=== PATIENT | male | born 1965 | race Caucasian/White ===

== ENCOUNTER 2020-03-09 09:46 | Outpatient (CLI) | payer BC, SELFPAY ==
--- NOTE | ~2020-03-09 | XR_ITS ---
EXAMINATION: SACRUM/COCCYX DATE: 03/09/2020 10:16 INDICATION: Tail bone pain TECHNIQUE: Three views sacrum/coccyx FINDINGS: 02/08/2004 There is no displaced fracture of the sacrum. The coccyx demonstrates overall normal morphology with out acute angulation. IMPRESSION: 1. No acute displaced osseous abnormality of the sacrum. Suspicion for occult or nondisplaced sacral fracture can either be evaluated with CT or MRI. 2. Grossly normal morphology to the coccyx without acute angulation. However, due to the wide range of normal variation of the coccyx, acute injury would be best evaluated by clinical examination and patient's symptoms. Reviewed, dictated and finalized at location A.
== END 2020-03-09 09:47 | disposition home or self-care (01) ==
PROVIDERS: PCP Emergency Medicine; Visit Provider Emergency Medicine
DX: M53.3 Sacrococcygeal disorders, not elsewhere classified (principal)
CPT/HCPCS: 72220

== ENCOUNTER 2020-03-17 16:12 | Outpatient (CLI) | payer BC, SELFPAY ==
--- NOTE | ~2020-03-17 | MR_ITS ---
EXAMINATION: MR sacrum wo con DATE: 03/17/2020 17:18 INDICATION: Sacrococcygeal disorders, not elsewhere classified. TECHNIQUE: Magnetic resonance imaging (MRI) of the sacrum was performed without intravenous contrast. Sequences included coronal oblique T1-weighted FSE, T2-weighted FS FSE, and T2-weighted FSE, axial o blique T2-weighted FS FSE and T1-weighted FSE, and sagittal PD-weighted FS FSE. COMPARISON: Radiographs of the sacrum and coccyx 03/09/2020 FINDINGS: Bone alignment is normal. No fracture. There is mild lumbar spondylosis. There is mild osteoarthritis of the sacroiliac joints characterized by tiny marginal osteophytes. No evidence of inflammatory art hropathy. There is diverticulosis of the colon without evidence of diverticulitis. IMPRESSION: 1. Mild osteoarthritis of the sacroiliac joints. Reviewed, dictated and finalized at location A.
== END 2020-03-17 16:13 | disposition home or self-care (01) ==
PROVIDERS: PCP Emergency Medicine; Visit Provider Emergency Medicine
DX: M53.3 Sacrococcygeal disorders, not elsewhere classified (principal)
CPT/HCPCS: 72195

== ENCOUNTER 2020-09-15 09:51 | Outpatient (CLI) | payer BC, SELFPAY ==
--- NOTE | ~2020-09-15 | XR_ITS ---
EXAMINATION: XR shoulder RT min 2V DATE: 09/15/2020 10:23 INDICATION: Right shoulder pain. Unspecified disorder of synovium and tendon, right shoulder. TECHNIQUE: were obtained. COMPARISON: None. FINDINGS: Bone alignment is normal. No fracture. Glenohumeral joint is normal. There is mild acromioc lavicular joint osteoarthritis. IMPRESSION: 1. Mild right acromioclavicular joint osteoarthritis. Reviewed, dictated and finalized at location B. 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
== END 2020-09-15 09:52 | disposition home or self-care (01) ==
LOC: ANHIMG 10:00
PROVIDERS: PCP Emergency Medicine; Visit Provider Emergency Medicine
DX: M67.911 Unspecified disorder of synovium and tendon, right shoulder (principal); M19.011 Primary osteoarthritis, right shoulder
CPT/HCPCS: 73030

== ENCOUNTER 2024-08-04 08:13 | Outpatient (CLI) | payer BC, SELFPAY ==
--- NOTE | ~2024-08-04 | CT_ITS ---
CT of the Abdomen and Pelvis: Indication: Abdominal pain Technique: 2.5 mm axial scans were obtained through the abdomen and pelvis following intravenous adm inistration of 100 cc of Omnipaque 350. Dose reduction technique was used on this scan by utilizing a utomated exposure control and iterative reconstruction technique. The dose-length product (DLP) was 7 59.40 mGy-cm. Findings: Scans through the lung bases are unremarkable. The liver, spleen, pancreas, gallbladder, adrenals and kidneys are within normal limits. No evidence of aortic aneurysm. No lymphadenopathy. Questionable bowel wall thickening distal rectum versus underdistention. No abscess, free air, or obs truction. Images through the pelvis were performed. Urinary bladder unremarkable. No pelvic mass evident. No as cites. Large probable complex right hydrocele with septations noted. Impression: Questionable mild wall thickening distal rectum/sigmoid colon versus underdistention. Correlate for m ild colitis/diverticulitis. Large probable complex right hydrocele with septations. Testicular ultrasound could be considered for further evaluation as indicated. Reviewed, dictated and finalized at location M. Impression: Questionable mild wall thickening distal rectum/sigmoid colon versus underdiste ntion. Correlate for mild colitis/diverticulitis. Large probable complex right hydrocele with septations. Testicular ultrasound c ould be considered for further evaluation as indicated.
[2024-08-04 08:33] LABS: Estimated Glomerular Filt Rate > 60
== END 2024-08-04 08:14 | disposition home or self-care (01) ==
PROVIDERS: PCP Physician Assistant; Visit Provider Physician Assistant
DX: R10.32 Left lower quadrant pain (principal); Z87.19 Personal history of other diseases of the digestive system
CPT/HCPCS: 74177; Q9967

== ENCOUNTER 2024-10-27 00:17 | Day surgery (SDC) | payer BC, SELFPAY ==
[2024-10-15 13:15] VITALS: BMI 23.0
--- NOTE | 2024-10-26 13:56 | P.PNAN_ITS ---
Anes - Initial Pre Proc Eval Procedure: Operation Date: 10/27/24 08:00 Proposed Procedures p Colonoscopy - Lars Gates MD Date/Time: 10/26/24 13:56 Surgeon: Lars Gates MD Pre Op Diagnosis: Diverticulosis of intestine Patient Data Age: 59 Gender: M Height: 1.8 m Weight: 74.9 kg Allergies Allergy/AdvReac Type Severity Reaction Status Date / Time No Known Allergies Allergy Mild Verified 10/27/24 06:48 Home Medications ?Medication ?Instructions ?Recorded ?Confirmed ?Type No Home Medications 10/15/24 10/15/24 History Patient hx anesthesia problems: none Family hx anesthesia problems: none Results Review: All pre-operative results and documents have been reviewed as part of the pre- operative evaluation. [facility] Past Medical History Medical History (Updated 10/26/24 @ 13:57 by Vick Albarran DO) HLD (hyperlipidemia) Diverticulosis Retina disorder Tear of meniscus of right knee (~2014) Surgical History Surgical History History of repair of ACL (~2015) H/O transurethral resection of prostate (~2019) Family History Family History Father , 89 Family history of malignant neoplasm of urinary bladder Alzheimer disease Sibling Family history of malignant neoplasm of urinary bladder Mother Cerebrovascular accident Glaucoma Macular degeneration Dementia Social History Social History Smoking status: Never smoker Second hand tobacco smoke exposure: No Alcohol intake: former 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) Substance use: never Substance use type: does not use Living arrangements: with family Occupation/Education: occupation 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 Informed Consent: The patient's anesthetic plan and its attendant risks and benefits were discussed with the patient/family/POA. Questions were solicited and answers provided to the satisfaction of the patient/family/POA.
[2024-10-27 06:49] VITALS: BP 114/73; PULSE 88; RESP 18; TEMP 36.1; O2SAT 100
[2024-10-27] MEDS: LACTATED RINGERS 1,000 ML 150 ML IV CONT (06:58)
--- NOTE | 2024-10-27 07:47 | P.HP_ITS ---
History of Present Illness History of Present Illness Consent: Risks, benefits, and alternatives have been discussed and questions answered. Patient agrees to proceed with procedure. Chief complaint: Diverticulosis of intestine Narrative: Vernon Vidales is a 59 year old male with diverticulitis earlier this year, last colonoscopy 2017 Review of Systems Review of Systems: All systems reviewed & are unremarkable except as noted in HPI and below PMFSH Past Medical History Medical History (Updated 10/27/24 @ 07:47 by Lars Gates MD) History of diverticulitis HLD (hyperlipidemia) Diverticulosis Retina disorder Tear of meniscus of right knee (~2014) Surgical History Surgical History History of repair of ACL (~2015) H/O transurethral resection of prostate (~2018) Family History Family History Father , 89 Family history of malignant neoplasm of urinary bladder Alzheimer disease Sibling Family history of malignant neoplasm of urinary bladder Mother Cerebrovascular accident Glaucoma Macular degeneration Dementia Social History Social History Smoking status: Never smoker Second hand tobacco smoke exposure: No Alcohol intake: former 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) Substance use: never Substance use type: does not use Living arrangements: with family Occupation/Education: occupation 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 Gender identity (if verbalized by the patient): Male Spiritual care concerns: No Meds Home Medications and Allergies Home Medications ?Medication ?Instructions ?Recorded ?Confirmed ?Type No Home Medications 10/15/24 10/15/24 History Allergies Allergy/AdvReac Type Severity Reaction Status Date / Time No Known Allergies Allergy Mild Verified 10/27/24 06:48 Vital Signs Vital Signs - 24 hr 10/27/24 06:49 Temperature 97 F L Pulse Rate 88 Respiratory Rate 18 Blood Pressure 114/73 Pulse Oximetry 100 Oxygen Delivery Room Air Exam Const: General: comfortable and no acute distress HENMT: Face/Nose/Sinus: Normal nares present Eyes: General: appearance normal, both eyes and all related structures Neck: Neck: no JVD Resp: Auscultation: clear to auscultation bilaterally Cardio: Rate: regular rate Rhythm: regular rhythm GI: Inspection: non-distended GI Palp: Yes Soft to palpation Skin: General skin exam: normal color Neuro: General: gait normal Speech: normal speech Extrem: General: normal to inspection Psych: Mental Status: mental status grossly normal Assessment and Plan Assessment and plan (1) History of diverticulitis: Code(s): Z87.19 - Personal history of other diseases of the digestive system Status: Acute Assessment and Plan: colonoscopy
[2024-10-27 08:00] VITALS: BP 99/62; PULSE 77; RESP 18; O2SAT 99
[2024-10-27 08:10] VITALS: BP 98/66; PULSE 80; RESP 23; O2SAT 100
[2024-10-27 08:20] VITALS: BP 110/76; PULSE 67; RESP 17; O2SAT 100
--- OUTSIDE RECORDS SUMMARY | 2024-11-03 01:59 | XMS_ITS | Encounter Summary ---
Author Organization [facility] Address [address] [place] [address] Care Team Providers Care Mechanotherapist Name Role Phone Karen Tejeda Primary Care Pr ovider Reason for Visit * Auth/Cert (Routine) Specialty Diagnoses / Procedures Referred By Contac t Referred To Contact Diagnoses Right hydrocele Epididymal cyst Right hydrocele - Primary; Epididymal cyst Procedures KS EXPLORE SCROTUM KS REMOVAL OF HYDROCELE,TUNICA,UNILAT EXPLORATION SCROTAL/TESTIS HYDROCELECTOMY Referral ID Status Reason Start Date Expiration Date Visits Re quested Visits Authorized [id number] 1 1 Encounter Details Date Type Department Care Team (Late st Contact Info) Description 09/16/2024 4:43 PM RN TELEPHONE TRIAGE Anesthesia Event [facility] [address] [place] [address] Raffi Salas DO [address] [place] [address] Lauren Gomez, SEWING MACHINE OPERATOR FLOORPERSON-[facility] [id number] [facility] [place] [address] Anesthesia Record Procedure Summary Procedure Name Responsible Anesthesiologist Anesthesia Start Time Anesthesia Stop Time right scrotal exploration (Right) Raffi Salas DO 09/16/24 1643 09/16/24 1802 Events Date Time Event Comment 09/16/2024 1621 1643 An Start 1645 Pt In Room 1646 An Start Data 1648 PT Reassessment 1653 Induction 1656 An Intubation 1700 Anes Ready 1707 Time Out Anesthesia part icipated in timeout at the time documented in the record by nursing 1708 Proc Start 1752 Proc Stop 1753 An Emergence 1757 Extubation 1800 ANPTO2 1800 an stop data 1800 Pt out of Room 1802 An Stop Meds Name Total ceFAZolin 2,000 mg IVPB 2 g midazolam 2 mg/2mL injection 2 mg fentaNYL 100 mcg/2ml injection 100 mcg lidocaine PF 2% 100 mg propofol 200mg/20mL injection 200 mg rocuronium 50 mg/5 mL injection 50 mg dexamethasone 10 mg/ml PF injection 4 mg ondansetron 4mg/2mL injection 4 mg ketorolac 30 mg/mL injection 30 mg sugammadex 200 mg/2mL injection 200 mg phenylephrine 100 mcg/mL syringe 200 mcg glycopyrrolate 0.4 mg/2mL injection 0.4 mg LR (Lactated ringers) 0 mL * Agents Name Insp. N2O Exp. Sevoflurane Exp. N2O O2 Insp. Sevoflurane N2O * Blood No blood administrations on file. Lines, Drains, and Airways Type Details Placement Removal Peripheral IV Date: 09/16/24; Time : 134; Orientation: Right; Location: Wrist; Gauge: 18 G 09/16/24 1349 by More Roman RN 09/16/24 193 by Samir Herzog, MAGDA ETT Date: 09/16/24; Time : 1655; Placed By: Shen Melgar DO; Vent: easy mask; Induction: Standard IV; Blade Type: Roney; Blade Size: 4; Laryngoscopy View: Grade 1 (full cords); Intubation Adjuncts: Stylet, Cricoid Pressure; Tube: Endotracheal Tube; Placement: Oral; Tube Type: Cuffed-inflated; Tube Size(mm): 8 MM; Measured From: lips; Attempts: 1; Cuff Infated: Air; Verified By: Direct visualization, Bilateral breath sounds, Chest Auscultation, CO2 Monitor 09/16/24 165 by Shen Melgar DO 09/16/24 175 by Shen Melgar DO Procedural Site (Incision) 09/16/24; 1708; Right; Scrotum; 09/17/24; 0137 09/16/24 170 by Kelly Jama, MAGDA 09/17/24 0137 by Generic, Auto Release documented in this encounter Social History Tobacco Use Types Packs/Day Years Used Date Smoking Tobacco: Never Smokeless Tobacco: Never Alcohol Use Standard Drinks/Week Comments Not Currently 0 (1 standard drink = 0.6 oz pur e alcohol) 15 years sober AUDIT-C Answer Date Recorded Q1: How often do you have a drink containing alcohol? Never 09/16/2024 Q2: How many drinks containi ng alcohol do you have on a typical day when you are drinking? Patient does not drink Q3: How often do you have si x or more drinks on one occasion? Never 09/16/2024 Sex and Gender Information Value Date Recorded Sex Assigned at Male 10/18/2021 10:49 PM RN TELEPHONE TRIAGE Gender Identity Male 10/18/2021 10:49 PM RN TELEPHONE TRIAGE Sexual Orientation Straight 10/18/2021 10 :49 PM RN TELEPHONE TRIAGE documented as of this encounter Progress Notes * Raffi Salas, - 09/16/2024 7:38 PM CST ANESTHESIA POSTOP EVALUATION NOTE Procedure: right scrotal exploration (Right) hydrocelectomy with epidydimal cyst excision (Right) Vernon Vidales is a 59 year old male Patient Vitals for the past 6 hrs: BP Temp Pulse Resp SpO2 Pain Rating Score #1 Pain Scale/Observation Pulse - (SPO2/Cuff) 09/16/24 1348 127/77 98.5 ??F (36.9 ??C) 63 12 99 % 0 N 63 bpm 09/16/24 1600 143/84 -- 68 16 99 % -- -- 69 bpm 09/16/24 1613 -- -- -- -- -- 0 N -- 09/16/24 1615 136/90 -- 77 18 98 % -- -- 77 bpm 09/16/24 1803 125/66 97.4 ??F (36.3 ??C) 86 12 99 % 4 N -- 09/16/24 1805 124/86 -- 84 10 100 % -- -- -- 09/16/24 1808 134/85 -- 81 12 100 % -- -- -- 09/16/24 1810 134/85 -- 81 11 100 % -- -- -- 09/16/24 1815 141/91 -- 77 12 100 % 6 N -- 09/16/24 1818 -- -- -- -- -- 6 -- -- 09/16/24 1820 130/82 -- 78 14 99 % -- -- -- 09/16/24 1825 133/72 -- 79 12 97 % -- -- -- 09/16/24 1830 147/94 -- 80 14 99 % -- -- -- 09/16/24 1835 149/93 97.3 ??F (36.3 ??C) 76 12 98 % 2 N -- 09/16/24 1839 140/86 -- 83 13 -- -- -- -- 09/16/24 1845 132/88 97.6 ??F (36.4 ??C) 79 18 -- -- -- -- 09/16/24 1900 143/89 -- 78 10 -- -- -- -- 09/16/24 1906 -- -- -- -- -- 3 N -- 09/16/24 1915 144/93 -- 80 17 -- -- -- -- 09/16/24 1930 -- -- -- -- -- 2 N -- Anesthesia Type: general ETT Pre-op Diagnosis Codes: * Right hydrocele [N43.3] * Epididymal cyst [N50.3] Mental Status: awake, alert and oriented Neuro Status: No numbness, tingling or visual disturbances Respiratory Function: natural Cardiac Function: stable Postop Pain: acceptable to the patient Postop Hydration: adequate Postop Nausea: none Assessment: no apparent anesthetic complications, patient tolerated procedure well and no evidence of recall Patient Disposition: Release from Anesthesia Care NOTABLE EVENTS: No notable events documented. TELEPHONE TRIAGE * Raffi Salas DO - 06/23/2024 12:39 PM CDT ANESTHESIA PREOPERATIVE EVALUATION NOTE Procedure: right scrotal exploration (Right) possible hydrocelectomy with epidydimal cyst excision (Right) Vitals: Patient Vitals for the past 6 hrs: BP Temp Pulse Resp SpO2 06/23/24 1229 119/59 97.4 ??F (36.3 ??C) 61 18 99 % ANESTHESIA PRE-EVALUATION NOTE History of Present Illness: Vernon Vidales is a 59 year old with a PMHx of Seasonal allergic rhinitis, Alcoholism (not currently), IBS, Diverticulitis, LUTS, Right hydrocele and Epididymal cyst.The hydrocele has been present since ~6mo post-vasectomy in 1997. He is scheduled for a right scrotal exploration (Right) possible hydrocelectomy with epidydimal cyst excision (Right) with Dr. Aguilera. BPH s/p TURP in 2019 Patient seen / chart reviewed / no ETOH for 15 years The patient is a current non-smoker. Physical Exam: Orientation X3 Airway/Mallampati Score: I Mouth Opening Distance: 3.5 fingerwidths Neck ROM: full TM Distance: > 3 FB Teeth: normal Heart: regular rate rhythm Lungs: normal Abdomen Exam: normal Physical Exam Additional Comments: He can walk 3-4 block without cp or sob Right scotal mass Review of Systems: History of anesthetic complications: No Sleep Apnea Risk: No Malignant Hyperthermia: No GERD: No Poor Exercise Tolerance: No Recent Chest Pain: No Shortness of Breath: No AICD/Pacemaker: No Renal Disease: No Diagnostic Tests: Lab(s) reviewed: Yes (06/23/2024). Other Findings: 06/22/2024 US Scrotum IMPRESSION: 1.No focal testicular lesions seen. Testicular arterial flow visualized bilaterally. 2.Large right-sided complex cystic structures with multiple thick septations and floating debris appears similar overall when compared to prior study from 2011. 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 3.Small left hydrocele. 4.Epididymal enlargement, right greater than left, appears similar overall in size compared to 2012 study and also likely sequela of vasectomy. Start of PAT Evaluation: - if BP is poorly controlled (eg SBP >180 or DBP >110) then contact Dr. Cast or AIC - if patient taking JACOB-I or ARB or Entresto then hold ONLY AM dose on DOS unless severe CHF or poorly controlled HTN This evaluation was based on PAT clinic visit I. Perioperative Cardiac Risk Index Stratification based on 2014 ACC/AHA Guidelines for patients undergoing noncardiac surgery Perioperative risk of a Major Adverse Cardiac Event (MACE) during hospitalization. Add one point (0-6) for each positive RCRI (Revised Cardiac Risk Indicator) 1. Is the Surgical Procedure High-Risk? NO 2. History of Ischemic Heart Disease? NO If yes then paste summary of most recent cath / stress tests under Other Additional Findings/Comments section above: 3. History of CHF? no If yes then paste summary of most recent TTE / MALIA under Other Additional Findings/Comments sectionabove: Murmur? no if yes and without recent echocardiogram then may need TTE contact Dr. Cast or PATEL 4. History of Cerebrovascular Disease? Prior TIA or stroke no If yes then paste summary of most any relevant neurovascular imaging or carotid duplex results under Other Additional Findings/Comments section above: Carotid bruit? no if yes AND h/o CVA/ TIA then may need carotid duplex - contact Dr. Cast or PATEL 5. Insulin-Dependent Diabetes? no No results for input(s): HGBA1C , A1C , [id number] , EAG inthe last 71828 hours. Insulin pump? no if yes then patient was instructed to continue at 75% basal rate on DOS, AND 1164 placed? no If insulin pump then need to document insulin type unknown If insulin type is not known then pump MUST be turned off for DOS Long acting insulin: glargine (Lantus,Toujeo, Basaglar), detemir (Lemenir), degludec (Tresiba) NO 6. Preoperative Creatinine > 2 mg/dl? no Recent Labs Component Name 06/23/24 1313 01/16/21 1227 08/27/19 0644 SODIUM - 139 143 POTASSIUM 4.7* 4.2 4.0 CHLORIDE - 101 106 CO2 28 30 30 BUN 8 13 18 CREATININE 0.78 0.80 0.79 EGFR >90 99 100 GLUCOSE 93 104* 100* CALCIUM 9.4 9.4 9.1 Recent Labs Component Name 06/23/24 1313 01/16/21 1227 08/27/19 0644 WBC 5.0 4.4 5.1 HGB 14.1 15.3 14.7 HCT 41.1 43.6 44.4 PLTCOUNT 231 215 233 Total RCRI / MACE score 0 Points >= 0.4% Functional capacity > 4 METS? yes If MACE < 1%, no further testing required. Proceed to surgery. Patient is at low risk of MACE. If MACE > 1% Elevated risk. Need to assess the patient's functional capacity. 4 METs = Can walk up a flight of steps or a hill or walk on level ground at 3 mph If > 4 METs. Proceed to surgery unless further workup needed If < 4 METs or unknown functional capacity then discuss with attending, as further workup may beindicated. II. Consults: NO Copy and paste relevant results and follow ups III. CIEDs: Does patient have a CIED (cardiovascular implantable electronic device eg: PM, AICD)? no If yes then copy and paste interrogation report here. Timing of interrogation should be within 1 year for PM and Within 6 months for AICD [place] Information needed (fibre optic cable splicer, mode, indication for CIED, battery life, magnet function): Call [phone] with all patients with CIEDs: IV. Anticoagulants: Are they receiving antiplatelet/anticoagulant medications (besides ASA)? What is the periop plan? NO No results for input(s): APT , INR , PTT in the last 10131 hours.6 V. Previous blood transfusion? no If potential for large EBL: then obtain 1st T&S in PAT clinic (unless previously done and no transfusions since). Order repeat T&S (aka re-type) for DOS :If chart review only and h/o previous transfusions without recent T&S, then need to come in for T&S as above and order retype for DOS Patients with previous transfusions may have developed alloantibodies to donor RBC surface antigens, which may cause hemolytic or delayed hemolytic transfusion reactions upon subsequent exposure to donor PRBCs. Patients with chemotherapy agents: Daratumunab, Isatuximab, or Magrolimab may develop pseudoantibodies that may mask underlying HLA antibodies and will need a send out T&S if positive . Known GOLDIE or STOP-BANG> 5: no Snoring, Tired, Observed apnea, high blood Pressure, BMI>35, Age>50, Neck circumference>18 If yes then: update Epic problem list to include: GOLDIE If patient has already diagnosed GOLDIE and is being admitted then initiate order set: GOLDIE --> Pul Inpatient Sleep Apnea Standing orders (order set 4525) 1. Also click Home CPAP for hospital use if applicable. 2. Select Phase of Care under options tab in upper right corner. 3. Choose post-op and sign (not sign and hold) phase of care and select the scheduled procedure. Remind patient to bring home unit if staying overnight. If pt has STOP-BANG >=5 with undiagnosed GOLDIE and is being admitted then order: IP Consult to [employer] (comment regarding consult for undiagnosed GOLDIE) - Follow steps 2 and 3 above If pt has STOP-BANG >=5 with undiagnosed GOLDIE and is outpatient and interested in setting up a sleep study then: - send [employer] message to [facility] and cc Dr. Cast Patient was educated about the potential implications of GOLDIE on their perioperative course and recommendations for follow-up care were addressed - including inpatient consult(s) as above? no VII. Known or suspected difficult airway no and complete previous airway management section above If yes then: update [employer] problem list to include: difficult airway and call Dr. Cast or AIC VIII. Frailty screen: No data recorded IX. Suboxone (Buprenorphine / Naloxone) therapy? N/A X. GLP-1 Agonists No XI. Most recent EKG: EKG needed within 3-6 months if: (ASA >= 3 OR any RCRI) AND non-low risk procedure No results found for this or any previous visit. XII. Additional testing needed within 3 months prior to DOS (if possible, else on DOS): - CBC w/o Diff if ASA >= 3 OR expected blood loss >250 OR previously abnormal - BMP is ASA >= 3 OR taking diuretics, K+ supplements, JACOB-I, ARBs OR any RCRI - CMP (instead of BMP) for patient with chronic liver disease or previously abnormal - PT/ PTT/ INR if recent use of anticoagulants OR scheduled for major vascular procedures includingaortic and carotid stents / aneurysm coiling / TIPS Additional testing needed on DOS : - EPOC blood glucose for patients w/ DM - EPOC whole blood K+ for patient with ESRD or poorly controlled K+ Labs ordered today none Labs/tests ordered for or in need of review on DOS: none Summary: Vernon Vidales is a 59 year old male presenting for right scrotal exploration (Right) possible hydrocelectomy with epidydimal cyst excision (Right). They have an ASA score of 2 and a RCRI / MACE score of 0 Points >= 0.4% Follow up results - have ALL the above ordered labs and vital signs been reviewed? YES - results are grossly WNL for this patient They ARE OPTIMIZED - PAT EVALUATION COMPLETE Maxine Ferro APRN-YESENIA 06/23/2024 4:39 PM for this procedure. ' 09/14/24 ADDENDUM Pt seen in PAT clinic 06/23/24. Surgery date changed. No changes in patient's medical history per RNtelephone assessment. Lauren Gomez APRN-YESENIA Vital signs updated in chart AND right click to make editable? yes Preoperative plan was not discussed w/ PAT attending. To be discussed DOS in ACU. XIII. Home meds No current outpatient medications on file prior to encounter. No current facility-administered medications on file prior to encounter. XIV. Allergies Allergies Allergen Reactions Seasonal Other rhinitis End of PAT Evaluation: ANESTHESIA PLAN ASA Score: 2 NPO Status: No liquids within 2 hours Anesthesia Plan: general ETT Planned Induction: intravenous Planned Postop Destination: PACU Anesthetic plan was discussed with: patient Anesthetic Plan discussion was: Consented Use of blood products were discussed with: patient Use of blood product discussion was: Consented The patient's procedural Anesthetic Plan was discussed with the resident, ACUTE CARE PHYSICAL THERAPIST and anesthesiologistassistant. BMI, Height, Weight Tobacco History Estimated body mass index is 22.94 kg/m?? as calculated from the following: Height as of this encounter: 1.803 m (5' 11 ). Weight as of this encounter: 74.6 kg (164 lb 8 oz). Social History Tobacco Use Smoking Status Never Smokeless Tobacco Never Alcohol History Drug History Social History Substance and Sexual Activity Alcohol Use No Social History Substance and Sexual Activity Drug Use No Outpatient Medications: Inpatient Medications: No outpatient medications have been marked as taking for the 06/23/24 encounter (Hospital Encounter)with [facility] PAT ROOM 1. No current facility-administered medications for this encounter. Allergies: Allergies Allergen Reactions Seasonal Other rhinitis Relevant Problems Problem List: Patient Active Problem List Diagnosis Date Noted Overactive bladder 12/10/2017 Enlarged prostate with lower urinary tract symptoms (LUTS) 05/29/2017 ICD-10 update Poor urinary stream 05/29/2017 ICD-10 update Medical History: Past Medical History: Diagnosis Date Alcoholism (HCC) Diverticulitis Irritable bowel syndrome (IBS) Other seasonal allergic rhinitis Surgical History: Past Surgical History: Procedure Laterality Date CYSTOSCOPY 09/10/2019 CYSTOSCOPY OTHER SURGERY ACL right knee Transurethral Resection Prostate (TURP) 09/10/2019 MINI TRANSURETHRAL RESECTION PROSTATE Vasectomy 2000 Lab Results: Recent Labs Component Name 06/23/24 1313 WBC 5.0 HGB 14.1 HCT 41.1 PLTCOUNT 231 Recent Labs Component Name 06/23/24 1313 NA 141 POTASSIUM 4.7* CO2 28 BUN 8 CREATININE 0.78 Recent Labs Component Name 06/23/24 1313 GLUCOSE 93 CALCIUM 9.4 ALT 12 AST 13 Invalid input(s): PREGTESTUR TELEPHONE TRIAGE documented in this encounter Procedure Notes * Shen Melgar DO - 09/16/2024 5:08 PM CSTAssociated Order(s): ETT Placement Endotracheal Tube Placement: Patient Location: OR. Intubation Event Date/Time: 09/16/2024 4:56 PM Procedure: intubation (53178) Procedure Section: Sedation: under general anesthesia. Indications for Airway Management: anesthesia Induction: standard IV Patient Position: sniffing Mask Ventilation: easy. Blade Type: Roney Blade Size: 4 Laryngoscopy View: grade 1 (full cords) Intubation Adjuncts: cricoid pressure and stylet Tube: endotracheal tube Placement: oral Tube type: cuff - inflated Tube Size (MM): 8 Measured From: lips Cuff Inflated With: air Number of Attempts: 1. Placement Verified By: direct visualization, bilateral breath sounds, chest auscultation and CO2 monitor Tube secured with: adhesive tape. Dentition unchanged? Yes Difficult Airway? No. Procedure Start Time: 09/16/2024 4:56 PM. Staff Section Anesthesia Provider: Shen Melgar DO, Performed the procedure Provider #1: Raffi Salas DO. TELEPHONE TRIAGE documented in this encounter Miscellaneous Notes * Anesthesia Transfer of Care - Shen Melgar DO - 09/16/2024 6:06 PM RN TELEPHONE TRIAGE ANESTHESIA TRANSFER OF CARE NOTE Today's Date: 09/16/2024 Date of : 1965 Patient: Vernon Vidales Procedure(s): right scrotal exploration hydrocelectomy with epidydimal cyst excision Surgeon(s): Primary: Soraya Aguilera DO Preop Diagnosis: Pre-op Diagnois: * Right hydrocele [N43.3] * Epididymal cyst [N50.3] Pre-op Meds (From admission, onward) Start Stop Status Route Frequency Ordered 09/16/24 1315 acetaminophen (Tylenol) tablet 1,000 mg 09/16/24 1352 Completed PO PRE-OP ONCE 09/16/24 1312 09/16/24 1800 albuterol-ipratropium (Duo-Neb) nebulizer solution 3 mL 09/16/25 1759 Sent IN POST-OP MULTIPLE 09/16/24 1800 09/16/24 1315 ceFAZolin (Ancef) 2 g in sterile water (PF) 20 mL syringe 09/17/24 0114 Verified IV INTRA-OP ONCE 09/16/24 1312 09/16/24 1800 diphenhydrAMINE (Benadryl) injection 25 mg -- Sent IV ONCE PRN 09/16/24 1800 09/16/24 1800 diphenhydrAMINE (Benadryl) injection 25 mg -- Sent IV POST-OP MULTIPLE 09/16/24 1800 09/16/24 1800 fentaNYL (PF) (Sublimaze) injection 25 mcg -- Sent IV EVERY 5 MIN PRN 09/16/24 1800 09/16/24 1800 fentaNYL (PF) (Sublimaze) injection 50 mcg -- Sent IV EVERY 5 MIN PRN 09/16/24 1800 09/16/24 1800 hydrALAZINE (Apresoline) injection 5 mg -- Sent IV POST-OP MULTIPLE 09/16/24 1800 09/16/24 1800 HYDROmorphone (Dilaudid) injection 0.5 mg -- Sent IV EVERY 10 MIN PRN 09/16/24 1800 09/16/24 1800 labetalol (Normodyne; Trandate) injection 5 mg -- Sent IV POST-OP MULTIPLE 09/16/24 1800 09/16/24 1315 lactated ringers infusion -- Dispensed IV PRE-OP CONTINUOUS 09/16/24 1312 09/16/24 1815 lactated ringers infusion 09/16/25 1814 Sent IV CONTINUOUS 09/16/24 1800 09/16/24 1800 naloxone (Narcan) injection 0.04 mg -- Sent IV POST-OP MULTIPLE 09/16/24 1800 09/16/24 1800 ondansetron (Zofran) injection 4 mg -- Sent IV ONCE PRN 09/16/24 1800 09/16/24 1800 prochlorperazine (Compazine) injection 10 mg -- Sent IV ONCE PRN 09/16/24 1800 Post-op Diagnosis: * Right hydrocele [N43.3] * Epididymal cyst [N50.3] . Allergies Allergen Reactions Seasonal Other rhinitis Vitals: Patient Vitals for the past 3 hrs: BP Pulse Resp SpO2 Pain Rating Score #1 09/16/24 161 136/90 77 18 98 % -- 09/16/24 161 -- -- -- -- 0 09/16/24 1600 143/84 68 16 99 % -- Lines, Drains, and Airways Type Details Placement Removal Peripheral IV Date: 09/16/24; Time: 134; Orientation: Right; Location: Wrist; Gauge: 18 G 349 by More Roman RN ETT Date: 09/16/24; Time: 1655; Placed By: Shen Melgar DO; Vent: easy mask; Induction: Standard IV; Blade Type: Roney; Blade Size: 4; Laryngoscopy View: Grade 1 (full cords); Intubation Adjuncts: Stylet, Cricoid Pressure; Tube: Endotracheal Tube; Placement: Oral; Tube Type: Cuffed-inflated; Tube Size(mm): 8 MM; Measured From: lips; Attempts: 1; Cuff Infated: Air; Verified By: Direct visualization, Bilateral breath sounds, Chest Auscultation, CO2 Monitor 09/16/241655 by Shen Melgar DO 09/16/241756 by Shen Melgar DO Intraprocedure I/O Totals None Patient Transfer Location: PACU Transport Airway: spontaneous respirations and supplemental O2 Transport Monitoring: heart rate and continuous pulse oximetry Notable Events: None Handoff Given? Yes Checklist or Protocol - The dimas handoff elements that must be included in the transfer of care checklist include: 1. Identification of patient. 2. Identification of responsible practitioner (PACU nurse or advanced practitioner). 3. Discussion of pertinent medical history. 4. Discussion of the surgical/procedure course (procedure, reason for surgery, procedure performed). 5. Intraoperative anesthetic management and issue/concerns. 6. Expectations/Plans for the early post-procedure period. 7. Opportunity for questions and acknowledgement of understanding of report from the receiving PACUteam. NOTABLE EVENTS: No notable events documented. Shen Melgar DO TELEPHONE TRIAGE documented in this encounter Plan of Treatment Upcoming Encounters Date Type Department Care Team (Late st Contact Info) Description 11/17/2024 4:00 PM RN TELEPHONE TRIAGE Appointment [facility] Imaging Services - Ultrasound [address] [place] [address] Soraya Aguilera DO [address] [facility] [address] [place] [id number] 11/19/2024 1:45 PM RN TELEPHONE TRIAGE Office Visit [facility] - Urology [address] [place] [phone] Soraya Aguilera DO [address] [facility] [address] [place] [phone] 04/14/2025 10:00 AM CDT Office Visit [facility] - Urology [address] [facility] [place] [id number] Soraya Aguilera DO [address] [facility] [address] [place] [phone] documented as of this encounter Procedures Procedure Name Priority Date/Time Associated Diagnosis Comments ENDOTRACHEAL TUBE NOTE Routine 09/16/2024 5:08 PM RN TELEPHONE TRIAGE documented in this encounter Results * ETT LINE PERFORMABLE (09/16/2024 5:08 PM RN TELEPHONE TRIAGE) Narrative Shen Melgar DO - 09/16/2024 5:08 PM RN TELEPHONE TRIAGE Shen Melgar DO ? 09/16/2024 ??5:08 PM Endotracheal Tube Placement: ? Patient Location: OR. Intubation Event Date/Time: ??09/16/2024 4:56 PM Procedure: intubation ([id number]) Procedure Section: ?? Sedation: under general anesthesia. Indications for Airway Management: ??anesthesia Induction: standard IV Patient Position: ??sniffing Mask Ventilation: easy. Blade Type: Roney Blade Size: 4 Laryngoscopy View: grade 1 (full cords) Intubation Adjuncts: cricoid pressure and stylet Tube: endotracheal tube Placement: oral Tube type: cuff - inflated Tube Size (MM): 8 Measured From: lips Cuff Inflated With: air Number of Attempts: 1. Placement Verified By: direct visualization, bilateral breath sounds, chest auscultation and CO2 monitor Tube secured with: ??adhesive tape. Dentition unchanged? ??Yes Difficult Airway? ??No. Procedure Start Time: 09/16/2024 4:56 PM. Staff Section ? Anesthesia Provider: Shen Melgar DO, Performed the procedure ? Provider #1: Raffi Salas DO. Raffi Dowling DO GENERAL ANESTHESI A ORDERABLES documented in this encounter Visit Diagnoses Not on filedocumented in this encounter Administered Medications Inactive Administered Medications - up to 3 most recent administrations Medication Order MAR Action Action Date Dose Rate Site ceFAZolin (Ancef) 2,000 mg in 50 mL IVPB Intravenous, PRN, Starting on Sat09/16/24 at 1704, Until Sat09/16/24 at 1806, Anesthesia Intra-op $ Given 09/16/2024 5:04 PM RN TELEPHONE TRIAGE 2 g dexAMETHasone Sod Phosphate PF injection Intravenous, PRN, Starting on Sat09/16/24 at 1706, Until Sat09/16/24 at 1806, Anesthesia Intra-op $ Given 09/16/2024 5:06 PM RN TELEPHONE TRIAGE 4 mg fentaNYL (PF) (Sublimaze) injection Intravenous, PRN, Starting on Sat09/16/24 at 1655, Until Sat09/16/24 at 1806, Anesthesia Intra-op $ Given 09/16/2024 5:12 PM RN TELEPHONE TRIAGE 50 mcg $ Given 09/16/2024 4:55 PM RN TELEPHONE TRIAGE 50 mcg glycopyrrolate (Robinul) injection Intravenous, PRN, Starting on Sat09/16/24 at 1729, Until Sat09/16/24 at 1806, Anesthesia Intra-op $ Given 09/16/2024 5:29 PM RN TELEPHONE TRIAGE 0.4 mg ketorolac (Toradol) injection Intravenous, PRN, Starting on Sat09/16/24 at 1735, Until Sat09/16/24 at 1806, Anesthesia Intra-op $ Given 09/16/2024 5:35 PM RN TELEPHONE TRIAGE 30 mg lactated ringers infusion Intravenous, CONTINUOUS PRN, Starting on Sat09/16/24 at 1643, Until Sat09/16/24 at 1806, Anesthesia Intra-op $ New Bag/Syringe 09/16/2024 4:43 PM RN TELEPHONE TRIAGE lidocaine HCl (PF) (Xylocaine MPF) 2 % injection Intravenous, PRN, Starting on Sat09/16/24 at 1653, Until Sat09/16/24 at 1806, Anesthesia Intra-op $ Given 09/16/2024 4:53 PM RN TELEPHONE TRIAGE 100 mg midazolam (Versed) injection Intravenous, PRN, Starting on Sat09/16/24 at 1645, Until Sat09/16/24 at 1806, Anesthesia Intra-op $ Given 09/16/2024 4:45 PM RN TELEPHONE TRIAGE 2 mg ondansetron (Zofran) injection Intravenous, PRN, Starting on Sat09/16/24 at 1734, Until Sat09/16/24 at 1806, Anesthesia Intra-op $ Given 09/16/2024 5:34 PM RN TELEPHONE TRIAGE 4 mg phenylephrine 100 mcg/mL injection Intravenous, PRN, Starting on Sat09/16/24 at 1716, Until Sat09/16/24 at 1806, Anesthesia Intra-op $ Given 09/16/2024 5:26 PM RN TELEPHONE TRIAGE 100 mcg $ Given 09/16/2024 5:16 PM RN TELEPHONE TRIAGE 100 mcg propofol (Diprivan) injection Intravenous, PRN, Starting on Sat09/16/24 at 1653, Until Sat09/16/24 at 1806, Anesthesia Intra-op $ Given 09/16/2024 4:55 PM RN TELEPHONE TRIAGE 50 mg $ Given 09/16/2024 4:53 PM RN TELEPHONE TRIAGE 150 mg rocuronium (Zemuron) injection Intravenous, PRN, Starting on Sat09/16/24 at 1654, Until Sat09/16/24 at 1806, Anesthesia Intra-op $ Given 09/16/2024 4:54 PM RN TELEPHONE TRIAGE 50 mg sugammadex (Bridion) injection Intravenous, PRN, Starting on Sat09/16/24 at 1738, Until Sat09/16/24 at 1806, Anesthesia Intra-op $ Given 09/16/2024 5:38 PM RN TELEPHONE TRIAGE 200 mg documented in this encounter Care Teams Mechanotherapist Relationship Specialty Start Date End Date Karen Tejeda PA [address] [place] [address] PCP - General Physician Pinion And Wheel Truer 06/23/24 documented as of this encounter
--- OUTSIDE RECORDS SUMMARY | 2024-11-03 01:59 | XMS_ITS | Encounter Summary ---
Author Organization [facility] Address [address] 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 Name Role Phone Jas Zheng MD Primary Care Provider [phone] Encounter Details Date Type Department Care Team (Latest Contact Info) Description 01/24/2024 Travel Social History Tobacco Use Types Packs/Day Years Used Date Smoking Tobacco: Never Smokeless Tobacco: Never Alcohol Use Standard Drinks/Week Comments No 0 (1 standard drink = 0.6 oz pur e alcohol) Sex and Gender Information Value Date Recorded Sex Assigned at Male 10/18/2021 10:49 PM RELOCATION COORDINATOR Gender Identity Male 10/18/2021 10:49 PM RELOCATION COORDINATOR Sexual Orientation Straight 10/18/2021 10 :49 PM RELOCATION COORDINATOR documented as of this encounter Plan of Treatment Upcoming Encounters Date Type Department Care Team (Late st Contact Info) Description 11/17/2024 4:00 PM RELOCATION COORDINATOR Appointment [facility] Imaging Services - Ultrasound [address] [place] [address] Soraya Aguilera DO [address] [place] [id number] 11/19/2024 1:45 PM RELOCATION COORDINATOR Office Visit [facility] - Urology [address] [place] [phone] Soraya Aguilera DO [address] [place] [phone] 04/14/2025 10:00 AM CDT Office Visit [facility] - Urology [address] [place] [phone] Soraya Aguilera M, DO [address] [place] [address] documented as of this encounter Visit Diagnoses Not on filedocumented in this encounter Care Teams Turning And Beading Machine Operator Relationship Specialty Start Date End Date Jas Zheng MD [address] [place] [address] [address] [place] [address] PCP - General 04/12/20 06/22/24 documented as of this encounter
--- OUTSIDE RECORDS SUMMARY | 2024-11-03 01:59 | XMS_ITS | Encounter Summary ---
Author Organization [facility] [employer] Address [address] [facility] [place] [address] Care Team Providers Care Food Services Director Name Role Phone Karen Tejeda Primary Care Pr ovider Reason for Visit * Auth/Cert (Routine) Specialty Diagnoses / Procedures Referred By Contac t Referred To Contact Diagnoses Right hydrocele Epididymal cyst Right hydrocele - Primary; Epididymal cyst Procedures NM EXPLORE SCROTUM NM REMOVAL OF HYDROCELE,TUNICA,UNILAT EXPLORATION SCROTAL/TESTIS HYDROCELECTOMY Referral ID Status Reason Start Date Expiration Date Visits Re quested Visits Authorized [id number] 1 1 Encounter Details Date Type Department Care Team (Late st Contact Info) Description 09/16/2024 4:35 PM CHEMISTRY PROFESSOR - 09/16/2024 6:35 PM CHEMISTRY PROFESSOR Surgery [facility] [address] [place] [address] Soraya Stockton DO [address] [facility] 2L [place] [id number] right scrotal exploration Surgery Details Date/Time Status Location OR Service Patient Class Case Class Case Type Trauma Case? 09/16/2024 4:35 PM Posted [facility] OR OR Urology Surgery Day Care Elective > 5 days Panel 1 Procedure LRB Anes Op Region Wound Class Comments right scrotal exploration Right General Geeta n Contaminated hydrocelectomy with epidydim al cyst excision Right General Clean Contaminated Surgeon Surgeon Role Service Panel Soraya Stockton DO Primary Urology 1 Case Notes Scrotal Ultrasound: 06/23/2024 @1430@[facility] ? Therese Welch [phone] Opt. 3 ext [phone] Special Needs Reviewed 09/16 documented in this encounter Social History Tobacco [...] Sex Assigned at Male 10/18/2021 10:49 PM CHEMISTRY PROFESSOR Gender Identity Male 10/18/2021 10:49 PM CHEMISTRY PROFESSOR Sexual Orientation Straight 10/18/2021 10 :49 PM CHEMISTRY PROFESSOR documented as of this encounter Last Filed Vital Signs Vital Sign Reading Time Taken Comments Blood Pressure 149/93 09/16/2024 6:35 PM CHEMISTRY PROFESSOR Simultaneous filing. User may not have seen previous data. Pulse 76 09/16/2024 6:35 PM CHEMISTRY PROFESSOR Simultaneous filing. User may not have seen previous data. Temperature 36.3 ??C (97.3 ??F) 09/16/2024 6 :35 PM CHEMISTRY PROFESSOR Simultaneous filing. User may not have seen previous data. Respiratory Rate 12 09/16/2024 6:35 PM CHEMISTRY PROFESSOR Simultaneous filing. User may not have seen previous data. Oxygen Saturation 98% 09/16/2024 6:3 5 PM CHEMISTRY PROFESSOR Simultaneous filing. User may not have seen previous data. Inhaled Oxygen Concentration - - Weight 78 kg (172 lb) 09/16/2024 1:26 PM CHEMISTRY PROFESSOR Height 180.3 cm (5' 11 ) 09/16/2024 1:2 6 PM CHEMISTRY PROFESSOR Body Mass Index 23.99 09/16/2024 1:26 PM CHEMISTRY PROFESSOR documented in this encounter Functional Status Functional Status Response Date of Assess ment Is person deaf or have serious hearing difficult y? No 09/16/2024 Is person blind or have serious difficulty seein g? No 09/16/2024 Does person have serious dif ficulty walking/climbing stairs? No 09/16/2024 Does person have difficulty dressing/bathing? No 09/16/2024 Does person have difficulty doing errands alone? No 09/16/2024 Cognitive Status Response Date of Assessm ent Does person have difficulty concentrating/remembering/making decisions? No 09/16/2024 documented as of this encounter Discharge Instructions * Discharge Instructions* Leonard Alicia MD - 09/16/2024 6:09 PM CHEMISTRY PROFESSOR Images from the original note were not included. [facility] Urology Today, you underwent a hydrocelectomy. A hydrocelectomy is surgery to remove a hydrocele. A hydrocele is a fluid-filled sac inside the scrotum. A hydrocele can happen on one or both sides of the scrotum. A hydrocele usually isn't painful or harmful however surgical intervention may be warranted if swelling or pain impaires daily life activities. This surgery was done to remove the fluid and to stop the buildup of fluid in the scrotum. Follow Up: You need to call to follow up with Dr. Stockton in 2-4 weeks. If you need to cancel or reschedule the appointment please call [phone] or [phone]. [facility] is located at [address] [place] [address], [address], [place] [address]. The phone number to clinic is [phone] if you need to cancel or re-schedule. Please arrive 15 minutes early. [facility] is located at the [place] [facility] level 2. The phone number is [phone]. The address is [address] [place] [address]. Please arrive 15 minutes early to your appointment. Post Operative Pain Control: - You can take Tylenol (acetaminophen) and Motrin (Ibuprofen) in alternating fashion every 4-6 hours, especially in the first 24-48 hours after surgery, then as needed thereafter. - You may also be prescribed narcotic pain medication such as Oxycodone, Sheffield, or Tramadol. This should be taken as needed for severe pain only. Do not drink alcohol, drive, or operate heavy machinery while taking this type of medication. If the narcotic is Sheffield, please understand that Sheffield has Tyelonol in it. If you are also taking Tylenol or other Tylenol containing products make sure you donot exceed 4g (4000mg) of Tylenol within a 24 hour time period. Bowel Regimen/Constipation in the Post-Op Period: - You are encouraged to take over the counter prescriptions to prevent constipation, which can worsen while taking narcotics (pain medications). - It is highly encouraged to take Colace/Docusate, a stool softener, twice daily during your healing period. This prevents constipation or straining while having a bowel movement. - You can also take a laxative such as Miralax daily to help with post op constipation. - If you are still experiencing constipation after 2-3 days of taking Miralax, you're encouraged totry Senna (a stimulant) daily. - Ideally, your bowel movements should be soft and not require any straining. However if diarrhea starts to occur it's recommended to stop Senna first, then stop Miralax and finally Colace/Docusate, if necessary. - The above medications, along with adequate fluid intake, decreased use of narcotics and activity (as allowed per post-op instructions), should help prevent constipation. Self-Care: - Please keep your incision clean and dry. - Apply bacitracin ointment (antibiotic ointment) to your wound 2-3 times a day for 1 week. - Wear scrotal support (tight fitted briefs/boxer briefs, athletic supporter or jock strap) for 1 week at least and then as needed for comfort. - Apply ice packs to scrotum as needed to help alleviate swelling/pain. Please be sure to wrap the ice pack in a towel or other protective covering before placing it over the surgical site. Do not apply the ice pack for longer than 15 minutes at a time. - Do not get your incision wet for 2 days. You may resume regular showers starting 48 hours after surgery. Please avoid submerging the surgical incision underwater for any prolonged amount of time (ie no baths, hot tubs, swimming pools, water gutierrez, etc) for 4 weeks. - When showering, allow clean soapy water to wash over the surgical site. Do not scrub the area. When you are done with the shower, be sure to pat the surgical area clean and dry with a towel. Be gentle with the wound and do not aggressively rub or dry the area. - Do not masturbate or have sexual intercourse for 2 weeks. - For the next 4 weeks, you should avoid lifting anything heavier than a gallon of milk. - It is important that you resume light daily activity as soon as you are able to after surgery. This includes activities such as walking and going up/down stairs. However, you should avoid any straddle activities (for example, bike riding) or strenuous exercise (for example, running, weight lifting, or aerobic exercise) for at least 4 weeks after surgery. In Case of an Emergency: Return to the Emergency Department for any intractable nausea, vomiting, pain, shortness of breath,chest pain, fever greater than 100.4. Also you should return to the emergency room if you are unable to void or have heavy bleeding/clots from your urethra. If you have any questions about your surgery or the recovery process, please contact [facility] Urology [phone] (Option #1: scheduling, Option #2 Nurse line, Option #3 surgery scheudler, Option#4 administration) on weekdays during regular business hours. If you have an urgent or emergent question on a weekend or after regular business hours, please contact [facility] at [phone] and ask for the provider office nurse practitioner for Urology. In addition, please contact us using the numbers provided above if you experience any of the following issues: -- temperature higher than 100.4F -- if you cannot urinate for 6-8 hours after your surgery or if you become uncomfortable -- pain that gets worse or does not get better after taking your pain medication(s) as directed -- nausea or vomiting or cannot eat or drink -- bleeding from your incision or IV site -- if your incision or IV site looks infected (red, swollen, warm to the touch, or non-clear, foul-smelling drainage) Example of Hydrocele: ISTRY PROFESSOR documented in this encounter Medications at Time of Discharge Medication Sig Dispensed Refills Start Date End Date acetaminophen (Tylenol) 325 MG tablet Take 2 (two) tablets by mouth every 6 hours as needed for Fever or Pain Maximum allowable Acetaminophen amount = 4 Grams (4000 mg) / 24 hours. 09/16/2024 10/14/2024 ibuprofen (Motrin) 400 MG tablet Take 1 (one) tablet by mouth every 6 hours as needed for Pain 09/16/2024 10/14/2024 oxyCODONE, immediate release, (Roxicodone) 5 MG tabletIndications:Rig ht hydrocele,Epididymal cyst Take 1 (one) tablet by mouth every 6 hours as needed for Pain 6 tablet 09/16/2024 10/14/2024 documented as of this encounter H&P Notes * Soraya Stockton, DO - 09/16/2024 1:23 PM CST [facility] Division of Urologic Surgery Pre-Operative H&P Today's Date: 09/08/2024 Patient Name: Vernon Vidales : 1965 HISTORY OF PRESENT ILLNESS (HPI): Vernon Vidales is a 59yM w/hx of BPH s/p TURP in 2019, epididymal cyst and Right hydrocele who presents today for a scheduled Right scrotal exploration, possible hydrocelectomy with epididymal cyst excision with Dr Stockton. PAT: Anesthesia assessed patient on 06/23/2024 who noted no further work-up needed for this procedure. Final clearance pending evaluation by the attending Anesthesiologist on the day of surgery. Medical/Cardiac clearance: not indicated in the surgical order or by PAT NPO>8 hours? : Yes Anticoagulants in past 7 days? No Pre-admission antibiotics? No, not indicated Social History: Denies smoking Denies daily drinking Denies recreational drug use ALLERGIES: Allergies Allergen Reactions Seasonal Other rhinitis PAST MEDICAL HISTORY: Past Medical History: Diagnosis Date Alcoholism (HCC) Diverticulitis Irritable bowel syndrome (IBS) Other seasonal allergic rhinitis PAST SURGICAL HISTORY: Past Surgical History: Procedure Laterality Date CYSTOSCOPY 09/10/2019 CYSTOSCOPY OTHER SURGERY ACL right knee Transurethral Resection Prostate (TURP) 09/10/2019 MINI TRANSURETHRAL RESECTION PROSTATE Vasectomy 1999 FAMILY HISTORY: Family History Problem Relation Name Age of Onset Cancer - Prostate Paternal Uncle SOCIAL HISTORY: Social History Socioeconomic History Marital status: Spouse name: Not on file Number of children: Not on file Years of education: Not on file Highest education level: Not on file Occupational History Not on file Tobacco Use Smoking status: Never Smokeless tobacco: Never Vaping Use Vaping status: Never Used Substance and Sexual Activity Alcohol use: No Drug use: No Sexual activity: Yes Other Topics Concern Not on file Social History Narrative Not on file Social Determinants of Health Financial Resource Strain: Not on file Food Insecurity: Not on file Transportation Needs: Not on file Stress: Not on file Housing Stability: Not on file MEDICATIONS: No current facility-administered medications for this encounter. No current outpatient medications on file. REVIEW OF SYSTEMS: General: Negative Skin: Negative Eyes: Negative Ears/nose/mouth: Negative Lungs:Negative Heart:Negative Gastrointestinal: Negative Genitourinary: Discomfort in groin due to enlarging scrotum Musculoskeletal: Negative Nervous system: Negative Reproductive system: Negative Hematologic: Negative Lymphatic: Negative Endocrine: Negative PHYSICAL EXAM: There were no vitals taken for this visit. Constitutional: Appears well, no distress Respiratory: Normal respiratory rate and effort Cardiovascular: RRR Ext: No edema,cyanosis, OSORIO GI: Soft, non-tender, non-distended, : Deferred Laboratory Review: Pertinent labs: No results for input(s): HGBA1C in the last 57809 hours. PSA Total Date Value Ref Range Status 01/14/2018 0.9 0.0 - 4.0 ng/mL Final 07/05/2016 0.8 0.0 - 4.0 ng/mL Final 04/13/2015 0.8 0.0 - 4.0 ng/mL Final 08/19/2012 0.7 0.0 - 4.0 ng/mL Final Recent Labs Component Name 06/23/24 1313 01/16/21 1227 08/27/19 0644 01/14/18 1359 NA 141 - - 140 POTASSIUM 4.7* 4.2 4.0 4.3 BUN 8 13 18 12 CREATININE 0.78 0.80 0.79 0.9 GLUCOSE 93 104* 100* 80 Recent Labs Component Name 06/23/24 1313 01/16/21 1227 08/27/19 0644 WBC 5.0 4.4 5.1 HGB 14.1 15.3 14.7 HCT 41.1 43.6 44.4 No results for input(s): PROTIME , INR , PTT in the last 36166 hours. Bilirubin UA POCT Date Value Ref Range Status 01/24/2024 - Final Ketones UA POCT Date Value Ref Range Status 01/24/2024 - Final Specific [place]land UA Date Value Ref Range Status 01/24/2024 1.010 Final Nitrite UA Date Value Ref Range Status 01/24/2024 - Final Mirco: No results for input(s): URINECULT in the last 20743 hours. Pathology: N/A Review of Imaging Reports: [facility] 06/23/2024: Narrative & Impression PROCEDURE: US SCROTUM AND CONTENTS, DATE/TIME OF EXAM: 06/23/2024 1:53 PM, LOCATION [facility] INDICATION: N43.3: Right hydrocele N50.3: Epididymal cyst COMPARISON: Scrotal ultrasound from 01/28/2012. FINDINGS: Right testicle: 4.58 x 2.5 x 3.3 cm Right epididymis: 1.5 x 0.9 x 1.5 cm Left testicle: 4.6 x 2.2 x 2.9 cm Left epididymis: 1.1 x 1 x 1.4 cm The testicles are normal in size and echotexture. No focal testicular parenchymal lesion is seen. Large right-sided complex cystic structures with multiple thick septations and some floating debris. This is consistent with a large spermatocele given the patient's history of vasectomy . Small hydrocele on the left. The epididymides are slightly enlarged bilaterally but similar in size overall to prior study. No varicocele is identified. Color Doppler examination: There is testicular arterial flow bilaterally. DIAGNOSIS: epididymal cyst and Right hydrocele PLAN OF CARE: To OR this day for Right scrotal exploration, possible hydrocelectomy with epididymal cyst excision NPO for surgery today Surgical abx prophylaxis ordered Patient understands risks and benefits of surgery. Surgical and blood consent obtained and placed in chart. Mayuri Gonzáles APRN-[employer] 09/16/2024 1:25 PM Patient seen and examined with SIMULATION SPECIALIST. Please see note for further details. I confirm history, exam, assessment and plan. No changes. Soraya Stockton DO 09/16/2024 2:14 PM ISTRY PROFESSOR documented in this encounter Nursing Notes * Jessica Romero, RN - 09/10/2024 3:50 PM CST *Not following the instructions below may result in your surgery being cancelled or delayed.* DO NOT eat any SOLID food after midnight the night before surgery including gum, cough drops, candy. Unless you have been diagnosed with gastroparesis or delayed stomach emptying, you may have CLEAR LIQUIDS until your arrival at the hospital/at least 2 hours before surgery (examples include any non-dairy and non-pulp containing fruit juices, Gatorade, clear soda such as Sprite or 7-Up (No josias orroot beer), fruit flavored carbonated beverages, coffee or tea (no cream, milk or sugar), fat-free broth). This does NOT include alcoholic beverages. The physician's office will contact you with the arrival time for your surgery. Same Day Surgery isnot open until 5:30 am, please do not arrive before this time. Bring a list of your medications with the name, dosage and last time taken, If you use an inhaler, CPAP or home oxygen, please bring it with you day of surgery Do not shower the morning or surgery nor apply any lotion, cream, deodorant or makeup the morning of surgery. Do not wear nail mohawk, body piercings or contact lenses. Do not use any recreational drugs 72 hours prior to surgery Leave all valuables at home such as jewelry and large amounts of money as we have no way to secure them. You cannot drive yourself home after surgery, take any form of public transportation or use Uber, Lyft or a Taxi. Children Under 14 are not allowed in the ACU and cannot be left unattended. DO NOT TAKE the following medications the day of surgery: DIRECTIONS: Address: [address] [place] [address] Parking Garage: Please park on the ORANGE side of the garage, take the ORANGE elevators to the 1st floor. [facility] [employer] [facility] is located at the end of the hallway. [employer]ing Equipment Operator: Enter through the main entrance and take a right. You will walk down a hallway ending in a ???T?? junction with a large TV on the wall. Make a left at the ???T?? junction. [facility] at the end of the [facility]. Please call with any questions relating to anesthesia for surgery. Pre-Admissions Testing [phone] ISTRY PROFESSOR documented in this encounter OR Notes * Brief Op Note - Soraya Stockton DO - 09/16/2024 5:08 PM CST Brief Op Note Procedure: right scrotal exploration, hydrocelectomy with epidydimal cyst excision Patient Name: Vernon Vidales Date of Service: 09/16/2024 Pre-Op Diagnosis: Right hydrocele - Primary; Epididymal cyst Post-Op Diagnosis: Right hydrocele - Primary; Epididymal cyst Surgeons and Role: * Soraya Stockton DO - Primary Dope Edger(s): Leonard Alicia MD - resident Anesthesia Type: general ETT Complications: none Findings: Large right hydrocele sac excised and multiple epididymal cysts removed on the right EBL: blood loss of 5 ml Urine Output : unmeasured IV Fluid Intake: per anesthesia Drains: None Specimen(s): ID Type Source Tests Collected by Time Destination A : RIGHT EPIDYDIMAL CYST Biopsy, Excision Soft Tissue, Other PATHOLOGY TISSUE Soraya Stockton DO 09/16/2024 1740 Implant(s): * No implants in log * MD Soraya Polo DO 09/19/2024 3:55 PM ISTRY PROFESSOR * Operative - Soraya Stockton DO - 09/16/2024 5:08 PM CST Operative Report Patient Name: Vernon Vidales Date of procedure: 09/16/24 Surgeons and Role: Attending: SORAYA STOCKTON Resident: Leonard Alicia MD Anesthesia: General ETT Preoperative Diagnosis: Right hydrocele - Primary; Epididymal cyst Postoperative Diagnosis: Right hydrocele - Primary; Epididymal cyst Procedure: right scrotal exploration, hydrocelectomy with epidydimal cyst excision Brief findings: Large right hydrocele sac excised and multiple epididymal cysts removed on the right Disposition: Home EBL: 5 cc Drains: none Complications: None apparent Specimen(s): none Indications for procedure: Vernon Vidales is a 59 year old male who presents with w/hx of BPH s/p TURP in 2019, and complex epididymal cyst and right hydrocele. Here for hydrocelectomy and excision of cysts. Due to the nature of the diagnosis a discussion of operative and non-operative treatment options, as well as the risks and benefits, was held with the patient. After discussing the options, risks, and benefits, the patient elected to undergo operative intervention. Informed consent was obtained andwe proceeded to the operating room for treatment. Detailed surgical procedure: The patient brought to the operating room. His identity was confirmed by the operating room staff. After the patient's identity was confirmed the patient was anesthetized. The patient was then positioned on the surgical table in the supine position. The patient was then prepped with iodine in standard sterile fashion. Following completion of surgical site preparation, the patient was draped in standard sterile fashion. A time out was then called to again confirm and identify the patient, position, surgical site and side, procedure, pre-op antibiotic, allergies, and that all necessary equipment was in the room. A 15 blade scalpel was used to make a 4 cm incision along the midline raphe. Electrocautery was used throughout the case to dissect and obtain hemostasis. The dartos and surrounding layers around thehydrocele sac were dissected and hydrocele expressed from scrotum. The hydrocele was drained of about 100 cc of fluid and the sac was incised. Attention was then turned to the multiple complex epididymal cysts that were dissected from the epididymis and removed with blunt and sharp dissection. The excess hydrocele sac was excised and the cut edge was burned with electrocautery to obtain hemostasis. The testicle was then positioned in normal anatomical position in the scrotum. The dartos was closed with running 4-0 vicryl suture and skin closed with running 3-0 Monocryl suture. The incision was covered with bacitracin, gauze, and mesh underwear for support. The case concluded. Sponge and instrument counts were correct at the end of the case. The patient was extubated and taken to PACU in stable condition. Dr. Stockton was present for the entirety of the case. Plan: - F/u in 2-4 weeks Leonard Alicia MD 09/16/2024 6:08 PM I was present for the entire procedure and performed and assisted dimas portions of the procedure. Soraya Stockton DO ISTRY PROFESSOR documented in this encounter Plan of Treatment Upcoming Encounters Date Type Department Care Team (Late st Contact Info) Description 11/17/2024 4:00 PM CHEMISTRY PROFESSOR Appointment [facility] Health Imaging Services - Ultrasound [address] [place] [address] Soraya Stockton DO [address] [facility] 2L [place] [phone] 11/19/2024 1:45 PM CHEMISTRY PROFESSOR Office Visit [facility] - Urology [address] [facility] [address] [place] [id number] Soraya Stockton DO [address] [facility] 2L [place] [phone] 04/14/2025 10:00 AM CDT Office Visit [facility] - Urology [address] [facility] [place] [phone] Soraya Stockton DO [address] [facility] 2L [place] [phone] documented as of this encounter Procedures Procedure Name Priority Date/Time Associated Diagnosis Comments PATHOLOGY TISSUE Routine 09/16/2024 5:40 PM CHEMISTRY PROFESSOR Right hydrocele Epididymal cyst NM REMOVAL OF HYDROCELE,TUNICA, UNILAT 09/16/2024 4:15 PM CHEMISTRY PROFESSOR Right hydrocele Epididymal cyst Case Notes Scrotal Ultrasound: 06/23/2024 @1430@[facility] ? DraganMaranda Welch [phone] Opt. 3 ext [phone] Special Needs Reviewed SM 09/16 NM EXPLORE SCROTUM 09/16/2024 4:15 PM CHEMISTRY PROFESSOR Right hydrocele Epididymal cyst Case Notes Scrotal Ultrasound: 06/23/2024 @1430@[facility] ? Therese Welch [phone] Opt. 3 ext [phone] Special Needs Reviewed SM 09/16 documented in this encounter Results * PATHOLOGY TISSUE (09/16/2024 5:40 PM CHEMISTRY PROFESSOR) Case Report Surgical Pathology Report ? Case: [id number] ? Authorizing Provider: ??Soraya Stockton, DO ?Collected: ? 09/16/2024 05:40 PM ? Ordering Location: ? [facility] ?Received: ?09/17/2024 04:30 AM ? Pathologist: ? Magalie Segura MD ? Specimen: ?Cyst, RIGHT EPIDYDIMAL CYST ? 09/21/2024 9:52 AM [facility] Final Diagnosis Right epididymal cyst, excision: - Benign mesothelial cyst consistent with hydrocele 09/21/2024 9:52 AM [facility] Microscopic Description and Comment Microscopic examination substantiates the above captioned diagnosis. 09/21/2024 9:52 AM [facility] Clinical History Epididymal cyst, right hydrocele 09/21/2024 9:52 AM [facility] Gross Description The requisition and specimen(s) are identified with the patient's name, Vernon Vidales. Received in formalin, specimen A , are 2 disrupted cystic structures, measuring 3.5 and 4.5 cm in greatest dimension. Both structures consist of duarte-white to red-purple, dusky membranous soft tissue that measure 0.1 cm in average thickness. The inside lining of the cyst wall is smooth. No masses or lesions are grossly identified. Wellness Manager sections are submitted as cassette A1. AL 09/21/2024 9:52 AM [facility] Pathologist Location at [facility] 09/21/2024 9:52 AM [facility] Disclaimer The performance characteristics of all immunohistochemical and indirect immunofluorescence stains (if any) cited in this report were determined by the [facility]opathology [facility] of [facility]. Some of these tests were developed by our own laboratory and have not been cleared or approved by the US Food and Drug Administration. The FDA does not require this test to go through premarket FDA review. These tests are used for clinical purposes. They should not be regarded as investigational or for research. This laboratory is certified under the Clinical Laboratory Improvement Amendments (CLIA) as qualified to perform high complexity clinical laboratory testing. This case has been personally reviewed and interpreted by the attending (teaching) pathologist. 09/21/2024 9:52 AM [facility] Embedded Images 09/21/2024 9:52 AM [facility] Biopsy, Excision CYST TISSUE / Unknown 09/16/2024 5:40 PM CHEMISTRY PROFESSOR 09/17/2024 4:30 AM CHEMISTRY PROFESSOR Comment:Pre-op diagnosis: Right hydrocele - Primary; Epididymal cyst Soraya Stockton DO LAB - PATHOLOGY/CY TOLOGY ORDERABLES [facility] [address] [place] [address], [facility] [phone] documented in this encounter Visit Diagnoses Diagnosis Right hydrocele Hydrocele, unspecified Epididymal cyst Other specified disorder of male genital organs Right hydrocele Hydrocele, unspecified Epididymal cyst Other specified disorder of male genital organs documented in this encounter Administered Medications Inactive Administered Medications - up to 3 most recent administrations Medication Order MAR Action Action Date Dose Rate Site acetaminophen (Tylenol) tablet 1,000 mg 1,000 mg, Oral, PRE-OP ONCE, 1 dose, On Sat09/16/24 at 1315, Patient preference for lesser PRN pain meds may be honored when the patient requests a less strong medication, a lower dose, or a less intrusive route of administration when the lesser drug, dose and route have been ordered for the patient. This patient request must be documented in the MAR. If both oral and IV options are ordered for the same pain severity, give oral first unless patient cannot tolerate oral intake, Pre-op $ Given 09/16/2024 1:52 PM CHEMISTRY PROFESSOR 1,000 mg albuterol-ipratropium (Duo-Neb) nebulizer solution 3 mL 3 mL, Inhalation, POST-OP MULTIPLE, Starting on Sat09/16/24 at 1800, Until Sat09/16/24 at 2036, For wheezing. Notify anesthesia immediately., PACU bacitracin topical ointment PRN, Starting on Sat09/16/24 at 1716, Until Sat09/16/24 at 1802, Intra-op $ Given 09/16/2024 5:16 PM CHEMISTRY PROFESSOR 1 g Operative Site diphenhydrAMINE (Benadryl) injection 25 mg 25 mg, Intravenous, ONCE PRN, Nausea/Vomiting, 1 dose, Starting on Sat09/16/24 at 1800, Until Sat09/16/24 at 2036, Second choice, use if first choice was ineffective., PACU diphenhydrAMINE (Benadryl) injection 25 mg 25 mg, Intravenous, POST-OP MULTIPLE, Starting on Sat09/16/24 at 1800, Until Sat09/16/24 at 2036, IV for itching - may repeat x1 dose in 15 minutes., PACU fentaNYL (PF) (Sublimaze) injection 25 mcg 25 mcg, Intravenous, EVERY 5 MIN PRN, Mild Pain, 4 doses, Starting on Sat09/16/24 at 1800, Until Sat09/16/24 at 2036, Maximum total of 4 doses. If patient reaches max total dose, please consult anesthesiologist prior to further administration of pain meds. Hold pain meds if there are signs of hypoventilation. Patient preference for lesser PRN pain meds may be honored when the patient requests a less strong medication, a lower dose, or a less intrusive route of administration when the lesser drug, dose and route have been ordered for the patient. This patient request must be documented in the MAR. If both oral and IV options are ordered for the same pain severity, give oral first unless patient cannot tolerate oral intake, PACU $ Given 09/16/2024 6:10 PM CHEMISTRY PROFESSOR 25 mcg fentaNYL (PF) (Sublimaze) injection 50 mcg 50 mcg, Intravenous, EVERY 5 MIN PRN, Moderate Pain, 4 doses, Starting on Sat09/16/24 at 1800, Until Sat09/16/24 at 2036, Maximum total of 4 doses. If patient reaches max total dose, please consult anesthesiologist prior to further administration of pain meds. Hold pain meds if there are signs of hypoventilation. Patient preference for lesser PRN pain meds may be honored when the patient requests a less strong medication, a lower dose, or a less intrusive route of administration when the lesser drug, dose and route have been ordered for the patient. This patient request must be documented in the MAR. If both oral and IV options are ordered for the same pain severity, give oral first unless patient cannot tolerate oral intake, PACU $ Given 09/16/2024 6:18 PM CHEMISTRY PROFESSOR 50 mcg hydrALAZINE (Apresoline) injection 5 mg 5 mg, Intravenous, POST-OP MULTIPLE, Starting on Sat09/16/24 at 1800, Until Sat09/16/24 at 2036, IV given slowly over 1 minute, up to 20 mg. Repeat 5 mg IV dose every 10-15 minutes for sustained hypertension SBP greater than 180, DBP greater than 100., PACU HYDROmorphone (Dilaudid) injection 0.5 mg 0.5 mg, Intravenous, EVERY 10 MIN PRN, Severe Pain, 4 doses, Starting on Sat09/16/24 at 1800, Until Sat09/16/24 at 2036, Maximum total of 4 doses If patient reaches max total dose, please consult anesthesiologist prior to further administration of pain meds. Hold pain meds if there are signs of hypoventilation. Patient preference for lesser PRN pain meds may be honored when the patient requests a less strong medication, a lower dose, or a less intrusive route of administration when the lesser drug, dose and route have been ordered for the patient. This patient request must be documented in the MAR. If both oral and IV options are ordered for the same pain severity, give oral first unless patient cannot tolerate oral intake, PACU labetalol (Normodyne; Trandate) injection 5 mg 5 mg, Intravenous, POST-OP MULTIPLE, Starting on Sat09/16/24 at 1800, Until Sat09/16/24 at 2036, IV given slowly over 1 minute up to 20 mg. Repeat every 10-15 minutes in 5 mg doses. Hold if heart rate is less than 60. Give for hypertension SBP greater than 180, DBP greater than 100., PACU lactated ringers infusion at 20 mL/hr, Intravenous, PRE-OP CONTINUOUS, Starting on Sat09/16/24 at 1315, Until Sat09/16/24 at 2036, Pre-op $ New Bag/Syringe 09/16/2024 1:50 PM CHEMISTRY PROFESSOR 20 mL/hr lactated ringers infusion at 125 mL/hr, Intravenous, CONTINUOUS, Starting on Sat09/16/24 at 1815, Until Sat09/16/24 at 2036, PACU naloxone (Narcan) injection 0.04 mg 0.04 mg, Intravenous, POST-OP MULTIPLE, Starting on Sat09/16/24 at 1800, Until Sat09/16/24 at 2036, If respiration rate is less than 7 per minute administer IV every 1 minute until respirations are greater than 12 per minute. Notify anesthesia immediately., PACU ondansetron (Zofran) injection 4 mg 4 mg, Intravenous, ONCE PRN, Nausea/Vomiting, 1 dose, Starting on Sat09/16/24 at 1800, Until Sat09/16/24 at 2036, Third choice, use if first and second choice was ineffective., PACU oxyCODONE (immediate release) (Roxicodone) tablet 5 mg 5 mg, Oral, Once, 1 dose, On Sat09/16/24 at 1900, Patient preference for lesser PRN pain meds may be honored when the patient requests a less strong medication, a lower dose, or a less intrusive route of administration when the lesser drug, dose and route have been ordered for the patient. This patient request must be documented in the MAR. If both oral and IV options are ordered for the same pain severity, give oral first unless patient cannot tolerate oral intake $ Given 09/16/2024 7:06 PM CHEMISTRY PROFESSOR 5 mg prochlorperazine (Compazine) injection 10 mg 10 mg, Intravenous, ONCE PRN, Nausea/Vomiting, 1 dose, Starting on Sat09/16/24 at 1800, Until Sat09/16/24 at 203, First choice, PACU documented in this encounter Active and Recently Administered Medications Times are shown in CHEMISTRY PROFESSOR. Scheduled Medication Order 09/14/2024 09/15/2024 09/16/2024 acetaminophen (Tylenol) tablet 1,000 mg (COMPLETED) 1,000 mg, Oral, PRE-OP ONCE, 1 dose, On Sat09/16/24 at 1315, Patient preference for lesser PRN pain meds may be honored when the patient requests a less strong medication, a lower dose, or a less intrusive route of administration when the lesser drug, dose and route have been ordered for the patient. This patient request must be documented in the MAR. If both oral and IV options are ordered for the same pain severity, give oral first unless patient cannot tolerate oral intake, Pre-op 1352 ($ Given - Prov ider: More Roman RN) albuterol-ipratropium (Duo-Neb) nebulizer solution 3 mL 3 mL, Inhalation, POST-OP MULTIPLE, Starting on Sat09/16/24 at 1800, Until Sat09/16/24 at 2036, For wheezing. Notify anesthesia immediately., PACU ceFAZolin (Ancef) 2 g in sterile water (PF) 20 mL syringe 2 g, Intravenous, INTRA-OP ONCE, 1 dose, On Sat09/16/24 at 1315, Administer 30 minutes prior to surgical incision. Infuse over 3-5 minutes. Dilute vial with 20 ml solution for a final concentration of 100 mg/ml., Indication for anti-infective therapy: Surgical prophylaxis, Pre-op 1315 (Due) diphenhydrAMINE (Benadryl) injection 25 mg 25 mg, Intravenous, POST-OP MULTIPLE, Starting on Sat09/16/24 at 1800, Until Sat09/16/24 at 2036, IV for itching - may repeat x1 dose in 15 minutes., PACU hydrALAZINE (Apresoline) injection 5 mg 5 mg, Intravenous, POST-OP MULTIPLE, Starting on Sat09/16/24 at 1800, Until Sat09/16/24 at 2036, IV given slowly over 1 minute, up to 20 mg. Repeat 5 mg IV dose every 10-15 minutes for sustained hypertension SBP greater than 180, DBP greater than 100., PACU labetalol (Normodyne; Trandate) injection 5 mg 5 mg, Intravenous, POST-OP MULTIPLE, Starting on Sat09/16/24 at 1800, Until Sat09/16/24 at 2036, IV given slowly over 1 minute up to 20 mg. Repeat every 10-15 minutes in 5 mg doses. Hold if heart rate is less than 60. Give for hypertension SBP greater than 180, DBP greater than 100., PACU naloxone (Narcan) injection 0.04 mg 0.04 mg, Intravenous, POST-OP MULTIPLE, Starting on Sat09/16/24 at 1800, Until Sat09/16/24 at 2036, If respiration rate is less than 7 per minute administer IV every 1 minute until respirations are greater than 12 per minute. Notify anesthesia immediately., PACU oxyCODONE (immediate release) (Roxicodone) tablet 5 mg (COMPLETED) 5 mg, Oral, Once, 1 dose, On Sat09/16/24 at 1900, Patient preference for lesser PRN pain meds may be honored when the patient requests a less strong medication, a lower dose, or a less intrusive route of administration when the lesser drug, dose and route have been ordered for the patient. This patient request must be documented in the MAR. If both oral and IV options are ordered for the same pain severity, give oral first unless patient cannot tolerate oral intake 1906 ($ Given - Prov ider: Samir Herzog RN) Continuous Medication Order 09/14/2024 09/15/2024 09/16/2024 lactated ringers infusion at 20 mL/hr, Intravenous, PRE-OP CONTINUOUS, Starting on Sat09/16/24 at 1315, Until Sat09/16/24 at 2036, Pre-op 1350 ($ New Bag/Syri nge - Provider: More Roman RN) lactated ringers infusion at 125 mL/hr, Intravenous, CONTINUOUS, Starting on Sat09/16/24 at 1815, Until Sat09/16/24 at 2036, PACU 1815 (Due) PRN Medication Order 09/14/2024 09/15/2024 09/16/2024 bacitracin topical ointment (CANCELED) PRN, Starting on Sat09/16/24 at 1716, Until Sat09/16/24 at 1802, Intra-op 1716 ($ Given - Prov ider: Soraya Stockton DO) diphenhydrAMINE (Benadryl) injection 25 mg 25 mg, Intravenous, ONCE PRN, Nausea/Vomiting, 1 dose, Starting on Sat09/16/24 at 1800, Until Sat09/16/24 at 2036, Second choice, use if first choice was ineffective., PACU fentaNYL (PF) (Sublimaze) injection 25 mcg 25 mcg, Intravenous, EVERY 5 MIN PRN, Mild Pain, 4 doses, Starting on Sat09/16/24 at 1800, Until Sat09/16/24 at 2036, Maximum total of 4 doses. If patient reaches max total dose, please consult anesthesiologist prior to further administration of pain meds. Hold pain meds if there are signs of hypoventilation. Patient preference for lesser PRN pain meds may be honored when the patient requests a less strong medication, a lower dose, or a less intrusive route of administration when the lesser drug, dose and route have been ordered for the patient. This patient request must be documented in the MAR. If both oral and IV options are ordered for the same pain severity, give oral first unless patient cannot tolerate oral intake, PACU 1809 ($ Given - Prov ider: Clair Bauman RN) fentaNYL (PF) (Sublimaze) injection 50 mcg 50 mcg, Intravenous, EVERY 5 MIN PRN, Moderate Pain, 4 doses, Starting on Sat09/16/24 at 1800, Until Sat09/16/24 at 2036, Maximum total of 4 doses. If patient reaches max total dose, please consult anesthesiologist prior to further administration of pain meds. Hold pain meds if there are signs of hypoventilation. Patient preference for lesser PRN pain meds may be honored when the patient requests a less strong medication, a lower dose, or a less intrusive route of administration when the lesser drug, dose and route have been ordered for the patient. This patient request must be documented in the MAR. If both oral and IV options are ordered for the same pain severity, give oral first unless patient cannot tolerate oral intake, PACU 1818 ($ Given - Prov ider: Clair Bauman RN) HYDROmorphone (Dilaudid) injection 0.5 mg 0.5 mg, Intravenous, EVERY 10 MIN PRN, Severe Pain, 4 doses, Starting on Sat09/16/24 at 1800, Until Sat09/16/24 at 2036, Maximum total of 4 doses If patient reaches max total dose, please consult anesthesiologist prior to further administration of pain meds. Hold pain meds if there are signs of hypoventilation. Patient preference for lesser PRN pain meds may be honored when the patient requests a less strong medication, a lower dose, or a less intrusive route of administration when the lesser drug, dose and route have been ordered for the patient. This patient request must be documented in the MAR. If both oral and IV options are ordered for the same pain severity, give oral first unless patient cannot tolerate oral intake, PACU ondansetron (Zofran) injection 4 mg 4 mg, Intravenous, ONCE PRN, Nausea/Vomiting, 1 dose, Starting on Sat09/16/24 at 1800, Until Sat09/16/24 at 2036, Third choice, use if first and second choice was ineffective., PACU prochlorperazine (Compazine) injection 10 mg 10 mg, Intravenous, ONCE PRN, Nausea/Vomiting, 1 dose, Starting on Sat09/16/24 at 1800, Until Sat09/16/24 at 2036, First choice, PACU documented in this encounter Care Teams Food Services Director Relationship Specialty Start Date End Date Karen Tejeda PA [address] [place] [address] PCP - General Physician Dope Edger 06/23/24 documented as of this encounter
--- OUTSIDE RECORDS SUMMARY | 2024-11-03 01:59 | XMS_ITS | Encounter Summary ---
Author Organization [facility] Address [address] [place] [address] Care Team Providers Care Disability Attorney Name Role Phone Jas Zheng MD Primary Care Provider [phone] Reason for Visit * Reason Onset Date Comments Surgery Cancellation 02/19/2024 Gas bubble formed after eye surgery. Stated he cannot go under anesthesia until it has went away. Will call me back to reschedule. Patient stated he will call me back to reschedule once he knows he Is okay to move forward Shannen Abbott 02/19/2024 11:31 AM Encounter Details Date Type Department Care Team (Late st Contact Info) Description 02/19/2024 Telephone [facility] - Urology [address] [place] [address], [place] [address] Soraya Aguilera M, DO [address] [place] [address] [place] [address] Surgery Cancellation (Gas bubble formed after eye surgery. Stated he cannot go under anesthesia until it has went away. Will call me back to reschedule. Patient stated he will call me back to reschedule once he knows he Is okay to move forward Shannen Abbott 02/19/2024 11:31 AM /) Social History Tobacco Use Types Packs/Day Years Used Date Smoking Tobacco: Never Smokeless Tobacco: Never Alcohol Use Standard Drinks/Week Comments No 0 (1 standard drink = 0.6 oz pur e alcohol) Sex and Gender Information Value Date Recorded Sex Assigned at Male 10/18/2021 10:49 PM SHIPPING AND RECEIVING OPERATOR Gender Identity Male 10/18/2021 10:49 PM SHIPPING AND RECEIVING OPERATOR Sexual Orientation Straight 10/18/2021 10 :49 PM SHIPPING AND RECEIVING OPERATOR documented as of this encounter Plan of Treatment Upcoming Encounters Date Type Department Care Team (Late st Contact Info) Description 11/17/2024 4:00 PM SHIPPING AND RECEIVING OPERATOR Appointment [facility] - Ultrasound [address] [place] [address] Soraya Aguilera, DO [address] [place] [address] 11/19/2024 1:45 PM SHIPPING AND RECEIVING OPERATOR Office Visit [facility] - Urology [address] [facility] [facility] [address] [place] [id number] Soraya Aguilera, DO [address] [place] [id number] 04/14/2025 10:00 AM CDT Office Visit [facility] - Urology [address] [place] [id number] Soraya Aguilera, DO [address] [place] [id number] documented as of this encounter Visit Diagnoses Not on filedocumented in this encounter Care Teams Disability Attorney Relationship Specialty Start Date End Date Jas Zheng MD [address] [facility] [facility] [address] [place] [address] PCP - General 04/12/20 06/22/24 documented as of this encounter
--- OUTSIDE RECORDS SUMMARY | 2024-11-03 01:59 | XMS_ITS | Encounter Summary ---
Author Organization [facility] Address [address] [place] [address] Care Team Providers Care Is Support Analyst Name Role Phone Karen Tejeda Primary Care Pr ovider Encounter Details Date Type Department Care Team (Latest Contact Info) Description 06/23/2024 12:00 PM CDT - 06/23/2024 1:00 PM CDT Hospital Encounter [facility] [address] [place] [address] Soraya Aguilera M, DO [address] [facility] 2[address] [place] [phone] Urology Discharge Disposition: Home or Self Care Anesthesia Record Procedure Summary Procedure Name Responsible [...] out of Room 1802 An Stop Meds * Agents No agents on file. * Blood No blood administrations on file. Lines, Drains, and Airways Type Details Placement Removal Peripheral IV Date: 09/16/24; Time : 1349; Orientation: Right; Location: Wrist; Gauge: 18 G 09/16/24 1349 by More Roman RN 09/16/24 1931 by Samir Herzog RN ETT Date: 09/16/24; Time : 165; Placed By: Shen Melgar DO; Vent: easy mask; Induction: Standard IV; Blade Type: Roney; Blade Size: 4; Laryngoscopy View: Grade 1 (full cords); Intubation Adjuncts: Stylet, Cricoid Pressure; Tube: Endotracheal Tube; Placement: Oral; Tube Type: Cuffed-inflated; Tube Size(mm): 8 MM; Measured From: lips; Attempts: 1; Cuff Infated: Air; Verified By: Direct visualization, Bilateral breath sounds, Chest Auscultation, CO2 Monitor 09/16/24 1656 by Shen Melgar DO 09/16/24 1757 by Shen Melgar DO Procedural Site (Incision) 09/16/24; 1708; Right; Scrotum; 09/17/24; 0137 09/16/24 1708 by Kelly Jama RN 09/17/24 0137 by New, Auto Release documented in this encounter Social History Tobacco Use Types Packs/Day Years Used Date Smoking Tobacco: Never Smokeless Tobacco: Never Tobacco Cessation:Counseling Given: Not Answered Alcohol Use Standard Drinks/Week Comments No 0 (1 standard drink = 0.6 oz pur e alcohol) Sex and Gender Information Value Date Recorded Sex Assigned at Male 10/18/2021 10:49 PM RETAIL COVERAGE MERCHANDISER Gender Identity Male 10/18/2021 10:49 PM RETAIL COVERAGE MERCHANDISER Sexual Orientation Straight 10/18/2021 10 :49 PM RETAIL COVERAGE MERCHANDISER documented as of this encounter Last Filed Vital Signs Vital Sign Reading Time Taken Comments Blood Pressure 119/59 06/23/2024 12:29 PM CDT Pulse 61 06/23/2024 12:29 PM CDT Temperature 36.3 ??C (97.4 ??F) 06/23/2024 12:29 PM C DT Respiratory Rate 18 06/23/2024 12:29 PM CDT Oxygen Saturation 99% 06/23/2024 12:29 PM CDT Inhaled Oxygen Concentration - - Weight 74.6 kg (164 lb 8 oz) 06/23/2024 12:29 PM CDT Height 180.3 cm (5' 11 ) 06/23/2024 12:29 PM CDT Body Mass Index 22.94 06/23/2024 12:29 PM CDT documented in this encounter Discharge Instructions * Patient Instructions* Bindu Meza RN - 06/23/2024 12:50 PM CDT Avoid NSAID and aspirin products for 1 week prior to surgery * Discharge Instr - Supplementary Instructions* Bindu Meza RN - 06/23/2024 12:50 PM CDT *Not following the instructions below may result [...] morning of surgery. Do not wear nail yi, body piercings or contact lenses. Do not [...] the ACU and cannot be left unattended. DIRECTIONS: Address: [address] [place] [address] Parking Garage: Please park on the ORANGE side of the garage, take the ORANGE elevators to the 1st floor. The [facility] [place] [place] is located at the end of the hallway. Laundry Operator Finishing: Enter through the main entrance and take a right. You will walk down a hallway ending in a ???T?? junction with a large TV on the wall. Make a left at the ???T?? junction. You will then walk to [facility] [place] [place] at the end of the hallway. documented in this encounter Medications at Time [...] as needed for Pain 6 tablet 09/16/2024 09/16/2024 oxyCODONE, immediate release, (Roxicodone) 5 MG tabletIndications:Rig ht hydrocele,Epididymal cyst Take 1 (one) tablet by mouth every 6 hours as needed for Pain 6 tablet 09/16/2024 10/14/2024 documented as of this encounter Plan of Treatment Upcoming Encounters Date Type Department Care Team (Late st Contact Info) Description 11/17/2024 4:00 PM RETAIL COVERAGE MERCHANDISER Appointment [facility] Health Imaging Services - Ultrasound [address] [place] [address] Soraya Aguilera M, DO [address] [place] [address] 11/19/2024 1:45 PM RETAIL COVERAGE MERCHANDISER Office Visit [facility] - Urology [address] [place] [phone] Soraya Aguilera Judith, DO [address] [place] [phone] 04/14/2025 10:00 AM CDT Office Visit [facility] - Urology [address] [place] [phone] Soraya Aguilera, DO [address] [facility] [address] [place] [address] documented as of this encounter Procedures Procedure Name Priority Date/Time Associated Diagnosis Comments CBC W/O DIFFERENTIAL STAT 06/23/2024 1:13 PM CDT Pre-op evaluation COMPREHENSIVE METABOLIC PANEL STAT 06/23/2024 1:13 PM CDT Pre-op evaluation documented in this encounter Results * CBC W/O DIFFERENTIAL (06/23/2024 1:13 PM CDT) WBC 5.0 4.0 - 10.7 x10E9/L 06/23/2024 1:29 PM CDT [facility] RBC Count 4.64 4.30 - 5.80 x10E12/L 06/23/2024 1:29 PM CDT [facility] Hemoglobin 14.1 13.3 - 17.5 g/dL 06/23/2024 1:29 PM CDT [facility] Hematocrit 41.1 38.7 - 51.1 % 06/23/2024 1:29 PM CDT [facility] MCV 88.6 80.0 - 98.0 fL 06/23/2024 1:29 PM CDT [facility] MCH 30.4 26.7 - 33.6 pg 06/23/2024 1:29 PM CDT [facility] MCHC 34.3 31.7 - 36.3 g/dL 06/23/2024 1:29 PM [facility] RDW-CV 12.1 11.3 - 14.8 % 06/23/2024 1:29 PM [facility] Platelet Count 231 150 - 420 x10E9/L 06/23/2024 1:29 PM [facility] MPV 10.2 7.8 - 11.4 fL 06/23/2024 1:29 PM [facility] Blood BLOOD SPECIMEN / Unknown Lab Venipuncture / Unknown 06/23/2024 1:13 PM CDT 06/23/2024 1:22 PM CDT Maxine Ferro RESTAURANT DISTRICT MANAGER-ANALYSIS LEAD LAB - HEMATOL OGY ORDERABLES [facility] [address] [place] [address], [facility] [phone] * (ABNORMAL) COMPREHENSIVE METABOLIC PANEL (06/23/2024 1:13 PM CDT) BUN 8 7 - 26 mg/dL 06/23/2024 1:52 PM [facility] Creatinine 0.78 0.71 - 1.16 mg/dL 06/23/2024 1:52 PM [facility] Sodium 141 136 - 145 mmol/L 06/23/2024 1:52 PM [facility] Potassium 4.7(H) 3.5 - 4.5 mmol/L 06/23/2024 1:52 PM [facility] Chloride 107 98 - 107 mmol/L 06/23/2024 1:52 PM [facility] CO2 28 22 - 29 mmol/L 06/23/2024 1:52 PM [facility] Glucose 93 70 - 115 mg/dL 06/23/2024 1:52 PM [facility] Calcium 9.4 8.4 - 10.2 mg/dL 06/23/2024 1:52 PM [facility] Protein Total 6.8 6.0 - 8.3 g/dL 06/23/2024 1:52 PM [facility] Albumin 4.0 3.4 - 5.0 g/dL 06/23/2024 1:52 PM [facility] Bilirubin Total 0.6 0.2 - 1.2 mg/dL 06/23/2024 1:52 PM [facility] Alkaline Phosphatase 74 40 - 150 U/L 06/23/2024 1:52 PM [facility] ALT 12 5 - 55 U/L 06/23/2024 1:52 PM [facility] AST 13 5 - 34 U/L 06/23/2024 1:52 PM [facility] Anion Gap 6 6 - 16 06/23/2024 1:52 PM [facility] BUN/Creatinine Ratio 10 7 - 23 06/23/2024 1:52 PM [facility] Osmolality Calculated 290 275 - 295 mOsm/kg 06/23/2024 1:52 PM [facility] Albumin/Globulin Ratio 1.4 1.1 - 2.3 06/23/2024 1:52 PM [facility] eGFR by CKD-EPI >90 >=90 mL/min/1.7 3 m2 06/23/2024 1:52 PM [facility] Blood BLOOD SPECIMEN / Unknown Lab Venipuncture / Unknown 06/23/2024 1:13 PM CDT 06/23/2024 1:21 PM T Nutressa A Ferro RESTAURANT DISTRICT MANAGER-ANALYSIS LEAD LAB - FAMILY LIVING EDUCATOR RY ORDERABLES Performing Organization Address City/[facility] de Phone Number [facility] [address] [place] [address], [facility] [phone] documented in this encounter Visit Diagnoses Diagnosis Pre-op evaluation- Primary Preoperative examination, unspecified documented in this encounter Care Teams Is Support Analyst Relationship Specialty Start Date End Date Karen Tejeda PA [address] [place] [address] PCP - General Physician It Systems Administrator 06/23/24 documented as of this encounter
--- OUTSIDE RECORDS SUMMARY | 2024-11-03 01:59 | XMS_ITS | Encounter Summary ---
Author Organization [facility] Address [address] [place] [address] Care Team Providers Care Gunite Nozzle Operator Name Role Phone Jas Zheng MD Primary Care Provider [phone] Encounter Details Date Type Department Care Team (Late Contact Info) Description 04/12/2021 Orders Only [facility] [address] [place] [address] Soraya Aguilera DO [address] [place] [address] BPH with obstruction/lower urinary tract symptoms Social History Tobacco Use Types Packs/Day Years Used Date Smoking Tobacco: Never Smokeless Tobacco: Never Alcohol Use Standard Drinks/Week Comments No 0 (1 standard drink = 0.6 oz pur e alcohol) Sex and Gender Information Value Date Recorded Sex Assigned at Male 10/18/2021 10:49 PM ORIENTOR Gender Identity Male 10/18/2021 10:49 PM ORIENTOR Sexual Orientation Straight 10/18/2021 10 :49 PM ORIENTOR documented as of this encounter Plan of Treatment Upcoming Encounters Date Type Department Care Team (Late Contact Info) Description 11/17/2024 4:[address] [facility] Health Imaging Services - Ultrasound [address] [place] [address] Soraya Aguilera, DO [address] [place] [address] 11/19/2024 1:45 PM ORIENTOR Office Visit [facility] - [facility]rology [address] [facility] [address] [place] [address] Soraya Aguilera, DO [address] [facility] [address] [place] [phone] 04/14/2025 10:00 AM CDT Office Visit [facility]rology [address] [facility] [place] [phone] Soraya Aguilera, [address] [facility] [address] [place] [phone] documented as of this encounter Visit Diagnoses Diagnosis BPH with obstruction/lower urinary tract symptoms Hypertrophy of prostate with urinary obstruction and other lower urinary tract symptoms (LUTS) documented in this encounter Care Teams Gunite Nozzle Operator Relationship Specialty Start Date End Date Jas Zheng MD [address] [facility] [address] [place] [address] PCP - General 04/12/20 06/22/24 documented as of this encounter
--- OUTSIDE RECORDS SUMMARY | 2024-11-03 01:59 | XMS_ITS | Encounter Summary ---
Author Organization [facility] Address [address] [facility] [place] [address] Care Team Providers Care Admitting Manager Name Role Phone Karen Tejeda Primary Care Pr [facility] Reason for Visit * Reason Onset Date Comments Surgery Rescheduled 06/24/2024 Attempted to reach the patient pertaining to upcoming procedure needing to be moved out. Left voicemail to return my call KIOM. Shannen Abbott 06/24/2024 3:06 PM Encounter Details Date Type Department Care Team (Late st Contact Info) Description 06/24/2024 Telephone [facility]rology [address] [place] [address], [place] [address] Soraya Aguilera M, DO [address] [place] [address] [place] [address] Surgery Rescheduled (Attempted to reach the patient pertaining to upcoming procedure needing to be moved out. Left voicemail to return my call KIMO. Shannen Abbott 06/24/2024 3:06 PM ) Social History Tobacco Use Types Packs/Day Years Used Date Smoking Tobacco: Never Smokeless Tobacco: Never Alcohol Use Standard Drinks/Week Comments No 0 (1 standard drink = 0.6 oz pur e alcohol) Sex and Gender Information Value Date Recorded Sex Assigned at Male 10/18/2021 10:49 PM JOB HONER Gender Identity Male 10/18/2021 10:49 PM JOB HONER Sexual Orientation Straight 10/18/2021 10 :49 PM JOB HONER documented as of this encounter Plan of Treatment Upcoming Encounters Date Type Department Care Team (Late st Contact Info) Description 11/17/2024 4:00 PM JOB HONER Appointment [facility] Health Imaging Services - Ultrasound [address] [place] [address] Soraya Aguilera, DO [address] [place] [phone] 11/19/2024 1:45 PM JOB HONER Office Visit [facility] - Urology [address] [facility] [address] [place] [address] Soraya Aguilera, DO [address] [place] [address] 04/14/2025 10:00 AM CDT Office Visit [facility] - Urology [address] [place] [address] Soraya Aguilera, DO [address] [place] [phone] documented as of this encounter Visit Diagnoses Not on filedocumented in this encounter Care Teams Admitting Manager Relationship Specialty Start Date End Date Karen Tejeda PA [address] [place] [address] PCP - General Physician Webfocus Developer 06/23/24 documented as of this encounter
--- OUTSIDE RECORDS SUMMARY | 2024-11-03 01:59 | XMS_ITS | Encounter Summary ---
Author Organization [facility] Address [facility] [place] [address] Care Team Providers Care [employer] Worker Name Role Phone Unavailable Primary Care Provider Unavailabl e Reason for Visit * Auth/Cert Specialty Diagnoses / Procedures Referred By Alyssa t Referred To Contact Diagnoses Diagnosis unknown Diagnosis unknown [R69] Procedures CYSTOSCOPY (FLEXIBLE/RIGID) TRANSURETHRAL RESECTION PROSTATE (TURP) Referral ID Status Reason Start Date Expiration Date Visits Re quested Visits Authorized [id number] 1 1 Encounter Details Date Type Department Care Team (Late st Contact Info) Description 09/10/2019 10:25 AM FILAMENT MAKER - 09/10/2019 11:45 AM [facility] Surgery [facility] PERIOPERATIVE [address] [place] [address] Soraya Aguilera DO [address] [place] [phone] CYSTOSCOPY Surgery Details Date/Time Status Location OR Service Patient Class Case Class Case Type Trauma Case? 09/10/2019 10:25 AM Posted [facility] MAIN OR OR 04 Urology Surgery Day Care Over Night Elective > 5 days Panel 1 Procedure LRB Anes Op Region Wound Class Comments CYSTOSCOPY General Bladder Clean Contaminated MINI TRANSURETHRAL RESECTION PROSTATE Prostate Clean Contaminated Surgeon Surgeon Role Service Panel Soraya Aguilera DO Primary Urology 1 documented in this encounter Social History Tobacco Use Types Packs/Day Years Used Date Smoking Tobacco: Never Smokeless Tobacco: Never Alcohol Use Standard Drinks/Week Comments No 0 (1 standard drink = 0.6 oz pur e alcohol) Sex and Gender Information Value Date Recorded Sex Assigned at Male 10/18/2021 10:49 PM FILAMENT MAKER Gender Identity Male 10/18/2021 10:49 PM FILAMENT MAKER Sexual Orientation Straight 10/18/2021 10 :49 PM FILAMENT MAKER documented as of this encounter Last Filed Vital Signs Vital Sign Reading Time Taken Comments Blood Pressure 101/50 09/10/2019 11:40 AM FILAMENT MAKER Pulse 71 09/10/2019 11:45 AM FILAMENT MAKER Temperature 36.5 ??C (97.7 ??F) 09/10/2019 11:[address] Respiratory Rate 12 09/10/2019 11:45 AM FILAMENT MAKER Oxygen Saturation 94% 09/10/2019 11:45 AM FILAMENT MAKER Inhaled Oxygen Concentration - - Weight 79.4 kg (175 lb) 09/07/2019 2:46 PM FILAMENT MAKER Height 181.6 cm (5' 11.5 ) 09/07/2019 2:46 PM CS T Body Mass Index 24.07 09/07/2019 2:46 PM FILAMENT MAKER documented in this encounter Discharge Instructions * Discharge Instructions* Nelida Torres MD - 09/10/2019 12:10 PM FILAMENT MAKER Images from the original note were not included. Patient Education Transurethral Prostatectomy UNION ORGANISER: What you need to know about a transurethral prostatectomy: A transurethral prostatectomy is surgeryto remove part or all of your prostate gland. This surgery is also called transurethral resection of the prostate (TURP). How to prepare for a TURP: ?? Your surgeon will tell you how to prepare. You may be told not to eat or drink anything after midnight on the day of surgery. Arrange to have someone drive you home after surgery. ?? Tell your surgeon about all the medicines you currently take. He or she will tell you if you need to stop any medicine before surgery, and when to stop. He or she will tell you which medicines to take or not take on the day of surgery. ?? Tell your surgeon if you have heart disease or blood clotting problems. ?? You may be given medicine to shrink the size of your prostate. You may also be given antibioticsto help prevent or treat a bacterial infection. Tell your surgeon if you had an allergic reaction to antibiotics, anesthesia, or other medicine. ?? You may need blood and urine tests. You may also need a rectal exam to check the size of your prostate. What will happen during a TURP: ?? You may be given anesthesia to make you lose feeling from the waist down, or to keep you asleep during surgery. Your surgeon will insert a resectoscope through your urethra. A resectoscope is a tube with a small monitor on the end. The monitor shows your prostate on a screen during surgery. Yourbladder may be filled with fluid during surgery. ?? Heat that is produced by the resectoscope will be used to remove part, or all, of your prostate.Heat will also be used to stop bleeding in the surgery area. Fluid is used to wash away extra tissue and blood. The resectoscope will be removed from your urethra. A catheter (soft tube) will be put through your urethra and into your bladder. The catheter will be left in place to drain urine out ofyour body and into a bag. What to expect after a TURP: You will be taken to a room to rest. Do not get out of bed until healthcare providers say it is okay. When healthcare providers see that you are okay, you will be taken to your room. A Willard catheter is a thin tube inserted through your urethra and moved into your bladder. The catheter is used to drain urine into a bag. Healthcare providers will remove the catheter when you no longer need it. Antibiotics may be given to prevent a bacterial infection. Risks of a TURP: ?? Your prostate, bladder, or urethra may be damaged. Your urethra or part of your bladder may grownarrow. This can make it difficult or painful to urinate. You may feel like you need to urinate often, or have trouble controlling when you urinate. You may get blood clots in your urine that can block your urethra. ?? You may develop a urinary tract infection, or an infection in the surgery area. You may have trouble getting an erection or ejaculating. You may develop TURP syndrome, which can cause dizziness, fatigue, stomach pain, and vomiting. If you had a partial resection of the prostate, the part of yourprostate that was not removed may grow too large. This can cause your signs and symptoms to return,and you may need to have surgery again. Seek care immediately if: ?? You have severe abdominal or back pain. ?? You are dizzy or confused. ?? You have abdominal pain, nausea, and vomiting. ?? Your heartbeat is slower than usual. Call your doctor or urologist if: ?? You urinate little or not at all. ?? You have a fever. ?? You have new or more blood in your urine. ?? You have trouble starting to urinate, or have a weak stream of urine when you urinate. ?? You feel like you have a full bladder, even after you urinate. You may also leak urine. ?? You often wake up during the night to urinate. You may also feel the need to urinate right away. ?? You feel pain and burning when you urinate. ?? You feel pain or pressure in your lower abdomen. ?? Your urine looks cloudy, and smells bad. ?? You have trouble getting an erection or ejaculating. ?? You have questions or concerns about your condition or care. Medicines: You may need any of the following: ?? Prescription pain medicine may be given. Ask your healthcare provider how to take this medicine safely. Some prescription pain medicines contain acetaminophen. Do not take other medicines that contain acetaminophen without talking to your healthcare provider. Too much acetaminophen may cause liver damage. Prescription pain medicine may cause constipation. Ask your healthcare provider how to prevent or treat constipation. ?? Antibiotics prevent or fight an infection caused by bacteria. ?? Blood thinners help prevent blood clots. Clots can cause strokes, heart attacks, and . The following are general safety guidelines to follow while you are taking a blood thinner: ? Watch for bleeding and bruising while you take blood thinners. Watch for bleeding from your gums or nose. Watch for blood in your urine and bowel movements. Use a soft washcloth on your skin, and asoft toothbrush to brush your teeth. This can keep your skin and gums from bleeding. If you shave, use an electric shaver. Do not play contact sports. ? Tell your dentist and other healthcare providers that you take a blood thinner. Wear a bracelet or necklace that says you take this medicine. ? Do not start or stop any other medicines unless your healthcare provider tells you to. Many medicines cannot be used with blood thinners. ? Take your blood thinner exactly as prescribed by your healthcare provider. Do not skip does or take less than prescribed. Tell your provider right away if you forget to take your blood thinner, or if you take too much. ? Warfarin is a blood thinner that you may need to take. The following are things you should be aware of if you take warfarin: ?? Foods and medicines can affect the amount of warfarin in your blood. Do not make major changes to your diet while you take warfarin. Warfarin works best when you eat about the same amount of vitamin K every day. Vitamin K is found in green leafy vegetables and certain other foods. Ask for more information about what to eat when you are taking warfarin. ?? You will need to see your healthcare provider for follow-up visits when you are on warfarin. Youwill need regular blood tests. These tests are used to decide how much medicine you need. ?? Take your medicine as directed. Contact your healthcare provider if you think your medicine is not helping or if you have side effects. Tell him or her if you are allergic to any medicine. Keep a list of the medicines, vitamins, and herbs you take. Include the amounts, and when and why you take them. Bring the list or the pill bottles to follow-up visits. Carry your medicine list with you in case of an emergency. Willard catheter care: Keep the bag below your waist. If the bag is too high, urine will flow back into your bladder. This can cause an infection. Do not pull on the catheter. This may cause pain and bleeding, and the catheter may come out. Do not let the catheter tubing kink or twist. A kink or twist will block the flow of urine. Bladder control: After surgery, you may leak urine and have trouble controlling when you urinate. The following can help decrease or manage urine leakage: ?? Do not have caffeine. Caffeine can cause problems with bladder control and increase your need tourinate. ?? Limit liquids. Drink smaller amounts of liquid throughout the day. Do not drink before bedtime. Ask if you should decrease the amount of liquid you drink each day. This may help you control your bladder. ?? Wear a pad or adult diapers, if needed. These may help to absorb leaking urine and decrease odor. ?? Do pelvic floor muscle exercises. Pelvic floor muscle exercises, also called Kegels, may help improve your bladder control. These exercises are done by tightening and relaxing your pelvic muscles.Ask how to do pelvic floor muscle exercises, and how often to do them. Activity: Ask when it is okay for you to return to work and activities, or to have sex. Follow up with your surgeon or urologist as directed: You may need to return to make sure you do not have an infection, or to have your Willard catheter removed. Write down your questions so you remember to ask them during your visits. ?? Copyright [employer] (formerly [employer]) 2018 Information is for End User's use only and may not be sold, redistributed or otherwise used for commercial purposes. All illustrations and images included in CareNotes?? are the copyrighted property of [employer] or [employer] The above information is an band aid machine operator only. It is not intended as medical advice for individual conditions or treatments. Talk to your doctor, nurse or pharmacist before following any medical regimen to see if it is safe and effective for you. MENT MAKER documented in this encounter Medications at Time of Discharge Medication Sig Dispensed Refills Start Date End Date acetaminophen (TYLENOL) 500 MG tablet Take 1 tablet by mouth every 6 hours as needed for Fever or Pain Maximum allowable Acetaminophen amount = 4 Grams (4000 mg) / 24 hours. 0 09/10/2019 04/12/2020 MYRBETRIQ 50 MG tablet TAKE 1 TABLET BY MOUTH ONCE DAILY 30 tablet 5 06/15/2019 04/12/2020 tamsulosin (FLOMAX) 0.4 MG capsuleIndications:B enign Prostatic Hypertrophy Take 1 capsule by mouth once daily Take 30 minutes after a meal at the same time each day. Reasons: Benign Enlargement of Prostate 90 capsule 4 11/26/2018 04/12/2020 documented as of this encounter Progress Notes * Candido Heck RN - 09/10/2019 2:30 PM CST Call placed to Dr. Aguilera in regards of pt urine. Noted to be punch colored urine with a small clot. Pt stated there was some discomfort with urination. Dr. Aguilera was ok with patient being discharged. Instructed patient to come back to ER if there was persistent discomfort or difficulty with urination. MENT MAKER * Soraya Aguilera DO - 09/10/2019 12:37 PM CST Clear urine in RR 45 min after clamping CBI. Bladder filled and patient able to void 100 ml and then 400 ml reddish in color. BS after first void was 800 ml. Continue to monitor in same day unit. Needs to void 1-2 times prior to DC home. Please check PVR with bladder scan after each void and document. Upload voided urine image to charts if continues to be red. Feel free to contact for any concerns. Nelida Torres MD 09/10/2019 12:40 PM I was present for trial of void. Soraya Aguilera DO MENT MAKER documented in this encounter H&P Notes * Soraya Aguilera DO - 09/10/2019 9:14 AM CST Urologic Surgery Pre-operative History & Physical 09/10/2019 History of Present Illness: Vernon Vidales is a 54 year oldmale with LUTS, who previously underwent REZUM in clinic ~ 6 months ago. Continues to have difficulty voiding, intermittent flow and frequency. Clinic cysto revealed an asymetric enlargement of the prostate, he was planned for another REZUM however denied by insurance. The patient presents today for operative intervention. Denies dysuria, hematuria, or use anticoagulant medications. PMHx/PSurgHx: No past medical history on file. Past Surgical History: Procedure Laterality Date ??? OTHER SURGERY ACL right knee ??? Vasectomy 1999 Medications: Prior to Admission medications Medication Sig Start Date End Date Taking? Authorizing Provider MYRBETRIQ 50 MG tablet TAKE 1 TABLET BY MOUTH ONCE DAILY 06/15/19 Yes Soraya Aguilera DO tamsulosin (FLOMAX) 0.4 MG capsule Take 1 capsule by mouth once daily Take 30 minutes after a meal at the same time each day. Reasons: Benign Enlargement of Prostate Patient not taking: Reported on 09/07/2019 11/26/18 Soraya Aguilera DO Allergies: Allergies Allergen Reactions ??? Seasonal Other rhinitis Review of Systems: None relevant except aove Physical Exam: Wt Readings from Last 1 Encounters: 09/07/19 175 lb (79.4 kg) Temp (24hrs) Max:98 ??F (36.7 ??C) Vitals: 09/07/19 1446 09/10/19 0902 BP: 116/80 Pulse: 64 Resp: 18 Temp: 98 ??F (36.7 ??C) SpO2: 97% Weight: 175 lb (79.4 kg) Height: 5' 11.5 (1.816 m) General: alert, cooperative, no distress, oriented to person, place, and time Cardiovascular: RRR Respiratory: normal breathing effort Abdomen: soft, nontender, nondistended, no masses or organomegaly : normal male, testes descended bilaterally, no inguinal hernia, right hydrocele Imaging: None ASSESSMENT: 54 year oldmale with LUTS partial response to REZUM, planned for mini TURP today. PLAN: Plan for cystoscopy transurethral resection of prostate in operating room. Nelida Torres MD 09/10/2019 9:15 AM Patient seen and examined with resident. Please see note for further details. I confirm history, exam, assessment and plan. No changes. Patient with BPH and mixed symptoms. Here for miniTURP since rezum is not covered. He would like to preserve some ejaculation. Gen: Alert and oriented x3 Head: normocephalic Lungs: Non-labored respirations Heart: RRR Abd: soft, nontender, nondistended : no CVA tenderness, no suprapubic pain MSK: normal gait and strength Skin: No rashes Plan: To OR for cystoscopy, transurethral resection of prostate. Soraya Aguilera DO 09/10/2019 9:33 AM MENT MAKER documented in this encounter OR Notes * Operative - Soraya Aguilera DO - 09/10/2019 10:33 AM CST Date of surgery: 09/10/19 PREOP DIAGNOSIS: incomplete bladder emptying, prostatic hypertrophy POSTOP DIAGNOSIS: Same PROCEDURE: Cystoscopy, transurethral resection of prostate ANESTHESIA: General ATTENDING SURGEON:DO Willy RESIDENT SURGEON: Nelida Torres MD FINDINGS: Bilateral UOs identified. Right lobe larger than left. Both lateral prostate lobes resected to an symmetrical fossa creation, avoiding apical and bladder neck resection. UO's intact with clear efflux after resection. Grade 0 trabeculations 0 diverticuli. SPECIMENS: Prostate Chips DRAINS: 16Fr urethral 3-way catheter with CBI COMPLICATIONS: None SPONGE AND INSTRUMENT COUNT: Counted and correct INDICATIONS FOR PROCEDURE: 54yo male has prostatic hypertrophy, has incomplete bladder emptying with LUTS. He underwent REZUM procedure, however continued to have obstructive LUTS. A clinic cystoscopy was consistent with limited treatment affect on the right lateral lobe, obscuring the lumen and resulting in obstructive symptoms. Re-REZUM was denied by insurance, therefore planned for mini TURP. He agreed to resection of the bulging areas that are left after rezum. He expressed understanding that he may still have issues with ejaculation and may not receive expected outcomes of a regular TURP(10yr sustained AUASS reduction, etc.) After reviewing the various risks benefits and alternatives, patient consented to procedure. DESCRIPTION OF PROCEDURE: Patient was brought to the OR, SCDs were placed. After IV antibiotics andanesthesia were administered, the patient was positioned in dorsal lithotomy. The perineum and genitalia were prepped and draped in the usual sterile fashion. Timeout was performed. The resectoscope was advanced into the bladder. The bladder was examined with the above findings. The prostate was resected with a 24Fr loop. The prostate chips were irrigated with an Eluk. The prostate chips were sent for pathology. The ureteral orifices were intact. Hemostasis was achieved. The scope was removed. There was good flow of urine after the scope was removed. A 16Fr 3-way willard catheter was placed and the bladder drained. CBI was started. Urine was clear pink. Patient tolerated procedure well and transferred to the PACU in a stable condition. DISPOSITION: PACU PLAN: Clamp CBI after 45 min. If clear to pink lemonade, perform trial of void with fill and spill or catheter removal with PVR check with bladder scanner. If voiding without difficulty more than half of his bladder volume, DC home without catheter. Dr Aguilera was present and scrubbed during the procedure. Nelida Torres MD 09/10/2019 12:10 PM I was present for procedure. Soraya Aguilera DO MENT MAKER documented in this encounter Plan of Treatment Upcoming Encounters Date Type Department Care Team (Late st Contact Info) Description 11/17/2024 4:00 PM FILAMENT MAKER Appointment [facility] - Ultrasound [address] [place] [address] WillyWoody rodriguezsay Judith, DO [address] DIV [place] [phone] 11/19/2024 1:45 PM FILAMENT MAKER Office Visit [facility] - Urology [address] [facility] [address] [place] [address] Soraya Aguilera, DO [address] DIV [place] [phone] 04/14/2025 10:00 AM CDT Office Visit [facility] - Urology [address] [facility] [place] [phone] Soraya Aguilera, DO [address] DIV [place] [phone] documented as of this encounter Procedures Procedure Name Priority Date/Time Associated Diagnosis Comments CARDIAC RHYTHM STRIP ORDER 09/14/2019 9:23 PM FILAMENT MAKER PATHOLOGY TISSUE EXAM (STL) Routine 09/10/2019 10:43 AM FILAMENT MAKER Diagnosis unknown MN TRANSURETHRAL ELEC-SURG PROSTATECTOM 09/10/2019 9:13 AM FILAMENT MAKER Diagnosis unknown MN CYSTOURETHROSCOPY 09/10/2019 9:13 AM FILAMENT MAKER Diagnosis unknown documented in this encounter Results * CARDIAC RHYTHM STRIP ORDER (09/14/2019 9:23 PM FILAMENT MAKER) Narrative 09/14/2019 9:23 PM FILAMENT MAKER Ordered by an unspecified provider. Scanned Document CARDIAC SERVICES ORD ERABLES * GROSS + MICRO EXAM (STL) (09/10/2019 10:43 AM FILAMENT MAKER) Case Report Surgical Pathology Report ? Case: [id number] ? Authorizing Provider: ??Soraya Aguilera, ?Collected: ? 09/10/2019 10:43 AM ? Ordering Location: ? [facility] ? Received: ?09/10/2019 12:42 PM ? Pathologist: ? Shawn Rosenbaum MD ? Specimen: ?Prostate Chips, prostate chips-S/P RESUME WATER VAPER ??THERAPY ??2018 ? 09/18/2019 11:[address] [facility] Final Diagnosis Prostate, chips, transurethral resection of prostate (A): - Benign prostatic tissue without evidence of carcinoma 09/18/2019 11:[address] [facility] Clinical History 54 year old male with incomplete bladder emptying and prostatic hypertrophy. 09/18/2019 11:[address] [facility] Gross Description The requisition and specimen labels are identified with the patient's name, Vernon Vidales. Received in formalin, specimen A, prostate chips , are 5 grams of soft brown-yellow tissue fragments ranging in greatest dimension from 0.5 to 1.1 cm, which are entirely submitted in cassette A1. TF/arm 09/18/2019 11:[address] [facility] Microscopic Description Microscopic examination substantiates the final diagnosis. 09/18/2019 11:[address] [facility] Disclaimer All histochemical and/or immunohistochemical results are interpreted with controls that demonstrate appropriate staining reactions before reporting results. Note on use of immunocytochemistry reagents: This test was developed and its performance characteristic determined by [facility], Department of Laboratory Medicine. It has not been cleared or approved by the U.S. Food and Drug Administration (FDA). The FDA has determined that such clearance or approval is not necessary. The test is used for clinical purpose. It should not be regarded as investigational or for research. This laboratory is certified to perform high complexity testing. 09/18/2019 11:[address] [facility] Embedded Images 09/18/2019 11:[address] [facility] Pathology/Cytolo gy SPECIMEN FROM PROSTATE OBTAINED BY TRANSURETHRAL RESECTION / Unknown 09/10/2019 10:43 AM FILAMENT MAKER 09/10/2019 12:42 PM FILAMENT MAKER Comment:Pre-op diagnosis: Diagnosis unknown [R69] S/P RESUME WATER VAPER THERAPY 2018 Soraya Aguilera DO LAB - PATHOLOGY/CY TOLOGY ORDERABLES [facility] [address] [place] [address] documented in this encounter Visit Diagnoses Diagnosis Diagnosis unknown Other unknown and unspecified cause of morbidity or mortality Diagnosis unknown Other unknown and unspecified cause of morbidity or mortality documented in this encounter Administered Medications Inactive Administered Medications - up to 3 most recent administrations Medication Order MAR Action Action Date Dose Rate Site 0.9% nacl irrigation solution PRN, Starting on Erika 09/10/19 at 1048, Until Erika 09/10/19 at 1105, Intra-op $ Given 09/10/2019 10:48 AM FILAMENT MAKER 3,000 mL acetaminophen (TYLENOL) tablet 1,000 mg 1,000 mg, Oral, ONCE, 1 dose, On Erika 09/10/19 at 0915, Pre-op $ Given 09/10/2019 9:14 AM FILAMENT MAKER 1,000 mg lactated ringers infusion at 20 mL/hr, Intravenous, PRE-OP CONTINUOUS, Starting on Erika 09/10/19 at 0915, Until Erika 09/10/19 at 1602, Pre-op $ New Bag/Syringe 09/10/2019 9:14 AM FILAMENT MAKER 20 mL/hr lidocaine (XYLOCAINE MPF) 1 % injection 0.2 mL 0.2 mL, Infiltration, PRE-OP MULTIPLE, 3 doses, Starting on Erika 09/10/19 at 0905, Until Erika 09/10/19 at 1602, May be used (0.2 ml locally to anesthetize prior to insertion)., Pre-op $ Admin. by Other Provider 09/10/2019 9:13 AM FILAMENT MAKER 0.2 mL Sorbitol 3 % SOLN PRN, Starting on Erika 09/10/19 at 1049, Until Erika 09/10/19 at 1105, Intra-op $ Given 09/10/2019 10:49 AM FILAMENT MAKER 3,000 mL Bladder Wall documented in this encounter Active and Recently Administered Medications Times are shown in FILAMENT MAKER. Scheduled Medication Order 09/08/2019 09/09/2019 09/10/2019 acetaminophen (TYLENOL) tablet 1,000 mg (COMPLETED) 1,000 mg, Oral, ONCE, 1 dose, On Erika 09/10/19 at 0915, Pre-op 0914 ($ Given - Prov ider: Cassy Gannon RN) ceFAZolin (ANCEF) 2,000 mg in 50 ml IVPB (COMPLETED) 2,000 mg (2 g), at 100 mL/hr, Intravenous, PRE-OP ONCE, 1 dose, On Erika 09/10/19 at 0945, Before reconstitution, protect from light, Indication for anti-infective therapy: Surgical prophylaxis 1029 ($ Given - Prov ider: Wagner Flores III, INFORMATION OFFICER-IDEA MAN) lidocaine (XYLOCAINE MPF) 1 % injection 0.2 mL 0.2 mL, Infiltration, PRE-OP MULTIPLE, 3 doses, Starting on Erika 09/10/19 at 0905, Until Erika 09/10/19 at 1602, May be used (0.2 ml locally to anesthetize prior to insertion)., Pre-op 0913 ($ Admin. by Ot her Provider - Provider: Cassy Gannon RN - Comment: Berenice Watson RN) naloxone (NARCAN) injection 0.04 mg 0.04 mg, Intravenous, POST-OP MULTIPLE, Starting on Erika 09/10/19 at 1100, Until Erika 09/10/19 at 1602, If respiration rate is less than 7 per minute administer IV every 1 minute until respirations are greater than 12 per minute. Notify anesthesia immediately., PACU Continuous Medication Order 09/08/2019 09/09/2019 09/10/2019 lactated ringers infusion at 20 mL/hr, Intravenous, PRE-OP CONTINUOUS, Starting on Erika 09/10/19 at 0915, Until Erika 09/10/19 at 1602, Pre-op 0914 ($ New Bag/Syri nge - Provider: Cassy Gannon RN) lactated ringers infusion at 125 mL/hr, Intravenous, CONTINUOUS, Starting on Erika 09/10/19 at 1115, Until Erika 09/10/19 at 1602, PACU 1115 (Due) PRN Medication Order 09/08/2019 09/09/2019 09/10/2019 0.9% nacl irrigation solution (CANCELED) PRN, Starting on Erika 09/10/19 at 1048, Until Erika 09/10/19 at 1105, Intra-op 1048 ($ Given - Prov ider: Soraya Aguilera DO) fentaNYL (PF) (SUBLIMAZE) injection 50 mcg 50 mcg, Intravenous, EVERY 3 MIN PRN, Mild Pain, 4 doses, Starting on Erika 09/10/19 at 1100, Until Erika 09/10/19 at 1602, Maximum total of 4 doses. If patient reaches max total dose, please consult anesthesiologist prior to further administration of pain meds. Hold pain meds if there are signs of hypoventilation., PACU fentaNYL (PF) (SUBLIMAZE) injection 50 mcg 50 mcg, Intravenous, EVERY 3 MIN PRN, Moderate Pain, 4 doses, Starting on Erika 09/10/19 at 1100, Until Erika 09/10/19 at 1602, Maximum total of 4 doses. If patient reaches max total dose, please consult anesthesiologist prior to further administration of pain meds. Hold pain meds if there are signs of hypoventilation., PACU HYDROmorphone (DILAUDID) injection 0.5 mg 0.5 mg, Intravenous, EVERY 5 MIN PRN, Severe Pain, 4 doses, Starting on Erika 09/10/19 at 1100, Until Erika 09/10/19 at 1602, Maximum total of 4 doses If patient reaches max total dose, please consult anesthesiologist prior to further administration of pain meds. Hold pain meds if there are signs of hypoventilation., PACU ondansetron (ZOFRAN) injection 4 mg 4 mg, Intravenous, ONCE PRN, Nausea/Vomiting, 1 dose, Starting on Erika 09/10/19 at 1100, Until Erika 09/10/19 at 1602, First choice, PACU Sorbitol 3 % SOLN (CANCELED) PRN, Starting on Erika 09/10/19 at 1049, Until Erika 09/10/19 at 1105, Intra-op 1049 ($ Given - Prov ider: Soraya Aguilera DO) documented in this encounter
--- OUTSIDE RECORDS SUMMARY | 2024-11-03 01:59 | XMS_ITS | Encounter Summary ---
Author Organization [facility] Address [address] [facility] [place] [address] Care Team Providers Care Dialysis Nurse Name Role Phone Karen Tejeda Primary Care Pr ovider Reason for Referral * (Routine) - Open Specialty Diagnoses / Procedures Referred By Contac t Referred To Contact Procedures Follow up with provider Soraya Stockton DO [address] [facility] [address] [facility] [place] [address] Soraya Stockton DO [address] [facility] [place] [address] Referral ID Status Reason Start Date Expiration Date Visits Re quested Visits Authorized [id number] Open 09/16/2024 09/16/2025 1 1 LEADER Reason for Visit * Auth/Cert (Routine) Specialty Diagnoses / Procedures Referred By Contac t Referred To Contact Diagnoses Right hydrocele Epididymal cyst Right hydrocele - Primary; Epididymal cyst Procedures [place] EXPLORE SCROTUM [place] REMOVAL OF HYDROCELE,TUNICA,UNILAT EXPLORATION SCROTAL/TESTIS HYDROCELECTOMY Referral ID Status Reason Start Date Expiration Date Visits Re quested Visits Authorized [id number] 1 1 Encounter Details Date Type Department Care Team (Latest Contact Info) Description 09/16/2024 12:32 PM TOUR LEADER - 09/16/2024 7:37 PM TOUR LEADER Hospital Encounter [facility] [address] [place] [phone] Woody Stocktonsay M, DO [address] [facility] [address] [place] [phone] Surgery General Discharge Disposition: Home or Self Care Social History Tobacco Use Types Packs/Day Years [...] Sex Assigned at Male 10/18/2021 10:49 PM TOUR LEADER Gender Identity Male 10/18/2021 10:49 PM TOUR LEADER Sexual Orientation Straight 10/18/2021 10 :49 PM TOUR LEADER documented as of this encounter Last Filed Vital Signs Vital Sign Reading Time Taken Comments Blood Pressure 144/93 09/16/2024 7:15 PM TOUR LEADER Pulse 80 09/16/2024 7:15 PM TOUR LEADER Temperature 36.4 ??C (97.6 ??F) 09/16/2024 6 :45 PM TOUR LEADER Respiratory Rate 17 09/16/2024 7:15 PM TOUR LEADER Oxygen Saturation 98% 09/16/2024 6:3 5 PM TOUR LEADER Simultaneous filing. User may not have seen previous data. Inhaled Oxygen Concentration - - Weight 78 kg (172 lb) 09/16/2024 1:26 PM TOUR LEADER Height 180.3 cm (5' 11 ) 09/16/2024 1:2 6 PM TOUR LEADER Body Mass Index 23.99 09/16/2024 1:26 PM TOUR LEADER documented in this encounter Functional Status Functional [...] Leonard Alicia MD - 09/16/2024 6:09 PM TOUR LEADER Images from the original note were not included. [facility] Urology Today, you underwent a hydrocelectomy. [...] cancel or reschedule the appointment please call [phone] or [phone]. The [facility] is located at [address] [place] [address], [address], [place] [address]. The phone number to clinic is [phone] if you need to cancel or re-schedule. Please arrive 15 minutes early. The [facility] is located at the [facility] level 2. The phone number is [phone]. The address is [address] [place] [address]. Please arrive 15 minutes early to your appointment. Post Operative Pain Control: - You can take Tylenol (acetaminophen) and Motrin (Ibuprofen) in alternating fashion every 4-6 hours, especially in the first 24-48 hours after surgery, then as needed thereafter. - You may also be prescribed narcotic pain medication such as Oxycodone, Auburn, or Tramadol. This should be taken as needed for severe pain only. Do not drink alcohol, drive, or operate heavy machinery while taking this type of medication. If the narcotic is Auburn, please understand that Auburn has Tyelonol in it. If you are [...] surgery or the recovery process, please contact [facility] Urology [phone] (Option #1: scheduling, Option #2 Nurse line, Option #3 surgery scheudler, Option#4 administration) on weekdays during regular business hours. If you have an urgent or emergent question on a weekend or after regular business hours, please contact [facility] at [phone] and ask for the provider director organizational for Urology. In addition, please contact us [...] or non-clear, foul-smelling drainage) Example of Hydrocele: LEADER documented in this encounter Medications at Time [...] Stockton, DO - 09/16/2024 1:23 PM CST [facility] Division of Urologic Surgery Pre-Operative H&P Today's [...] results for input(s): HGBA1C in the last 98653 hours. PSA Total Date Value Ref Range [...] , INR , PTT in the last 93517 hours. Bilirubin UA POCT Date Value Ref Range Status 01/24/2024 - Final Ketones UA POCT Date Value Ref Range Status 01/24/2024 - Final Specific Wickett UA Date Value Ref Range Status 01/24/2024 1.010 Final Nitrite UA Date Value Ref Range Status 01/24/2024 - Final Mirco: No results for input(s): URINECULT in the last 41828 hours. Pathology: N/A Review of Imaging Reports: BRYAN 06/23/2024: Narrative & Impression PROCEDURE: US SCROTUM AND CONTENTS, DATE/TIME OF EXAM: 06/23/2024 1:53 PM, LOCATION [facility] INDICATION: N43.3: Right hydrocele N50.3: Epididymal cyst [...] obtained and placed in chart. Mayuri Gonzáles APRN-GOLD PLATER 09/16/2024 1:25 PM Patient seen and examined with BARREL WASHER MACHINE. Please see note for further details. I confirm history, exam, assessment and plan. No changes. Soraya Stockton DO 09/16/2024 2:14 PM LEADER documented in this encounter Nursing Notes * [...] morning of surgery. Do not wear nail irish, body piercings or contact lenses. Do not [...] medications the day of surgery: DIRECTIONS: Address: [address] [place] [address] Parking Garage: Please park on the ORANGE side of the garage, take the ORANGE elevators to the 1st floor. [facility] is located at the end of the hallway. Practice Administrator: Enter through the main entrance and take a right. You will walk down a hallway ending in a ???T?? junction with a large TV on the wall. Make a left at the ???T?? junction. You will then [facility] at the end of the hallway. Please call with any questions relating to anesthesia for surgery. Pre-Admissions Testing [phone] LEADER documented in this encounter OR Notes * [...] Role: * Soraya Stockton DO - Primary Semi Automatic Sewing Machine Operator(s): Leonard Alicia MD - resident Anesthesia Type: [...] MD Soraya Polo DO 09/19/2024 3:55 PM LEADER * Operative - Soraya Stockton DO - [...] portions of the procedure. Soraya Stockton DO LEADER documented in this encounter Plan of Treatment Upcoming Encounters Date Type Department Care Team (Late st Contact Info) Description 11/17/2024 4:00 PM TOUR LEADER Appointment [facility] Health Imaging Services - Ultrasound [address] [place] [address] Soraya Stockton DO [address] [facility] [address] [place] [phone] 11/19/2024 1:45 PM TOUR LEADER Office Visit [facility] - Urology [address] [facility] [address] [place] [phone] Soraya Stockton DO [address] [facility] [address] [place] [address] 04/14/2025 10:00 AM CDT Office Visit [facility] - Urology [address] [facility] [place] [phone] Soraya Stockton DO [address] [facility] [address] [place] [phone] documented as of this encounter Procedures Procedure Name Priority Date/Time Associated Diagnosis Comments PATHOLOGY TISSUE Routine 09/16/2024 5:40 PM TOUR LEADER Right hydrocele Epididymal cyst [place] REMOVAL OF HYDROCELE,TUNICA, UNILAT 09/16/2024 4:15 PM TOUR LEADER Right hydrocele Epididymal cyst Case Notes Scrotal Ultrasound: 06/23/2024 @1430@[facility] ? Therese Welch [phone] Opt. 3 ext 1081 Special Needs Reviewed SM 09/16 [place] EXPLORE SCROTUM 09/16/2024 4:15 PM TOUR LEADER Right hydrocele Epididymal cyst Case Notes Scrotal Ultrasound: 06/23/2024 @1430@[facility] ? Therese Welch [phone] Opt. 3 ext 1081 Special Needs Reviewed SM 09/16 documented in this encounter Results * PATHOLOGY TISSUE (09/16/2024 5:40 PM TOUR LEADER) Case Report Surgical Pathology Report ? Case: [id number] ? Authorizing Provider: ??Soraya Stockton, DO ?Collected: ? 09/16/2024 05:40 PM ? Ordering Location: ? [facility] ?Received: ?09/17/2024 04:30 AM ? Pathologist: ? Magalie Segura MD ? Specimen: ?Cyst, RIGHT EPIDYDIMAL CYST ? 09/21/2024 9:52 AM [facility] Final Diagnosis Right epididymal cyst, excision: - Benign mesothelial cyst consistent with hydrocele 09/21/2024 9:52 AM [facility] Microscopic Description and Comment Microscopic examination substantiates the above captioned diagnosis. 09/21/2024 9:52 AM [facility] Clinical History Epididymal cyst, right hydrocele 09/21/2024 9:52 AM [facility] Gross Description The requisition and [...] No masses or lesions are grossly identified. Hospital Recruiter sections are submitted as cassette A1. [place] 09/21/2024 9:52 AM [facility] Pathologist Location at [facility] 09/21/2024 9:52 AM [facility] Disclaimer The performance characteristics of all immunohistochemical and indirect immunofluorescence stains (if any) cited in this report were determined by the Histopathology Laboratory of [facility]. Some of these tests were developed by [...] the attending (teaching) pathologist. 09/21/2024 9:52 AM [facility] Embedded Images 09/21/2024 9:52 AM [facility] Biopsy, Excision CYST TISSUE / Unknown 09/16/2024 5:40 PM TOUR LEADER 09/17/2024 4:30 AM TOUR LEADER Comment:Pre-op diagnosis: Right hydrocele - Primary; Epididymal cyst Soraya Stockton DO LAB - PATHOLOGY/MARINE FOXOGY ORDERABLES [facility] LAB [address] [place], [place] [address] [phone] documented in this encounter Visit Diagnoses Diagnosis [...] intake, Pre-op $ Given 09/16/2024 1:52 PM TOUR LEADER 1,000 mg albuterol-ipratropium (Duo-Neb) nebulizer solution 3 mL 3 mL, Inhalation, POST-OP MULTIPLE, Starting on Sat09/16/24 at 1800, Until Sat09/16/24 at 2036, For wheezing. Notify anesthesia immediately., PACU diphenhydrAMINE (Benadryl) injection 25 mg 25 [...] intake, PACU $ Given 09/16/2024 6:10 PM TOUR LEADER 25 mcg fentaNYL (PF) (Sublimaze) injection 50 [...] intake, PACU $ Given 09/16/2024 6:18 PM TOUR LEADER 50 mcg hydrALAZINE (Apresoline) injection 5 mg [...] Pre-op $ New Bag/Syringe 09/16/2024 1:50 PM TOUR LEADER 20 mL/hr lactated ringers infusion at 125 [...] oral intake $ Given 09/16/2024 7:06 PM TOUR LEADER 5 mg prochlorperazine (Compazine) injection 10 mg 10 mg, Intravenous, ONCE PRN, Nausea/Vomiting, 1 dose, Starting on Sat09/16/24 at 1800, Until Sat09/16/24 at 2036, First choice, PACU documented in this encounter Active and Recently Administered Medications Times are shown in TOUR LEADER. Scheduled Medication Order 09/14/2024 09/15/2024 09/16/2024 acetaminophen [...] first unless patient cannot tolerate oral intake 190 ($ Given - Prov ider: Samir Herzog [...] unless patient cannot tolerate oral intake, PACU 1817 ($ Given - Prov ider: Clair Bauman [...] PACU documented in this encounter Care Teams Dialysis Nurse Relationship Specialty Start Date End Date Karen Tejeda PA [address] [place] [address] PCP - General Physician Semi Automatic Sewing Machine Operator 06/23/24 documented as of this encounter
--- OUTSIDE RECORDS SUMMARY | 2024-11-03 01:59 | XMS_ITS | Encounter Summary ---
Author Organization [facility] Address [address] [place] [address] Care Team Providers Care Ecg Technician Name Role Phone Karen Tejeda Primary Care Pr [facility] Encounter Details Date Type Department Care Team (Latest Contact Info) Description 10/26/2024 Travel Social History Tobacco Use Types Packs/Day [...] Sex Assigned at Male 10/18/2021 10:49 PM HANGAR ATTENDANT Gender Identity Male 10/18/2021 10:49 PM HANGAR ATTENDANT Sexual Orientation Straight 10/18/2021 10 :49 PM HANGAR ATTENDANT documented as of this encounter Functional Status Functional Status Response [...] No 09/16/2024 documented as of this encounter Plan of Treatment Upcoming Encounters Date Type Department Care Team (Late st Contact Info) Description 11/17/2024 4:00 PM HANGAR ATTENDANT Appointment [facility] Health Imaging Services - Ultrasound [address] [place] [address] Soraya Aguilera, DO [address] [place] [phone] 11/19/2024 1:45 PM HANGAR ATTENDANT Office Visit [facility] - Urology [address] [facility] [address] [place] [phone] Soraya Aguilera, DO [address] [place] [address] 04/14/2025 10:00 AM CDT [facility] [address] [place] [phone] Soraya Aguilera, DO [address] [place] [phone] documented as of this encounter Visit Diagnoses Not on filedocumented in this encounter Care Teams Ecg Technician Relationship Specialty Start Date End Date Karen Tejeda PA [address] [place] [phone] PCP - General Physician Office Mover 06/23/24 documented as of this encounter
--- OUTSIDE RECORDS SUMMARY | 2024-11-03 01:59 | XMS_ITS | Encounter Summary ---
Author Organization [facility] Address [address] [facility] [place] [address] Care Team Providers Care Jackaroo Name Role Phone Jas Zheng MD Primary Care Provider [phone] Encounter Details Date Type Department Care Team (Late Contact Info) Description 05/13/2024 Orders Only [facility] Urology [address] [place] [address] Beverly Oseguera RN Social History Tobacco Use Types Packs/Day Years Used Date Smoking Tobacco: Never Smokeless Tobacco: Never Alcohol Use Standard Drinks/Week Comments No 0 (1 standard drink = 0.6 oz pur e alcohol) Sex and Gender Information Value Date Recorded Sex Assigned at Male 10/18/2021 10:49 PM DEHYDRATION PLANT OPERATOR Gender Identity Male 10/18/2021 10:49 PM DEHYDRATION PLANT OPERATOR Sexual Orientation Straight 10/18/2021 10 :49 PM DEHYDRATION PLANT OPERATOR documented as of this encounter Progress Notes * Beverly Oseguera RN - 05/13/2024 12:53 PM CDT PAT 06/23/2024 No pre-op labs ordered. documented in this encounter Plan of Treatment Upcoming Encounters Date Type Department Care Team (Late Contact Info) Description 11/17/2024 4:00 PM DEHYDRATION PLANT OPERATOR Appointment [facility] Health Imaging Services - Ultrasound [address] [place] [address] Soraya Aguilera M, DO [address] [place] [address] 11/19/2024 1:45 PM DEHYDRATION PLANT OPERATOR Office Visit [facility] - Urology [address] [place] [address] Soraya Aguilera, DO [address] [place] [phone] 04/14/2025 10:00 AM CDT Office Visit [facility] Urology [address] [facility], [place] [address] Soraya Aguilera, DO [address] [place] [address] documented as of this encounter Visit Diagnoses Not on filedocumented in this encounter Care Teams Jackaroo Relationship Specialty Start Date End Date Jas Zheng MD [address] [facility] [address] [place] [address] PCP - General 04/12/20 06/22/24 documented as of this encounter
--- OUTSIDE RECORDS SUMMARY | 2024-11-03 01:59 | XMS_ITS | Encounter Summary ---
Author Organization [facility] Address [address] [place] [address] Care Team Providers Care Coat Joiner Name Role Phone Jas Zheng MD Primary Care Provider [phone] Reason for Visit * Reason Comments Establish Care Results * Consult, Test & Treat (Routine) - Closed Specialty Diagnoses / Procedures Referred By Contac t Referred To Contact Rheumatology Diagnoses Other specified abnormal immunological findings in serum Jas Zheng MD [facility] [place] [address] Phone: [phone] Fax: [phone] Gloria Mchugh MD [address] [place] [address] 2[address] [place] [address] Referral ID Status Reason Start Date Expiration Date Visits Re quested Visits Authorized [id number] Closed 09/27/2020 09/27/2021 1 1 Encounter Details Date Type Department Care Team (Late st Contact Info) Description 01/16/2021 10:40 AM CDT Office Visit [facility] [address] [place] [address], [place] [address] Gloria Mchugh MD [address] [place] [address] 2[address] DIV OF RHEUMATOLOGY [place], [place] [id number] Arthralgia, unspecified joint (Primary Dx); Bilateral low back pain without sciatica, unspecified chronicity Social History Tobacco Use Types Packs/Day Years Used Date Smoking Tobacco: Never Smokeless Tobacco: Never Alcohol Use Standard Drinks/Week Comments No 0 (1 standard drink = 0.6 oz pur e alcohol) Sex and Gender Information Value Date Recorded Sex Assigned at Male 10/18/2021 10:49 PM BINDERY LIBRARY TECHNICAL ASSISTANT Gender Identity Male 10/18/2021 10:49 PM BINDERY LIBRARY TECHNICAL ASSISTANT Sexual Orientation Straight 10/18/2021 10 :49 PM BINDERY LIBRARY TECHNICAL ASSISTANT documented as of this encounter Last Filed Vital Signs Vital Sign Reading Time Taken Comments Blood Pressure 90/60 01/16/2021 11:02 AM CDT Pulse - - Temperature 36.7 ??C (98.1 ??F) 01/16/2021 11:02 AM C DT Respiratory Rate - - Oxygen Saturation - - Inhaled Oxygen Concentration - - Weight 78.3 kg (172 lb 9.6 oz) 01/16/2021 11:02 AM CDT Height 180.3 cm (5' 11 ) 01/16/2021 11:02 AM CDT Body Mass Index 24.07 01/16/2021 11:02 AM CDT documented in this encounter Patient Instructions * Patient Instructions* Gloria Mchugh MD - 01/16/2021 11:24 AM CDT We saw you today for initial evaluation of joint pain and back pain. We want to make sure you don'thave something called sacroiliitis or ankylosing spondylitis causing your symptoms. Please get labs [facility] at [facility]. Get Xrays done here. Follow up next available. Thank you! If you need to change or cancel your Rheumatology appointment - At the [facility], call [phone] If you need a refill request, have your pharmacy fax a request to [phone]. If you need to leave a message for Dr. Mchugh, you can send her an electronic message via Taomee or leave a voicemail at [phone]. Her office FAX number is [phone]. For after hours emergency only, you can call the [facility] marine service operator at [phone] and ask for the Green Chain Worker contact representative to be paged. documented in this encounter Progress Notes * Gloria Mchugh MD - 01/17/2021 10:27 AM CDT [facility] Rheumatology Consult H&P Reason for consult: Attending: PCP: Jas Zheng MD HPI: Mr. Vidales is a 55 year old male who presents for initial evaluation of abnormal lab. Hewas referred by his PCP. We did not receive any records of which labs were abnormal or reason labs were drawn from PCP. (On the referral - there is notation of a routine office visit during which KARISSA, RF and CCP were drawn for unclear reasons, but results not forwarded to us) Per patient, he believes he had an abnormal lab result that was drawn as part of an evaluation of joint pain. He notes that he has had longstanding pain in his elbows, knees, shoulders, and lower back which he has attributed from being rough on his body when he was younger and wear and tear arthritis. He knows he has problems with golfer's elbow. He does not have swelling, small joint pain, or significant morning stiffness. The back pain has gotten worse over the past 1.5 years. It is in his lower back/tailbone area. It is worse when he sits, lies down, or rides his motorcycle. It improves with walking/movement, but he thinks this is more related to the position change (sitting/laying always puts pressure in the area and makes it worse) Aleve does help his pain. He takes one pill 3-4 times per week. He does not particularly want to take more medications. He denies rashes or skin changes other than dry skin on his shins when it's cold out. Denies Raynauds, swelling, shortness of breath, chest pain, sores in his nose or mouth, or photosensitivity. He has mild dry mouth which does not bother him. He has less than 10 minutes of morning stiffness. ROS: General: -fatigue, -fever, -wt loss/gain, daily functioning not limited HEENT: -dry eyes, -dry mouth, -vision changes, -eye redness, -eye pain, - oral/nasal ulcers CV: -chest pain, -palpitations, - LE edema Resp: -cough, -SOB, -pleuritic pain GI: - dysphagia, - reflux, -abd pain, -constipation, -nausea, -vomiting, - diarrhea, -blood/mucus : -urine changes, -dysuria, -hematuria MSK: +arthralgia, -myalgia, -muscle weakness, -swelling, -erythema, -warmth, + very minimal AM stiffness, +back pain Skin: -rash, -lesions, -ulcers, -hair loss, -Raynaud, -acrocyanosis, -photosensitivity Neuro: -DONAHUE, -paresthesias Psych: Mood is generally good, -depression/anxiety ROS otherwise negative Past Medical History: Past Medical History: Diagnosis Date ??? Alcoholism ??? Diverticulitis ??? Irritable bowel syndrome (IBS) Social History: Social History Tobacco Use ??? Smoking status: Never Smoker ??? Smokeless tobacco: Never Used Substance Use Topics ??? Alcohol use: No ??? Drug use: No Alcoholic in recovery since 2008 Family History: Review of Family History Problem Relation Name Age of Onset ??? Cancer - Prostate Paternal Uncle Current Medications: No current outpatient medications on file. No current facility-administered medications for this visit. Allergies: Seasonal Physical Exam: BP 90/60 Temp 98.1 ??F (36.7 ??C) (Temporal) Ht 5' 11 (1.803 m) Wt 172 lb 9.6 oz (78.3 kg) BMI 24.07 kg/m2 General: Alert, oriented, appears stated age Skin: Skin color, texture, turgor normal. No rashes or lesions HEENT: Normocephalic, without obvious abnormality, atraumatic conjunctivae/corneas clear, EOMI, no oral or nasal ulcers, moist mucus membranes, supple neck Lymphatic: No cervical, supraclavicular adenopathy Back: Symmetric, normal curvature Chest/Lungs: Clear to auscultation bilaterally, normal respiratory effort Heart: RRR, normal S1 and S2, no murmur, no rub Abdomen: Soft, non-tender. Bowel sounds normal. No masses, no organomegaly Neurologic: Grossly normal cranial nerves Musculoskeletal Exam: No synovitis +HN and BN No SI tenderness Normal spine range of motion Labs: Reviewed, including those as noted below Recent Labs Component Name 08/27/1944 01/14/18 1359 WBC 5.1 5.2 HGB 14.7 14.9 Recent Labs Component Name 08/27/19 0644 01/14/18 1359 NA - 140 CL - 101 CO2 30 29 BUN 18 12 CREATININE 0.79 0.9 Recent Labs Component Name 08/27/19 0644 AST 11 ALT 13 ALKPHOS 70 Lab results smartLinks are not currently available Diagnostics: Reports having had MRI of back done, does not know if it was spine or SI joints, says it showed arthritis and a bone bruise Was performed at [facility] by [facility] We did not get report Assessment: Mr. Vidales is a 55 year old male who presents for initial evaluation by rheumatology of abnormal labs. Patient thinks labs were drawn for evaluation of joint/back pain, although he is not certain. We did not receive records of the labs with the referral, or pertinent history with the referral. Overall patient does not have any symptoms suggestive of lupus or other connective tissue disease.His joint pains sound to be mechanical, related to OA, and overuse as he suspected. He does not have any small joint pain, joint swelling, or significant morning stiffness that would be seen with RA.He does have low back pain for which sacroiliitis should be ruled out. It sounds as though the painis more likely due to degenerative disk disease/OA, but it is NSAID responsive, and improves with exercise, so screening for /seronegative spondylarthropathy with inflammatory markers, imaging, andHLA B27 testing is reasonable. I discussed with the patient that he would likely get more benefit from his aleve if he increases it to 440 mg bid, but he does not seem particularly interested. It would be helpful to have records of lab of concern and prior MRI results. Recommendations: 1. Labs: as below 2. Radiology: as below 3. Medications: recommended increasing Aleve to 440 mg bid 4. Other: will try to obtain prior records and imaging from PCP Gloria Mchugh MD Department of Rheumatology Orders Placed This Encounter ??? XR SI JOINTS 3VW OR MORE Standing Status: Future Number of Occurrences: 1 Standing Expiration Date: 01/16/2022 Order Specific Question: Release to patient Answer: Immediate ??? XR ELBOW LEFT 2VW Standing Status: Future Number of Occurrences: 1 Standing Expiration Date: 01/16/2022 Order Specific Question: Release to patient Answer: Immediate ??? XR ELBOW RIGHT 2VW Standing Status: Future Number of Occurrences: 1 Standing Expiration Date: 01/16/2022 Order Specific Question: Release to patient Answer: Immediate ??? CBC WITH DIFFERENTIAL Order Specific Question: Release to patient Answer: Immediate ??? COMPREHENSIVE METABOLIC PANEL Order Specific Question: Release to patient Answer: Immediate ??? C-REACTIVE PROTEIN Order Specific Question: Release to patient Answer: Immediate ??? ERYTHROCYTE SEDIMENTATION RATE Order Specific Question: Release to patient Answer: Immediate ??? URINALYSIS W/MICROSCOPIC NO CULTURE Order Specific Question: Release to patient Answer: Immediate ??? RHEUMATOID FACTOR BLOOD QUANTITATIVE Order Specific Question: Release to patient Answer: Immediate ??? HLA TYPING B27 Order Specific Question: Release to patient Answer: Immediate ??? CYCLIC CITRULLINATED PEPTIDE(CCP) AB IGG Order Specific Question: Release to patient Answer: Immediate documented in this encounter Plan of Treatment Upcoming Encounters Date Type Department Care Team (Late st Contact Info) Description 11/17/2024 4:00 PM BINDERY LIBRARY TECHNICAL ASSISTANT Appointment [facility] - Ultrasound [address] [place] [address] Soraya Aguilera, DO [address] 2L [place] [id number] 11/19/2024 1:45 PM BINDERY LIBRARY TECHNICAL ASSISTANT Office Visit [facility] - Urology [address] [facility] [address] [address] [place] [address] Soraya Aguilera, DO [address] [place] [id number] 04/14/2025 10:00 AM CDT Office Visit [facility] - Urology [address] [facility], [place] [id number] Soraya Aguilera, DO [address] 2[address] [place] [id number] documented as of this encounter Procedures Procedure Name Priority Date/Time Associated Diagnosis Comments URINALYSIS W/MICROSCOPIC NO CULTURE Routine 01/16/2021 12:27 PM CDT Arthralgia, unspecified joint Bilateral low back pain without sciatica, unspecified chronicity RHEUMATOID FACTOR BLOOD QUANTITATIVE Routine 01/16/2021 12:27 PM CDT Arthralgia, unspecified joint Bilateral low back pain without sciatica, unspecified chronicity C-REACTIVE PROTEIN Routine 01/16/2021 12 :27 PM CDT Arthralgia, unspecified joint Bilateral low back pain without sciatica, unspecified chronicity HLA TYPING B27 Routine 01/16/2021 12:27 PM CDT Arthralgia, unspecified joint Bilateral low back pain without sciatica, unspecified chronicity CYCLIC CITRULLINATED PEPTIDE(CCP) AB IGG Routine 01/16/2021 12:27 PM CDT Arthralgia, unspecified joint Bilateral low back pain without sciatica, unspecified chronicity ERYTHROCYTE SEDIMENTATION RATE Routine 01/16/2021 12:27 PM CDT Arthralgia, unspecified joint Bilateral low back pain without sciatica, unspecified chronicity CBC W AUTO DIFFERENTIAL Routine 01/16/2021 12:27 PM CDT Arthralgia, unspecified joint Bilateral low back pain without sciatica, unspecified chronicity COMPREHENSIVE METABOLIC PANEL Routine 01/16/2021 12:27 PM CDT Arthralgia, unspecified joint Bilateral low back pain without sciatica, unspecified chronicity documented in this encounter Results * CYCLIC CITRULLINATED PEPTIDE(CCP) AB IGG (01/16/2021 12:27 PM CDT) [facility] Cyclic Citrullinated Peptide Antibody IgG <16 UNITS [facility] Comment: Reference Range Negative: ?<20 Weak Positive: ? 20-39 Moderate Positive: ?? 40-59 Strong Positive: ? >59 Test Performed at: [facility] [address] [address] [place], [place] ??[address] LEXII CRUZ DO,MPH Blood BLOOD SPECIMEN / Unknown 01/16/2021 12:27 PM CDT 01/16/2021 12:28 PM CDT Gloria Mchugh MD LAB - CHEMISTRY ORDERABLES Performing Organization Address [facility] Co de Phone Number [facility] [phone] [place] [phone] * HLA TYPING B27 (01/16/2021 12:27 PM CDT) Pathologist [facility] HLA-B27 Antigen NEGATIVE NEGATIVE [facility] Comment: Test Performed at: [facility] [address] [place], [place] ??[phone] DUKE GARCIA MD,PHD,CLAUDIA Blood BLOOD SPECIMEN / Unknown 01/16/2021 12:27 PM CDT 01/16/2021 12:28 PM CDT Gloria Mchugh MD LAB - CHEMISTRY ORDERABLES Performing Organization Address [facility] de Phone Number [facility] [phone] [place] [address] * RHEUMATOID FACTOR BLOOD QUANTITATIVE (01/16/2021 12:27 PM CDT) Pathologist [facility] Rheumatoid Factor <14 <14 IU/mL [facility] Comment: Test Performed at: [facility] ??[phone] LEXII CRUZ DO,MPH Blood BLOOD SPECIMEN / Unknown 01/16/2021 12:27 PM CDT 01/16/2021 12:28 PM CDT Gloria Mchugh MD LAB - CHEMISTRY ORDERABLES Performing Organization Address [facility] de Phone Number [facility] [phone] [place] [address] * URINALYSIS W/MICROSCOPIC NO CULTURE (01/16/2021 12:27 PM CDT) Color UA YELLOW YELLOW [facility] Appearance CLEAR CLEAR [facility] Specific [place] UA 1.008 1.001 - 1.035 [facility] pH UA 7.0 5.0 - 8.0 [facility] Glucose UA NEGATIVE NEGATIVE [facility] Bilirubin UA NEGATIVE NEGATIVE [facility] Ketone UA NEGATIVE NEGATIVE [facility] Blood UA NEGATIVE NEGATIVE [facility] Protein UA NEGATIVE NEGATIVE [facility] Nitrite UA NEGATIVE NEGATIVE [facility] Leukocyte UA NEGATIVE NEGATIVE [facility] WBC UA NONE SEEN < OR = 5 /HPF [facility] RBC UA NONE SEEN < OR = 2 /HPF [facility] Epithelial Cell UA NONE SEEN < OR = 5 /HPF [facility] Bacteria UA NONE SEEN NONE SEEN /HPF [facility] Hyaline Casts NONE SEEN NONE SEEN /LPF [facility] Comment: Test Performed at: Results [facility] [address] [place], [place] ??[phone] LEXII CRUZ DO,MPH Urine URINE SPECIMEN OBTAINED BY CLEAN CATCH PROCEDURE / Unknown 01/16/2021 12:27 PM CDT 01/16/2021 12:28 PM CDT Gloria Mchugh MD LAB - URINALYSI S ORDERABLES Performing Organization Address [facility] [place] [address] * ERYTHROCYTE SEDIMENTATION RATE (01/16/2021 12:27 PM CDT) Erythrocyte Sedimentation Rate Westergren 2 < OR = 20 mm/h [facility] Comment: Test Performed at: [facility] [address] [place] [address] ??[phone] LEXII CRUZ DO,MPH Blood BLOOD SPECIMEN / Unknown 01/16/2021 12:27 PM CDT 01/16/2021 12:28 PM CDT Gloria Mchugh MD LAB - HEMATOLOG Y ORDERABLES Performing Organization Address City/[facility] Co de Phone Number [facility] [phone] [place] [address] * C-REACTIVE PROTEIN (01/16/2021 12:27 PM CDT) C-Reactive Protein 0.6 <8.0 mg/L [facility] Comment: Test Performed at: [facility] [address] [place], [place] ??[phone] LEXII CRUZ DO,MPH Blood BLOOD SPECIMEN / Unknown 01/16/2021 12:27 PM CDT 01/16/2021 12:28 PM CDT Gloria Mchugh MD LAB - CHEMISTRY ORDERABLES [facility] [address] [place] [address] * (ABNORMAL) COMPREHENSIVE METABOLIC PANEL (01/16/2021 12:27 PM CDT) Glucose 104(H) 65 - 99 mg/dL [facility] Comment: ? Fasting reference interval For someone without known diabetes, a glucose value between 100 and 125 mg/dL is consistent with prediabetes and should be confirmed with a follow-up test. BUN 13 7 - 25 mg/dL [facility] Creatinine 0.80 0.70 - 1.33 mg/dL [facility] Comment: For patients >49 years of age, the reference limit for Creatinine is approximately 13% higher for people identified as -Fijian. eGFR by MDRD 99 > OR = 60 mL/min/1 .73m2 [facility] eGFR by MDRD 115 > OR = 60 mL/min/1 .73m2 [facility] BUN/Creatinine Ratio NOT APPLICABLE 6 - 22 (calc) [facility] Sodium 139 135 - 146 mmol/L [facility] Potassium 4.2 3.5 - 5.3 mmol/L [facility] Chloride 101 98 - 110 mmol/L [facility] CO2 30 20 - 32 mmol/L [facility] Calcium 9.4 8.6 - 10.3 mg/dL [facility] Protein Total 6.6 6.1 - 8.1 g/dL [facility] Albumin 4.6 3.6 - 5.1 g/dL [facility] Globulin Total 2.0 1.9 - 3.7 g/dL (calc) [facility] Albumin/Globulin Ratio 2.3 1.0 - 2.5 (calc) [facility] Bilirubin Total 0.6 0.2 - 1.2 mg/dL [facility] Alkaline Phosphatase 62 35 - 144 U/L [facility] AST 13 10 - 35 U/L [facility] ALT 14 9 - 46 U/L [facility] Comment: Test Performed at: Results [facility] [address] [facility] [place] ??[phone] LEXII CRUZ DO,MPH Blood BLOOD SPECIMEN / Unknown 01/16/2021 12:27 PM CDT 01/16/2021 12:28 PM CDT Gloria Mchugh MD LAB - CHEMISTRY ORDERABLES Performing Organization Address [facility] Co de Phone Number [facility] [address] [place] [phone] * CBC WITH DIFFERENTIAL (01/16/2021 12:27 PM CDT) White Blood Cell Count 4.4 3.8 - 10.8 Thousand/u L [facility] RBC 4.94 4.20 - 5.80 Million/uL [facility] Hemoglobin 15.3 13.2 - 17.1 g/dL [facility] Hematocrit 43.6 38.5 - 50.0 % [facility] MCV 88.3 80.0 - 100.0 fL [facility] MCH 31.0 27.0 - 33.0 pg [facility] MCHC 35.1 32.0 - 36.0 g/dL [facility] RDW 12.6 11.0 - 15.0 % [facility] Platelet Count 215 140 - 400 Thousand/u L [facility] MPV 10.8 7.5 - 12.5 fL [facility] Neutrophil Absolute 2970 1500 - 7800 cells/uL [facility] Lymphocytes Absolute 1030 850 - 3900 cells/uL [facility] Absolute Monocytes 339 200 - 950 cells/uL [facility] Eosinophils Absolute 40 15 - 500 cells/uL [facility] Basophils Absolute 22 0 - 200 cells/uL [facility] Granulocytes % 67.5 % [facility] Lymphocytes % 23.4 % [facility] Monocytes % 7.7 % [facility] Eosinophils % 0.9 % [facility] Basophils % 0.5 % [facility] Comment: Test Performed at: [facility] [address] [address] [place], [place] ??[phone] LEXII CRUZ DO,MPH Blood BLOOD SPECIMEN / Unknown 01/16/2021 12:27 PM CDT 01/16/2021 12:28 PM CDT Gloria Mchugh MD LAB - HEMATOLOG Y ORDERABLES Performing Organization Address [facility] Co de Phone Number [facility] [address] [place] [phone] * XR ELBOW RIGHT 2VW (01/16/2021 11:47 AM CDT) Anatomical Region Laterality Modality Upper Extremity Radiographic Karen ging 01/16/2021 11:4 8 AM CDT Impressions 01/16/2021 11:51 AM CDT IMPRESSION: No arthritis. Dictated by Valerie Gonzalez MD (residential program manager). Dr. VICK Feng MD have personally reviewed and interpreted this examination/study. This report was electronically signed by VCIK HOLT MD ??on 01/16/2021 11:51 AM . Narrative 01/16/2021 11:51 AM CDT EXAMINATION: 1.XR ELBOW RIGHT 2VW 2.XR ELBOW LEFT 2VW HISTORY: M25.50: Arthralgia, unspecified joint M54.5: Bilateral low back pain without sciatica, unspecified chronicity COMPARISON: No prior study is available for comparison. FINDINGS: Right elbow: The osseous structures are intact and well aligned without acute fracture or dislocation. The joint spaces are preserved. No joint effusion is seen. No soft tissue swelling is present. No erosions are seen. Left elbow: The osseous structures are intact and well aligned without acute fracture or dislocation. The joint spaces are preserved. No joint effusion is seen. No soft tissue swelling is present. No erosions are seen. Procedure Note Vick Holt MD - 01/16/2021 EXAMINATION: 1.XR ELBOW RIGHT 2VW 2.XR ELBOW LEFT 2VW HISTORY: M25.50: Arthralgia, unspecified joint M54.5: Bilateral low back pain without sciatica, unspecified chronicity COMPARISON: No prior study is available for comparison. FINDINGS: Right elbow: The osseous structures are intact and well aligned without acutefracture or dislocation. The joint spaces are preserved. No joint effusion isseen. No soft tissue swelling is present. No erosions are seen. Left elbow: The osseous structures are intact and well aligned without acutefracture or dislocation. The joint spaces are preserved. No joint effusion isseen. No soft tissue swelling is present. No erosions are seen. IMPRESSION: No arthritis. Dictated by Valerie Gonzalez MD (residential program manager). Dr. VICK Feng MD have personally reviewed and interpreted this examination/study. This report was electronically signed by VICK HOLT MD on01/16/2021 11:51 AM . Gloria Mchugh MD DIAGNOSTIC IMAG ING ORDERABLES * XR ELBOW LEFT 2VW (01/16/2021 11:47 AM CDT) Anatomical Region Laterality Modality Upper Extremity Radiographic Karen ging 01/16/2021 11:4 8 AM CDT Impressions 01/16/2021 11:51 AM CDT IMPRESSION: No arthritis. Dictated by Valerie Gonzalez MD (residential program manager). I, Dr. VICK HOLT MD have personally reviewed and interpreted this examination/study. This report was electronically signed by VICK HOLT MD ??on 01/16/2021 11:51 AM . Narrative 01/16/2021 11:51 AM CDT EXAMINATION: 1.XR ELBOW RIGHT 2VW 2.XR ELBOW LEFT 2VW HISTORY: M25.50: Arthralgia, unspecified joint M54.5: Bilateral low back pain without sciatica, unspecified chronicity COMPARISON: No prior study is available for comparison. FINDINGS: Right elbow: The osseous structures are intact and well aligned without acute fracture or dislocation. The joint spaces are preserved. No joint effusion is seen. No soft tissue swelling is present. No erosions are seen. Left elbow: The osseous structures are intact and well aligned without acute fracture or dislocation. The joint spaces are preserved. No joint effusion is seen. No soft tissue swelling is present. No erosions are seen. Procedure Note Vick Holt MD - 01/16/2021 EXAMINATION: 1.XR ELBOW RIGHT 2VW 2.XR ELBOW LEFT 2VW HISTORY: M25.50: Arthralgia, unspecified joint M54.5: Bilateral low back pain without sciatica, unspecified chronicity COMPARISON: No prior study is available for comparison. FINDINGS: Right elbow: The osseous structures are intact and well aligned without acutefracture or dislocation. The joint spaces are preserved. No joint effusion isseen. No soft tissue swelling is present. No erosions are seen. Left elbow: The osseous structures are intact and well aligned without acutefracture or dislocation. The joint spaces are preserved. No joint effusion isseen. No soft tissue swelling is present. No erosions are seen. IMPRESSION: No arthritis. Dictated by Valerie Gonzalez MD (residential program manager). Dr. VICK Feng MD have personally reviewed and interpreted this examination/study. This report was electronically signed by VICK HOLT MD on01/16/2021 11:51 AM . Gloria Mchugh MD DIAGNOSTIC IMAG ING ORDERABLES * XR SI JOINTS 3VW OR MORE (01/16/2021 11:47 AM CDT) Anatomical Region Laterality Modality Pelvis, Lower Extremity Radiogra [facility] 01/16/2021 11:5 0 AM CDT Impressions 01/16/2021 11:52 AM CDT IMPRESSION: Mild degenerative change of the sacroiliac joints. Dictated by Valerie Gonzalez MD (residential program manager). Dr. VICK Feng MD have personally reviewed and interpreted this examination/study. This report was electronically signed by VICK HOLT MD ??on 01/16/2021 11:52 AM . Narrative 01/16/2021 11:52 AM CDT EXAMINATION: XR SI JOINTS 3VW OR MORE HISTORY: M25.50: Arthralgia, unspecified joint M54.5: Bilateral low back pain without sciatica, unspecified chronicity COMPARISON: No prior study is available for comparison. FINDINGS: There is mild subchondral sclerosis, left greater than right, which is likely degenerative. There is no erosion, widening, narrowing, or ankylosis. The visualized portion of the pubic symphysis is unremarkable. No acute fractures or dislocations are seen. Procedure Note Vick Holt MD - 01/16/2021 EXAMINATION: XR SI JOINTS 3VW OR MORE HISTORY: M25.50: Arthralgia, unspecified joint M54.5: Bilateral low back pain without sciatica, unspecified chronicity COMPARISON: No prior study is available for comparison. FINDINGS: There is mild subchondral sclerosis, left greater than right, which is likely degenerative. There is no erosion, widening, narrowing, or ankylosis. The visualized portion of the pubic symphysis isunremarkable. No acute fractures or dislocations are seen. 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 Dictated by Valerie Gonzalez MD (residential program manager). I, Dr. VICK HOLT MD have personally reviewed and interpreted this examination/study. This report was electronically signed by VICK HOLT MD on01/16/2021 11:52 AM . Gloria Mchugh MD DIAGNOSTIC IMAG ING ORDERABLES documented in this encounter Visit Diagnoses Diagnosis Arthralgia, unspecified joint- Primary Bilateral low back pain without sciatica, unspecified chronicity Arthralgia, unspecified joint Bilateral low back pain without sciatica, unspecified chronicity documented in this encounter Care Teams Coat Joiner Relationship Specialty Start Date End Date Jas Zheng MD [address] [place] [address] PCP - General 04/12/20 06/22/24 documented as of this encounter
--- OUTSIDE RECORDS SUMMARY | 2024-11-03 01:59 | XMS_ITS | Encounter Summary ---
Author Organization [facility] Address [address] [facility] [place] [address] Care Team Providers Care Oyster Preparer Name Role Phone Jas Zheng MD Primary Care Provider [phone] Encounter Details Date Type Department Care Team (Latest Contact Info) Description 01/16/2021 11:39 AM CDT - 01/16/2021 11:59 PM CDT Hospital Encounter [facility]IC RAD OP [address] [place] [phone] Gloria Mchugh MD [address] [facility] 2L DIV OF RHEUMATOLOGY [place], [place] [phone] Discharge Disposition: Home or Self Care Social History Tobacco Use Types Packs/Day Years Used Date Smoking Tobacco: Never Smokeless Tobacco: Never Alcohol Use Standard Drinks/Week Comments No 0 (1 standard drink = 0.6 oz pur e alcohol) Sex and Gender Information Value Date Recorded Sex Assigned at Male 10/18/2021 10:49 PM CHILD SUPPORT AGENT Gender Identity Male 10/18/2021 10:49 PM CHILD SUPPORT AGENT Sexual Orientation Straight 10/18/2021 10 :49 PM CHILD SUPPORT AGENT documented as of this encounter Plan of Treatment Upcoming Encounters Date Type Department Care Team (Late st Contact Info) Description 11/17/2024 4:00 PM CHILD SUPPORT AGENT Appointment [facility] Health Imaging Services - Ultrasound [address] [place] [address] Soraya Aguilera DO [address] [facility] 2L [place] [phone] 11/19/2024 1:45 PM CHILD SUPPORT AGENT Office Visit [facility] - Urology [address] [place] [phone] Soraya Aguilera, DO [address] 2[address] [place] [address] 04/14/2025 10:00 AM CDT Office Visit [facility] - Urology [address] [place] [address] Soraya Aguilera, DO [address] 2L DIV [place] [address] documented as of this encounter Procedures Procedure Name Priority Date/Time Associated Diagnosis Comments XR ELBOW RIGHT 2VW Routine 01/16/2021 11 :47 AM CDT Arthralgia, unspecified joint Bilateral low back pain without sciatica, unspecified chronicity XR ELBOW LEFT 2VW Routine 01/16/2021 11: 47 AM CDT Arthralgia, unspecified joint Bilateral low back pain without sciatica, unspecified chronicity XR SI JOINTS 3VW OR MORE Routine 01/16/2021 11:47 AM CDT Arthralgia, unspecified joint Bilateral low back pain without sciatica, unspecified chronicity documented in this encounter Results * XR ELBOW RIGHT 2VW (01/16/2021 11:47 AM CDT) Anatomical Region Laterality Modality Upper Extremity Radiographic Karen ging 01/16/2021 11:4 8 AM CDT Impressions 01/16/2021 11:51 AM CDT IMPRESSION: No arthritis. Dictated by Valerie Gonzalez MD (residential energy auditor). I, Dr. VICK HOLT MD have personally [...] arthritis. Dictated by Valerie Gonzalez MD (residential energy auditor). I, Dr. VICK HOLT MD have personally [...] arthritis. Dictated by Valerie Gonzalez MD (residential energy auditor). Dr. VICK Feng MD have personally reviewed [...] arthritis. Dictated by Valerie Gonzalez MD (residential energy auditor). Dr. VICK Feng MD have personally reviewed and interpreted this examination/study. This report was electronically signed by VICK HOLT MD on01/16/2021 11:51 AM . Gloria Mchugh MD DIAGNOSTIC IMAG ING ORDERABLES * XR SI JOINTS 3VW OR MORE (01/16/2021 11:47 AM CDT) Anatomical Region Laterality Modality Pelvis, Lower Extremity Radiogra [facility] 01/16/2021 11:5 0 AM CDT Impressions 01/16/2021 11:52 AM CDT IMPRESSION: Mild degenerative change of the sacroiliac joints. Dictated by Valerie Gonzalez MD (residential energy auditor). Dr. VICK Feng MD have personally reviewed [...] joints. Dictated by Valerie Gonzalez MD (residential energy auditor). Dr. VICK Feng MD have personally reviewed and interpreted this examination/study. This report was electronically signed by VICK HOLT MD on01/16/2021 11:52 AM . Gloria Mchugh MD DIAGNOSTIC IMAG ING ORDERABLES documented in this encounter Visit Diagnoses Diagnosis Arthralgia, unspecified joint Bilateral low back pain without sciatica, unspecified chronicity documented in this encounter Care Teams Oyster Preparer Relationship Specialty Start Date End Date Jas Zheng MD [address] [address] PCP - General 04/12/20 06/22/24 documented as of this encounter
--- OUTSIDE RECORDS SUMMARY | 2024-11-03 01:59 | XMS_ITS | Encounter Summary ---
Author Organization [facility] Address [address] [facility] [place] [address] Care Team Providers Care Blow Pit Helper Name Role Phone Jas Zheng MD Primary Care Provider [phone] Encounter Details Date Type Department Care Team (Latest Contact Info) Description 12/23/2023 Travel Social History Tobacco Use Types Packs/Day Years Used Date Smoking Tobacco: Never Smokeless Tobacco: Never Alcohol Use Standard Drinks/Week Comments No 0 (1 standard drink = 0.6 oz pur e alcohol) Sex and Gender Information Value Date Recorded Sex Assigned at Male 10/18/2021 10:49 PM CAFE AIDE Gender Identity Male 10/18/2021 10:49 PM CAFE AIDE Sexual Orientation Straight 10/18/2021 10 :49 PM CAFE AIDE documented as of this encounter Plan of Treatment Upcoming Encounters Date Type Department Care Team (Late st Contact Info) Description 11/17/2024 4:00 PM CAFE AIDE Appointment [facility] Health Imaging Services - Ultrasound [address] [place] [address] Soraya Aguilear DO [address] 2[address] [place] [phone] 11/19/2024 1:45 PM CAFE AIDE Office Visit [facility]rology [address] [facility] [address] [place] [phone] Soraya Aguilera DO [address] [place] [phone] 04/14/2025 10:00 AM CDT Office Visit [facility]rology [address] [facility], [place] [phone] Soraya Aguilera M, DO [address] [place] [address] documented as of this encounter Visit Diagnoses Not on filedocumented in this encounter Care Teams Blow Pit Helper Relationship Specialty Start Date End Date Jas Zheng MD [address] [place] [address] 2 [place] [address] PCP - General 04/12/20 06/22/24 documented as of this encounter
--- OUTSIDE RECORDS SUMMARY | 2024-11-03 01:59 | XMS_ITS | Referral Summary ---
Author Organization [facility] Address [address] [facility] [place] [address] Care Team Providers Care Barley Steeper Name Role Phone Karen Tejeda Primary Care Pr ovider Source Comments [facility],non-owned Affiliates and Associated Physician Practices is amultiple site organization consisting of ambulatory clinics and hospital sitesin [place], [place], [place] and [place]. This disclosure is being madepursuant to the Care Everywhere program and may not contain all information available regarding this patient. Last updated 18.[facility] Encounters Date Type Department Care Team Description 10/26/2024 Travel 10/14/2024 Travel 10/14/2024 9:30 AM BOAT BUILDER Office Visit [facility] - Urology [address] [facility], [place] [address] Soraya Aguilera DO Right hydrocele (Primary Dx); Epididymal cyst 09/18/2024 Travel 09/16/2024 Travel 09/16/2024 4:35 PM BOAT BUILDER - 09/16/2024 6:35 PM BOAT BUILDER Surgery [facility] [address] [place] [phone] Soraya Aguilera DO right scrotal exploration 09/16/2024 4:43 PM BOAT BUILDER Anesthesia Event [facility] [address] [place] [address] Raffi Salas, Maxine Bardales, FRUIT DRYER-LIGHTING FIXTURES DECORATOR 09/16/2024 12:32 PM BOAT BUILDER - 09/16/2024 7:37 PM BOAT BUILDER Hospital Encounter [facility] [address] [place] [address] Soraya Aguilera DO Surgery General Discharge Disposition: Home or Self Care 09/10/2024 Travel from Last 3 Months Allergies Active Allergy Reactions Criticality Noted Date Comments Seasonal Other Low 07/24/2017 rhinitis Medications * Be aware that medications may not be up to date on this document. Alwaysverify current medications with the patient. Medication Sig Dispensed Refills Start Date End Date Status acetaminophen (Tylenol) 325 MG tablet Take 2 (two) tablets by mouth every 6 hours as needed for Fever or Pain Maximum allowable Acetaminophen amount = 4 Grams (4000 mg) / 24 hours. 09/16/2024 4 Discontinue d(List Clean-Up) ibuprofen (Motrin) 400 MG tablet Take 1 (one) tablet by mouth every 6 hours as needed for Pain 09/16/2024 4 Discontinue d(List Clean-Up) oxyCODONE, immediate release, (Roxicodone) 5 MG tabletIndication s:Right hydrocele,Epidid ymal cyst Take 1 (one) tablet by mouth every 6 hours as needed for Pain 6 tablet 09/16/2024 4 Discontinue d(List Clean-Up) Active Problems Problem Noted Date Diagnosed Date Overactive bladder 12/10/2017 Enlarged prostate with lower urinary tract sympt oms (LUTS) 05/29/2017 Overview (02/03/2018): ICD-10 update Poor urinary stream 05/29/2017 Overview (02/03/2018): ICD-10 update Immunizations Name Administration Dates Next Due INFLUENZA 09/02/2020 INFLUENZA VACCINE, QUADR. (F LUZONE; FLULAVAL; FLUARIX; AFLURIA QUADRIVALENT; 6MO+), 0.5 ML (IIV4) 09/06/2019 Social History Tobacco Use Types Packs/Day Years Used Date Smoking Tobacco: Never Smokeless Tobacco: Never Tobacco Cessation:Counseling Given: No Alcohol Use Standard Drinks/Week Comments Not Currently [...] Sex Assigned at Male 10/18/2021 10:49 PM BOAT BUILDER Gender Identity Male 10/18/2021 10:49 PM BOAT BUILDER Sexual Orientation Straight 10/18/2021 10 :49 PM BOAT BUILDER Last Filed Vital Signs Vital Sign Reading Time Taken Comments Blood Pressure 129/75 10/14/2024 10:03 AM BOAT BUILDER Pulse 65 10/14/2024 10:03 AM BOAT BUILDER Temperature 36.4 ??C (97.6 ??F) 10/14/2024 10:[address] Respiratory Rate 17 09/16/2024 7:15 PM BOAT BUILDER Oxygen Saturation 96% 10/14/2024 10:03 AM BOAT BUILDER Inhaled Oxygen Concentration - - Weight 73.1 kg (161 lb 3.2 oz) 10/14/2024 10:03 AM BOAT BUILDER Height 180.3 cm (5' 11 ) 10/14/2024 10:03 AM BOAT BUILDER Body Mass Index 22.48 10/14/2024 10:03 AM BOAT BUILDER Functional Status Functional Status Response Date of [...] person have difficulty concentrating/remembering/making decisions? No 09/16/2024 Plan of Treatment Upcoming Encounters Date Type Department Care Team (Late st Contact Info) Description 11/17/2024 4:00 PM BOAT BUILDER Appointment [facility] Health Imaging Services - Ultrasound [address] [place] [address] Soraya Aguilera M, DO [address] [place] [address] 11/19/2024 1:45 PM BOAT BUILDER Office Visit [facility] - Urology [address] [place] [address] Soraya Aguilera, DO [address] [place] [phone] 04/14/2025 10:00 AM CDT Office Visit [facility] Urology [address] [facility], [place] [address] Soraya Aguilera, DO [address] [facility] 2L [place] [address] Procedures Procedure Name Priority Date/Time Associated Diagnosis Comments PATHOLOGY TISSUE Routine 09/16/2024 5:40 PM BOAT BUILDER Right hydrocele Epididymal cyst ENDOTRACHEAL TUBE NOTE Routine 09/16/2024 5:08 PM BOAT BUILDER LA REMOVAL OF HYDROCELE,TUNICA,UNI LAT 09/16/2024 4:15 PM BOAT BUILDER Right hydrocele Epididymal cyst Case Notes Scrotal Ultrasound: 06/23/2024 @1430@[facility] ? Therese Welch [phone] Opt. 3 ext [phone] Special Needs Reviewed 09/16 LA EXPLORE SCROTUM 09/16/2024 4: 15 PM BOAT BUILDER Right hydrocele Epididymal cyst Case Notes Scrotal Ultrasound: 06/23/2024 @1430@[facility] ? Therese Welch [phone] Opt. 3 ext [phone] Special Needs Reviewed 09/16 from Last 3 Months Results * PATHOLOGY TISSUE (09/16/2024 5:40 PM BOAT BUILDER) Case Report Surgical Pathology Report ? Case: [id number] ? Authorizing Provider: ??Soraya Aguilera, DO ?Collected: ? 09/16/2024 05:40 PM ? Ordering Location: ? [facility] ?Received: ?09/17/2024 04:30 AM ? Pathologist: ? Magalie Segura MD ? Specimen: ?Cyst, RIGHT EPIDYDIMAL CYST ? 09/21/2024 9:52 AM [facility] Final Diagnosis Right epididymal cyst, excision: - Benign mesothelial cyst consistent with hydrocele 09/21/2024 9:52 AM [facility] Microscopic Description and Comment Microscopic examination substantiates the above captioned diagnosis. 09/21/2024 9:52 AM [facility] Clinical History Epididymal cyst, right hydrocele 09/21/2024 9:52 AM [facility] Gross Description The requisition [...] No masses or lesions are grossly identified. Pants Presser sections are submitted as cassette A1. AL 09/21/2024 9:52 AM [facility] Pathologist Location at [facility] 09/21/2024 9:52 AM [facility] Disclaimer The performance characteristics of all immunohistochemical and indirect immunofluorescence stains (if any) cited in this report were determined by the Histopathology Laboratory of [facility]. Some of these tests were developed by [...] the attending (teaching) pathologist. 09/21/2024 9:52 AM [facility] Embedded Images 09/21/2024 9:52 AM [facility] Biopsy, Excision CYST TISSUE / Unknown 09/16/2024 5:40 PM BOAT BUILDER 09/17/2024 4:30 AM BOAT BUILDER Comment:Pre-op diagnosis: Right hydrocele - Primary; Epididymal cyst Soraya Aguilera DO LAB - PATHOLOGY/CY TOLOGY ORDERABLES Performing Organization Address City/State/[facility] Co de Phone Number [facility] [address] [phone] * ETT LINE PERFORMABLE (09/16/2024 5:08 PM BOAT BUILDER) Narrative Shen Melgar DO - 09/16/2024 5:08 PM BOAT BUILDER Shen Melgar DO ? 09/16/2024 ??5:08 PM Endotracheal Tube Placement: ? Patient Location: OR. Intubation Event Date/Time: ??09/16/2024 4:56 PM Procedure: intubation ([id number]) Procedure Section: ?? Sedation: under general anesthesia. [...] Raffi Dowling DO GENERAL ANESTHESI A ORDERABLES from Last 3 Months Care Teams Barley Steeper Relationship Specialty Start Date End Date Karen Tejeda PA [address] [place] [phone] PCP - General Physician Laryngologist 06/23/24
--- OUTSIDE RECORDS SUMMARY | 2024-11-03 01:59 | XMS_ITS | Encounter Summary ---
Author Organization [facility] Address [address] [facility] [place] [address] Care Team Providers Care Fluid Pump Operator Name Role Phone Karen Tejeda Primary Care Pr vinitaer Reason for Referral * Radiology Services (Routine) - Closed Specialty Diagnoses / Procedures Referred By Contac t Referred To Contact Ultrasound Diagnoses Right hydrocele Epididymal cyst Procedures US SCROTUM AND CONTENTS Soraya Aguilera DO [address] [facility] 2L [place] [address] [facility] [address] [place] [address] Referral ID Status Reason Start Date Expiration Date Visits Re quested Visits Authorized [id number] Closed 01/24/2024 01/23/2025 1 1 Reason for Visit * Radiology Services (Routine) - Closed Specialty Diagnoses / Procedures Referred By Contac t Referred To Contact Ultrasound Diagnoses Right hydrocele Epididymal cyst Procedures US SCROTUM AND CONTENTS Soraya Aguilera DO [address] [facility] 2L [place] [address] [facility] [address] [place] [address] Referral ID Status Reason Start Date Expiration Date Visits Re quested Visits Authorized [id number] Closed 01/24/2024 01/23/2025 1 1 Encounter Details Date Type Department Care Team (Latest Contact Info) Description 06/23/2024 1:09 PM CDT - 06/23/2024 11:59 PM CDT Hospital Encounter [facility] [address] [place] [address] Soraya Aguilera M, DO [address] [facility] 2L [place] [address] Discharge Disposition: Home or Self Care Social History Tobacco Use Types Packs/Day Years Used Date Smoking Tobacco: Never Smokeless Tobacco: Never Alcohol Use Standard Drinks/Week Comments No 0 (1 standard drink = 0.6 oz pur e alcohol) Sex and Gender Information Value Date Recorded Sex Assigned at Male 10/18/2021 10:49 PM HUMAN FACTORS SPECIALIST Gender Identity Male 10/18/2021 10:49 PM HUMAN FACTORS SPECIALIST Sexual Orientation Straight 10/18/2021 10 :49 PM HUMAN FACTORS SPECIALIST documented as of this encounter Medications at Time of Discharge [...] st Contact Info) Description 11/17/2024 4:00 PM HUMAN FACTORS SPECIALIST Appointment [facility] - Ultrasound [address] [place] [address] Soraya Aguilera, DO [address] [place] [address] 11/19/2024 1:45 PM HUMAN FACTORS SPECIALIST Office Visit [facility] - Urology [address] [facility] [address] [place] [address] Soraya Aguilera, DO [address] [facility] [address] DIV [place] [address] 04/14/2025 10:00 AM CDT Office Visit [facility] - Urology [address] [facility], [place] [address] Soraya Aguilera, DO [address] [place] [phone] documented as of this encounter Procedures Procedure Name Priority Date/Time Associated Diagnosis Comments US SCROTUM AND CONTENTS Routine 06/23/2024 1:53 PM CDT Right hydrocele Epididymal cyst documented in this encounter Results * US SCROTUM AND CONTENTS (06/23/2024 1:53 PM CDT) Anatomical Region Laterality Modality Pelvis Ultrasound 06/23/2024 1:44 PM CDT Impressions 06/23/2024 4:12 PM CDT IMPRESSION: 1.No focal testicular lesions seen. Testicular arterial flow visualized bilaterally. 2.Large right-sided complex cystic structures with multiple thick septations and floating debris appears similar overall when compared to prior study from 2012. 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 3.Small left hydrocele. 4.Epididymal enlargement, right greater than left, appears similar overall in size compared to 2012 study and also likely sequela of vasectomy. > Dictated by Charis Schaefer MD, (radiology technician). I, Frantz Suazo MD have personally reviewed and interpreted this examination/study. > Interpreting Provider: Frantz Suazo MD on 06/23/2024 4:12 PM Narrative 06/23/2024 4:12 PM CDT PROCEDURE: ??US SCROTUM AND CONTENTS, DATE/TIME OF EXAM: ??06/23/2024 1:53 PM, LOCATION ??[facility] INDICATION: N43.3: Right hydrocele N50.3: Epididymal cyst [...] examination: There is testicular arterial flow bilaterally. Procedure Note Frantz Suazo MD - 06/23/2024 PROCEDURE: US SCROTUM AND CONTENTS, DATE/TIME OF EXAM: 06/23/2024 1:53PM, LOCATION [facility] INDICATION: N43.3: Right hydrocele N50.3: Epididymal cyst [...] thick septations and some floating debris. This isconsistent with a large spermatocele given the patient's history of vasectomy .Small hydrocele on the left. The epididymides are slightly enlarged bilaterally but similar in size overall to prior study. No varicocele is identified. Color Doppler examination: There is testicular arterial flow bilaterally. IMPRESSION: 1.No focal testicular lesions seen. Testicular arterial flow visualized bilaterally. 2.Large right-sided complex cystic structures with multiple thick septations and floating debris appears similar overall when compared to prior study from 2012. Likely represents a large spermatocele givenhistory of vasectomy. 3.Small left hydrocele. 4.Epididymal enlargement, right greater than left, appears similaroverall in size compared to 2012 study and also likely sequela of vasectomy. > Dictated by Charis Schaefer MD, (radiology technician). I, Frantz Suazo MD have personally reviewed and interpreted this examination/study. > Interpreting Provider: Frantz Suazo MD on 06/23/2024 4:12 PM [facility] ORDERABLES documented in this encounter Visit Diagnoses Diagnosis Right hydrocele Hydrocele, unspecified Epididymal cyst Other specified disorder of male genital organs documented in this encounter Care Teams Fluid Pump Operator Relationship Specialty Start Date End Date Karen Tejeda PA [address] [place] [address] PCP - General Physician Steam Drier Operator 06/23/24 documented as of this encounter
--- OUTSIDE RECORDS SUMMARY | 2024-11-03 01:59 | XMS_ITS | Encounter Summary ---
Author Organization [facility] Address [address] [place] [address] Care Team Providers Care Scooping Machine Tender Name Role Phone Karen Tejeda Primary Care Pr ovider Encounter Details Date Type Department Care Team (Latest Contact Info) Description 06/23/2024 1:01 PM CDT - 06/23/2024 1:08 PM CDT Hospital Encounter [facility] DRAW [facility] [address] [place] [phone] Soraya Aguilera M, DO [address] [place] [phone] Discharge Disposition: Home or Self Care Social History Tobacco Use Types Packs/Day Years Used Date Smoking Tobacco: Never Smokeless Tobacco: Never Alcohol Use Standard Drinks/Week Comments No 0 (1 standard drink = 0.6 oz pur e alcohol) Sex and Gender Information Value Date Recorded Sex Assigned at Male 10/18/2021 10:49 PM BLEACH PACKER Gender Identity Male 10/18/2021 10:49 PM BLEACH PACKER Sexual Orientation Straight 10/18/2021 10 :49 PM BLEACH PACKER documented as of this encounter Medications at [...] st Contact Info) Description 11/17/2024 4:00 PM BLEACH PACKER Appointment [facility] Health Imaging Services - Ultrasound [address] [place] [address] Soraya Aguilera, DO [address] [facility] 2L DIV [place] [phone] 11/19/2024 1:45 PM BLEACH PACKER Office Visit [facility] - Urology [address] [facility] [address] [place] [phone] Soraya Aguilera, DO [address] [facility] 2L DIV [place] [phone] 04/14/2025 10:00 AM CDT Office Visit [facility] - Urology [address] [facility], [place] [phone] Soraya Aguilera, DO [address] [facility] 2L DIV [place] [phone] documented as of this encounter Visit Diagnoses Not on filedocumented in this encounter Care Teams Scooping Machine Tender Relationship Specialty Start Date End Date Karen Tejeda PA [address] [place] [address] PCP - General Physician Certified Surgical Technologist 06/23/24 documented as of this encounter
--- OUTSIDE RECORDS SUMMARY | 2024-11-03 01:59 | XMS_ITS | Encounter Summary ---
Author Organization [facility] Address [address] [facility] [place] [address] Care Team Providers Care Drapery Examiner Name Role Phone Jas Zheng MD Primary Care Provider Reason for Visit * Reason Comments Follow-up BPH Encounter Details Date Type Department Care Team (Late st Contact Info) Description 04/11/2021 10:00 AM CDT Office Visit [facility] Urology [address] [place] [address], [facility] [place] [address] Soraya Aguilera DO [address] [place] [address] [place] [address] BPH with obstruction/lower urinary tract symptoms (Primary Dx) Social History Tobacco Use Types Packs/Day Years Used Date Smoking Tobacco: Never Smokeless Tobacco: Never Alcohol Use Standard Drinks/Week Comments No 0 (1 standard drink = 0.6 oz pur e alcohol) Sex and Gender Information Value Date Recorded Sex Assigned at Male 10/18/2021 10:49 PM GANG WORKER Gender Identity Male 10/18/2021 10:49 PM GANG WORKER Sexual Orientation Straight 10/18/2021 10 :49 PM GANG WORKER documented as of this encounter Progress Notes * Demi Corley - 04/11/2021 11:[address] [facility] Division of Urologic Surgery Soraya Aguilera DO Date of Visit: 04/11/2021 Patient Name: Vernon Monet Aliciabrenda : 1965 Medical Record: [id number] (home) [phone] (work) Age: [age] year old Sex: male Chief Complaint/Reason for Visit: Chief Complaint Patient presents with ??? Follow-up BPH History of Present Illness: Vernon Vidales is a 56 year old male being seen today for annual follow up s/p TURP erdmadned03/7/2019. 01/07/2018: ??UDS peak flow of 0.7 ml/sec with a residual volume of 635 ml. He was only able to void 7cc. 01/14/2018: AUASS: 3, 2, 5, 2, 5, 4, 1 = 22 with QOL 4, mostly dissatisfied. ??Cystoscopy revealed protrusion into bladder with normal urothelium last visit. ??Here to review scan. ??No new symptoms.??On myrbetriq 50mg now for a month and notes improvement. ??Still ??on flomax nightly. ?Hasn't had to cath since last visit. PVR: 0cc. ?? 07/25/2018: underwent Rezum ?? 09/03/2018: Only had to catheterize twice after the procedure. ??First 2-3 weeks were rough with frequency and difficulty voiding and hematuria with occasional small clots. ??Notes improvement over the last 1-2 weeks in flow and LUTS. ??Still on flomax so still having retrograde ejaculation. ?? AUASS: 1, 2, 3, 1, 3, 1, 1 =12 with QOL2, mostly satisfied. ?? 10/21/2018: AUASS: 1, 3, 4, 1, 4, 0, 1= 14 with QOL 3, mixed. ??HE thinks he is a little better in the last couple of weeks. ??He thinks he has overall improvement but is still having symptoms. ??Flomax helps, but the whole idea was to get off of the flomax. ??He would be interested in more treatments if it might help. ??Plan to return for cystoscopy. ?? 11/26/2018:??cystoscopy: left lateral lobe still protruding into urethra, right with good response to rezum. Reports symptoms change constantly. AUASS:3,3,5,1, 5, 1, 1 = 19 with QOL 3, mixed. He can live with his symptoms rell if he goes back on flomax. Ejaculation is normal.??Went back on flomax. ?? 09/10/2019: underwent TURP ?? 10/07/2019: AUASS: 1, 1, 2, 1, 1, 1, 1 = 8 with QOL 1, pleased. He is very happy with procedure. 04/12/2020: AUASS: 1, 1, 2, 0, 1, 0, 0= 5 with QOL1, pleased. No problems with ejaculation. Not taking any meds. He is here for follow up, with AUASS: 1, 1, 3, 0, 1, 0, 1= 7 with QOL1, pleased. He denies problemssince the last visit, including pelvic pain, frequency, difficulty with ejaculation, or dysuria. [place] occasionally his stream will start and stop a few times, but he is able to void completely without retention sensation. Overall feeling well and happy with the outcome. Review of Systems: General: Negative Skin: Negative Eyes: Negative Ears/Nose/Mouth: Negative Lungs: Negative Heart: Negative Gastrointestinal: Negative Genitourinary: Negative Musculoskeletal: Negative Nervous System: Negative Hematologic: Negative Lymphatic: Negative Endocrine: Negative Reproductive System: Negative Pertinent positive/negative systems are noted above. A 10-point ROS was reviewed during this clinic visit. Past Medical History; Past Medical History: Diagnosis Date ??? Alcoholism ??? Diverticulitis ??? Irritable bowel syndrome (IBS) Past Surgical History: Past Surgical History: Procedure Laterality Date ??? CYSTOSCOPY 09/10/2019 CYSTOSCOPY ??? OTHER SURGERY ACL right knee ??? Transurethral Resection Prostate (TURP) 09/10/2019 MINI TRANSURETHRAL RESECTION PROSTATE ??? Vasectomy 1999 Current Medications: No current outpatient medications on file. No current facility-administered medications for this visit. Allergies; Seasonal Physical Exam: Vital Signs: There were no vitals taken for this visit. General: alert, cooperative and no distress Cardiovascular: regular rate Respiratory: normal respiratory rate and effort, symmetric chest rise Abdominal: Soft , Non-tender, Non-distended Neurologic: Motor and sensation grossly intact Psych: appropriate mood and affect Musculoskeletal: normal ROM of upper and lower extremities. Laboratory Studies: Lab results smartLinks are not currently available Assessment: 55yo male with BPH, incomplete bladder emptying and LUTS, now s/p rezum on 07/25/2018 and s/p TURP 09/10/2019 Recommendations: Patient is doing well without concerns at this time. Ordered PSA levels, recommended following up with PCP regarding PSA level monitoring. Recommended follow up in 2 years for AUASS, PVR and uroflow. Told him to return if symptoms worsen or he has concerns. Demi Corley 04/11/2021 11:18 AM Patient seen and examined with medical student. Please see note for further details. I reperformed the history and physical and edited the note above myself. Soraya Aguilera DO documented in this encounter Procedure Notes * Candice Torres - 04/11/2021 10:40 AM CDTAssociated Order(s): PROC BLADDER SCAN Procedure(s): AR MSR PVR U&/BLADD CAPCTY US NON Pre-Procedure Diagnose(s): BPH with obstruction/lower urinary tract symptoms PVR = 125 ml * Candice Torres - 04/11/2021 10:24 AM CDTAssociated Order(s): PROC UROFLOWMETRY Procedure(s): AR URINE FLOW MEASUREMENT Pre-Procedure Diagnose(s): BPH with obstruction/lower urinary tract symptoms T100 = 60s TQ = 49s TQmax = 10S Qmax = 21.2 ml/s Qave = 8.6 ml/s Vcomp = 429 ml documented in this encounter Plan of Treatment Upcoming Encounters Date Type Department Care Team (Late st Contact Info) Description 11/17/2024 4:00 PM GANG WORKER Appointment [facility] Health Imaging Services - Ultrasound [address] [place] [address] Soraya Aguilera DO [address] [place] [phone] 11/19/2024 1:45 PM GANG WORKER Office Visit [facility] - Urology [address] [place] [phone] Soraya Aguilera, DO [address] 2[address] DIV [place] [address] 04/14/2025 10:00 AM CDT Office Visit [facility] - Urology [address] [place] [phone] Soraya Aguilera, DO [address] DIV [place] [address] Scheduled Orders Name Type Priority Associated Diagnoses Orde r Schedule PSA FREE + TOTAL PANEL Lab Routine BPH with obstruction/lower urinary tract symptoms Expected: 04/11/2021, Expires: 05/06/2022 documented as of this encounter Procedures Procedure Name Priority Date/Time Associated Diagnosis Comments AR MSR PVR U&/BLADD CAPCTY US NON Routine 04/11/2021 10:40 AM CDT BPH with obstruction/lower urinary tract symptoms URINALYSIS AUTO - POINT OF CARE (AMB) [facility] Routine 04/11/2021 10:29 AM CDT BPH with obstruction/lower urinary tract symptoms AR URINE FLOW MEASUREMENT Routine 04/11/2021 10:24 AM CDT BPH with obstruction/lower urinary tract symptoms documented in this encounter Results * AR MSR PVR U&/BLADD CAPCTY US NON (04/11/2021 10:40 AM CDT) Narrative Candice Torres - 04/11/2021 10:40 AM CDT Candice Torres ? 04/11/2021 10:41 AM PVR = 125 ml Soraya Aguilera DO PROCEDURE/MINOR MALIK RGICAL ORDERABLES * URINALYSIS AUTO - POINT OF CARE (AMB) [facility] (04/11/2021 10:29 AM CDT) Glucose UA NEG Bilirubin UA POCT NEG Ketones UA POCT NEG Specific [place] UA 1.015 Blood Urine POCT 10 [place]/uL pH UA 6.5 Protein UA NEG Urobilinogen UA 0.2 mg/dL Nitrite UA NEG WBC UA NEG Urine URINE / Unknown 04/11/2021 1 0:29 AM CDT Soraya Aguilera DO LAB - POINT OF CAR E ORDERABLES * AR URINE FLOW MEASUREMENT (04/11/2021 10:24 AM CDT) Narrative Candice Torres - 04/11/2021 10:24 AM CDT Candice Torres ? 04/11/2021 10:26 AM T100 = 60s TQ = 49s TQmax = 10S Qmax = 21.2 ml/s Qave = 8.6 ml/s Vcomp = 429 ml Soraya Aguilera DO PROCEDURE/MINOR MALIK RGICAL ORDERABLES documented in this encounter Visit Diagnoses Diagnosis BPH with obstruction/lower urinary tract symptoms- Primary Hypertrophy of prostate with urinary obstruction and other lower urinary tract symptoms (LUTS) documented in this encounter Care Teams Drapery Examiner Relationship Specialty Start Date End Date Jas Zheng MD [address] [address] PCP - General 04/12/20 06/22/24 documented as of this encounter
--- OUTSIDE RECORDS SUMMARY | 2024-11-03 01:59 | XMS_ITS | Encounter Summary ---
Author Organization [facility] Address [address] [facility] [place] [address] Care Team Providers Care Histotechnologist Name Role Phone Souleymane Benitez MD Primary Care Provider [phone] Reason for Visit * Reason Comments Post-Op TURP 11 Encounter Details Date Type Department Care Team (Late st Contact Info) Description 10/07/2019 10:30 AM MANAGER SURGICAL Office Visit [facility] Urology [address] [place] [address] Soraya Aguilera M, DO [address] [place] [phone] Benign localized prostatic hyperplasia with lower urinary tract symptoms (LUTS) (Primary Dx); Other retention of urine Social History Tobacco Use Types Packs/Day Years Used Date Smoking Tobacco: Never Smokeless Tobacco: Never Alcohol Use Standard Drinks/Week Comments No 0 (1 standard drink = 0.6 oz pur e alcohol) Sex and Gender Information Value Date Recorded Sex Assigned at Male 10/18/2021 10:49 PM MANAGER SURGICAL Gender Identity Male 10/18/2021 10:49 PM MANAGER SURGICAL Sexual Orientation Straight 10/18/2021 10 :49 PM MANAGER SURGICAL documented as of this encounter Last Filed Vital Signs Vital Sign Reading Time Taken Comments Blood Pressure 114/71 10/07/2019 10:51 AM MANAGER SURGICAL Pulse 67 10/07/2019 10:51 AM MANAGER SURGICAL Temperature 36.2 ??C (97.2 ??F) 10/07/2019 10:[address] Respiratory Rate - - Oxygen Saturation 99% 10/07/2019 10:51 AM MANAGER SURGICAL Inhaled Oxygen Concentration - - Weight 80.7 kg (178 lb) 10/07/2019 10:51 AM MANAGER SURGICAL Height 181.6 cm (5' 11.5 ) 10/07/2019 10:51 AM Francy MARC Body Mass Index 24.48 10/07/2019 10:51 AM MANAGER SURGICAL documented in this encounter Progress Notes * Michaela Kern - 10/07/2019 11:11 AM CST [facility] Division of Urologic Surgery Soraya Aguilera DO Date of Visit: 10/07/2019 Patient Name: Vernon Vidales : 1965 Medical Record: [id number] Contact (home) [phone] (work) Age: [age] year old Sex: male Referring Physician: Souleymane Benitez MD [address] [place] [address] Chief Complaint: LUTS 2/2 BPH History of Present Illness: Mr. Vidales is a 54 year old male presenting for follow up of TURP performed on 09/10/2019. 01/07/2018: ??UDS peak flow of 0.7 ml/sec [...] and notes improvement. ??Still ??on flomax nightly. ?? Hasn't had to cath since last visit. PVR: 0cc. ?? 07/25/2018: underwent Rezum ?? 09/03/2018: Only had to catheterize twice after the procedure. First 2-3 weeks were rough with frequency and difficulty voiding and hematuria with occasional small clots. Notes improvement over the last 1-2 weeks in flow and LUTS. Still on flomax so still having retrograde ejaculation. AUASS: 1, 2, 3, 1, 3, 1, 1 =12 with QOL2, mostly satisfied. ?? 10/21/2018: AUASS: 1, 3, 4, 1, 4, 0, 1= 14 with QOL 3, mixed. HE thinks he is a little better in the last couple of weeks. He thinks he has overall improvement but is still having symptoms. Flomax helps, but the whole idea was to get off of the flomax. He would be interested in more treatments if it might help. Plan to return for cystoscopy. ?? 11/26/2018: cystoscopy: left lateral lobe still protruding into urethra, right with good response to rezum. Reports symptoms change constantly. AUASS:3,3,5,1, 5, 1, 1 = 19 with QOL 3, mixed. He can live with his symptoms rell if he goes back on flomax. Ejaculation is normal. Went back on flomax. 09/10/2019: underwent TURP Mr. Vidales reports marked improvement in LUTS. AUASS: 1, 1, 2, 1, 1, 1, 1 = 8 with QOL 1, pleased. No complaints of pain, dysuria, fever, chills, nausea, vomiting. Reports initial dark blood in ejaculate but this has since cleared and he now reports no problems with ejaculation. He is very happy with procedure. Past Medical History; No past medical history on file. Past Surgical History: Past Surgical History: Procedure Laterality Date ??? CYSTOSCOPY 09/10/2019 CYSTOSCOPY ??? OTHER SURGERY ACL right knee ??? Transurethral Resection Prostate (TURP) 09/10/2019 MINI TRANSURETHRAL RESECTION PROSTATE ??? Vasectomy 1999 Current Medications: Current Outpatient Medications Medication Sig Dispense Refill ??? acetaminophen (TYLENOL) 500 MG tablet Take 1 tablet by mouth every 6 hours as needed for Fever or Pain Maximum allowable Acetaminophen amount = 4 Grams (4000 mg) / 24 hours. 0 ??? MYRBETRIQ 50 MG tablet TAKE 1 TABLET BY MOUTH ONCE DAILY 30 tablet 5 ??? tamsulosin (FLOMAX) 0.4 MG capsule Take 1 capsule by mouth once daily Take 30 minutes after a meal at the same time each day. Reasons: Benign Enlargement of Prostate (Patient not taking: Reportedon 09/07/2019) 90 capsule 4 No current facility-administered medications for this visit. Allergies; Seasonal Family History: Family History Problem Relation Age of Onset ??? Cancer - Prostate Paternal Uncle Social History: Social History Socioeconomic History ??? Marital status: Spouse name: Not on file ??? Number of children: Not on file ??? Years of education: Not on file ??? Highest education level: Not on file Occupational History ??? Not on file Social Needs ??? Financial resource strain: Not on file ??? Food insecurity: Worry: Not on file Inability: Not on file ??? Transportation needs: Medical: Not on file Non-medical: Not on file Tobacco Use ??? Smoking status: Never Smoker ??? Smokeless tobacco: Never Used Substance and Sexual Activity ??? Alcohol use: No ??? Drug use: No ??? Sexual activity: Not on file Lifestyle ??? Physical activity: Days per week: Not on file Minutes per session: Not on file ??? Stress: Not on file Relationships ??? Social connections: Talks on phone: Not on file Gets together: Not on file Attends faith service: Not on file Active member of club or organization: Not on file Attends meetings of clubs or organizations: Not on file Relationship status: Not on file ??? Intimate partner violence: Fear of current or ex partner: Not on file Emotionally abused: Not on file Physically abused: Not on file Forced sexual activity: Not on file Other Topics Concern ??? Not on file Social History Narrative ??? Not on file Review of Systems: General: Negative Skin: Negative Eyes: Negative Ears/nose/mouth: Negative Lungs:Negative Heart:Negative Gastrointestinal: Negative Genitourinary: mild urgency, mild intermittent stream Musculoskeletal: Negative Nervous system: Negative Reproductive system: Negative Hematologic: Negative Lymphatic: Negative Endocrine: Negative Physical Exam: Vital Signs: BP 114/71 Pulse 67 Temp 97.2 ??F (36.2 ??C) (Oral) Ht 5' 11.5 (1.816 m) Wt 178 lb (80.7 kg) SpO2 99% BMI 24.48 kg/m2 Gen: Alert and oriented x3 Head: normocephalic Lungs: Non-labored respirations Heart: RRR Abd: soft, nontender, nondistended : no CVA tenderness, no suprapubic pain MSK: normal gait and strength Skin: No rashes PVR per bladder scanner: 9mL Imaging (images and reports reviewed): No new imaging Laboratory Studies: Glucose UA Date Value Ref Range Status 01/14/2018 neg Final Bilirubin UA POCT Date Value Ref Range Status 01/14/2018 neg Final Ketones UA POCT Date Value Ref Range Status 01/14/2018 neg Final Specific [place] UA Date Value Ref Range Status 01/14/2018 1.015 Final Blood Urine POCT Date Value Ref Range Status 01/14/2018 neg Final Protein UA Date Value Ref Range Status 08/27/2019 NEGATIVE NEGATIVE Final Urobilinogen UA Date Value Ref Range Status 01/14/2018 3.5 Final Nitrite UA Date Value Ref Range Status 01/14/2018 neg Final WBC UA Date Value Ref Range Status 01/14/2018 neg Final Lab Results Component Value Date/Time PSA 0.9 01/14/2018 01:59 PM PSA 0.8 07/05/2016 12:06 PM PSA 0.8 04/13/2015 12:33 PM PSA 0.9 03/10/2014 12:42 PM PSA 0.7 08/19/2012 03:50 PM Microbiology: No new microbiology Pathology: TURP chips: Final Diagnosis Prostate, chips, transurethral resection of prostate (A): - Benign prostatic tissue without evidence of carcinoma Diagnosis: 54yo male with BPH, incomplete bladder emptying and LUTS, now s/p rezum on 07/25/2018 and s/p TURP 09/10/2019 Recommendations: Stop myrbetriq due to improved symptoms 30 days following TURP; advised to restart if LUTS return. Reviewed benign pathology. RTC in 6 months for AUASS, PVR, uroflow Michaela Chin 10/07/2019 11:11 AM Patient seen and examined with medical student. Please see note for further details. I reperformed the history and physical and edited the note above myself. Soraya Aguilera DO 10/07/2019 1:20 PM GER SURGICAL documented in this encounter Procedure Notes * Elyse Hernandez LPN - 10/07/2019 11:02 AM CSTAssociated Order(s): PROC UROFLOWMETRY Pre-Procedure Diagnose(s): Benign localized prostatic hyperplasia with lower urinary tract symptoms(LUTS) T100: 61s TQ: 56s TQmax: 9s Qmax: 12.8mls Qave: 7.2mls Vcomp: 409ml GER SURGICAL * Elyse Hernandez LPN - 10/07/2019 11:00 AM CSTAssociated Order(s): PROC BLADDER SCAN Procedure(s): IN MSR PVR U&/BLADD CAPCTY US NON Pre-Procedure Diagnose(s): Other retention of urine 009mL GER SURGICAL documented in this encounter Plan of Treatment Upcoming Encounters Date Type Department Care Team (Late st Contact Info) Description 11/17/2024 4:00 PM MANAGER SURGICAL Appointment [facility] Health Imaging Services - Ultrasound [address] [place] [address] Soraya Aguilera, DO [address] [facility] 2[address] [place] [phone] 11/19/2024 1:45 PM MANAGER SURGICAL Office Visit [facility] Urology [address] [facility] [address] [place] [phone] Soraya Aguilera, DO [address] [facility] [address] [place] [phone] 04/14/2025 10:00 AM CDT Office Visit [facility] - Urology [address] [facility] [place] [phone] Soraya Aguilera, DO [address] [facility] [address] [place] [phone] documented as of this encounter Procedures Procedure Name Priority Date/Time Associated Diagnosis Comments PROC UROFLOWMETRY Routine 10/07/2019 11: 02 AM MANAGER SURGICAL Benign localized prostatic hyperplasia with lower urinary tract symptoms (LUTS) IN MSR PVR U&/BLADD CAPCTY US NON Routine 10/07/2019 11:00 AM MANAGER SURGICAL Other retention of urine documented in this encounter Results * PROC UROFLOWMETRY (10/07/2019 11:02 AM MANAGER SURGICAL) Narrative Elyse Hernandez LPN - 10/07/2019 11:02 AM MANAGER SURGICAL Elyse Hernandez LPN ? 10/07/2019 ??1:20 PM T100: 61s TQ: 56s TQmax: 9s Qmax: 12.8mls Qave: 7.2mls Vcomp: 409ml Soraya Aguilera DO PROCEDURE/MINOR MALIK RGICAL ORDERABLES * IN MSR PVR U&/BLADD CAPCTY US NON (10/07/2019 11:00 AM MANAGER SURGICAL) Narrative Elyse Hernandez LPN - 10/07/2019 11:00 AM MANAGER SURGICAL Elyse Hernandez LPN ? 10/07/2019 ??1:20 PM 009mL Soraya Aguilera DO PROCEDURE/MINOR MALIK RGICAL ORDERABLES documented in this encounter Visit Diagnoses Diagnosis Benign localized prostatic hyperplasia with lower urinary tract symptoms (LUTS)- Primary Benign localized hyperplasia of prostate with urinary obstruction and other lower urinary tract symptoms (LUTS) Other retention of urine documented in this encounter Care Teams Histotechnologist Relationship Specialty Start Date End Date Souleymane Benitez MD [address] [place], [place] [id number] PCP - General 09/15/19 04/11/20 documented as of this encounter
--- OUTSIDE RECORDS SUMMARY | 2024-11-03 01:59 | XMS_ITS | Encounter Summary ---
Author Organization [facility] Address [address] [facility] [place] [address] Care Team Providers Care Printed Circuit Board Reworker Name Role Phone Jas Zheng MD Primary Care Provider [phone] Encounter Details Date Type Department Care Team (Late Contact Info) Description 02/13/2024 Orders Only [facility] - Urology [address] [place] [address] Beverly Oseguera RN Social History Tobacco Use Types Packs/Day Years Used Date Smoking Tobacco: Never Smokeless Tobacco: Never Alcohol Use Standard Drinks/Week Comments No 0 (1 standard drink = 0.6 oz pur e alcohol) Sex and Gender Information Value Date Recorded Sex Assigned at Male 10/18/2021 10:49 PM DIRECTOR OF LOGISTICS Gender Identity Male 10/18/2021 10:49 PM DIRECTOR OF LOGISTICS Sexual Orientation Straight 10/18/2021 10 :49 PM DIRECTOR OF LOGISTICS documented as of this encounter Progress Notes * Beverly Oseguera RN - 02/13/2024 10:49 AM CDT PAT 02/24/2024 No pre-op labs ordered. documented in this encounter Plan of Treatment Upcoming Encounters Date Type Department Care Team (Late Contact Info) Description 11/17/2024 4:00 PM DIRECTOR OF LOGISTICS Appointment [facility] Health Imaging Services - Ultrasound [address] [place] [address] Soraya Aguilera M, DO [address] [place] [address] 11/19/2024 1:45 PM DIRECTOR OF LOGISTICS Office Visit [facility] - Urology [address] [place] [address] Soraya Aguilera, DO [address] DIV [place] [phone] 04/14/2025 10:00 AM CDT Office Visit [facility] - Urology [address] [facility], [place] [address] Soraya Aguilera, DO [address] DIV [place] [address] documented as of this encounter Visit Diagnoses Not on filedocumented in this encounter Care Teams Printed Circuit Board Reworker Relationship Specialty Start Date End Date Jas Zheng MD [address] [facility] [address] [place] [address] PCP - General 04/12/20 06/22/24 documented as of this encounter
--- OUTSIDE RECORDS SUMMARY | 2024-11-03 01:59 | XMS_ITS | Encounter Summary ---
Author Organization [facility] Address [address] [facility] [place] [address] Care Team Providers Care Nurse'S Assistant Name Role Phone Karen Tejeda Primary Care Pr [facility] Reason for Visit * Reason Comments Post-Op Encounter Details Date Type Department Care Team (Late st Contact Info) Description 10/14/2024 9:30 AM MORTGAGE PROTECTION SPECIALIST Office Visit [facility] - Urology [address] [place] [address], [place] [phone] Soraya Aguilera M, DO [address] [place] [address] [place] [address] Right hydrocele (Primary Dx); Epididymal cyst Social History Tobacco Use Types Packs/Day Years [...] Sex Assigned at Male 10/18/2021 10:49 PM MORTGAGE PROTECTION SPECIALIST Gender Identity Male 10/18/2021 10:49 PM MORTGAGE PROTECTION SPECIALIST Sexual Orientation Straight 10/18/2021 10 :49 PM MORTGAGE PROTECTION SPECIALIST documented as of this encounter Last Filed Vital Signs Vital Sign Reading Time Taken Comments Blood Pressure 129/75 10/14/2024 10:03 AM MORTGAGE PROTECTION SPECIALIST Pulse 65 10/14/2024 10:03 AM MORTGAGE PROTECTION SPECIALIST Temperature 36.4 ??C (97.6 ??F) 10/14/2024 10:[address] Respiratory Rate - - Oxygen Saturation 96% 10/14/2024 10:03 AM MORTGAGE PROTECTION SPECIALIST Inhaled Oxygen Concentration - - Weight 73.1 kg (161 lb 3.2 oz) 10/14/2024 10:03 AM MORTGAGE PROTECTION SPECIALIST Height 180.3 cm (5' 11 ) 10/14/2024 10:03 AM MORTGAGE PROTECTION SPECIALIST Body Mass Index 22.48 10/14/2024 10:03 AM MORTGAGE PROTECTION SPECIALIST documented in this encounter Functional Status Functional [...] No 09/16/2024 documented as of this encounter Progress Notes * Soraya Aguilera DO - 10/21/2024 4:25 PM CST [facility] Division of Urologic Surgery Soraya Aguilera DO Date of Visit: 10/14/2024 Patient Name: Vernon Vidales : 1965 Medical Record: [id number] Contact (home) Age: [age] year old Sex: male Referring Physician: MAURO Olmstead [address] [address] Chief Complaint: Hydrocele History of Present Illness: The patient is a 59 year old male presenting for follow up. 01/07/2018: UDS peak flow of 0.7 ml/sec with a residual volume of 635 ml. He was only able to void 7cc. 01/14/2018: AUASS: 3, 2, 5, 2, 5, 4, 1 = 22 with QOL 4, mostly dissatisfied. Cystoscopy revealed protrusion into bladder with normal urothelium last visit. Here to review scan. No new symptoms. On myrbetriq 50mg now for a month and notes improvement. Still on flomax nightly. Hasn't had to cath since last visit. PVR: 0cc. 07/25/2018: underwent Rezum 09/03/2018: Only had to catheterize twice after the procedure. First 2-3 weeks were rough with frequency and difficulty voiding and hematuria with occasional small clots. Notes improvement over the last 1-2 weeks in flow and LUTS. Still on flomax so still having retrograde ejaculation. AUASS: 1, 2, 3, 1, 3, 1, 1 =12 with QOL2, mostly satisfied. 10/21/2018: AUASS: 1, 3, 4, 1, 4, [...] might help. Plan to return for cystoscopy. 11/26/2018: cystoscopy: left lateral lobe still protruding into urethra, right with good response to rezum. Reports symptoms change constantly. AUASS:3,3,5,1, 5, 1, 1 = 19 with QOL 3, mixed. He can live with his symptoms rell if he goes back on flomax. Ejaculation is normal. Went back on flomax. 09/10/2019: underwent TURP 10/07/2019: AUASS: 1, 1, 2, 1, 1, 1, 1 = 8 with QOL 1, pleased. He is very happy with procedure. 04/12/2020: AUASS: 1, 1, 2, 0, 1, 0, 0= 5 with QOL1, pleased. No problems with ejaculation. Not taking any meds. 04/11/2021: AUASS: 1, 1, 3, 0, 1, 0, 1= 7 with QOL1, pleased. He denies problems since the last visit, including pelvic pain, frequency, difficulty with ejaculation, or dysuria. He notes occasionallyhis stream will start and stop a few times, but he is able to void completely without retention sensation. Overall feeling well and happy with the outcome. 01/24/2024: PVR 45 mL. Reports an enlarging hydrocele ~6mo. Post-vasectomy in 1997. Associated withjock itch for 8 months. Unable to cross his legs comfortably. Additionally, he is noticing that emptying his bladder is taking longer and after an initial burst of adequate urinary stream, it slowsdown. Opted for hydrocelectomy. 09/16/2024: right hydrocelectomy: Large right hydrocele sac excised and multiple epididymal cysts removed on the right 10/14/2024: doing okay post op. Complains of recurrent swelling and fluid collection in right scrotum. Pain as expected. Elevating scrotum. No drainage or bleeding or signs of infection. Past Medical History; Past Medical History: Diagnosis Date Alcoholism (HCC) Diverticulitis Irritable bowel syndrome (IBS) Other seasonal allergic rhinitis Past Surgical History: Past Surgical History: Procedure Laterality Date CYSTOSCOPY 09/10/2019 CYSTOSCOPY HYDROCELE EXCISION Right 09/16/2024 Right; hydrocelectomy with epidydimal cyst excision OTHER SURGERY ACL right knee Transurethral Resection Prostate (TURP) 09/10/2019 MINI TRANSURETHRAL RESECTION PROSTATE UROLOGY PROCEDURE/SURGERY Right 09/16/2024 Right; right scrotal exploration Vasectomy 1999 Current Medications: No current outpatient medications on file. No current facility-administered medications for this visit. Allergies; Seasonal Family History: Family History Problem Relation Name Age of Onset Cancer - Prostate Paternal Uncle Social History: Social History Socioeconomic History Marital status: Spouse name: Not on file Number of children: Not on file Years of education: Not on file Highest education level: Not on file Occupational History Not on file Tobacco Use Smoking status: Never Smokeless tobacco: Never Vaping Use Vaping status: Never Used Substance and Sexual Activity Alcohol use: Not Currently Comment: 15 years sober Drug use: No Sexual activity: Yes Other Topics Concern Not on file Social History Narrative Not on file Social Determinants of Health Financial Resource Strain: Not on file Food Insecurity: Not on file Transportation Needs: Not on file Stress: Not on file Housing Stability: Not on file Review of Systems: General: Negative Skin: Negative Eyes: Negative Ears/nose/mouth: Negative Lungs:Negative Heart:Negative Gastrointestinal: Negative Genitourinary: Discomfort in groin due to enlarging scrotum, noticing slowing of urine stream Musculoskeletal: Negative Nervous system: Negative Reproductive system: Negative Hematologic: Negative Lymphatic: Negative Endocrine: Negative Physical Exam: Vital Signs: BP 129/75 Pulse 65 Temp 97.6 ??F (36.4 ??C) Ht 1.803 m (5' 11 ) Wt 73.1 kg (161 lb 3.2 oz) SpO2 96% Gen: Alert and oriented x3 Head: normocephalic Lungs: Non-labored respirations Heart: RRR Abd: soft, nontender, nondistended : no CVA tenderness, no suprapubic pain bilateral testicles descended, no masses, left nontender, no hydrocele, no hernia bilaterally. Right with postoperative changes of edema and swelling, possible recurrent fluid collection within scrotum Penis without lesion, circumcised, meatus normal MSK: normal gait and strength Skin: No rashes PVR per bladder scanner: not done today Imaging (images and reports reviewed): None Laboratory Studies: Glucose UA Date Value Ref Range Status 01/24/2024 - Final Bilirubin UA POCT Date Value Ref Range Status 01/24/2024 - Final Ketones UA POCT Date Value Ref Range Status 01/24/2024 - Final Specific [place] UA Date Value Ref Range Status 01/24/2024 1.010 Final Blood Urine POCT Date Value Ref Range Status 01/24/2024 - Final Protein UA Date Value Ref Range Status 01/24/2024 - Final 01/16/2021 NEGATIVE NEGATIVE Final Urobilinogen UA Date Value Ref Range Status 01/24/2024 - Final Nitrite UA Date Value Ref Range Status 01/24/2024 - Final WBC UA Date Value Ref Range Status 01/24/2024 - Final Lab Results Component Value Date/Time PSA 0.9 01/14/2018 01:59 PM PSA 0.8 07/05/2016 12:06 PM PSA 0.8 04/13/2015 12:33 PM PSA 0.9 03/10/2014 12:42 PM PSA 0.7 08/19/2012 03:50 PM Pathology: 09/16/2024 Final Diagnosis Right epididymal cyst, excision: - Benign mesothelial cyst consistent with hydrocele Diagnosis: Earle Vidales is a 59 year old male with history of BPH s/p TURP in 2019 presenting for an enlarging hydrocele, present since ~1998 post-vasectomy. S/p complex hydrocele/epididymal cyst excision on09/16/2024 with persistent fluid and edema (likely postop changes.) Recommendations: Doing well. Reassured that swelling should go down. Call if worsens. RTC for recheck if still swollen in 4-6 weeks. Otherwise, FU in 3 months. Scrotal elevation. Patient's questions were answered and patient agrees with plan. Soraya Aguilera DO 10/21/2024 4:27 PM GAGE PROTECTION SPECIALIST documented in this encounter Plan of Treatment Upcoming Encounters Date Type Department Care Team (Late st Contact Info) Description 11/17/2024 4:00 PM MORTGAGE PROTECTION SPECIALIST Appointment [facility] Health Imaging Services - Ultrasound [address] [place] [address] Soraya Aguilera DO [address] [facility] [address] [place] [phone] 11/19/2024 1:45 PM MORTGAGE PROTECTION SPECIALIST Office Visit [facility] - Urology [address] [facility] [address] [place] [phone] Soraya Aguilera DO [address] [facility] [address] [place] [phone] 04/14/2025 10:00 AM CDT Office Visit [facility] - Urology [address] [facility], [place] [phone] Soraya Aguilera DO [address] [facility] [address] [place] [phone] documented as of this encounter Visit Diagnoses Diagnosis Right hydrocele- Primary Hydrocele, unspecified Epididymal cyst Other specified disorder of male genital organs documented in this encounter Care Teams Nurse'S Assistant Relationship Specialty Start Date End Date Karen Tejeda PA [address] [place] [address] PCP - General Physician Spider Assembler 06/23/24 documented as of this encounter
--- OUTSIDE RECORDS SUMMARY | 2024-11-03 01:59 | XMS_ITS | Encounter Summary ---
Author Organization [facility] Address [address] [facility] [place] [address] Care Team Providers Care Mink Farmer Name Role Phone Karen Tejeda Primary Care Pr ovider Encounter Details Date Type Department Care Team (Latest Contact Info) Description 09/16/2024 Travel Social History Tobacco Use Types Packs/Day [...] Sex Assigned at Male 10/18/2021 10:49 PM SWITCHMAN Gender Identity Male 10/18/2021 10:49 PM SWITCHMAN Sexual Orientation Straight 10/18/2021 10 :49 PM SWITCHMAN documented as of this encounter Plan of Treatment Upcoming Encounters Date Type Department Care Team (Late st Contact Info) Description 11/17/2024 4:00 PM SWITCHMAN Appointment [facility] Health Imaging Services - Ultrasound [address] [place] [address] Soraya Aguilera M, DO [address] [place] [phone] 11/19/2024 1:45 PM SWITCHMAN Office Visit [facility] - Urology [address] [place] [phone] Soraya Aguilera, DO [address] [place] [phone] 04/14/2025 10:00 AM CDT Office Visit [facility] - Urology [address] [facility] [facility] [place] [phone] Soraya Aguilera, DO [address] [facility] 2L [place] [phone] documented as of this encounter Visit Diagnoses Not on filedocumented in this encounter Care Teams Mink Farmer Relationship Specialty Start Date End Date Karen Tejeda PA [address] [place] [phone] PCP - General Physician Senior It Engineer 06/23/24 documented as of this encounter
--- OUTSIDE RECORDS SUMMARY | 2024-11-03 01:59 | XMS_ITS | Encounter Summary ---
Author Organization [facility] Address [address] [facility] [place] [address] Care Team Providers Care Forensic Economist Name Role Phone Jas Zheng MD Primary Care Provider [phone] Reason for Referral * Radiology Services (Routine) - Closed Specialty Diagnoses / Procedures Referred By Contac t Referred To Contact Ultrasound Diagnoses Right hydrocele Epididymal cyst Procedures US SCROTUM AND CONTENTS Soraya Aguilera DO [address] [facility] 2L [place] [address] [id number] [place] [address] Referral ID Status Reason Start Date Expiration Date Visits Re quested Visits Authorized [id number] Closed 01/24/2024 01/23/2025 1 1 Encounter Details Date Type Department Care Team (Late st Contact Info) Description 01/24/2024 11:30 AM CDT Office Visit [facility] - Urology [address] [place] [address] [address] [place] [phone] Soraya Aguilera DO [address] [facility] 2L [place] [address] Right hydrocele (Primary Dx); Epididymal cyst Social History Tobacco Use Types Packs/Day Years Used Date Smoking Tobacco: Never Smokeless Tobacco: Never Alcohol Use Standard Drinks/Week Comments No 0 (1 standard drink = 0.6 oz pur e alcohol) Sex and Gender Information Value Date Recorded Sex Assigned at Male 10/18/2021 10:49 PM ACTIVATED SLUDGE ATTENDANT Gender Identity Male 10/18/2021 10:49 PM ACTIVATED SLUDGE ATTENDANT Sexual Orientation Straight 10/18/2021 10 :49 PM ACTIVATED SLUDGE ATTENDANT documented as of this encounter Last Filed Vital Signs Vital Sign Reading Time Taken Comments Blood Pressure 146/78 01/24/2024 11:32 AM CDT Pulse 64 01/24/2024 11:32 AM CDT Temperature 36.4 ??C (97.6 ??F) 01/24/2024 11:32 AM C DT Respiratory Rate 18 01/24/2024 11:32 AM CDT Oxygen Saturation 99% 01/24/2024 11:32 AM CDT Inhaled Oxygen Concentration - - Weight 77.1 kg (170 lb) 01/24/2024 11:32 AM CDT Height 180.3 cm (5' 11 ) 01/24/2024 11:32 AM CDT Body Mass Index 23.71 01/24/2024 11:32 AM CDT documented in this encounter Progress Notes * Soraya Aguilera DO - 01/24/2024 12:34 PM CDT [facility] Division of Urologic Surgery Soraya Aguilera DO Date of Visit: 01/24/2024 Patient Name: Vernon Vidales : 1965 Medical Record: [id number] Contact (home) Age: [age] year old Sex: male Referring Physician: No referring provider defined for this encounter. Chief Complaint: Hydrocele History of Present Illness: The patient is a 58 year old male presenting for follow up. 01/07/2018: ??UDS peak flow of 0.7 ml/sec [...] on flomax. ?? 09/10/2019: underwent TURP ?? 10/07/2019:??AUASS: 1, 1, 2, 1, 1, 1, 1 = 8 with QOL 1, pleased. ??He is very happy with procedure. ?? 04/12/2020: AUASS: 1, 1, 2, 0, 1, 0, 0= 5 with QOL1, pleased. No problems with ejaculation. Not taking any meds. ?? 04/11/2021: AUASS: 1, 1, 3, 0, 1, [...] 01/24/2024: PVR 45 mL. Reports an enlarging hydrocele. The hydrocele has been present since ~6mo post-vasectomy in 1997. He endorses a slow, progressive enlargement of the hydrocele with no specific time of acute enlargement. The past 8 months he has had almost constant jock itch, treated with OTC creams. He thinks that he is unable to completely air out the area due to enlarging hydrocele. He also complains of being unable to cross his legs comfortably. Additionally, he is noticing that emptying his bladder is taking longer and after an initial burst of adequate urinary stream, it slows down. Past Medical History; Past Medical History: Diagnosis Date ??? Alcoholism (HCC) ??? Diverticulitis ??? Irritable bowel syndrome (IBS) Past Surgical History: Past Surgical History: Procedure Laterality Date ??? CYSTOSCOPY 09/10/2019 CYSTOSCOPY ??? OTHER SURGERY ACL right knee ??? Transurethral Resection Prostate (TURP) 09/10/2019 MINI TRANSURETHRAL RESECTION PROSTATE ??? Vasectomy 2000 Current Medications: No current outpatient medications on [...] file Occupational History ??? Not on file Tobacco Use ??? Smoking status: Never ??? Smokeless tobacco: Never Vaping Use ??? Vaping Use: Never used Substance and Sexual Activity ??? Alcohol use: No ??? Drug use: No ??? Sexual activity: Yes Other Topics Concern ??? Not on file Social History Narrative ??? Not on file Social Determinants of Health [...] Endocrine: Negative Physical Exam: Vital Signs: BP 146/78 (BP Location: Right arm, Patient Position: Sitting, BP Cuff Size: Large adult) Pulse 64 Temp 97.6 ??F (36.4 ??C) (Temporal) Resp 18 Ht 1.803 m (5' 11 ) Wt 77.1 kg (170 lb) SpO2 99% Gen: No apparent distress HEENT: atraumatic, normocephalic CV: well perfused Pulm: Nonlabored respirations Abd: Soft, nontender, nondistended MSK: warm and well perfused, no edema Neuro: Moving all extremities, no focal deficits Psych: Appropriate mood and affect : no CVA tenderness, R hydrocele with lobulations vs complex vs epididymal cysts PVR per bladder scanner: 45 mL Imaging (images and reports reviewed): None Laboratory Studies: Glucose UA Date Value Ref Range Status 01/24/2024 - Final Bilirubin UA POCT Date Value Ref Range Status 01/24/2024 - Final Ketones UA POCT Date Value Ref Range Status 01/24/2024 - Final Specific Shade UA Date Value Ref Range Status 01/24/2024 [...] 12:42 PM PSA 0.7 08/19/2012 03:50 PM Diagnosis: Earle Vidales is a 58 year old male with history of BPH s/p TURP in 2019 presenting for an enlarging hydrocele, present since ~1997 post-vasectomy. Based on physical exam, possible epididymal cyst and hydrocele. Recommendations: Discussed possible causes of scrotal enlargement (hydrocele vs spermatocele vs epididymal cyst), plan for Right scrotal exploration and hydrocelectomy following scrotal U/S. This procedure was discussed in detail with pictures for diagrams including the technical aspects of the procedure as well as the expected recovery period and postoperative instructions. The rationale for the procedure was discussed and the patient expressed understanding. The possible complications and risks were discussed, including but not limited to: bleeding, infection, pain-acute and chronic, scarring or stricture, hydrocele, hematoma. Inherent risks of anesthesia and surgery were discussed such as allergic reaction to medicine or sterilization techniques, deep vein thrombosis, pulmonary embolism, stroke, myocardial infarction, damage to surrounding structures, need for further procedures, and . All of the patient's pertinent questions were addressed and the patient consented to procedure. 30 minutes were spent with patient. 30 were spent counseling patient. Patient's questions were answered and patient agrees with plan. Eileen Naidu, MS4 01/24/2024 12:35 PM I have verified the documentation of the Medical student, including all history, exam, and medical decision-making details. I have personally performed a physical exam and have personally reviewed the data to support my medical decision-making as outlined in the student's note, and I arrive independently at the same conclusion. Date of Service: 01/24/2024 Soraya Aguilera DO documented in this encounter Procedure Notes * Beatriz Torres RN - 01/24/2024 11:44 AM CDTAssociated Order(s): PROC BLADDER SCAN Procedure(s): [place]Y MSR PVR U&/BLADD CAPCTY US NON Pre-Procedure Diagnose(s): Overactive bladder PVR = 45 mL documented in this encounter Plan of Treatment Upcoming Encounters Date Type Department Care Team (Late st Contact Info) Description 11/17/2024 4:00 PM ACTIVATED SLUDGE ATTENDANT Appointment [facility] Imaging Services - Ultrasound [address] [place] [address] Soraya Aguilera, DO [address] [facility] [address] 2L [place] [phone] 11/19/2024 1:45 PM ACTIVATED SLUDGE ATTENDANT Office Visit [facility] - Urology [address] [place] [address] Soraya Aguilera, DO [address] [facility] [address] 2L [place] [address] 04/14/2025 10:00 AM CDT Office Visit [facility] - Urology [address] [facility] [place] [address] Soraya Aguilera, DO [address] [facility] [address] [place] [address] documented as of this encounter Procedures Procedure Name Priority Date/Time Associated Diagnosis Comments [place] MSR PVR U&/BLADD CAPCTY US NON Routine 01/24/2024 11:44 AM CDT Right hydrocele Epididymal cyst URINALYSIS AUTO - POINT OF CARE (AMB) [facility] Routine 01/24/2024 11:44 AM CDT Right hydrocele Epididymal cyst documented in [...] vasectomy. > Dictated by Charis Schaefer MD, (vice president of business development). I, Frantz Suazo MD have personally reviewed and interpreted this examination/study. > Interpreting Provider: Frantz Suazo MD on 06/23/2024 4:12 PM Narrative 06/23/2024 4:12 PM CDT PROCEDURE: ??US SCROTUM AND CONTENTS, DATE/TIME OF EXAM: ??06/23/2024 1:53 PM, LOCATION ??[facility] INDICATION: N43.3: Right hydrocele N50.3: Epididymal [...] CONTENTS, DATE/TIME OF EXAM: 06/23/2024 1:53PM, LOCATION [facility] INDICATION: N43.3: Right hydrocele N50.3: Epididymal [...] vasectomy. > Dictated by Charis Schaefer MD, (vice president of business development). I, Frantz Suazo MD have personally reviewed and interpreted this examination/study. > Interpreting Provider: Frantz Suazo MD on 06/23/2024 4:12 PM Soraya Aguilera DO US ORDERABLES * [place]Y MSR PVR U&/BLADD CAPCTY US NON (01/24/2024 11:44 AM CDT) Narrative Beatriz Torres RN - 01/24/2024 11:44 AM CDT Beatriz Torres, RN ? 01/24/2024 ??4:38 PM PVR = 45 mL Soraya Aguilera DO PROCEDURE/MINOR MALIK RGICAL ORDERABLES * URINALYSIS AUTO - POINT OF CARE (AMB) [facility] (01/24/2024 11:44 AM CDT) Glucose UA - [facility] [address] Bilirubin UA POCT - [facility] [address] Ketones UA POCT - [facility] [address] Specific Shade UA 1.[address] [facility] [address] Blood Urine POCT - [facility] [address] pH UA 6.[address] [facility] [address] Protein UA - [facility] [address] Urobilinogen UA - [facility] [address] Nitrite UA - [facility] [address] WBC UA - [facility] [address] Urine URINE / Unknown 01/24/2024 1 1:44 AM CDT Soraya Leeardo DO LAB - POINT OF CAR E ORDERABLES Performing Organization Address City/State/[facility] Co de Phone Number TERI [address] [facility] [address] [place] [address], [facility] [phone] documented in this encounter Visit Diagnoses Diagnosis Right hydrocele- Primary Hydrocele, unspecified Epididymal cyst Other specified disorder of male genital organs Right hydrocele Hydrocele, unspecified Epididymal cyst Other specified disorder of male genital organs documented in this encounter Care Teams Forensic Economist Relationship Specialty Start Date End Date Jas Zheng MD [address] [place] [id number] PCP - General 04/12/20 06/22/24 documented as of this encounter
--- OUTSIDE RECORDS SUMMARY | 2024-11-03 01:59 | XMS_ITS | Clinical Summary ---
Author Organization [facility] Address [address] [facility] [place] [address] Care Team Providers Care Artist Blacksmith Name Role Phone Karen Tejeda Primary Care Pr ovider Source Comments [facility],non-owned Affiliates and Associated Physician Practices is amultiple site organization consisting of ambulatory clinics and hospital sitesin [place], [place], [place] and [place]. This disclosure is being madepursuant to the Care Everywhere program and may not contain all informatio navailable regarding this patient. Last updated 18.[facility] Allergies Active Allergy Reactions Criticality Noted Date [...] urinary stream 05/29/2017 Overview (02/03/2018): ICD-10 update Encounters Date Type Department Care Team Description 10/26/2024 Travel 10/14/2024 9:30 AM GLUE SPREADER Office Visit [facility] - Urology [address] [facility] [place] [address] Soraya Aguilera DO Right hydrocele (Primary Dx); Epididymal cyst 10/14/2024 Travel 09/18/2024 Travel 09/16/2024 4:43 PM GLUE SPREADER Anesthesia Event [facility] [address] [place] [address] Raffi Salas DO [place], [place] A, 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 (F LUZONE; FLULAVAL; FLUARIX; AFLURIA QUADRIVALENT; 6MO+), 0.5 ML (IIV4) 09/06/2019 Family History Medical History Relation Name Comments Cancer - Prostate Paternal Uncle Relation Name Status Comments Paternal Uncle Social History Tobacco Use Types Packs/Day Years [...] Sex Assigned at Male 10/18/2021 10:49 PM GLUE SPREADER Gender Identity Male 10/18/2021 10:49 PM GLUE SPREADER Sexual Orientation Straight 10/18/2021 10 :49 PM GLUE SPREADER Last Filed Vital Signs Vital Sign Reading Time Taken Comments Blood Pressure 129/75 10/14/2024 10:03 AM GLUE SPREADER Pulse 65 10/14/2024 10:03 AM GLUE SPREADER Temperature 36.4 ??C (97.6 ??F) 10/14/2024 10:03 AM C Respiratory Rate 17 09/16/2024 7:15 PM GLUE SPREADER Oxygen Saturation 96% 10/14/2024 10:03 AM GLUE SPREADER Inhaled Oxygen Concentration - - Weight 73.1 kg (161 lb 3.2 oz) 10/14/2024 10:03 AM GLUE SPREADER Height 180.3 cm (5' 11 ) 10/14/2024 10:03 AM GLUE SPREADER Body Mass Index 22.48 10/14/2024 10:03 AM GLUE SPREADER Plan of Treatment Upcoming Encounters Date Type Department Care Team (Late st Contact Info) Description 11/17/2024 4:00 PM GLUE SPREADER Appointment [facility] Health Imaging Services - Ultrasound [address] [place] [address] Soraya Aguilera DO [address] 2[address] DIV [place] [address] 11/19/2024 1:45 PM GLUE SPREADER Office Visit [facility] - Urology [address] [facility] [address] [place] [address] Soraya Aguilera DO [address] [place] [address] 04/14/2025 10:00 AM CDT Office Visit [facility] - Urology [address] [facility] [place] [address] Soraya Aguilera DO [address] [facility] 2L DIV [place] [address] Health Maintenance Due Date Last Done Comments COLOGUARD (AGES 45-75) - COLON CA SCREENING 1965 COLON MONITORING 1965 COLONOSCOPY - COLON CA SCREENING 1965 CT COLONOGRAPHY - COLON CA SCREENING 1965 Colorectal Cancer Screening 1965 FIT - COLON CA SCREENING 1965 FLEX SIG - COLON CA SCREENING 1965 LIPID TESTING 1965 HIV SCREENING 1978 HEPATITIS C SCREENING 02/01/1981 DTAP/TDAP/TD VACCINES (1 - Tdap) 1982 ZOSTER VACCINE (1 of 2) 2013 DEPRESSION SCREENING 11/04/2023 COVID-19 VACCINE ( season) 2024 09/09/2021, 02/03/2021, 01/13/2021 INFLUENZA VACCINE (#1) 2024 3, 08/25/2021, 09/02/2020, Additional history exists Respiratory Syncytial Virus (RSV) Vaccine Pt: or over 60 yrs (1 - 1-dose 75+ series) 2038 HEPATITIS B VACCINE Aged Out No longe r eligible based on patient's age to complete this topic HIB VACCINE Aged Out No longer eligi ble based on patient's age to complete this topic HPV VACCINE Aged Out No longer eligi ble based on patient's age to complete this topic MENINGOCOCCAL VACCINE Aged Out No tae sundar eligible based on patient's age to complete this topic PNEUMOCOCCAL VACCINE Aged Out No long er eligible based on patient's age to complete this topic Procedures Procedure Name Priority Date/Time Associated Diagnosis Comments PATHOLOGY TISSUE Routine 09/16/2024 5:40 PM GLUE SPREADER Right hydrocele Epididymal cyst ENDOTRACHEAL TUBE NOTE Routine 09/16/2024 5:08 PM GLUE SPREADER VT REMOVAL OF HYDROCELE,TUNICA,UNI LAT 09/16/2024 4:15 PM GLUE SPREADER Right hydrocele Epididymal cyst Case Notes Scrotal Ultrasound: 06/23/2024 @1430@[facility] ? Therese Welch [phone] Opt. 3 ext 1081 Special Needs Reviewed 09/16 VT EXPLORE SCROTUM 09/16/2024 4: 15 PM GLUE SPREADER Right hydrocele Epididymal cyst Case Notes Scrotal Ultrasound: 06/23/2024 @1430@[facility] ? Therese Welch [phone] Opt. 3 ext 1081 Special Needs Reviewed 09/16 from Last 3 Months Results * PATHOLOGY TISSUE (09/16/2024 5:40 PM GLUE SPREADER) Case Report Surgical Pathology Report ? Case: [id number] ? Authorizing Provider: ??Soraya Aguilera, DO ?Collected: ? 09/16/2024 05:40 PM ? Ordering Location: ? [facility] ?Received: ?09/17/2024 04:30 AM ? Pathologist: ? Magalie Segura MD ? Specimen: ?Cyst, RIGHT EPIDYDIMAL CYST ? 09/21/2024 9:52 AM [facility] Final Diagnosis Right epididymal cyst, excision: - Benign mesothelial cyst consistent with hydrocele 09/21/2024 9:52 AM [facility] PATH[facility]Y LAB Microscopic Description and Comment Microscopic examination substantiates the above captioned diagnosis. 09/21/2024 9:52 AM [facility] Clinical History Epididymal cyst, right hydrocele 09/21/2024 9:52 AM [facility] PATH[facility] LAB Gross Description The [...] No masses or lesions are grossly identified. Soil Field Technician sections are submitted as cassette A1. AL 09/21/2024 9:52 AM [facility] Pathologist Location at [facility] 09/21/2024 9:52 AM [facility] PATH[facility] LAB Disclaimer The performance characteristics of all immunohistochemical and indirect immunofluorescence stains (if any) cited in this report were determined by the Histopathology Laboratory of [facility]. Some of these tests were developed by [...] the attending (teaching) pathologist. 09/21/2024 9:52 AM [facility] PATH[facility] LAB Embedded Images 09/21/2024 9:52 AM [facility] PATH[facility] LAB Biopsy, Excision CYST TISSUE / Unknown 09/16/2024 5:40 PM GLUE SPREADER 09/17/2024 4:30 AM GLUE SPREADER Comment:Pre-op diagnosis: Right hydrocele - Primary; Epididymal cyst Sorayaarun Aguilera DO LAB - PATHOLOGY/CY TOLOGY ORDERABLES [facility] PATH[facility]Y LAB [address] [place] [address], [facility] [phone] * ETT LINE PERFORMABLE (09/16/2024 5:08 PM GLUE SPREADER) Narrative Shen Melgar DO - 09/16/2024 5:08 PM GLUE SPREADER Shen Melgar, ? 09/16/2024 ??5:08 PM Endotracheal Tube Placement: ? Patient Location: OR. Intubation Event Date/Time: ??09/16/2024 4:56 PM Procedure: intubation (91540) Procedure Section: ?? Sedation: under general anesthesia. [...] ORDERABLES from Last 3 Months Care Teams Artist Blacksmith Relationship Specialty Start Date End Date Karen Tejeda PA [address] [place] [address] PCP - General Physician Broomcorn Thresher 06/23/24
--- OUTSIDE RECORDS SUMMARY | 2024-11-03 01:59 | XMS_ITS | Patient Health Summary ---
Author Organization [facility] Address [address] [place] [address] Care Team Providers Care Fire And Safety Helper Name Role Phone Karen Tejeda Primary Care Pr ovider Note from [facility],non-owned Affiliates and Associated Physician Practices is amultiple site organization consisting of ambulatory clinics and hospital sitesin [place], [place], [place] and [place]. This disclosure is being madepursuant to the Care Everywhere program and may not contain all information available regarding this patient. Last updated 18.[facility] Allergies * Seasonal(Other) -Low Criticality Medications * Be aware that medications may not be up to date on this document. Alwaysverify current medications with the patient. Ended Medications* acetaminophen (Tylenol) 325 MG tablet(Started 09/16/2024) (Discontinued) Take 2 (two) tablets by mouth every 6 hours as needed for Fever or Pain Maximum allowable Acetaminophen amount = 4 Grams (4000 mg) / 24 hours. * ibuprofen (Motrin) 400 MG tablet(Started 09/16/2024)(Discontinued) Take 1 (one) tablet by mouth every 6 hours as needed for Pain * oxyCODONE, immediate release, (Roxicodone) 5 MG tablet(Started 09/16/2024) (Discontinued) Take 1 (one) tablet by mouth every 6 hours as needed for Pain Active Problems Problem Noted Date Diagnosed Date Overactive bladder 12/10/2017 Enlarged prostate with lower urinary tract sympt oms (LUTS) 05/29/2017 Poor urinary stream 05/29/2017 Immunizations * INFLUENZA(Given 09/02/2020) * INFLUENZA VACCINE, QUADR. 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 [employer]KER Last Filed Vital Signs Vital Sign Reading Time Taken Comments Blood Pressure 129/75 10/14/2024 10:03 AM [employer]UST [employer] Pulse 65 10/14/2024 10:03 AM [employer] Temperature 36.4 ??C (97.6 ??F) 10/14/2024 10:[address] Respiratory Rate 17 09/16/2024 7:15 PM [employer] Oxygen Saturation 96% 10/14/2024 10:03 AM DUST MOP MAKER Inhaled Oxygen Concentration - - Weight 73.1 kg (161 lb 3.2 oz) 10/14/2024 10:03 AM [employer] Height 180.3 cm (5' 11 ) 10/14/2024 10:03 AM [employer] Body Mass Index 22.48 10/14/2024 10:03 AM D[employer] Procedures * PATHOLOGY TISSUE(Performed 09/16/2024) Performed for Right hydrocele, Epididymal cyst * ENDOTRACHEAL TUBE NOTE(Performed 09/16/2024) * MI REMOVAL OF HYDROCELE,TUNICA,UNILAT(Performed 09/16/2024) Performed for Right hydrocele, Epididymal cyst * MI EXPLORE SCROTUM(Performed 09/16/2024) Performed for Right hydrocele, Epididymal cyst * US SCROTUM AND CONTENTS(Performed 06/23/2024) Performed for Right hydrocele, Epididymal cyst * CBC W/O DIFFERENTIAL(Performed 06/23/2024) Performed for Pre-op evaluation * COMPREHENSIVE METABOLIC PANEL(Performed 06/23/2024) Performed for Pre-op evaluation * MI MSR PVR U&/BLADD CAPCTY US NON(Performed 01/24/2024) Performed for Right hydrocele, Epididymal cyst * URINALYSIS AUTO - POINT OF CARE (AMB) [facility](Performed 01/24/2024) Performed for Right hydrocele, Epididymal cyst * DERMATOPATHOLOGY(Performed 12/26/2023) * DERMATOPATHOLOGY(Performed 10/17/2022) * MI MSR PVR U&/BLADD CAPCTY US NON(Performed 04/11/2021) Performed for BPH with obstruction/lower urinary tract symptoms * URINALYSIS AUTO - POINT OF CARE (AMB) [facility](Performed 04/11/2021) Performed for BPH with obstruction/lower urinary tract symptoms * MI URINE FLOW MEASUREMENT(Performed 04/11/2021) Performed for BPH with obstruction/lower urinary tract symptoms * CYCLIC CITRULLINATED PEPTIDE(CCP) AB IGG(Performed 01/16/2021) Performed for Arthralgia, unspecified joint, Bilateral low back pain without sciatica, unspecified chronicity * HLA TYPING B27(Performed 01/16/2021) Performed for Arthralgia, unspecified joint, Bilateral low back pain without sciatica, unspecified chronicity * RHEUMATOID FACTOR BLOOD QUANTITATIVE(Performed 01/16/2021) Performed for Arthralgia, unspecified joint, Bilateral low back pain without sciatica, unspecified chronicity * URINALYSIS W/MICROSCOPIC NO CULTURE(Performed 01/16/2021) Performed for Arthralgia, unspecified joint, Bilateral low back pain without sciatica, unspecified chronicity * ERYTHROCYTE SEDIMENTATION RATE(Performed 01/16/2021) Performed for Arthralgia, unspecified joint, Bilateral low back pain without sciatica, unspecified chronicity * C-REACTIVE PROTEIN(Performed 01/16/2021) Performed for Arthralgia, unspecified joint, Bilateral low back pain without sciatica, unspecified chronicity * COMPREHENSIVE METABOLIC PANEL(Performed 01/16/2021) Performed for Arthralgia, unspecified joint, Bilateral low back pain without sciatica, unspecified chronicity * CBC W AUTO DIFFERENTIAL(Performed 01/16/2021) Performed for Arthralgia, unspecified joint, Bilateral low back pain without sciatica, unspecified chronicity * XR ELBOW RIGHT 2VW(Performed 01/16/2021) Performed for Arthralgia, unspecified joint, Bilateral low back pain without sciatica, unspecified chronicity * XR ELBOW LEFT 2VW(Performed 01/16/2021) Performed for Arthralgia, unspecified joint, Bilateral low back pain without sciatica, unspecified chronicity * XR SI JOINTS 3VW OR MORE(Performed 01/16/2021) Performed for Arthralgia, unspecified joint, Bilateral low back pain without sciatica, unspecified chronicity * PROC UROFLOWMETRY(Performed 04/12/2020) Performed for BPH with obstruction/lower urinary tract symptoms * MI MSR PVR U&/BLADD CAPCTY US NON(Performed 04/12/2020) Performed for BPH with obstruction/lower urinary tract symptoms * PROC UROFLOWMETRY(Performed 10/07/2019) Performed for Benign localized prostatic hyperplasia with lower urinary tract symptoms (LUTS) * MI MSR PVR U&/BLADD CAPCTY US NON(Performed 10/07/2019) Performed for Other retention of urine * CARDIAC RHYTHM STRIP ORDER(Performed 09/14/2019) * PATHOLOGY TISSUE EXAM (STL)(Performed 09/10/2019) Performed for Diagnosis unknown * ENDOTRACHEAL TUBE NOTE(Performed 09/10/2019) * MI TRANSURETHRAL ELEC-SURG PROSTATECTOM(Performed 09/10/2019) Performed for Diagnosis unknown * MI CYSTOURETHROSCOPY(Performed 09/10/2019) Performed for Diagnosis unknown * URINALYSIS W/MICROSCOPIC NO CULTURE(Performed 08/27/2019) * CULTURE URINE(Performed 08/27/2019) * CBC W AUTO DIFFERENTIAL(Performed 08/27/2019) * COMPREHENSIVE METABOLIC PANEL(Performed 08/27/2019) * MI MSR PVR U&/BLADD CAPCTY US NON(Performed 06/02/2019) Performed for Urinary frequency * PROC UROFLOWMETRY(Performed 06/02/2019) Performed for Urinary frequency * CULTURE URINE(Performed 03/16/2019) Performed for Pre-op testing * DERMATOPATH TECHNICAL REPORT(Performed 12/01/2018) * MI CYSTOURETHROSCOPY(Performed 11/26/2018) Performed for Lower urinary tract symptoms (LUTS) * MI MSR PVR U&/BLADD CAPCTY US NON(Performed 11/26/2018) Performed for Lower urinary tract symptoms (LUTS) * PROC UROFLOWMETRY(Performed 11/26/2018) Performed for Lower urinary tract symptoms (LUTS) * MI MSR PVR U&/BLADD CAPCTY US NON(Performed 10/21/2018) Performed for Benign prostatic hyperplasia with lower urinary tract symptoms, symptom details unspecified * PROC BLADDER SCAN(Performed 09/03/2018) Performed for Benign prostatic hyperplasia with lower urinary tract symptoms, symptom details unspecified * MI PROSTATIC RADIOFREQ THERMOTX(Performed 07/25/2018) Performed for Benign prostatic hyperplasia with lower urinary tract symptoms, symptom details unspecified, Frequency of micturition * CULTURE URINE(Performed 07/16/2018) Performed for Pre-op testing * CBC W AUTO DIFFERENTIAL(Performed 01/14/2018) * PROSTATE SPECIFIC ANTIGEN SCREEN(Performed 01/14/2018) * BASIC METABOLIC PANEL (CALCIUM TOTAL)(Performed 01/14/2018) * CBC W AUTO DIFFERENTIAL(Performed 01/14/2018) * CULTURE URINE(Performed 01/14/2018) * URINALYSIS AUTO - POINT OF CARE (AMB) [facility](Performed 01/14/2018) * URINALYSIS AUTO - POINT OF CARE (AMB) [facility](Performed 12/04/2017) * URINALYSIS AUTO - POINT OF CARE (AMB) [facility](Performed 07/24/2017) * PSA SERIAL(Performed 07/05/2016) * URINALYSIS AUTO - POINT OF CARE (AMB) [facility](Performed 07/05/2016) * PSA SERIAL(Performed 04/13/2015) * PROSTATE SPECIFIC ANTIGEN SCREEN(Performed 03/10/2014) * URINALYSIS - POINT OF CARE (AMB) [facility](Performed 03/03/2013) * PSA SERIAL(Performed 08/19/2012) * HCG BLOOD QUALITATIVE(Performed 2012) * ALPHA FETOPROTEIN BLOOD TUMOR MARKER(Performed 02/02/2012) * LDH BLOOD(Performed 02/02/2012) * URINALYSIS - POINT OF CARE (AMB) [facility](Performed 11/04/1998) * URINALYSIS - POINT OF CARE (AMB) [facility](Performed 11/04/1998) Results * PATHOLOGY TISSUE (09/16/2024 5:40 PM [employer]) Case Report Surgical Pathology Report ? Case: [id number] ? Authorizing Provider: ??Soraya Aguilera, DO ?Collected: ? 09/16/2024 05:40 PM ? Ordering Location: ? [facility] ?Received: ?09/17/2024 04:30 AM ? Pathologist: ? Magalie Segura MD ? Specimen: ?Cyst, RIGHT EPIDYDIMAL CYST ? 09/21/2024 9:52 AM [facility] Final Diagnosis Right epididymal cyst, excision: - Benign mesothelial cyst consistent with hydrocele 09/21/2024 9:52 AM [facility] Microscopic Description and Comment Microscopic examination substantiates the above captioned diagnosis. 09/21/2024 9:52 AM [facility] Clinical History Epididymal cyst, right hydrocele 09/21/2024 9:52 AM [facility] Gross Description The requisition and [...] No masses or lesions are grossly identified. Lien Searcher sections are submitted as cassette A1. AL 09/21/2024 9:52 AM [facility] Pathologist Location at [facility] 09/21/2024 9:52 AM [facility] Disclaimer The performance characteristics of all immunohistochemical and indirect immunofluorescence stains (if any) cited in this report were determined by the Histopathology Laboratory of [facility]. Some of these tests were developed [...] the attending (teaching) pathologist. 09/21/2024 9:52 AM [facility] Embedded Images 09/21/2024 9:52 AM [facility] Biopsy, Excision CYST TISSUE / Unknown 09/16/2024 5:40 PM [employer] 09/17/2024 4:30 AM [employer] Comment:Pre-op diagnosis: Right hydrocele - Primary; Epididymal cyst Soraya Aguilera DO LAB - PATHOLOGY/CY TOLOGY ORDERABLES Performing Organization Address City/State/[facility] Co de Phone Number [facility] [address] [phone] * ETT LINE PERFORMABLE (09/16/2024 5:08 PM DUST [employer] MAKER) Narrative Shen Melgar DO - 09/16/2024 5:08 PM [employer]ER Shen Melgar DO ? 09/16/2024 ??5:08 PM Endotracheal Tube Placement: ? Patient Location: OR. Intubation Event Date/Time: ??09/16/2024 4:56 PM Procedure: intubation ([id number]) Procedure Section: ?? Sedation: under general anesthesia. [...] Raffi Dowling DO GENERAL ANESTHESI A ORDERABLES * US SCROTUM AND CONTENTS (06/23/2024 1:53 [...] vasectomy. > Dictated by Charis Schaefer MD, (student services vice president). I, Frantz Suazo MD have personally reviewed and interpreted this examination/study. > Interpreting Provider: Frantz Suazo MD on 06/23/2024 4:12 PM Narrative 06/23/2024 4:12 PM CDT PROCEDURE: ??US SCROTUM AND CONTENTS, DATE/TIME OF EXAM: ??06/23/2024 1:53 PM, LOCATION ??[facility] INDICATION: N43.3: Right hydrocele N50.3: Epididymal [...] CONTENTS, DATE/TIME OF EXAM: 06/23/2024 1:53PM, LOCATION [facility] INDICATION: N43.3: Right hydrocele N50.3: Epididymal [...] from 2011. Likely represents a large spermatocele givenhistory of vasectomy. 3.Small left hydrocele. 4.Epididymal enlargement, right greater than left, appears similaroverall in size compared to 2012 study and also likely sequela of vasectomy. > Dictated by Charis Schaefer MD, (student services vice president). I, Frantz Suazo MD have personally reviewed and interpreted this examination/study. > Interpreting Provider: Frantz Suazo MD on 06/23/2024 4:12 PM Soraya Aguilera DO ORDERABLES * CBC W/O DIFFERENTIAL (06/23/2024 1:13 PM CDT) Pathologist [facility] WBC 5.0 4.0 - 10.7 x10E9/L 06/23/2024 1:29 PM CDT [facility] RBC Count 4.64 4.30 - 5.80 x10E12/L 06/23/2024 1:29 PM T [facility] Hemoglobin 14.1 13.3 - 17.5 g/dL 06/23/2024 1:29 PM [facility] Hematocrit 41.1 38.7 - 51.1 % 06/23/2024 1:29 PM [facility] MCV 88.6 80.0 - 98.0 fL 06/23/2024 1:29 PM T [facility] MCH 30.4 26.7 - 33.6 pg 06/23/2024 1:29 PM [facility] MCHC 34.3 31.7 - 36.3 g/dL 06/23/2024 1:29 PM [facility] RDW-CV 12.1 11.3 - 14.8 % 06/23/2024 1:29 PM [facility] Platelet Count 231 150 - 420 x10E9/L 06/23/2024 1:29 PM [facility] MPV 10.2 7.8 - 11.4 fL 06/23/2024 1:29 PM [facility] Blood BLOOD SPECIMEN / Unknown Lab Venipuncture / Unknown 06/23/2024 1:13 PM CDT 06/23/2024 1:22 PM CDT Nutrjose eduardoa A Ferro REVENUE SETTLEMENTS ADMINISTRATOR-GORE INSERTER LAB - HEMATOL OGY ORDERABLES [facility] [address] [place] [address], [facility] [phone] * (ABNORMAL) COMPREHENSIVE METABOLIC PANEL (06/23/2024 1:13 PM [facility]) Only the most recent of3 resultswithin the time period is included. BUN 8 7 - 26 mg/dL 06/23/2024 1:52 PM [facility] Creatinine 0.78 0.71 - 1.16 mg/dL 06/23/2024 1:52 PM [facility] Sodium 141 136 - 145 mmol/L 06/23/2024 1:52 PM [facility] Potassium 4.7(H) 3.5 - 4.5 mmol/L 06/23/2024 1:52 PM [facility] Chloride 107 98 - 107 mmol/L 06/23/2024 1:52 PM [facility] CO2 28 22 - 29 mmol/L 06/23/2024 1:52 PM [facility] Glucose 93 70 - 115 mg/dL 06/23/2024 1:52 PM [facility] Calcium 9.4 8.4 - 10.2 mg/dL 06/23/2024 1:52 PM [facility] Protein Total 6.8 6.0 - 8.3 g/dL 06/23/2024 1:52 PM [facility] Albumin 4.0 3.4 - 5.0 g/dL 06/23/2024 1:52 PM [facility] Bilirubin Total 0.6 0.2 - 1.2 mg/dL 06/23/2024 1:52 PM [facility] Alkaline Phosphatase 74 40 - 150 U/L 06/23/2024 1:52 PM [facility] ALT 12 5 - 55 U/L 06/23/2024 1:52 PM [facility] AST 13 5 - 34 U/L 06/23/2024 1:52 PM [facility] Anion Gap 6 6 - 16 06/23/2024 1:52 PM [facility] BUN/Creatinine Ratio 10 7 - 23 06/23/2024 1:52 PM [facility] Osmolality Calculated 290 275 - 295 mOsm/kg 06/23/2024 1:52 PM CDT [facility] Albumin/Globulin Ratio 1.4 1.1 - 2.3 06/23/2024 1:52 PM CDT [facility] eGFR by CKD-EPI >90 >=90 mL/min/1.7 3 m2 06/23/2024 1:52 PM CDT [facility] Blood BLOOD SPECIMEN / Unknown Lab Venipuncture / Unknown 06/23/2024 1:13 PM CDT 06/23/2024 1:21 PM CDT Maxine Ferro APRN-GORE INSERTER LAB - ENTERPRISE ENGINEER RY ORDERABLES [facility] [address] [place] [address], [facility] [phone] * MI MSR PVR U&/BLADD CAPCTY US NON (01/24/2024 11:44 AM CDT) Narrative Beatriz Torres RN - 01/24/2024 11:44 AM CDT Beatriz Torres RN ? 01/24/2024 ??4:38 PM PVR = 45 mL Soraya Aguilera DO PROCEDURE/MINOR MALIK RGICAL ORDERABLES * URINALYSIS AUTO - POINT OF CARE (AMB) [facility] (01/24/2024 11:44 AM CDT) Only the most recent of6 resultswithin the time period is included. Glucose UA - [facility] [address] Bilirubin UA POCT - [facility] [address] Ketones UA POCT - [facility] [address] Specific [place] UA 1.[address] [facility] [address] Blood [...] Unknown 01/24/2024 1 1:44 AM CDT Soraya Aguilera DO LAB - POINT OF CAR E ORDERABLES [address] [place] [address], [facility] [phone] * DERMATOPATHOLOGY (12/26/2023 8:53 AM [employer]) Only the most recent of2 resultswithin the time period is included. Case Report Dermatopathology Report ? Case: [id number] ? Authorizing Provider: ??Shantel Whyte DO ?? Collected: ? 12/26/2023 08:53 AM ? Ordering Location: ? [facility] ? Received: ?12/26/2023 01:57 PM ? Pathologist: ? Sylvia Kidd MD ? Specimen: ?Skin, right side of head ? 4 12:12 PM [facility] DERMATOPATHOLOGY LABORATORY Final Diagnosis Specimen A. SKIN, right side of head: TRICHILEMMAL (PILAR) CYST (L72.12) 4 12:12 PM [facility] DERMATOPATHOLOGY LABORATORY Clinical History Cyst Growing 4 12:12 PM [facility] DERMATOPATH[facility]Y LABORATORY Gross Description Specimen A: Received is one formalin filled container labeled with the patient's name and designated right side of head. The specimen consists of a(2) pieces of skin measuring 9x4x4, 7x5x6 mm. The margin is inked green. The specimen is bisected lengthwise and submitted in 1 cassette. Jar 0. 4 12:12 PM [facility] DERMATOPATHOLOGY LABORATORY Microscopic Description Specimen A. SKIN, right side of head: Sections show a cyst that is lined by stratified squamous epithelium that shows trichilemmal keratinization (no granular layer). There is homogeneous pink keratin within the cyst. 4 12:12 PM [facility] DERMATOPATHOLOGY LABORATORY Disclaimer An external and internal positive and negative controls are appropriate for the histochemical, immunohistochemical and immunofluorescence stain(s) in this case (if any), except where stated explicitly. The performance characteristics of the stain(s) cited in this report were developed and its performance characteristic determined by the Dermatopathology Laboratory at [facility], directed by Dr. Janine Monahan. These tests need not be, and therefore are not, approved by the [place] Food and Drug Administration. The tests are used for clinical purposes. Billing Codes Specimen Charges Stain Charges 07281 1 4 12:12 PM [facility] DERMATOPATHOLOGY LABORATORY Embedded Images 4 12:12 PM [facility] DERMATOPATHOLOGY LABORATORY Pathology/Cytolo gy TISSUE SPECIMEN FROM SKIN / Unknown 12/26/2023 8:53 AM DUST MOP MAKER 12/26/2023 1:57 PM DUST M[employer]KER Shantel Whyte DO LAB - PATHOLOGY/C YTOLOGY ORDERABLES DERMATOPATHOLOGY LABORATORY [facility] - Department of Dermatology [address] [phone] * MI MSR PVR U&/BLADD CAPCTY US NON (04/11/2021 10:40 AM CDT) Narrative Candice Torres - 04/11/2021 10:40 AM CDT Candice Torres ? 04/11/2021 10:41 AM PVR = 125 ml Soraya Aguilera DO PROCEDURE/MINOR MALIK RGICAL ORDERABLES * MI URINE FLOW MEASUREMENT (04/11/2021 10:24 AM CDT) Narrative Candice Torres - 04/11/2021 10:24 AM CDT Candice Torres ? 04/11/2021 10:26 AM T100 = 60s TQ = 49s TQmax = 10S Qmax = 21.2 ml/s Qave = 8.6 ml/s Vcomp = 429 ml Soraya Wong Willy DO PROCEDURE/MINOR MALIK RGICAL ORDERABLES * URINALYSIS W/MICROSCOPIC NO CULTURE (01/16/2021 12:27 PM CDT) Only the most recent of2 resultswithin the time period is included. Color UA YELLOW YELLOW [facility] Appearance CLEAR CLEAR [facility] Specific [place] UA 1.008 1.001 - 1.035 [facility] pH [...] SEEN /LPF [facility] Comment: Test Performed at: [facility] [place], [place] ??[phone] LEXII CRUZ DO,MPH Urine URINE SPECIMEN OBTAINED BY CLEAN CATCH PROCEDURE / Unknown 01/16/2021 12:27 PM CDT 01/16/2021 12:28 PM CDT Gloria Mchugh MD LAB - URINALYSI S ORDERABLES [facility] [address] [place] [address] * RHEUMATOID FACTOR BLOOD QUANTITATIVE (01/16/2021 12:27 PM CDT) Rheumatoid Factor <14 <14 IU/mL [facility] Comment: Test Performed at: [facility] [place] ??[phone] LEXII CRUZ DO,MPH Blood BLOOD SPECIMEN / Unknown 01/16/2021 12:27 PM CDT 01/16/2021 12:28 PM CDT Gloria Mchugh MD LAB - CHEMISTRY ORDERABLES Performing Organization Address [facility] Co de Phone Number [facility] [address] [place] [address] * C-REACTIVE PROTEIN (01/16/2021 12:27 PM CDT) Pathologist [facility] C-Reactive Protein 0.6 <8.0 mg/L [facility] Comment: Test Performed at: [facility] [address] ??[phone] LEXII CRUZ DO,MPH Blood BLOOD SPECIMEN / Unknown 01/16/2021 12:27 PM CDT 01/16/2021 12:28 PM CDT Gloria Mchugh MD LAB - CHEMISTRY ORDERABLES Performing Organization Address [facility] Co de Phone Number [facility] [address] [place] [address] * HLA TYPING B27 (01/16/2021 12:27 PM CDT) Pathologist [facility] HLA-B27 Antigen NEGATIVE NEGATIVE [facility] Comment: Test Performed at: [facility] [address] [place], [place] ??[phone] DUKE GARCIA MD,PHD,CLAUDIA Blood BLOOD SPECIMEN / Unknown 01/16/2021 12:27 PM CDT 01/16/2021 12:28 PM CDT Gloria Mchugh MD LAB - CHEMISTRY ORDERABLES Performing Organization Address [facility] Co de Phone Number [facility] [address] [place] [address] * CYCLIC CITRULLINATED PEPTIDE(CCP) AB IGG (01/16/2021 12:27 PM CDT) Pathologist [facility] Cyclic Citrullinated Peptide Antibody IgG <16 UNITS [facility] Comment: Reference Range Negative: ?<20 Weak Positive: ? 20-39 Moderate Positive: ?? 40-59 Strong Positive: ? >59 Test Performed at: [facility] [address] [place], [place] ??[phone] LEXII CRUZ DO,MPH Blood BLOOD SPECIMEN / Unknown 01/16/2021 12:27 PM CDT 01/16/2021 12:28 PM CDT Gloria Mchugh MD LAB - CHEMISTRY ORDERABLES Performing Organization Address [facility] de Phone Number [facility] [id number] [place] [address] * ERYTHROCYTE SEDIMENTATION RATE (01/16/2021 12:27 PM CDT) [facility] Erythrocyte Sedimentation Rate Westergren 2 < OR = 20 mm/h [facility] Comment: Test Performed at: [facility] [address] ??[phone] LEXII CRUZ DO,MPH Blood BLOOD SPECIMEN / Unknown 01/16/2021 12:27 PM CDT 01/16/2021 12:28 PM CDT Gloria Mchugh MD LAB - HEMATOLOG Y ORDERABLES Performing Organization Address [facility] de Phone Number [facility] [phone] [place] [address] * CBC WITH DIFFERENTIAL (01/16/2021 12:27 PM CDT) Only the most recent of4 resultswithin the time period is included. Pathologist [facility] White Blood Cell Count 4.4 3.8 - [...] 0.5 % [facility] Comment: Test Performed at: [facility] ??[phone] LEXII CRUZ DO,MPH Blood BLOOD SPECIMEN / Unknown 01/16/2021 12:27 PM CDT 01/16/2021 12:28 PM CDT Gloria Mchugh MD LAB - HEMATOLOG Y ORDERABLES Performing Organization Address City/State/[facility] Co de Phone Number [facility] [address] [place] [address] * XR ELBOW RIGHT 2VW (01/16/2021 11:47 AM CDT) Anatomical Region Laterality Modality Upper Extremity Radiographic Karen ging 01/16/2021 11:4 8 AM CDT Impressions 01/16/2021 11:51 AM CDT IMPRESSION: No arthritis. Dictated by Valerie Gonzalez MD (student services vice president). I, Dr. VICK HOLT MD have personally reviewed and interpreted this examination/study. This report was electronically signed by VICK HLOT MD ??on 01/16/2021 11:51 AM . Narrative [...] No arthritis. Dictated by Valerie Gonzalez MD (student services vice president). IDr. VICK MD have personally reviewed and interpreted this [...] No arthritis. Dictated by Valerie Gonzalez MD (student services vice president). Dr. VICK Feng MD have personally reviewed [...] No arthritis. Dictated by Valerie Gonzalez MD (student services vice president). Dr. VICK Feng MD have personally reviewed and interpreted this examination/study. This report was electronically signed by VICK HOLT MD on01/16/2021 11:51 AM . Gloria Mchugh MD DIAGNOSTIC IMAG ING ORDERABLES * XR SI JOINTS 3VW OR MORE (01/16/2021 11:47 AM CDT) Anatomical Region Laterality Modality Pelvis, Lower Extremity [facility] Imaging 01/16/2021 11:5 0 AM CDT Impressions 01/16/2021 11:52 AM CDT IMPRESSION: Mild degenerative change of the sacroiliac joints. Dictated by Valerie Gonzalez MD (student services vice president). Dr. VICK Feng MD have personally reviewed [...] sacroiliac joints. Dictated by Valerie Gonzalez MD (student services vice president). I, Dr. VICK HOLT MD have personally reviewed and interpreted this examination/study. This report was electronically signed by VICK HOLT MD on01/16/2021 11:52 AM . Gloria Mchugh MD DIAGNOSTIC IMAG ING ORDERABLES * PROC UROFLOWMETRY (04/12/2020 10:23 AM CDT) Narrative Marisela Sexton - 04/12/2020 10:23 AM CDT Marisela Sexton ? 04/12/2020 10:24 AM T100: 57s TQ: 51s TQmax: 11s Qmax: 16.2mls Qave: 7.9mls Vcomp: 404ml Soraya Aguilera DO PROCEDURE/MINOR MALIK RGICAL ORDERABLES * MI MSR PVR U&/BLADD CAPCTY US NON (04/12/2020 10:23 AM CDT) Narrative Marisela Sexton - 04/12/2020 10:23 AM CDT Marisela Sexton ? 04/12/2020 10:23 AM Bladder scan completed post patient void with 55ml present in bladder Soraya Aguilera DO PROCEDURE/MINOR MALIK RGICAL ORDERABLES * PROC UROFLOWMETRY (10/07/2019 11:02 AM [employer]) Narrative Elyse Hernandez LPN - 10/07/2019 11:02 AM [employer] Elyse Hernandez LPN ? 10/07/2019 ??1:20 PM T100: 61s TQ: 56s TQmax: 9s Qmax: 12.8mls Qave: 7.2mls Vcomp: 409ml Soraya Aguilera DO PROCEDURE/MINOR MALIK RGICAL ORDERABLES * MI MSR PVR U&/BLADD CAPCTY US NON (10/07/2019 11:00 AM [employer]KER) Narrative Elyse Hernandez LPN - 10/07/2019 11:00 AM [employer] Elyse Hernandez LPN ? 10/07/2019 ??1:20 PM 009mL Soraya Aguilera DO PROCEDURE/MINOR MALIK RGICAL ORDERABLES * CARDIAC RHYTHM STRIP ORDER (09/14/2019 9:23 PM [employer]) Narrative 09/14/2019 9:23 PM [employer] Ordered by an unspecified provider. Scanned Document CARDIAC SERVICES ORD ERABLES * GROSS + MICRO EXAM (STL) (09/10/2019 10:43 AM DUST MOP MAKER) Case Report Surgical Pathology Report ? Case: [id number] ? Authorizing Provider: ??Soraya Aguilera, DO ?Collected: ? 09/10/2019 10:43 AM ? Ordering Location: ? [facility] ? Received: ?09/10/2019 12:42 PM ? Pathologist: ? Shawn Rosenbaum MD ? Specimen: ?Prostate Chips, prostate chips-S/P RESUME WATER VAPER ??THERAPY ??2018 ? 09/18/2019 11:[address] [facility] Final Diagnosis Prostate, chips, transurethral resection of prostate (A): - Benign prostatic tissue without evidence of carcinoma 09/18/2019 11:[address] [facility] Clinical History 54 year old male with incomplete bladder emptying and prostatic hypertrophy. 09/18/2019 11:[address] [facility] Gross Description The requisition and specimen labels are identified with the patient's name, Vernon Vidales. Received in formalin, specimen A, prostate chips , are 5 grams of soft brown-yellow tissue fragments ranging in greatest dimension from 0.5 to 1.1 cm, which are entirely submitted in cassette A1. TF/arm 09/18/2019 11:[address] [facility] Microscopic Description Microscopic examination substantiates the final diagnosis. 09/18/2019 11:[address] [facility] Disclaimer All histochemical and/or immunohistochemical results are interpreted with controls that demonstrate appropriate staining reactions before reporting results. Note on use of immunocytochemistry reagents: This test was developed and its performance characteristic determined by [facility], Department of Laboratory Medicine. It has not been cleared or approved by the U.S. Food and Drug Administration (FDA). The FDA has determined that such clearance or approval is not necessary. The test is used for clinical purpose. It should not be regarded as investigational or for research. This laboratory is certified to perform high complexity testing. 09/18/2019 11:17 AM [employer] [facility] Embedded Images 09/18/2019 11:17 AM [employer] [facility] Pathology/Cytolo gy SPECIMEN FROM PROSTATE OBTAINED BY TRANSURETHRAL RESECTION / Unknown 09/10/2019 10:43 AM [employer] 09/10/2019 12:42 PM [employer] Comment:Pre-op diagnosis: Diagnosis unknown [R69] S/P RESUME WATER VAPER THERAPY 2017 Soraya Aguilera DO LAB - PATHOLOGY/CY TOLOGY ORDERABLES [facility] [address] [place] [address] * ETT LINE PERFORMABLE (09/10/2019 10:13 AM DUST [employer]KER) Narrative Wagner Flores III, APRN-CRNA - 09/10/2019 10:13 AM [employer] Wagner Flores III, APRN-CRNA ? 09/10/2019 10:13 AM Endotracheal Tube Placement: ? Patient Location: OR. Intubation Event Date/Time: ??09/10/2019 10:01 AM Procedure: intubation (31000). Procedure Section: ?? Sedation: under general anesthesia. Indications for Airway Management: ??anesthesia Induction: standard IV Patient Position: ??supine Mask Ventilation: easy. Blade Type: Roney Blade Size: 4 Laryngoscopy View: grade 1 (full cords) Intubation Adjuncts: stylet Placement: oral Tube type: cuff - inflated Tube Size (MM): 9 Depth of Insertion (CM): 22 Measured From: lips Cuff Inflated With: air Number of Attempts: 1. Placement Verified By: direct visualization, bilateral breath sounds, chest auscultation and CO2 monitor Tube secured with: ??adhesive tape. Difficult Airway? ??No. Procedure Start Time: 09/10/2019 10:01 AM. Staff Section ?? Anesthesia Provider: Wagner Flores III, APRN-CRNA, Performed the procedure Kana Cox DO GENERAL ANESTHESIA ORDERABLES * CULTURE URINE (08/27/2019 4:07 PM CDT) Only the most recent of4 resultswithin the time period is included. Culture [facility] Comment: ??CULTURE, URINE, ROUTINE ?MICRO NUMBER: ?[id number] ??TEST STATUS: ? FINAL ??SPECIMEN SOURCE: ?? URINE, CLEAN CATCH ??SPECIMEN QUALITY: ??ADEQUATE ??RESULT: ?No Growth REPORT COMMENT: SPLIT 08/27/2019 FROM [id number] Test Performed at: [facility] ??[phone] MALIA EMERY MD 08/27/2019 4:07 PM CDT 08/27/2019 4:07 PM CDT Soraya Aguilera DO LAB - MICROBIOLOGY ORDERABLES [address] [address] * MI MSR PVR U&/BLADD CAPCTY US NON (06/02/2019 11:58 AM CDT) Narrative Alem Gilman - 06/02/2019 11:58 AM CDT Alem Gilman ? 06/02/2019 11:58 AM Bladder scan completed at this time, post void with 99ml present in bladder. Soraya gAuilera DO PROCEDURE/MINOR MALIK RGICAL ORDERABLES * PROC UROFLOWMETRY (06/02/2019 11:57 AM CDT) Narrative Alem Gilman - 06/02/2019 11:57 AM CDT Alme Gilman ? 06/02/2019 11:57 AM Voiding time 100 83s Flow Time TQ 77s Time to max flow TQmax 10s Max Flow Rate Qmax 9.1 ml/s Average Flow Rate Qave 5.0 ml/s Voided Volume Vcomp 388 ml Soraya Aguilera DO PROCEDURE/MINOR MALIK RGICAL ORDERABLES * DERMATOPATH TECHNICAL REPORT (12/01/2018 12:00 AM D[employer]KER) Case Report Dermatopathology Report ? Case: [id number] ? Authorizing Provider: ??Vanessa Guillen MD ? Collected: ? 12/01/2018 12:00 AM ? Pathologist: ? Keyonna Oviedo MD ?Received: ?12/03/2018 06:31 AM ? Specimen: ?Skin, left anterior thigh ? 11:16 AM [facility] Clinical History Nevus, irritated. 11:16 AM [facility] Gross Description Specimen A: Received is one formalin filled container labeled with the patient's name and designated left anterior thigh. The specimen consists of a shave measuring 8g6w2lb, bisected. Jar 0. [facility] Dermatopathology Laboratory performed the technical component only. 11:16 AM [facility] Embedded Images 11:16 AM [facility] DISCLAIMER An external and internal positive and negative controls are appropriate for the histochemical, immunohistochemical and immunofluorescence stain(s) in this case (if any), except where stated explicitly. The performance characteristics of the stain(s) cited in this report were developed and its performance characteristic determined by the Dermatopathology Laboratory at [facility], directed by Dr. Janine Monahan. These tests need not be, and therefore are not, approved by the [place] Food and Drug Administration. The tests are used for clinical purposes. 11:16 AM [facility] Pathology/Cytolog y TISSUE SPECIMEN FROM SKIN / Unknown 12/01/2018 12/03/2018 6:31 AM [employer] Vanessa Guillen MD LAB - PATHOLOGY/CYT OLOGY ORDERABLES DERMATOPATHOLOGY LABORATORY [facility] - Department of Dermatology [address] [place] [address], [facility] [phone] * MI CYSTOURETHROSCOPY (11/26/2018 1:12 PM DUST M[employer] MAKER) Narrative Soraya Aguilera, DO - 11/26/2018 1:12 PM [employer] Soraya Aguilera, DO ? 11/26/2018 ??1:12 PM See other cystoscopy note. Soraya Aguilera DO PROCEDURE/MINOR MALIK RGICAL ORDERABLES * MI MSR PVR U&/BLADD CAPCTY US NON (11/26/2018 11:43 AM DUST MOP MAKER) Narrative Vonnie Perry - 11/26/2018 11:43 AM D[employer]ER Vonnie Perry ? 11/26/2018 11:43 AM Bladder scan done. 96ml post void Soraya Aguilera DO PROCEDURE/MINOR MALIK RGICAL ORDERABLES * PROC UROFLOWMETRY (11/26/2018 11:38 AM DUST MOP MAKER) Narrative Vonnie Perry - 11/26/2018 11:38 AM [employer]ER Vonnie Perry ? 11/26/2018 11:38 AM Voiding Time ? T100 ?? 113s Flow Time ? TQ ??83 ??s Time to max Flow ? TQmax 66 ??s Max Flow Rate ?Qmax ??5.4 Ml/s Average Flow Rate ?Qave ?? 2.7 Ml/s Voided Volume ? Vcomp ??227 ml Soraya Aguilera DO PROCEDURE/MINOR MALIK RGICAL ORDERABLES * MI MSR PVR U&/BLADD CAPCTY US NON (10/21/2018 11:37 AM DUST MOP MAKER) Narrative Jenise Garcia LPN - 10/21/2018 11:37 AM D[employer]ER Jenise Garcia LPN ? 10/21/2018 11:37 AM Bladder scan completed post pt void with 98 ml residual Soraya Aguilera DO PROCEDURE/MINOR MALIK RGICAL ORDERABLES * PROC BLADDER SCAN (09/03/2018 10:28 AM CDT) 09/03/2018 10:2 8 AM CDT Herbert Wells - 09/03/2018 10:28 AM CDT Bladder scan completed as per [facility] F/U... Pt had 44ML left in the bladder after voiding... Scan done by RMA. Gera. Soraya Aguilera DO PROCEDURE/MINOR MALIK RGICAL ORDERABLES * MI PROSTATIC RADIOFREQ THERMOTX (07/25/2018 9:39 AM CDT) Soraya El DO - 07/25/2018 9:39 AM CDT Soraya Aguilera DO ? 07/25/2018 ??9:39 AM DATE OF SERVICE: 07/25/2018 PREOP DIAGNOSIS: Benign prostatic hyperplasia with lower urinary tract symptoms- N40.1 POSTOP DIAGNOSIS: Same PROCEDURE: Transurethral destruction of prostate tissue; by radiofrequency thermotherapy, CPT 53363, Transrectal ultrasound of the prostate CPT 33483 ANESTHESIA: local lidocaine prostate block, transurethral lidocaine urojet SURGEON: Soraya Aguilera DO RESIDENT: MD Liliane FINDINGS: ALFONSO 35g, no nodules, nontender EBL:2cc SPECIMENS: None DRAINS: None COMPLICATIONS: None SPONGE AND INSTRUMENT COUNT: Counted and correct INDICATIONS FOR PROCEDURE: 53yo male have BPH with LUTS. ??The patient understands the material risks, possible benefits, and alternatives for symptomatic Benign Prostate Hypertrophy. The Patient understands that BLADDER FUNCTION is independent of this de-obstructing procedure. Improved voiding results may take 2 to 4 weeks before being noticed depending on prostate size and number of treatments. Bleeding, infection and irritative voiding are the most common side effects. Patients will continue to use their current BPH meds until advised to taper or stop. The patient was given the opportunity to have their questions answered in a previous face to face meeting and also today. Informed consent signed by patient. Patient medications and allergies have been reviewed prior to treatment. Patients on blood thinners or aspirin (ASA) have been advised to check with the prescribing MD if it is ok to hold these prior to treatment. Risks of withholding blood thinners and or ASA have been discussed. DESCRIPTION OF PROCEDURE: Transrectal Ultrasound of Prostate Started Antibiotic 12 hrs PRIOR to treatment: Ciprofloxacin. Prior to proceeding, transrectal ultrasound obtained prostate volume and dimensions. TRUS prostate measurements: Width: 50.8mm Height: 33.4mm Length: 43.5mm Volume: 38.6 grams Morena-prostatic block anesthesia was then performed using trans-rectal ultrasound guidance and a long 18-guage spinal needle. 10 cc? s of 1% lidocaine was injected bilaterally. Blood loss was less than 1cc. DESCRIPTION OF PROCEDURE: Transurethral destruction of prostate tissue; by radiofrequency thermotherapy. In the lithotomy position, under local anesthesia, the patient was prepped and draped in the usual manner. The anterior urethra, prostate, bladder neck, right and left orifices were visualized as the scope was passed. RF was then used to create thermal energy to selectively ablate prostate tissue 1cm from the bladder neck to the proximal end of the veru spaced 1cm apart. 2 treatments were given. Treatments: RLL 1, LLL 1, ML 0, CZ 0. Blood loss was less than 5cc? s. The patient was monitored throughout the procedure. At the completion of the procedure the treatment device was removed. There was a careful check that there were no clots in the bladder or injury to the bladder, prostate or urethra. DISPOSITION: The patient was observed, appeared stable and in good condition at the time of discharge. Post-procedure expectations and activity limitations were reviewed with him and written instructions were provided. ??He was also instructed to continue mild oral analgesia PRN to continue his prophylactic short course of antibiotics until they are gone. He already knows how to perform CIC. ??He has catheters at home. ?? He has a follow up visit in 4 weeks. The patient will be in touch in the interim, if there are any more immediate concerns. OK to restart ASA and or blood thinners on 3rd post op day. Soraya Aguilera DO 07/25/2018 9:21 AM Soraya Aguilera DO PROCEDURE/MINOR MALIK RGICAL ORDERABLES * BASIC METABOLIC PANEL (CALCIUM TOTAL) (01/14/2018 1:59 PM CDT) BUN 12 7 - 26 mg/dL [facility] Creatinine 0.9 0.6 - 1.2 mg/dL [facility] Sodium 140 136 - 145 mmol/L [facility] Potassium 4.3 3.5 - 4.5 mmol/L [facility] Chloride 101 98 - 107 mmol/L [facility] CO2 29 22 - 29 mmol/L [facility] Glucose 80 70 - 115 mg/dL [facility] Calcium 9.4 8.4 - 10.2 mg/dL [facility] Anion Gap 14 8 - 18 [facility] BUN/Creatinine Ratio 13 7 - 23 [facility] Osmolality Calculated 289 270 - 300 mOsm/kg [facility] eGFR >60 >60 mL/min/1.7 3 m2 [facility] Blood specimen (specimen) BLOOD SPECIMEN / Unknown 01/14/2018 1:59 PM CDT 01/14/2018 2:11 PM CDT [facility] [place]MISTRY [place] DERABLES [address] [phone] * PROSTATE SPECIFIC ANTIGEN SCREEN (01/14/2018 1:59 PM CDT) Only the most recent of2 resultswithin the time period is included. PSA Total 0.9 0.0 - 4.0 ng/mL [facility] Blood specimen (specimen) BLOOD SPECIMEN / Unknown 01/14/2018 1:59 PM CDT 01/14/2018 2:11 PM CDT [facility] - CHEMISTRY OR DERABLES Performing Organization Address City/[facility]/ZIP Co de Phone Number [address] [phone] * PSA SERIAL (07/05/2016 12:06 PM CDT) Only the most recent of3 resultswithin the time period is included. PSA Total 0.8 0.0 - 4.0 ng/mL [facility] Blood specimen (specimen) BLOOD SPECIMEN / Unknown 07/05/2016 12:06 PM CDT 07/05/2016 12:56 PM CDT Herrera Paul MD LAB - CHEMIS TRY ORDERABLES Performing Organization Address City/[facility] Co de Phone Number [facility] [address] [place] [address] * URINALYSIS - POINT OF CARE (AMB) U (03/03/2013 1:50 PM CDT) Only the most recent of3 resultswithin the time period is included. Glucose UA neg [facility] Bilirubin UA POCT neg [facility] Ketones UA POCT neg [facility] Specific [place] UA 1.015 [facility] Blood Urine POCT neg [facility] pH UA 7.5 [facility] Protein UA neg [facility] Urobilinogen UA 0.2 [facility] Nitrite UA neg [facility] WBC UA neg [facility] Urine specimen (specimen) 03/03/2013 1:50 PM CDT Historical Provider LAB - POINT OF CA RE ORDERABLES Performing Organization Address City/[facility] Co de Phone Number [facility] * HCG BLOOD QUALITATIVE (2012 7:13 AM CDT) HCG, Qual NEGATIVE NEGATIVE [facility] Comment: Test Performed at: [facility] [address] [place], [place] ??[phone] LEXII CRUZ DO Blood specimen (specimen) 2012 7:13 AM CDT 2012 7:14 AM CDT Historical Provider LAB - CHEMISTRY O RDERABLES Performing Organization Address City/[facility] de Phone Number [facility] ([facility]) * ALPHA FETOPROTEIN BLOOD TUMOR (02/02/2012 7:12 AM CDT) Pathologist [facility] Alpha-Fetoprotei n 3.0 <6.1 ng/mL [facility] ([facility]) Comment: This test was performed using the Siemens (DPC) chemiluminescent method. Values obtained from different assay methods cannot be used interchangeably. AFP levels, regardless of value, should not be interpreted as absolute evidence of the presence or absence of disease. Test Performed at: [facility] [place] [address] [place], [place] ??[phone] LEXII CRUZ DO,MPH 02/02/2012 7:12 AM CDT 02/02/2012 7:13 AM CDT Historical Provider LAB - CHEMISTRY O ANNY Performing Organization Address [facility] de Phone Number [facility] ([facility]) * LDH BLOOD (02/02/2012 7:12 AM CDT) Pathologist [facility] LDH Total 136 100 - 220 U/L [facility] ([facility]) Comment: Test Performed at: [facility] [place] [address] [place], [place] ??[phone] LEXII CRUZ DO,MPH Serum 02/02/2012 7:12 AM CDT 02/02/2012 7:13 AM CDT Historical Provider LAB - CHEMISTRY O RDERACINTHIA Performing Organization Address [facility] Co de Phone Number [facility] ([facility]) Care Teams Fire And Safety Helper Relationship Specialty Start Date End Date Karen Tejeda PA [address] [place] [address] PCP - General Physician Computer Systems Hardware Analyst 06/23/24
--- OUTSIDE RECORDS SUMMARY | 2024-11-03 01:59 | XMS_ITS | Encounter Summary ---
Author Organization [facility] Address [facility] [place] [address] Care Team Providers Care Db2 Dba Name Role Phone Jas Zheng MD Primary Care Provider Reason for Visit * Reason Comments Follow-up Joint and Back Pain Encounter Details Date Type Department Care Team (Late st Contact Info) Description 01/20/2021 1:40 PM CDT Office Visit [facility] [address] [place] [address], [place] [phone] Gloria Mchugh MD [address] [place] [address] OF RHEUMATOLOGY [place], [place] [id number] Arthralgia, unspecified joint (Primary Dx) Social History Tobacco Use Types Packs/Day Years Used Date Smoking Tobacco: Never Smokeless Tobacco: Never Alcohol Use Standard Drinks/Week Comments No 0 (1 standard drink = 0.6 oz pur e alcohol) Sex and Gender Information Value Date Recorded Sex Assigned at Male 10/18/2021 10:49 PM AUTOMOTIVE SALES SPECIALIST Gender Identity Male 10/18/2021 10:49 PM AUTOMOTIVE SALES SPECIALIST Sexual Orientation Straight 10/18/2021 10 :49 PM AUTOMOTIVE SALES SPECIALIST documented as of this encounter Last Filed Vital Signs Vital Sign Reading Time Taken Comments Blood Pressure 116/64 01/20/2021 1:40 PM CDT Pulse 72 01/20/2021 1:40 PM CDT Temperature 36.2 ??C (97.2 ??F) 01/20/2021 1:40 PM CD T Respiratory Rate - - Oxygen Saturation - - Inhaled Oxygen Concentration - - Weight 77.6 kg (171 lb) 01/20/2021 1:40 PM CDT Height 180.3 cm (5' 11 ) 01/20/2021 1:40 PM CDT Body Mass Index 23.85 01/20/2021 1:40 PM CDT documented in this encounter Patient Instructions * Patient Instructions* Gloria Mchugh MD - 01/20/2021 2:18 PM CDT We saw you today for follow up of joint pain. We did not find any evidence of autoimmune disease like lupus, RA, or ankylosing spondylitis. You can take two aleve twice a day. Call us if new concerns arise. Thank you! If you need to change or cancel your Rheumatology appointment - At the [facility], call [phone] If you need a refill request, have your pharmacy fax a request to [phone]. If you need to leave a message for Dr. Mchugh, you can send her an electronic message via [employer] or leave a voicemail at [phone]. Her office FAX number is [phone]. For after hours emergency only, you can call the [facility] pantograph machine operator at [phone] and ask for the Graphic Art Designer asset protection greeter to be paged. documented in this encounter Progress Notes * Gloria Mchugh MD - 01/22/2021 11:15 PM CDT [facility] Followup Clinic Visit Referring Physician: Jas Zheng MD [address] [place] [address] PCP: Jas Zheng MD Chief Complaint Patient presents with ??? Follow-up Joint and Back Pain HPI: Mr. Vidales is a 55 year old male who presents for follow up of arthralgia. He has been thesame since his initial visit last week. He still has low back pain, knee pain, and elbow pain. He is not having swelling. Aleve helps his pain but he doesn't take it very often because he doesn't like taking too much medication. He was able to get a copy of his labs that were drawn at his PCP (we never received them from PCP) and the abnormal lab was a positive KARISSA. ROS: General: -fatigue, -fever, -wt loss/gain, daily functioning not limited HEENT: -dry eyes, -dry mouth, -vision changes, -eye redness, -eye pain, - oral/nasal ulcers CV: -chest pain, -palpitations, - LE edema Resp: -cough, -SOB, -pleuritic pain GI: - dysphagia, - reflux, -abd pain, -constipation, -nausea, -vomiting, - diarrhea, -blood/mucus : -urine changes, -dysuria, -hematuria MSK: +arthralgia, -myalgia, -muscle weakness, -swelling, -erythema, -warmth, -AM stiffness, +back pain Skin: -rash, -lesions, -ulcers, -hair loss, -Raynaud, -acrocyanosis, -photosensitivity Neuro: -DONAHUE, -paresthesias Psych: Mood is generally good, -depression/anxiety ROS otherwise negative Past Medical History: Diagnosis Date ??? Alcoholism ??? Diverticulitis ??? Irritable bowel syndrome (IBS) Social History Tobacco Use ??? Smoking status: Never Smoker ??? Smokeless tobacco: Never Used Substance Use Topics ??? Alcohol use: No ??? Drug use: No Review of Family History Problem Relation Name Age of Onset ??? Cancer - Prostate Paternal Uncle No current outpatient medications on file. No current facility-administered medications for this visit. Seasonal Physical Exam: BP 116/64 (BP SITE: RIGHT ARM, BP POSITION: SITTING, BP CUFF SIZE: 11) Pulse 72 Temp 97.2 ??F (36.2??C) (Skin) Ht 5' 11 (1.803 m) Wt 171 lb (77.6 kg) BMI 23.85 kg/m2 General: Alert, oriented, NAD, appears stated age Skin: Skin color, texture, turgor normal. No rashes or lesions HEENT: Normocephalic, without obvious abnormality, atraumatic conjunctivae/corneas clear. EOMI, no oral or nasal ulcers, moist mucus membranes, supple neck Lymphatic: No cervical, supraclavicular adenopathy Back: Symmetric, normal curvature Chest/Lungs: Clear to auscultation bilaterally, normal respiratory effort Heart: RRR, normal S1 and S2, no murmur, no rub Abdomen: soft, non-tender. Bowel sounds normal. No masses, no organomegaly Neurologic: Grossly normal cranial nerves Musculoskeletal Exam: +HN and BN S0T0 Labs: Reviewed, including those as noted below Recent Results (from the past 2352 hour(s)) CBC WITH DIFFERENTIAL Collection Time: 01/16/21 12:27 PM Result Value Ref Range White Blood Cell Count 4.4 3.8 - 10.8 Thousand/uL RBC 4.94 4.20 - 5.80 Million/uL Hemoglobin 15.3 13.2 - 17.1 g/dL Hematocrit 43.6 38.5 - 50.0 % MCV 88.3 80.0 - 100.0 fL MCH 31.0 27.0 - 33.0 pg MCHC 35.1 32.0 - 36.0 g/dL RDW 12.6 11.0 - 15.0 % Platelet Count 215 140 - 400 Thousand/uL MPV 10.8 7.5 - 12.5 fL Neutrophil Absolute 2970 1500 - 7800 cells/uL Lymphocytes Absolute 1030 850 - 3900 cells/uL Absolute Monocytes 339 200 - 950 cells/uL Eosinophils Absolute 40 15 - 500 cells/uL Basophils Absolute 22 0 - 200 cells/uL Granulocytes % 67.5 % Lymphocytes % 23.4 % Monocytes % 7.7 % Eosinophils % 0.9 % Basophils % 0.5 % COMPREHENSIVE METABOLIC PANEL Collection Time: 01/16/21 12:27 PM Result Value Ref Range Glucose 104 (H) 65 - 99 mg/dL BUN 13 7 - 25 mg/dL Creatinine 0.80 0.70 - 1.33 mg/dL eGFR by MDRD 99 > OR = 60 mL/min/1.73m2 eGFR by MDRD 115 > OR = 60 mL/min/1.73m2 BUN/Creatinine Ratio NOT APPLICABLE 6 - 22 (calc) Sodium 139 135 - 146 mmol/L Potassium 4.2 3.5 - 5.3 mmol/L Chloride 101 98 - 110 mmol/L CO2 30 20 - 32 mmol/L Calcium 9.4 8.6 - 10.3 mg/dL Protein Total 6.6 6.1 - 8.1 g/dL Albumin 4.6 3.6 - 5.1 g/dL Globulin Total 2.0 1.9 - 3.7 g/dL (calc) Albumin/Globulin Ratio 2.3 1.0 - 2.5 (calc) Bilirubin Total 0.6 0.2 - 1.2 mg/dL Alkaline Phosphatase 62 35 - 144 U/L AST 13 10 - 35 U/L ALT 14 9 - 46 U/L C-REACTIVE PROTEIN Collection Time: 01/16/21 12:27 PM Result Value Ref Range C-Reactive Protein 0.6 <8.0 mg/L ERYTHROCYTE SEDIMENTATION RATE Collection Time: 01/16/21 12:27 PM Result Value Ref Range Erythrocyte Sedimentation Rate Westergren 2 < OR = 20 mm/h URINALYSIS W/MICROSCOPIC NO CULTURE Collection Time: 01/16/21 12:27 PM Specimen: Urine Clean Catch Result Value Ref Range Color UA YELLOW YELLOW Appearance CLEAR CLEAR Specific [place] UA 1.008 1.001 - 1.035 pH UA 7.0 5.0 - 8.0 Glucose UA NEGATIVE NEGATIVE Bilirubin UA NEGATIVE NEGATIVE Ketone UA NEGATIVE NEGATIVE Blood UA NEGATIVE NEGATIVE Protein UA NEGATIVE NEGATIVE Nitrite UA NEGATIVE NEGATIVE Leukocyte UA NEGATIVE NEGATIVE WBC UA NONE SEEN < OR = 5 /HPF RBC UA NONE SEEN < OR = 2 /HPF Epithelial Cell UA NONE SEEN < OR = 5 /HPF Bacteria UA NONE SEEN NONE SEEN /HPF Hyaline Casts NONE SEEN NONE SEEN /LPF RHEUMATOID FACTOR BLOOD QUANTITATIVE Collection Time: 01/16/21 12:27 PM Result Value Ref Range Rheumatoid Factor <14 <14 IU/mL HLA TYPING B27 Collection Time: 01/16/21 12:27 PM Result Value Ref Range HLA-B27 Antigen NEGATIVE NEGATIVE CYCLIC CITRULLINATED PEPTIDE(CCP) AB IGG Collection Time: 01/16/21 12:27 PM Result Value Ref Range Cyclic Citrullinated Peptide Antibody IgG <16 UNITS Diagnostics/health maintenance: XR Elbows 01/16/21: WNL XR SI joints 01/16/21: Degenerative changes Assessment/ Plan: Mr. Vidales is a 55 year old male who presents for first follow up of abnormal lab and arthralgia. Workup here was not concerning for autoimmune or inflammatory disease. He has normal inflammatory markers, negative HLA B27 testing, negative RF and anti CCP abs. Imaging showed degenerative changes in his SI joints, not evidence of sacroiliitis. Patient did bring a copy of his labs to the visit today, and he does have a positive KARISSA. KARISSA tests can be positive in up to 15% of the healthy population. Patient does not have rashes, Raynaud's, oral or nasal ulcers, inflammatory sounding peripheral joint pains/swelling, photosensitivity or other symptoms that are suggestive of connective tissue disease, so it is unclear to me why it was initially drawn. Of the possible etiologies of his pain, ank spond/seronegative spondylarthropathy was the only inflammatory etiology really on the differential, and he does not have any evidence of systemic inflammation on his labs, HLA B27 testing was ne gative, and he has imaging with degenerative changes. At this time, he does not require further rheumatology f/u unless new concerns arise. 1. May continue Aleve 440 mg bid prn pain 2. RTC prn if new symptoms or concerns arise Gloria Mchugh MD Department of Rheumatology The following were ordered during this visit: No orders of the defined types were placed in this encounter. documented in this encounter Plan of Treatment Upcoming Encounters Date Type Department Care Team (Late st Contact Info) Description 11/17/2024 4:00 PM AUTOMOTIVE SALES SPECIALIST Appointment [facility] Health Imaging Services - Ultrasound [address] [place] [address] Soraya Aguilera, DO [address] [facility] 2L [place] [address] 11/19/2024 1:45 PM AUTOMOTIVE SALES SPECIALIST Office Visit [facility] - Urology [address] [facility] [address] [place] [address] Soraya Aguilera DO [address] [facility] [facility] [address] [place] [address] 04/14/2025 10:00 AM CDT Office Visit [facility] - Urology [address] [place] [address], [place] [address] Soraya Aguilera DO [address] [facility] 2L [place] [address] documented as of this encounter Visit Diagnoses Diagnosis Arthralgia, unspecified joint- Primary documented in this encounter Care Teams Db2 Dba Relationship Specialty Start Date End Date Jas Zheng MD [address] [address] PCP - General 04/12/20 06/22/24 documented as of this encounter
--- OUTSIDE RECORDS SUMMARY | 2024-11-03 01:59 | XMS_ITS | Encounter Summary ---
Author Organization [facility] Address [address] [facility] [place] [address] Care Team Providers Care Consumer Analyst Name Role Phone Jas Zheng MD Primary Care Provider [phone] Reason for Visit * Reason Onset Date Comments Surgery Scheduling 05/05/2024 right scrotal exploration, possible hydrocelectomy with epididymal cyst excision [35166, 78898, 87699]Right hydrocele [N43.3] - Primary Epididymal cyst [N50.3] 1965 #: [id number] Scrotal Ultrasound - 06/23/2024 @230PM @[facility] - Dragan; Yuri [phone] Opt. 3 ext 1081PAT 06/23/2024 @12PM - [facility] None SX 07/08/2024 @230PM Letter mailed/emailed/MyChart/verbal confirmation Shannen Abbott 05/05/2024 12:45 PM Encounter Details Date Type Department Care Team (Late st Contact Info) Description 05/05/2024 Telephone [facility] - Urology [address] [place] [address], [place] [address] Soraya Aguilera M, DO [address] [place] [address] 2L DIV [place] [address] Surgery Scheduling (right scrotal exploration, possible hydrocelectomy with epididymal cyst excision [93786, 97479, 14581]/Right hydrocele [N43.3] - Primary /Epididymal cyst [N50.3] /1963 / /E#: [id number]/ /Scrotal Ultrasound - 06/23/2024 @230PM @[facility] Saad Archibald; Yuri [phone] Opt. 3 ext 1081/PAT 06/23/2024 @[facility] - Brig[facility] None /SX 07/08/2024 @230PM /Letter mailed/emailed/[place]/jasmin erbal confirmation /Shannen Abbott 05/05/2024 12:45 PM ) Social History Tobacco Use Types Packs/Day Years Used Date Smoking Tobacco: Never Smokeless Tobacco: Never Alcohol Use Standard Drinks/Week Comments No 0 (1 standard drink = 0.6 oz pur e alcohol) Sex and Gender Information Value Date Recorded Sex Assigned at Male 10/18/2021 10:49 PM INSERT MOLDING OPERATOR Gender Identity Male 10/18/2021 10:49 PM INSERT MOLDING OPERATOR Sexual Orientation Straight 10/18/2021 10 :49 PM INSERT MOLDING OPERATOR documented as of this encounter Plan of Treatment Upcoming Encounters Date Type Department Care Team (Late st Contact Info) Description 11/17/2024 4:00 PM INSERT MOLDING OPERATOR Appointment [facility] Health Imaging Services - Ultrasound [address] [place] [address] Soraya Aguilera, DO [address] [facility] 2L DIV [place] [address] 11/19/2024 1:45 PM INSERT MOLDING OPERATOR Office Visit [facility] - Urology [address] [facility] [address] [place] [address] Soraya Aguilera DO [address] [facility] 2L DIV [place] [address] 04/14/2025 10:00 AM CDT Office Visit [facility] - Urology [address] [place] [address], [place] [address] Soraya Aguilera, DO [address] [facility] 2L DIV [place] [address] documented as of this encounter Visit Diagnoses Not on filedocumented in this encounter Care Teams Consumer Analyst Relationship Specialty Start Date End Date Jas Zheng MD [address] [place] [address] PCP - General 04/12/20 06/22/24 documented as of this encounter
--- OUTSIDE RECORDS SUMMARY | 2024-11-03 01:59 | XMS_ITS | Encounter Summary ---
Author Organization [facility] Address [address] [facility] [place] [address] Care Team Providers Care Software Engineer Advisor Name Role Phone Jas Zheng MD Primary Care Provider [phone] Encounter Details Date Type Department Care Team (Latest Contact Info) Description 01/16/2021 Travel Social History Tobacco Use Types Packs/Day Years Used Date Smoking Tobacco: Never Smokeless Tobacco: Never Alcohol Use Standard Drinks/Week Comments No 0 (1 standard drink = 0.6 oz pur e alcohol) Sex and Gender Information Value Date Recorded Sex Assigned at Male 10/18/2021 10:49 PM STOCK PATCHER Gender Identity Male 10/18/2021 10:49 PM STOCK PATCHER Sexual Orientation Straight 10/18/2021 10 :49 PM STOCK PATCHER documented as of this encounter Plan of Treatment Upcoming Encounters Date Type Department Care Team (Late st Contact Info) Description 11/17/2024 4:00 PM STOCK PATCHER Appointment [facility] Health Imaging Services - Ultrasound [address] [place] [address] Soraya Aguilera DO [address] 2L [place] [address] 11/19/2024 1:45 PM STOCK PATCHER Office Visit [facility] - Urology [address] [facility] [address] [place] [address] Soraya Aguilera DO [address] 2L [place] [address] 04/14/2025 10:00 AM CDT Office Visit [facility] - Urology [address] [facility], [place] [address] Soraya Aguilera M, DO [address] [place] [address] documented as of this encounter Visit Diagnoses Not on filedocumented in this encounter Care Teams Software Engineer Advisor Relationship Specialty Start Date End Date Jas Zheng MD [address] [place] [address] [address] [place] [address] PCP - General 04/12/20 06/22/24 documented as of this encounter
--- OUTSIDE RECORDS SUMMARY | 2024-11-03 01:59 | XMS_ITS | Encounter Summary ---
Author Organization [facility] Address [address] [facility] [place] [address] Care Team Providers Care Bisque Finisher Name Role Phone Jas Zheng MD Primary Care Provider [phone] Encounter Details Date Type Department Care Team (Late Contact Info) Description 04/11/2021 Orders Only [facility] [address] [facility] [place] [place] [address] Soraya Aguilera DO [address] [facility] 2L [place] [address] BPH with obstruction/lower urinary tract symptoms Social History Tobacco Use Types Packs/Day Years Used Date Smoking Tobacco: Never Smokeless Tobacco: Never Alcohol Use Standard Drinks/Week Comments No 0 (1 standard drink = 0.6 oz pur e alcohol) Sex and Gender Information Value Date Recorded Sex Assigned at Male 10/18/2021 10:49 PM EGG GRADER Gender Identity Male 10/18/2021 10:49 PM EGG GRADER Sexual Orientation Straight 10/18/2021 10 :49 PM EGG GRADER documented as of this encounter Plan of Treatment Upcoming Encounters Date Type Department Care Team (Late Contact Info) Description 11/17/2024 4:00 PM EGG GRADER Appointment [facility] Health Imaging Services - Ultrasound [address] [place] [address] Soraya Aguilera DO [address] [facility] 2L [place] [address] 11/19/2024 1:45 PM EGG GRADER Office Visit [facility] - Urology [address] [facility] [address] [place] [address] Soraya Aguilera, DO [address] [facility] 2L [place] [address] 04/14/2025 10:00 AM CDT Office Visit [facility] - Urology [address] [facility] [place] [place] [address] Soraya Aguilera, DO [address] [facility] 2L [place] [address] documented as of this encounter Visit Diagnoses Diagnosis BPH with obstruction/lower urinary tract symptoms Hypertrophy of prostate with urinary obstruction and other lower urinary tract symptoms (LUTS) documented in this encounter Care Teams Bisque Finisher Relationship Specialty Start Date End Date Jas Zheng MD [address] [facility] [address] [place] [address] PCP - General 04/12/20 06/22/24 documented as of this encounter
--- OUTSIDE RECORDS SUMMARY | 2024-11-03 01:59 | XMS_ITS | Encounter Summary ---
Author Organization [facility] Address [address] [facility] [place] [address] Care Team Providers Care Tractor Mechanic Helper Name Role Phone Karen Tejeda Primary Care Pr ovider Encounter Details Date Type Department Care Team (Latest Contact Info) Description 06/23/2024 Travel Social History Tobacco Use Types Packs/Day Years Used Date Smoking Tobacco: Never Smokeless Tobacco: Never Alcohol Use Standard Drinks/Week Comments No 0 (1 standard drink = 0.6 oz pur e alcohol) Sex and Gender Information Value Date Recorded Sex Assigned at Male 10/18/2021 10:49 PM PRINCIPAL SYSTEMS ENGINEER Gender Identity Male 10/18/2021 10:49 PM PRINCIPAL SYSTEMS ENGINEER Sexual Orientation Straight 10/18/2021 10 :49 PM PRINCIPAL SYSTEMS ENGINEER documented as of this encounter Plan of Treatment Upcoming Encounters Date Type Department Care Team (Late st Contact Info) Description 11/17/2024 4:00 PM PRINCIPAL SYSTEMS ENGINEER Appointment [facility] Health Imaging Services - Ultrasound [address] [place] [address] Soraya Aguilera DO [address] 2L [place] [address] 11/19/2024 1:45 PM PRINCIPAL SYSTEMS ENGINEER Office Visit [facility] - Urology [address] [facility] [address] [place] [address] Soraya Aguilera DO [address] 2L [place] [address] 04/14/2025 10:00 AM CDT Office Visit [facility] - Urology [address] [facility], [place] [address] Soraya Aguilera DO [address] [facility] 2L [place] [address] documented as of this encounter Visit Diagnoses Not on filedocumented in this encounter Care Teams Tractor Mechanic Helper Relationship Specialty Start Date End Date Karen Tejeda PA [address] [place] [address] PCP - General Physician Tax Assistant 06/23/24 documented as of this encounter
--- OUTSIDE RECORDS SUMMARY | 2024-11-03 01:59 | XMS_ITS | Encounter Summary ---
Author Organization [facility] Address [address] [facility] [place] [address] Care Team Providers Care Heater Helper Forge Name Role Phone Karen Tejeda Primary Care Pr ovider Encounter Details Date Type Department Care Team (Latest Contact Info) Description 09/10/2024 Travel Social History Tobacco Use Types Packs/Day Years Used Date Smoking Tobacco: Never Smokeless Tobacco: Never Alcohol Use Standard Drinks/Week Comments Not Currently 0 (1 standard drink = 0.6 oz pur e alcohol) 15 years sober Sex and Gender Information Value Date Recorded Sex Assigned at Male 10/18/2021 10:49 PM SUPERVISOR PAINT DEPARTMENT Gender Identity Male 10/18/2021 10:49 PM SUPERVISOR PAINT DEPARTMENT Sexual Orientation Straight 10/18/2021 10 :49 PM SUPERVISOR PAINT DEPARTMENT documented as of this encounter Plan of Treatment Upcoming Encounters Date Type Department Care Team (Late st Contact Info) Description 11/17/2024 4:00 PM SUPERVISOR PAINT DEPARTMENT Appointment [facility] Health Imaging Services - Ultrasound [address] [place] [address] Soraya Aguilera, DO [address] 2L [place] [address] 11/19/2024 1:45 PM SUPERVISOR PAINT DEPARTMENT Office Visit [facility] - Urology [address] [facility] [address] [place] [address] Soraya Aguilera DO [address] 2L [place] [address] 04/14/2025 10:00 AM CDT Office Visit [facility] - Urology [address] [facility], [place] [address] Soraya Aguilera, [address] [facility] 2L DIV [place] [address] documented as of this encounter Visit Diagnoses Not on filedocumented in this encounter Care Teams Heater Helper Forge Relationship Specialty Start Date End Date Karen Tejeda PA [address] [place] [address] PCP - General Physician Metaphysicist 06/23/24 documented as of this encounter
--- OUTSIDE RECORDS SUMMARY | 2024-11-03 01:59 | XMS_ITS | Encounter Summary ---
Author Organization [facility] Address [address] [facility] [place] [address] Care Team Providers Care Application Packaging Specialist Name Role Phone Jas Zheng MD Primary Care Provider [phone] Reason for Visit * Reason Comments Follow-up BPH Encounter Details Date Type Department Care Team (Late st Contact Info) Description 04/12/2020 10:00 AM CDT Office Visit [facility] Urology [address] [place] [address] Soraya Aguilera M, DO [address] [place] [address] BPH with obstruction/lower urinary tract symptoms (Primary Dx) Social History Tobacco Use Types Packs/Day Years Used Date Smoking Tobacco: Never Smokeless Tobacco: Never Alcohol Use Standard Drinks/Week Comments No 0 (1 standard drink = 0.6 oz pur e alcohol) Sex and Gender Information Value Date Recorded Sex Assigned at Male 10/18/2021 10:49 PM SERVICENOW ADMINISTRATOR DEVELOPER Gender Identity Male 10/18/2021 10:49 PM SERVICENOW ADMINISTRATOR DEVELOPER Sexual Orientation Straight 10/18/2021 10 :49 PM SERVICENOW ADMINISTRATOR DEVELOPER documented as of this encounter Last Filed Vital Signs Vital Sign Reading Time Taken Comments Blood Pressure 122/75 04/12/2020 10:13 AM CDT Pulse 66 04/12/2020 10:13 AM CDT Temperature 36.6 ??C (97.9 ??F) 04/12/2020 10:13 AM C DT Respiratory Rate - - Oxygen Saturation 98% 04/12/2020 10:13 AM CDT Inhaled Oxygen Concentration - - Weight 79.8 kg (176 lb) 04/12/2020 10:13 AM CDT Height 180.3 cm (5' 11 ) 04/12/2020 10:13 AM CDT Body Mass Index 24.55 04/12/2020 10:13 AM CDT documented in this encounter Progress Notes * Soraya Aguilera DO - 04/12/2020 10:56 AM CDT [facility] Division of Urologic Surgery Soraya Aguilera DO Date of Visit: 04/12/2020 Patient Name: Vernon Vidales : 1965 Medical Record: [id number] Contact (home) [phone] (work) Age: [age] year old Sex: male Referring Physician: Souleymane Benitez MD [address] [place] [address] Chief Complaint: LUTS 2/2 BPH History of [...] pleased. He is very happy with procedure. Here for follow up. AUASS: 1, 1, 2, 0, 1, 0, 0= 5 with QOL1, pleased. No problems with ejaculation.Not taking any meds. Happy with outcome. Past Medical History; No past medical history [...] resource strain: Not on file ??? Food insecurity Worry: Not on file Inability: Not on file ??? Transportation needs Medical: Not on file Non-medical: Not on file Tobacco Use ??? Smoking status: Never Smoker ??? Smokeless tobacco: Never Used Substance and Sexual Activity ??? Alcohol use: No ??? Drug use: No ??? Sexual activity: Not on file Lifestyle ??? Physical activity Days per week: Not on file Minutes per session: Not on file ??? Stress: Not on file Relationships ??? Social connections Talks on phone: Not on file Gets together: Not on file Attends taoist service: Not on file Active member of club or organization: Not on file Attends meetings of clubs or organizations: Not on file Relationship status: Not on file ??? Intimate partner violence Fear of current or ex partner: Not on file Emotionally abused: Not on file Physically abused: Not on file Forced sexual activity: Not on file Other Topics Concern ??? Not on file Social History Narrative ??? Not on file Review of Systems: General: Negative Skin: Negative Eyes: Negative Ears/nose/mouth: Negative Lungs:Negative Heart:Negative Gastrointestinal: negative Genitourinary: mild intermittent stream Musculoskeletal: Negative Nervous system: Negative Reproductive system: Negative Hematologic: Negative Lymphatic: Negative Endocrine: Negative Physical Exam: Vital Signs: BP 122/75 Pulse 66 Temp 97.9 ??F (36.6 ??C) (Temporal) Ht 5' 11 (1.803 m) Wt 176 lb (79.8 kg) CdX336% BMI 24.55 kg/m2 Gen: Alert and oriented x3 Head: normocephalic Lungs: Non-labored respirations Heart: RRR Abd: soft, nontender, nondistended : no CVA tenderness, no suprapubic pain MSK: normal gait and strength Skin: No rashes PVR per bladder scanner: 50cc Uroflow: 404 voided Qmax 16.2 Imaging (images and reports reviewed): No new imaging Laboratory Studies: Glucose UA Date Value Ref Range Status 01/14/2018 neg Final Bilirubin UA POCT Date Value Ref Range Status 01/14/2018 neg Final Ketones UA POCT Date Value Ref Range Status 01/14/2018 neg Final Specific [place] UA Date Value Ref Range Status 01/14/2018 [...] prostatic tissue without evidence of carcinoma Diagnosis: 55yo male with BPH, incomplete bladder emptying and LUTS, now s/p rezum on 07/25/2018 and s/p TURP 09/10/2019 Recommendations: Doing well! RTC in one year for AUASS, PVR and uroflow. Soraya Aguilera DO 04/12/2020 10:56 AM documented in this encounter Procedure Notes * Marisela Sexton - 04/12/2020 10:23 AM CDTAssociated Order(s): PROC UROFLOWMETRY Pre-Procedure Diagnose(s): BPH with obstruction/lower urinary tract symptoms T100: 57s TQ: 51s TQmax: 11s Qmax: 16.2mls Qave: 7.9mls Vcomp: 404ml * Marisela Sexton - 04/12/2020 10:23 AM CDTAssociated Order(s): PROC BLADDER SCAN Procedure(s): IN MSR PVR U&/BLADD CAPCTY US NON Pre-Procedure Diagnose(s): BPH with obstruction/lower urinary tract symptoms Bladder scan completed post patient void with 55ml present in bladder documented in this encounter Plan of Treatment Upcoming Encounters Date Type Department Care Team (Late st Contact Info) Description 11/17/2024 4:00 PM SERVICENOW ADMINISTRATOR DEVELOPER Appointment [facility] Health Imaging Services - Ultrasound [address] [place] [address] WillyWoody emsay Judith, DO [address] [facility] [address] [place] [address] 11/19/2024 1:45 PM SERVICENOW ADMINISTRATOR DEVELOPER Office Visit [facility] - Urology [address] [facility] [address] [place] [phone] Soraya Aguilera Judith, DO [address] [facility] [address]L [place] [address] 04/14/2025 10:00 AM CDT Office Visit [facility] - Urology [address] [facility], [place] [address] Soraya Aguilera, DO [address] [facility] [address] [place] [address] Scheduled Orders Name Type Priority Associated Diagnoses Orde r Schedule PSA TOTAL REFLEX TO FREE Lab Routine BPH with obstruction/lower urinary tract symptoms Expected: 04/12/2021, Expires: 05/12/2021 documented as of this encounter Procedures Procedure Name Priority Date/Time Associated Diagnosis Comments PROC UROFLOWMETRY Routine 04/12/2020 10: 23 AM CDT BPH with obstruction/lower urinary tract symptoms IN MSR PVR U&/BLADD CAPCTY US NON Routine 04/12/2020 10:23 AM CDT BPH with obstruction/lower urinary tract symptoms documented in this encounter Results * PROC UROFLOWMETRY (04/12/2020 10:23 AM CDT) Narrative Marisela Sexton - 04/12/2020 10:23 AM CDT Marisela Sexton ? 04/12/2020 10:24 AM T100: 57s TQ: 51s TQmax: 11s Qmax: 16.2mls Qave: 7.9mls Vcomp: 404ml Soraya Aguilera DO PROCEDURE/MINOR MALIK RGICAL ORDERABLES * IN MSR PVR U&/BLADD CAPCTY US NON (04/12/2020 [...] (LUTS) documented in this encounter Care Teams Application Packaging Specialist Relationship Specialty Start Date End Date Jas Zheng MD [address] [place] [address] PCP - General 04/12/20 06/22/24 documented as of this encounter
--- OUTSIDE RECORDS SUMMARY | 2024-11-03 01:59 | XMS_ITS | Encounter Summary ---
Author Organization [facility] Address [address] [place] [address] Care Team Providers Care Adult Secondary Education Instructor Name Role Phone Karen Tejeda Primary Care Pr [facility] Encounter Details Date Type Department Care Team (Latest Contact Info) Description 10/14/2024 Travel Social History Tobacco Use Types Packs/Day [...] Sex Assigned at Male 10/18/2021 10:49 PM RECEPTIONIST DOCTOR'S OFFICE Gender Identity Male 10/18/2021 10:49 PM RECEPTIONIST DOCTOR'S OFFICE Sexual Orientation Straight 10/18/2021 10 :49 PM RECEPTIONIST DOCTOR'S OFFICE documented as of this encounter Functional Status [...] st Contact Info) Description 11/17/2024 4:00 PM RECEPTIONIST DOCTOR'S OFFICE Appointment [facility] Health Imaging Services - Ultrasound [address] [place] [address] Soraya Aguilera, DO [address] [place] [address] 11/19/2024 1:45 PM RECEPTIONIST DOCTOR'S OFFICE Office Visit [facility] - Urology [address] [facility] [address] [place] [address] Soraya Aguilera, DO [address] [place] [address] 04/14/2025 10:00 AM CDT Office [facility] Urology [address] [place] [address] Soraya Aguilera, DO [address] [place] [phone] documented as of this encounter Visit Diagnoses Not on filedocumented in this encounter Care Teams Adult Secondary Education Instructor Relationship Specialty Start Date End Date Karen Tejeda PA [address] [place] [phone] PCP - General Physician Electronic Semiconductor Processor 06/23/24 documented as of this encounter
--- OUTSIDE RECORDS SUMMARY | 2024-11-03 01:59 | XMS_ITS | Encounter Summary ---
Author Organization [facility] Address [address] [facility] [address] Care Team Providers Care Cook Barbecue Name Role Phone Jas Zheng MD Primary Care Provider [phone] Karen Tejeda Primary Care Pr ovider Encounter Details Date Type Department Care Team (Late Contact Info) Description 12/26/2023 Lab Requisition [facility] Physician [facility] - DermPath Lab [address] [facility], [place] [address] Shantel Whyte DO [address] [facility] 3L [place] [address] Social History Tobacco Use Types Packs/Day Years Used Date Smoking Tobacco: Never Smokeless Tobacco: Never Alcohol Use Standard Drinks/Week Comments No 0 (1 standard drink = 0.6 oz pur e alcohol) Sex and Gender Information Value Date Recorded Sex Assigned at Male 10/18/2021 10:49 PM DUST COLLECTOR TREATER Gender Identity Male 10/18/2021 10:49 PM DUST COLLECTOR TREATER Sexual Orientation Straight 10/18/2021 10 :49 PM DUST COLLECTOR TREATER documented as of this encounter Plan of Treatment Upcoming Encounters Date Type Department Care Team (Late Contact Info) Description 11/17/2024 4:00 PM DUST COLLECTOR TREATER Appointment [facility] Health Imaging Services - Ultrasound [address] [place] [address] Soraya Aguilera, DO [address] [facility] 2L [place] [address] 11/19/2024 1:45 PM DUST COLLECTOR TREATER Office Visit [facility] - Urology [address] [place] [address] Soraya Aguilera, DO [address] [place] [address] 04/14/2025 10:00 AM CDT Office Visit [facility] - Urology [address] [place] [address] Soraya Aguilera, DO [address] [place] [address] documented as of this encounter Procedures Procedure Name Priority Date/Time Associated Diagnosis Comments DERMATOPATHOLOGY Routine 12/26/2023 8:53 AM DUST COLLECTOR TREATER documented in this encounter Results * DERMATOPATHOLOGY (12/26/2023 8:53 AM DUST COLLECTOR TREATER) Case Report Dermatopathology Report ? Case: [id number] ? Authorizing Provider: ??Shantel Whyte DO ?? Collected: ? 12/26/2023 08:53 AM ? [facility] ? [facility] ? Received: ?12/26/2023 01:57 PM ? Pathologist: ? Sylvia Kidd MD ? Specimen: ?Skin, right side of head ? 4 12:12 PM [facility] DERMATOPATHOLOGY [facility]ORATORY Final Diagnosis Specimen A. SKIN, right side of head: TRICHILEMMAL (PILAR) CYST (L72.12) 4 12:12 PM [facility] DERMATOPATHOLOGY LABORATORY Clinical History Cyst Growing 4 12:12 PM [facility] DERMATOPATHOLOGY LABORATORY Gross Description Specimen A: Received is one formalin filled container labeled with the patient's name and designated right side of head. The specimen consists of a(2) pieces of skin measuring 9x4x4, 7x5x6 mm. The margin is inked green. The specimen is bisected lengthwise and submitted in 1 cassette. Jar 0. 12:12 PM [facility] DERMATOPATHOLOGY LABORATORY Microscopic Description Specimen A. SKIN, right side of head: Sections show a cyst that is lined by stratified squamous epithelium that shows trichilemmal keratinization (no granular layer). There is homogeneous pink keratin within the cyst. 12:12 PM [facility] DERMATOPATHOLOGY LABORATORY Disclaimer An external and internal positive and negative controls are appropriate for the histochemical, immunohistochemical and immunofluorescence stain(s) in this case (if any), except where stated explicitly. The performance characteristics of the stain(s) cited in this report were developed and its performance characteristic determined by the Dermatopathology Laboratory at [facility], directed by Dr. Janine Monahan. These tests need not be, and therefore are not, approved by the [place] Food and Drug Administration. The tests are used for clinical purposes. Billing Codes Specimen Charges Stain Charges 33776 1 4 12:12 PM [facility] DERMATOPATHOLOGY LABORATORY Embedded Images 12:12 PM [facility] DERMATOPATHOLOGY LABORATORY Pathology/Cytolo gy TISSUE SPECIMEN FROM SKIN / Unknown 12/26/2023 8:53 AM DUST COLLECTOR TREATER 12/26/2023 1:57 PM DUST COLLECTOR TREATER Shantelcecily Tsang Pato DO LAB - PATHOLOGY/C YTOLOGY ORDERABLES DERMATOPATHOLOGY LABORATORY [facility] - Department of Dermatology [facility] [address] [place] [address], [address] [phone] documented in this encounter Visit Diagnoses Not on filedocumented in this encounter Care Teams Cook Barbecue Relationship Specialty Start Date End Date Jas Zheng MD [facility] [facility] [address] [place] [address] PCP - General 04/12/20 06/22/24 Karen Tejeda PA [address] [place] [phone] PCP - General Physician Loom Fixer 06/23/24 documented as of this encounter
--- OUTSIDE RECORDS SUMMARY | 2024-11-03 01:59 | XMS_ITS | Encounter Summary ---
Author Organization [facility] Address [address] [facility] [address] Care Team Providers Care Certified Wellness Program Manager Name Role Phone Karen Tejeda Primary Care Pr [facility] Encounter Details Date Type Department Care Team (Latest Contact Info) Description 09/18/2024 Travel Social History Tobacco Use Types Packs/Day [...] Sex Assigned at Male 10/18/2021 10:49 PM LITERACY COACH Gender Identity Male 10/18/2021 10:49 PM LITERACY COACH Sexual Orientation Straight 10/18/2021 10 :49 PM LITERACY COACH documented as of this encounter Functional Status [...] st Contact Info) Description 11/17/2024 4:00 PM LITERACY COACH Appointment [facility] Health Imaging Services - Ultrasound [address] [place] [address] Soraya Aguilera, DO [address] [place] [address] 11/19/2024 1:45 PM LITERACY COACH Office Visit [facility] - Urology [address] [facility] [address] [place] [address] Soraya Aguilera, DO [address] [place] [address] 04/14/2025 10:00 AM CDT [facility]rology [address] [place] [address] Soraya Aguilera, DO [address] [place] [address] documented as of this encounter Visit Diagnoses Not on filedocumented in this encounter Care Teams Certified Wellness Program Manager Relationship Specialty Start Date End Date Karen Tejeda PA [address] [place] [phone] PCP - General Physician Player Development Executive 06/23/24 documented as of this encounter
--- OUTSIDE RECORDS SUMMARY | 2024-11-03 02:00 | XMS_ITS | Encounter Summary ---
Author Organization [facility] Address [address] [facility] [place] [address] Care Team Providers Care Conical Mixer Name Role Phone Unavailable Primary Care Provider Unavailabl e Encounter Details Date Type Department Care Team (Late st Contact Info) Description 08/04/2019 Orders Only [facility] [address] [place] [address] Soraya Aguilera DO [address] [place] [address] Benign localized prostatic hyperplasia with lower urinary tract symptoms (LUTS) Social History Tobacco Use Types Packs/Day Years Used Date Smoking Tobacco: Never Smokeless Tobacco: Never Alcohol Use Standard Drinks/Week Comments No 0 (1 standard drink = 0.6 oz pur e alcohol) Sex and Gender Information Value Date Recorded Sex Assigned at Male 10/18/2021 10:49 PM MANUFACTURING PROJECT ENGINEER Gender Identity Male 10/18/2021 10:49 PM MANUFACTURING PROJECT ENGINEER Sexual Orientation Straight 10/18/2021 10 :49 PM MANUFACTURING PROJECT ENGINEER documented as of this encounter Progress Notes * Soraya Aguilera DO - 08/04/2019 3:15 PM CDT Spoke with patient. He was previously denied urolift by his insurance We appealed for rezum and were denied. He opts for miniTURP at this point. He understands he may still have retrograde ejaculation. Since he underwent rezum once, we will aim to just remove the obstructing tissue that is left. He understands he may not get 10 years out of it, but hopefully at that point, rezum will be covered. Risks and benefits explained. Will place order. If he is scheduled as first case, may not need to be admitted overnight if not bleeding. Reviewed greenlight option as well. Soraya Aguilera DO 08/04/2019 3:17 PM documented in this encounter Plan of Treatment Upcoming Encounters Date Type Department Care Team (Late st Contact Info) Description 11/17/2024 4:00 PM MANUFACTURING PROJECT ENGINEER Appointment [facility] Health Imaging Services - Ultrasound [address] [place] [address] Soraya Aguilera DO [address] [place] [address] 11/19/2024 1:45 PM MANUFACTURING PROJECT ENGINEER Office Visit [facility] - Urology [address] [facility] [address] [place] [address] Soraya Aguilera DO [address] [place] [address] 04/14/2025 10:00 AM CDT Office Visit [facility] U[facility] [facility], [place] [address] Soraya Aguilera DO [address] [facility] [address] [place] [address] documented as of this encounter Visit Diagnoses Diagnosis Benign localized prostatic hyperplasia with lower urinary tract symptoms (LUTS)- Primary Benign localized hyperplasia of prostate with urinary obstruction and other lower urinary tract symptoms (LUTS) documented in this encounter
--- OUTSIDE RECORDS SUMMARY | 2024-11-03 02:00 | XMS_ITS | Encounter Summary ---
Author Organization [facility] Address [address] [facility] [place] [address] Care Team Providers Care Morphologist Name Role Phone Unavailable Primary Care Provider Unavailabl e Reason for Visit * Reason Comments Refill Request Encounter Details Date Type Department Care Team (Late Contact Info) Description 06/14/2019 Refill [facility] [address] [place] [address] Soraya Aguilera, DO [address] [place] [phone] Refill Request Social History Tobacco Use Types Packs/Day Years Used Date Smoking Tobacco: Never Smokeless Tobacco: Never Alcohol Use Standard Drinks/Week Comments No 0 (1 standard drink = 0.6 oz pur e alcohol) Sex and Gender Information Value Date Recorded Sex Assigned at Male 10/18/2021 10:49 PM CALTRANS EQUIPMENT OPERATOR Gender Identity Male 10/18/2021 10:49 PM CALTRANS EQUIPMENT OPERATOR Sexual Orientation Straight 10/18/2021 10 :49 PM CALTRANS EQUIPMENT OPERATOR documented as of this encounter Plan of Treatment Upcoming Encounters Date Type Department Care Team (Late Contact Info) Description 11/17/2024 4:00 PM CALTRANS EQUIPMENT OPERATOR Appointment [facility] Health Imaging Services - Ultrasound [address] [place] [address] Soraya Aguilera, DO [address] [place] [address] 11/19/2024 1:45 PM CALTRANS EQUIPMENT OPERATOR Office Visit [facility] - Urology [address] [place] [address] Soraya Aguilera, [address] [facility] [address] DIV [place] [address] 04/14/2025 10:00 AM CDT Office Visit [facility] [address] [facility], [place] [address] Soraya Aguilera, [address] [facility] [address] [place] [address] documented as of this encounter Visit Diagnoses Not on filedocumented in this encounter
--- OUTSIDE RECORDS SUMMARY | 2024-11-03 02:00 | XMS_ITS | Encounter Summary ---
Author Organization [facility] Address [address] [place] [place] [address] Care Team Providers Care Tower Director Name Role Phone Unavailable Primary Care Provider Unavailabl e Encounter Details Date Type Department Care Team (Late Contact Info) Description 08/27/2019 Orders Only [facility] [address] [place] [address] Soraya Aguilera, DO [address] [place] [address] Social History Tobacco Use Types Packs/Day Years Used Date Smoking Tobacco: Never Smokeless Tobacco: Never Alcohol Use Standard Drinks/Week Comments No 0 (1 standard drink = 0.6 oz pur e alcohol) Sex and Gender Information Value Date Recorded Sex Assigned at Male 10/18/2021 10:49 PM TRANSIT PROOF MACHINE OPERATOR Gender Identity Male 10/18/2021 10:49 PM TRANSIT PROOF MACHINE OPERATOR Sexual Orientation Straight 10/18/2021 10 :49 PM TRANSIT PROOF MACHINE OPERATOR documented as of this encounter Plan of Treatment Upcoming Encounters Date Type Department Care Team (Late Contact Info) Description 11/17/2024 4:00 PM TRANSIT PROOF MACHINE OPERATOR Appointment [facility] Health Imaging Services - Ultrasound [address] [place] [address] Soraya Aguilera, DO [address] [place] [address] 11/19/2024 1:45 PM TRANSIT PROOF MACHINE OPERATOR Office Visit [facility] [address] [place] [address] Woody Aguilerakaren Wong, DO [address] [place] [address] 04/14/2025 10:00 AM CDT Office Visit [facility] [address] [place] [address] Willy Soraya M, DO [address] [place] [address] documented as of this encounter Procedures Procedure Name Priority Date/Time Associated Diagnosis Comments URINALYSIS W/MICROSCOPIC NO CULTURE 08/27/2019 4:07 PM CDT CULTURE URINE 08/27/2019 4:07 PM CDT CBC W AUTO DIFFERENTIAL 08/27/2019 6:44 AM CDT COMPREHENSIVE METABOLIC PANEL 08/27/2019 6:44 AM CDT documented in this encounter Results * CULTURE URINE (08/27/2019 4:07 PM CDT) Culture [facility] Comment: ??CULTURE, URINE, ROUTINE ?MICRO NUMBER: ?[id number] ??TEST STATUS: ? FINAL ??SPECIMEN SOURCE: ?? URINE, CLEAN CATCH ??SPECIMEN QUALITY: ??ADEQUATE ??RESULT: ?No Growth REPORT COMMENT: SPLIT 08/27/2019 FROM [id number] Test Performed at: [facility] ??[phone] MALIA EMERY MD 08/27/2019 4:07 PM CDT 08/27/2019 4:07 PM CDT Soraya Aguilera DO LAB - MICROBIOLOGY ORDERABLES Performing Organization Address [facility] de Phone Number [facility] [address] [place] [address] * (ABNORMAL) URINALYSIS W/MICROSCOPIC NO CULTURE (08/27/2019 4:07 PM CDT) Pathologist [facility] Color UA YELLOW YELLOW [facility] Appearance CLOUDY(A) CLEAR [facility] Specific [place] UA 1.020 1.001 - 1.035 [facility] pH UA 8.0 5.0 - 8.0 [facility] Glucose UA NEGATIVE [...] SEEN /LPF [facility] Comment: Test Performed at: [email or web address] [id number] [place] [address] ??[phone] LEXII CRUZ DO,MPH 08/27/2019 4:07 PM CDT 08/27/2019 4:07 PM CDT Soraya Wong Willy BAH LAB - URINALYSIS O RDERABLES Performing Organization Address [facility] de Phone Number [facility] [address] [place] [phone] * CBC WITH DIFFERENTIAL (08/27/2019 6:44 AM CDT) Pathologist [facility] White Blood Cell Count 5.1 3.8 - 10.8 Thousand/u L [facility] RBC 5.04 4.20 - 5.80 Million/uL [facility] Hemoglobin 14.7 13.2 - 17.1 g/dL [facility] Hematocrit 44.4 38.5 - 50.0 % [facility] MCV 88.1 80.0 - 100.0 fL [facility] MCH 29.2 27.0 - 33.0 pg [facility] MCHC 33.1 32.0 - 36.0 g/dL [facility] RDW 12.5 11.0 - 15.0 % [facility] Platelet Count 233 140 - 400 Thousand/u L [facility] MPV 10.3 7.5 - 12.5 fL [facility] Neutrophil Absolute 2764 1500 - 7800 cells/uL [facility] Lymphocytes Absolute 1678 850 - 3900 cells/uL [facility] Absolute Monocytes 566 200 - 950 cells/uL [facility] Eosinophils Absolute 82 15 - 500 cells/uL [facility] Basophils Absolute 10 0 - 200 cells/uL [facility] Granulocytes % 54.2 % [facility] Lymphocytes % 32.9 % [facility] Monocytes % 11.1 % [facility] Eosinophils % 1.6 % [facility] Basophils % 0.2 % [facility] Comment: REPORT COMMENT: FASTING:YES PATIENT UNABLE TO VOID; ADVISED TO RETURN FOR COLLECTION. Test Performed at: [email or web address] [address] [place] [address] ??[phone] LEXII CRUZ DO,MPH 08/27/2019 6:44 AM CDT 08/27/2019 6:48 AM CDT Soraya Aguilera DO LAB - HEMATOLOGY O RDERABLES [facility] [address] [place] [address] * (ABNORMAL) COMPREHENSIVE METABOLIC PANEL (08/27/2019 6:44 AM CDT) Pathologist [facility] Glucose 100(H) 65 - 99 mg/dL [facility] Comment: ? Fasting reference interval For someone without known diabetes, a glucose value between 100 and 125 mg/dL is consistent with prediabetes and should be confirmed with a follow-up test. BUN 18 7 - 25 mg/dL [facility] Creatinine 0.79 0.70 - 1.33 mg/dL [facility] Comment: For patients >49 years of age, the reference limit for Creatinine is approximately 13% higher for people identified as -[place]. eGFR by MDRD 100 > OR = 60 mL/min/1 .73m2 [facility] eGFR by MDRD 116 > OR = 60 mL/min/1 .73m2 [facility] BUN/Creatinine Ratio NOT APPLICABLE 6 - 22 (calc) [facility] Sodium 143 135 - 146 mmol/L [facility] Potassium 4.0 3.5 - 5.3 mmol/L [facility] Chloride 106 98 - 110 mmol/L [facility] CO2 30 20 - 32 mmol/L [facility] Calcium 9.1 8.6 - 10.3 mg/dL [facility] Protein Total 6.4 6.1 - 8.1 g/dL [facility] Albumin 4.5 3.6 - 5.1 g/dL [facility] Globulin Total 1.9 1.9 - 3.7 g/dL (calc) [facility] Albumin/Globulin Ratio 2.4 1.0 - 2.5 (calc) [facility] Bilirubin Total 0.5 0.2 - 1.2 mg/dL [facility] Alkaline Phosphatase 70 40 - 115 U/L [facility] AST 11 10 - 35 U/L [facility] ALT 13 9 - 46 U/L [facility] Comment: Test Performed at: [facility] [address] [place], [place] ??[phone] LEXII CRUZ DO,MPH 08/27/2019 6:44 AM CDT 08/27/2019 6:48 AM CDT Soraya Aguilera DO LAB - CHEMISTRY OR DERABLES [facility] [address] [place] [address] documented in this encounter Visit Diagnoses Not on filedocumented in this encounter
--- OUTSIDE RECORDS SUMMARY | 2024-11-03 02:00 | XMS_ITS | Encounter Summary ---
Author Organization [facility] Address [address] [facility] [place] [address] Care Team Providers Care Tag Writer Name Role Phone Unavailable Primary Care Provider Unavailabl e Encounter Details Date Type Department Care Team (Late Contact Info) Description 03/13/2019 Orders Only [facility] [address] [place] [address] Soraya Aguilera, DO [address] [place] [phone] Lower urinary tract symptoms (LUTS) Social History Tobacco Use Types Packs/Day Years Used Date Smoking Tobacco: Never Smokeless Tobacco: Never Alcohol Use Standard Drinks/Week Comments No 0 (1 standard drink = 0.6 oz pur e alcohol) Sex and Gender Information Value Date Recorded Sex Assigned at Male 10/18/2021 10:49 PM VISUAL LEAD Gender Identity Male 10/18/2021 10:49 PM VISUAL LEAD Sexual Orientation Straight 10/18/2021 10 :49 PM VISUAL LEAD documented as of this encounter Plan of Treatment Upcoming Encounters Date Type Department Care Team (Late Contact Info) Description 11/17/2024 4:00 PM VISUAL LEAD Appointment [facility] Health Imaging Services - Ultrasound [address] [place] [address] Soraya Aguilera, DO [address] [place] [address] 11/19/2024 1:45 PM VISUAL LEAD Office Visit [facility] [address] [place] [address] Soraya Aguilera, [address] [facility] [address] [place] [address] 04/14/2025 10:00 AM CDT Office Visit [facility] [address] [facility], [place] [address] Soraya Aguilera, [address] [facility] [address] [place] [address] documented as of this encounter Visit Diagnoses Diagnosis Lower urinary tract symptoms (LUTS)- Primary Other symptoms involving urinary system documented in this encounter
--- OUTSIDE RECORDS SUMMARY | 2024-11-03 02:00 | XMS_ITS | Encounter Summary ---
Author Organization [facility] Address [address] [facility] [place] [address] Care Team Providers Care Merchant Police Name Role Phone Unavailable Primary Care Provider Unavailabl e Encounter Details Date Type Department Care Team (Late st Contact Info) Description 06/13/2018 Orders Only [facility] [address] [place] [address] Beverly Oseguera RN Social History Tobacco Use Types Packs/Day Years Used Date Smoking Tobacco: Never Smokeless Tobacco: Never Alcohol Use Standard Drinks/Week Comments No 0 (1 standard drink = 0.6 oz pur e alcohol) Sex and Gender Information Value Date Recorded Sex Assigned at Male 10/18/2021 10:49 PM FUR STORAGE CLERK Gender Identity Male 10/18/2021 10:49 PM FUR STORAGE CLERK Sexual Orientation Straight 10/18/2021 10 :49 PM FUR STORAGE CLERK documented as of this encounter Progress Notes * Beverly Oseguera RN - 06/13/2018 12:15 PM CDT Schedule pt for Rezum procedure. Wants to make sure it is covered. Will need procedure instructions closer to procedure date. documented in this encounter Miscellaneous Notes * Addendum Note - Soraya Stockton DO - 07/15/2018 2:53 PM CDTAddended by: SORAYA STOCKTON on: 07/15/2018 02:53 PM Modules accepted: Orders documented in this encounter Plan of Treatment Upcoming Encounters Date Type Department Care Team (Late st Contact Info) Description 11/17/2024 4:00 PM FUR STORAGE CLERK Appointment [facility] Health Imaging Services - Ultrasound [address] [place] [address] Soraya Stockton, DO [address] [place] [address] 11/19/2024 1:45 PM FUR STORAGE CLERK Office Visit [facility] [address] [facility] [address] [place] [address] Soraya Stockton, DO [address] [place] [address] 04/14/2025 10:00 AM CDT Office Visit [facility] [address] [facility], [place] [address] Soraya Stockton, DO [address] [place] [address] documented as of this encounter Visit Diagnoses Not on filedocumented in this encounter
--- OUTSIDE RECORDS SUMMARY | 2024-11-03 02:00 | XMS_ITS | Encounter Summary ---
Author Organization [facility] Address [address] [facility] [place] [address] Care Team Providers Care Program Advocate Name Role Phone Unavailable Primary Care Provider Unavailabl e Reason for Visit * Reason Comments Prostate Problem Rezum Procedure Encounter Details Date Type Department Care Team (Late st Contact Info) Description 07/25/2018 9:00 AM CDT Procedure visit [facility] [address] [place] [address] Soraya Aguilera M, DO [address] [place] [phone] Benign prostatic hyperplasia with lower urinary tract symptoms, symptom details unspecified ; Frequency of micturition Social History Tobacco Use Types Packs/Day Years Used Date Smoking Tobacco: Never Smokeless Tobacco: Never Alcohol Use Standard Drinks/Week Comments No 0 (1 standard drink = 0.6 oz pur e alcohol) Sex and Gender Information Value Date Recorded Sex Assigned at Male 10/18/2021 10:49 PM SUPERVISOR METAL FURNITURE FABRICATION Gender Identity Male 10/18/2021 10:49 PM SUPERVISOR METAL FURNITURE FABRICATION Sexual Orientation Straight 10/18/2021 10 :49 PM SUPERVISOR METAL FURNITURE FABRICATION documented as of this encounter Last Filed Vital Signs Vital Sign Reading Time Taken Comments Blood Pressure 118/67 07/25/2018 8:28 AM CDT Pulse 74 07/25/2018 8:28 AM CDT Temperature 36.6 ??C (97.8 ??F) 07/25/2018 8:28 AM CD T Respiratory Rate - - Oxygen Saturation 100% 07/25/2018 8:28 AM CDT Inhaled Oxygen Concentration - - Weight 80.7 kg (178 lb) 07/25/2018 8:28 AM CDT Height 180.3 cm (5' 11 ) 07/25/2018 8:28 AM CDT Body Mass Index 24.83 07/25/2018 8:28 AM CDT documented in this encounter Procedure Notes * Soraya Aguilera DO - 07/25/2018 9:21 AM CDTAssociated Order(s): PROC GENERIC PROCEDURE ORDER Procedure(s): OK PROSTATIC RADIOFREQ THERMOTX Pre-Procedure Diagnose(s): Benign prostatic hyperplasia with lower urinary tract symptoms, symptom details unspecified; Frequency of micturition DATE OF SERVICE: 07/25/2018 PREOP DIAGNOSIS: Benign prostatic hyperplasia with lower urinary tract symptoms- N40.1 POSTOP DIAGNOSIS: Same PROCEDURE: Transurethral destruction of prostate tissue; by radiofrequency thermotherapy, CPT 94568, Transrectal ultrasound of the prostate CPT 44768 ANESTHESIA: local lidocaine prostate block, transurethral lidocaine urojet SURGEON: Soraya Aguilera DO RESIDENT: MD Liliane FINDINGS: ALFONSO 35g, no nodules, nontender EBL:2cc SPECIMENS: None DRAINS: None COMPLICATIONS: None SPONGE AND INSTRUMENT COUNT: Counted and correct INDICATIONS FOR PROCEDURE: 53yo male have BPH with LUTS. The patient understands the material risks, possible benefits, [...] face meeting and also today. Informed consent s igned by patient. Patient medications and allergies have been reviewed prior to treatment. Patients on blood thinnersor aspirin (ASA) have been advised to check with the prescribing MD if it is ok to hold these priorto treatment. Risks of withholding blood thinners and [...] and a long 18-guage spinal needle. 10 cc???s of 1% lidocaine was injected bilaterally. Blood loss was less than 1cc. DESCRIPTION OF PROCEDURE: Transurethral destruction of prostate tissue; by radiofrequency thermotherapy. In the lithotomy position, under local anesthesia, the patient was prepped and draped in the usual manner. The anterior urethra, prostate, bladder neck, right and left orifices were visualized as the scope was passed. RFwas then used to create thermal energy to selectively ablate prostate tissue 1cm from the bladder neck to the proximal end of the veru spaced 1cm apart. 2 treatments were given. Treatments: RLL 1, LLL 1, ML 0, CZ 0. Blood loss was less than 5cc???s. The patient was monitored throughout the procedure. At the completion of the procedure the treatment device was removed. There was a careful check thatthere were no clots in the bladder or injury to the bladder, prostate or urethra. DISPOSITION: The patient was observed, appeared stable and in good condition at the time of discharge. Post-procedure expectations and activity limitations were reviewed with him and written instructions were provided. He was also instructed to continue mild oral analgesia PRN to continue his prophylactic shortcourse of antibiotics until they are gone. He already knows how to perform CIC. He has catheters at home. He has a follow up visit in 4 weeks.The patient will be in touch in the interim, if there are any more immediate concerns. OK to restart ASA and or blood thinners on 3rd post op day. Soraya Aguilera DO 07/25/2018 9:21 AM documented in this encounter Plan of Treatment Upcoming Encounters Date Type Department Care Team (Late st Contact Info) Description 11/17/2024 4:00 PM SUPERVISOR METAL FURNITURE FABRICATION Appointment [facility] Health Imaging Services - Ultrasound [address] [place] [address] Soraya Aguilera DO [address] [place] [address] 11/19/2024 1:45 PM SUPERVISOR METAL FURNITURE FABRICATION Office Visit [facility] - Urology [address] [place] [phone] Soraya Aguilera, [address] [facility] [address] [place] [address] 04/14/2025 10:00 AM CDT Office Visit [facility] Urology [address] [place] [address] Soraya Aguilera, [address] [facility] [address] [place] [phone] documented as of this encounter Procedures Procedure Name Priority Date/Time Associated Diagnosis Comments OK PROSTATIC RADIOFREQ THERMOTX Routine 07/25/2018 9:39 AM CDT Benign prostatic hyperplasia with lower urinary tract symptoms, symptom details unspecified Frequency of micturition documented in this encounter Results * OK PROSTATIC RADIOFREQ THERMOTX (07/25/2018 9:39 AM CDT) Narrative Soraya Aguilera DO - 07/25/2018 9:39 AM CDT Soraya Aguilera, ? 07/25/2018 ??9:39 AM DATE OF SERVICE: 07/25/2018 PREOP DIAGNOSIS: Benign prostatic hyperplasia with lower urinary tract symptoms- N40.1 POSTOP DIAGNOSIS: Same PROCEDURE: Transurethral destruction of prostate tissue; by radiofrequency thermotherapy, CPT 37339, Transrectal ultrasound of the prostate CPT 22249 ANESTHESIA: local lidocaine prostate block, transurethral lidocaine [...] in this encounter Visit Diagnoses Diagnosis Benign prostatic hyperplasia with lower urinary tract symptoms, symptom details unspecified- Primary Frequency of micturition Urinary frequency documented in this encounter
--- OUTSIDE RECORDS SUMMARY | 2024-11-03 02:00 | XMS_ITS | Encounter Summary ---
Author Organization [facility] Address [facility] [place] [address] Care Team Providers Care [employer] Equipment Tender Name Role Phone Unavailable Primary Care Provider Unavailabl e Reason for Visit * Reason Comments Cystoscopy Encounter Details Date Type Department Care Team (Late st Contact Info) Description 11/26/2018 11:00 AM CONSTRUCTION ADMINISTRATIVE ASSISTANT Procedure visit [facility] [address] [place] [address] Soraya Aguilera M, DO [address] [place] [phone] Lower urinary tract symptoms (LUTS) Social History Tobacco Use Types Packs/Day Years Used Date Smoking Tobacco: Never Smokeless Tobacco: Never Alcohol Use Standard Drinks/Week Comments No 0 (1 standard drink = 0.6 oz pur e alcohol) Sex and Gender Information Value Date Recorded Sex Assigned at Male 10/18/2021 10:49 PM CONSTRUCTION ADMINISTRATIVE ASSISTANT Gender Identity Male 10/18/2021 10:49 PM CONSTRUCTION ADMINISTRATIVE ASSISTANT Sexual Orientation Straight 10/18/2021 10 :49 PM CONSTRUCTION ADMINISTRATIVE ASSISTANT documented as of this encounter Last Filed Vital Signs Vital Sign Reading Time Taken Comments Blood Pressure 107/68 11/26/2018 11:26 AM CONSTRUCTION ADMINISTRATIVE ASSISTANT Pulse 77 11/26/2018 11:26 AM CONSTRUCTION ADMINISTRATIVE ASSISTANT Temperature 36.8 ??C (98.3 ??F) 11/26/2018 11:[address] Respiratory Rate - - Oxygen Saturation 98% 11/26/2018 11:26 AM CONSTRUCTION ADMINISTRATIVE ASSISTANT Inhaled Oxygen Concentration - - Weight 82.1 kg (181 lb) 11/26/2018 11:26 AM CONSTRUCTION ADMINISTRATIVE ASSISTANT Height 180.3 cm (5' 11 ) 11/26/2018 11:26 AM CONSTRUCTION ADMINISTRATIVE ASSISTANT Body Mass Index 25.24 11/26/2018 11:26 AM CONSTRUCTION ADMINISTRATIVE ASSISTANT documented in this encounter Progress Notes * WillySoraya - 11/26/2018 1:04 PM CST [facility] Division of Urologic Surgery Soraya Judith DO Willy Date of Visit: 11/26/2018 Patient Name: Vernon Vidales : 1965 Medical Record: [id number] Contact (home) Age: 53 y.o. Sex: male Referring Physician: Souleymane Benitez MD [address] [place] [id number] Chief Complaint: LUTS, BPH History of Present Illness: The patient is a 53 y.o. male for follow up of s/p rezum on 07/25/2018. 01/07/2018: ??UDS peak flow of 0.7 ml/sec [...] might help. Plan to return for cystoscopy. Here for cystoscopy and discussion of options. Symptoms change constantly. He is worse overall he thinks than he was last visit. AUASS:3,3,5,1, 5, 1, 1 = 19 with QOL 3, mixed. He can live with his symptoms rell if he goes back on flomax. No hematuria, no uti's, no new issues. Still frustrated. Ejaculation is normal. Past Medical History; No past medical history on file. Past Surgical History: Past Surgical History: Procedure Laterality Date ??? OTHER SURGERY ACL right knee ??? Vasectomy 1999 Current Medications: Current Outpatient Prescriptions Medication Sig Dispense Refill ??? lidocaine 2% jelly (XYLOCAINE) 2 % jelly Apply 10 mL to affected area once for 1 dose 1 tube 0 ??? mirabegron ER 24hr (MYRBETRIQ) 50 MG tablet Take 1 tablet by mouth once daily 30 tablet 5 ??? tamsulosin (FLOMAX) 0.4 MG capsule Take 1 capsule by mouth once daily Take 30 minutes after a meal at the same time each day. Reasons: Benign Enlargement of Prostate 90 capsule 4 No current facility-administered medications for this visit. Allergies; Seasonal Family History: Family History Problem Relation Age of Onset ??? Cancer - Prostate Paternal Uncle Social History: Social History Social History ??? Marital status: Spouse name: N/A ??? Number of children: N/A ??? Years of education: N/A Occupational History ??? Not on file. Social History Main Topics ??? Smoking status: Never Smoker ??? Smokeless tobacco: Never Used ??? Alcohol use No ??? Drug use: No ??? Sexual activity: Not on file Other Topics Concern ??? Not on file Social History Narrative Review of Systems: General: Negative Skin: Negative Eyes: Negative Ears/nose/mouth: Negative Lungs:Negative Heart:Negative Gastrointestinal: negative Genitourinary: frequency, intermittent stream, decreased flow Musculoskeletal: Negative Nervous system: Negative Reproductive system: Negative Hematologic: Negative Lymphatic: Negative Endocrine: Negative Physical Exam: Vital Signs: BP 107/68 Pulse 77 Temp 98.3 ??F (36.8 ??C) (Oral) Ht 5' 11 (1.803 m) Wt 181 lb (82.1 kg) SpO2 98%BMI 25.24 kg/m2 Gen: Alert and oriented x3 Head: normocephalic Lungs: Non-labored respirations Heart: RRR Abd: soft, nontender, nondistended : no CVA tenderness, no suprapubic pain bilateral testicles descended, no masses, nontender, no hydrocele bilaterally, no hernia bilaterally Penis without lesion, circumcised, meatus normal MSK: normal gait and strength Skin: No rashes PVR per bladder scanner: 96cc Uroflow: voided 227cc Max flow 5.4 avg flow 2.7 Flow time 83 seconds Imaging (images and reports reviewed): No new imaging Laboratory Studies: Glucose UA Date Value Ref Range Status 01/14/2018 neg Final Bilirubin UA POCT Date Value Ref Range Status 01/14/2018 neg Final Ketones UA POCT Date Value Ref Range Status 01/14/2018 neg Final Specific [place] UA Date Value Ref Range Status 01/14/2018 1.015 Final Blood Urine POCT Date Value Ref Range Status 01/14/2018 neg Final Protein UA Date Value Ref Range Status 01/14/2018 neg Final Urobilinogen UA Date Value Ref Range [...] 0.7 08/19/2012 03:50 PM Microbiology: No new cultures Pathology: No new path Diagnosis: 53yo male with BPH, incomplete bladder emptying and LUTS, now s/p rezum on 07/25/2018 with persistent LUTS Recommendations: Discussed BPH options. He has enlarged left lobe still. Right lobe is retracted. Options given: mini TURP or GLL or full surgeries. Repeat rezum if he pays out of pocket or costs change. He will restart flomax and consider options. RTC in 6 months if wanting an intervention. Patient's questions were answered and patient agrees with plan. Soraya Aguilera, 11/26/2018 1:04 PM TRUCTION ADMINISTRATIVE ASSISTANT documented in this encounter Procedure Notes * Soraya Aguilera DO - 11/26/2018 1:12 PM CSTAssociated Order(s): PROC CYSTOURETHROSCOPY Procedure(s): [facility] CYSTOURETHROSCOPY Pre-Procedure Diagnose(s): Lower urinary tract symptoms (LUTS) See other cystoscopy note. TRUCTION ADMINISTRATIVE ASSISTANT * Silver Martinez MD - 11/26/2018 11:49 AM CSTProcedure(s): CYSTOSCOPY Pre-Procedure Diagnose(s): Lower urinary tract symptoms (LUTS) Date: 11/26/2018 Time: 11:51 AM Procedure: Cystoscopy Description: Patient's genitalia was prepped and draped in the usual sterile fashion. Lidocaine urojet was injected into the urethra and given sufficient time to take effect. A flexible cystoscope was advanced into the bladder. Urethra examined with well coapting sphincter. The bladder was examined: no evidence of urothelial malignancy. Bilateral UO's normal with good efflux. Moderately enlarged prostate, specifically the left lateral lobe is protruding still into the prostatic urethra. Right lateral lobe demonstrated response to Rezum with retracted adenoma and urethral mucosa. minimal to nomedian lobe and bladder neck is open. Silver Martinez MD [facility], PGY-1 Pager #: [phone] Date: 11/26/2018 I was present and assisted with procedure. Soraya Aguilera DO 11/26/2018 1:10 PM TRUCTION ADMINISTRATIVE ASSISTANT * Vonnie Perry - 11/26/2018 11:38 AM CSTAssociated Order(s): PROC BLADDER SCAN Procedure(s): [facility] MSR PVR U&/BLADD CAPCTY US NON Pre-Procedure Diagnose(s): Lower urinary tract symptoms (LUTS) Bladder scan done. 96ml post void TRUCTION ADMINISTRATIVE ASSISTANT * Vonnie Perry - 11/26/2018 11:37 AM CSTAssociated Order(s): PROC UROFLOWMETRY Pre-Procedure Diagnose(s): Lower urinary tract symptoms (LUTS) Voiding Time T100 113s Flow Time TQ 83 s Time to max Flow TQmax 66 s Max Flow Rate Qmax 5.4 Ml/s Average Flow Rate Qave 2.7 Ml/s Voided Volume Vcomp 227 ml TRUCTION ADMINISTRATIVE ASSISTANT documented in this encounter Plan of Treatment Upcoming Encounters Date Type Department Care Team (Late st Contact Info) Description 11/17/2024 4:00 PM CONSTRUCTION ADMINISTRATIVE ASSISTANT Appointment [facility] - Ultrasound [address] [place] [address] Soraya Aguilera, DO [address] [facility] [address] [place] [phone] 11/19/2024 1:45 PM CONSTRUCTION ADMINISTRATIVE ASSISTANT Office Visit [facility] - Urology [address] [facility] [address] [place] [address] Soraya Aguilera, DO [address] [facility] [address] [place] [phone] 04/14/2025 10:00 AM CDT Office Visit [facility] - Urology [address] [facility] [place] [phone] Soraya Aguilera, DO [address] [facility] [address] [place] [phone] documented as of this encounter Procedures Procedure Name Priority Date/Time Associated Diagnosis Comments [facility] CYSTOURETHROSCOPY Routine 11/26/2018 1:12 PM CONSTRUCTION ADMINISTRATIVE ASSISTANT Lower urinary tract symptoms (LUTS) [facility] MSR PVR U&/BLADD CAPCTY US NON Routine 11/26/2018 11:43 AM CONSTRUCTION ADMINISTRATIVE ASSISTANT Lower urinary tract symptoms (LUTS) PROC UROFLOWMETRY Routine 11/26/2018 11: 38 AM CONSTRUCTION ADMINISTRATIVE ASSISTANT Lower urinary tract symptoms (LUTS) documented in this encounter Results * [facility] CYSTOURETHROSCOPY (11/26/2018 1:12 PM CONSTRUCTION ADMINISTRATIVE ASSISTANT) Narrative Soraya Aguilera DO - 11/26/2018 1:12 PM CONSTRUCTION ADMINISTRATIVE ASSISTANT Soraya Aguilera, DO ? 11/26/2018 ??1:12 PM See other cystoscopy note. Soraya Aguilera DO PROCEDURE/MINOR MALIK RGICAL ORDERABLES * [facility] MSR PVR U&/BLADD CAPCTY US NON (11/26/2018 11:43 AM CONSTRUCTION ADMINISTRATIVE ASSISTANT) Narrative Vonnie Perry - 11/26/2018 11:43 AM CONSTRUCTION ADMINISTRATIVE ASSISTANT Vonnie Perry ? 11/26/2018 11:43 AM Bladder scan done. 96ml post void Soraya Aguilera DO PROCEDURE/MINOR MALIK RGICAL ORDERABLES * PROC UROFLOWMETRY (11/26/2018 11:38 AM CONSTRUCTION ADMINISTRATIVE ASSISTANT) Narrative Vonnie Perry - 11/26/2018 11:38 AM CONSTRUCTION ADMINISTRATIVE ASSISTANT Vonnie Perry ? 11/26/2018 11:38 AM Voiding Time ? T100 ?? 113s Flow Time ? TQ ??83 ??s Time to max Flow ? TQmax 66 ??s Max Flow Rate ?Qmax ??5.4 Ml/s Average Flow Rate ?Qave ?? 2.7 Ml/s Voided Volume ? Vcomp ??227 ml Soraya Aguilera DO PROCEDURE/MINOR MALIK RGICAL ORDERABLES documented in this encounter Visit Diagnoses Diagnosis Lower urinary tract symptoms (LUTS)- Primary Other symptoms involving urinary system documented in this encounter
--- OUTSIDE RECORDS SUMMARY | 2024-11-03 02:00 | XMS_ITS | Encounter Summary ---
Author Organization [facility] Address [address] [facility] [place] [address] Care Team Providers Care Risk Developer Name Role Phone Unavailable Primary Care Provider Unavailabl e Reason for Visit * Auth/Cert Specialty Diagnoses / Procedures Referred By Contkacie t Referred To Contact Diagnoses Diagnosis unknown Diagnosis unknown [R69] Procedures CYSTOSCOPY (FLEXIBLE/RIGID) TRANSURETHRAL RESECTION PROSTATE (TURP) Referral ID Status Reason Start Date Expiration Date Visits Re quested Visits Authorized [id number] 1 1 Encounter Details Date Type Department Care Team (Late st Contact Info) Description 09/10/2019 9:50 AM DIRECTOR OF SAFETY AND SECURITY Anesthesia Event [facility] [address] [place] [address] Kana Cox DO [address] [place] [address] Rolando Chaudhari MD [address] [facility] [place] [address] Anesthesia Record Procedure Summary Procedure Name Responsible Anesthesiologist Anesthesia Start Time Anesthesia Stop Time CYSTOSCOPY (Bladder) Kana Cox DO 09/10/19 0 950 09/10/19 1112 Events Date Time Event Comment 09/10/2019 0950 An Start 0950 An Start Data 0953 PT Reassessment 0956 Induction 1000 Quick Note Attempted to pl cas LMA, encountered difficulty advancing LMA into position. Scant amount of bleeding from oropharynx noted. Elected to proceed with DL and intubation to avoid further trauma. 1001 An Intubation 1002 Quick Note Informed that s urgical equipment is still being processed and not available for approximately 30 minutes. 1032 Timeout Anesthesia part icipated in timeout at the time documented in the record by nursing. 1059 Extubation 1100 an stop data 1102 Electnc Sig 1102 ANPTO2 1112 An Stop Meds Name Total midazolam 2 mg/2mL injection 2 mg fentaNYL 100 mcg/2mL injection 100 mcg lidocaine 2% injection (20 mg/ml) 100 mg propofol 200mg/20mL injection 200 mg Phenylephrine HCl 10 MG/ML 200 mcg dexamethasone 4 mg/ml injection 8 mg ondansetron 4 mg/2mL injection 4 mg ketorolac 30 mg/ml injection 15 mg succinylcholine 20 mg/mL injection 100 m g ceFAZolin (ANCEF) 2,000 mg in 50 ml IVPB 2 g glycopyrrolate 1mg/5mL injection 0.2 mg lactated ringers infusion 0 mL * Agents Name Insp. N2O Exp. Sevoflurane Exp. N2O O2 Air Insp. Sevoflurane * Blood No blood administrations on file. Lines, Drains, and Airways Type Details Placement Removal Urethral Catheter 09/10/19; js; Triple-lumen / 3-Way; Yes; 22; 30 mL; 09/10/19; 1222; Removed by Dr Torres 09/10/19 0000 by Debora Meyers RN 09/10/19 1222 by Kary Ramirez RN Peripheral IV Date: 09/10/19; Time : 09; Orientation: Right; Placed By: Berenice Watson RN; Tolerance: Well 09/10/19 0923 by Cassy Gannon, MAGDA 09/10/19 1440 by Candido Heck, MAGDA ETT Date: 09/10/19; Time : 100; Placed By: JADA Silva III; Vent: easy mask; Induction: Standard IV; Blade Type: Roney; Blade Size: 4; Laryngoscopy View: Grade 1 (full cords); Intubation Adjuncts: Stylet; Placement: Oral; Tube Type: Cuffed-inflated; Tube Size(mm): 9 MM; Depth of Insertion: 22 CM; Measured From: lips; Attempts: 1; Cuff Infated: Air; Verified By: Direct visualization, Bilateral breath sounds, Chest Auscultation, CO2 Monitor 09/10/19 1001 by Wagner Flores III, APRN-CRNA 09/10/19 1059 by Wagner Flores III, LIGHTHOUSE KEEPER-SPRAYER INSECTICIDE Procedural Site (Incision) 09/10/19; 1041; Perineum; 09/10/19; 210109/10/19 1041 by Debora Meyers RN 09/10/192101 by Generic, Auto Release documented in this encounter Social History Tobacco Use Types Packs/Day Years Used Date Smoking Tobacco: Never Smokeless Tobacco: Never Alcohol Use Standard Drinks/Week Comments No 0 (1 standard drink = 0.6 oz pur e alcohol) Sex and Gender Information Value Date Recorded Sex Assigned at Male 10/18/2021 10:49 PM DIRECTOR OF SAFETY AND SECURITY Gender Identity Male 10/18/2021 10:49 PM DIRECTOR OF SAFETY AND SECURITY Sexual Orientation Straight 10/18/2021 10 :49 PM DIRECTOR OF SAFETY AND SECURITY documented as of this encounter Progress Notes * Kana Cox, - 09/10/2019 12:11 PM CST ANESTHESIA POSTOP EVALUATION NOTE Procedure: CYSTOSCOPY (Bladder) MINI TRANSURETHRAL RESECTION PROSTATE (Prostate) Vernon Vidales is a 54 year old male Patient Vitals for the past 6 hrs: BP Temp Pulse Resp SpO2 Pain Rating Score #1 09/10/19 0902 116/80 98 ??F (36.7 ??C) 64 18 97 % -- 09/10/19 1103 102/56 97.7 ??F (36.5 ??C) 64 -- 99 % 0 09/10/19 1105 145/87 -- 59 10 93 % -- 09/10/19 1110 123/69 -- 79 12 96 % 0 09/10/19 1115 130/78 -- 73 9 98 % -- 09/10/19 1120 131/77 -- 76 12 99 % 0 09/10/19 1125 105/55 -- 80 11 100 % 0 09/10/19 1130 107/55 -- 75 13 100 % 0 09/10/19 1135 107/60 -- 76 14 93 % -- 09/10/19 1140 101/50 -- 76 11 96 % 0 09/10/19 1145 -- -- 71 12 94 % -- 09/10/19 1150 118/83 -- 77 14 94 % 0 09/10/19 1155 129/77 -- 74 11 93 % -- 09/10/19 1200 129/76 -- 71 11 95 % 0 09/10/19 1205 -- -- 69 23 93 % -- Anesthesia Type: general Pre-op Diagnosis Codes: * Diagnosis unknown [R69] Mental Status: awake, alert, oriented, sufficiently recovered from acute administration of anesthesia to participate in the evaluation, neurologic status has returned to preoperative level and neurologic status has returned to expected level of consciousness Neuro Status: No numbess, tingling or visual disturbances Respiratory Function: natural Cardiac Function: stable Postop Pain: acceptable to the patient Postop Hydration: adequate Postop Nausea: none Assessment: no apparent anesthetic complications, patient tolerated procedure well and no evidence of recall Patient Disposition: Release from Anesthesia Care Non Reportable Improvement Section (otherwise blank): CTOR OF SAFETY AND SECURITY * Wagner Flores III, LIGHTHOUSE KEEPER-SPRAYER INSECTICIDE - 09/10/2019 9:36 AM CST ANESTHESIA PREOPERATIVE EVALUATION NOTE Procedure: CYSTOSCOPY (Bladder) MINI TRANSURETHRAL RESECTION PROSTATE (Prostate) NPO status: *Except Oral meds with H2O;NO Tobacco Since Midnight (09/10/2019 9:24 AM) Vitals: Patient Vitals for the past 6 hrs: BP Temp Pulse Resp SpO2 09/10/19 0902 116/80 98 ??F (36.7 ??C) 64 18 97 % ANESTHESIA PRE-EVALUATION NOTE History of Present Illness: Vernon Vidales is a 54 year oldmale with LUTS, who previously underwent REZUM in clinic ~ 6 months ago. Continues to have difficulty voiding, intermittent flow and frequency. Clinic cysto revealed an asymetric enlargement of the prostate, he was planned for another REZUM however denied by insurance. The patient presents today for operative intervention. ?? Denies dysuria, hematuria, or use anticoagulant medications Physical Exam: Orientation X3 Airway/Mallampati Score: I Mouth Opening Distance: 3 fingerwidths Neck ROM: full TM Distance: > 3 FB Teeth: normal Heart: regular rate rhythm Lungs: normal Abdomen Exam: normal Review of Systems: History of anesthetic complications: No Malignant Hyperthermia: No GERD: No Poor Exercise Tolerance: No Recent Chest Pain: No Shortness of Breath: No AICD/Pacemaker: No Renal Disease: No Diagnostic Tests: Lab(s) reviewed: Yes. ANESTHESIA PLAN ASA Score: 2 NPO Status: No solids since midnight and No liquids within 2 hours Anesthesia Plan: general LMA Planned Induction: intravenous Planned Postop Destination: PACU Anesthetic plan was discussed with: patient, spouse Anesthetic Plan discussion was: Consented The patient's procedural Anesthetic Plan was discussed with the anesthesiologist. BMI, Height, Weight Tobacco History Estimated body mass index is 24.07 kg/m?? as calculated from the following: Height as of this encounter: 1.816 m (5' 11.5 ). Weight as of this encounter: 79.4 kg (175 lb). Social History Tobacco Use Smoking Status Never Smoker Smokeless Tobacco Never Used Alcohol History Drug History Social History Substance and Sexual Activity Alcohol Use No Social History Substance and Sexual Activity Drug Use No Outpatient Medications: Inpatient Medications: Outpatient Medications Marked as Taking for the 09/10/19 encounter (Hospital Encounter) Medication Sig Last Dose ??? MYRBETRIQ TAKE 1 TABLET BY MOUTH ONCE DAILY 09/09/2019 at 2100 Current Facility-Administered Medications Medication Dose Last Dose ??? ceFAZolin 2 g ??? lactated ringers ??? lidocaine 0.2 mL 0.2 mL at 09/10/19 0913 Allergies: Allergies Allergen Reactions ??? Seasonal Other rhinitis Relevant Problems No relevant active problems Problem List: Patient Active Problem List Diagnosis Date Noted ??? Overactive bladder 12/10/2017 ??? Enlarged prostate with lower urinary tract symptoms (LUTS) 05/29/2017 ICD-10 update ??? Poor urinary stream 05/29/2017 ICD-10 update Medical History: No past medical history on file. Surgical History: Past Surgical History: Procedure Laterality Date ??? OTHER SURGERY ACL right knee ??? Vasectomy 1999 Lab Results: Recent Labs Component Name 08/27/19 0644 WBC 5.1 HGB 14.7 HCT 44.4 PLTCOUNT 233 Recent Labs Component Name 08/27/19 0644 SODIUM 143 POTASSIUM 4.0 CHLORIDE 106 CO2 30 BUN 18 CREATININE 0.79 Recent Labs Component Name 08/27/19 0644 GLUCOSE 100* CALCIUM 9.1 ALT 13 AST 11 CTOR OF SAFETY AND SECURITY documented in this encounter Procedure Notes * Mark, JADA Fischer III - 09/10/2019 10:13 AM CSTAssociated Order(s): ETT Placement Endotracheal Tube Placement: Patient Location: OR. Intubation Event Date/Time: 09/10/2019 10:01 AM Procedure: intubation (34475). Procedure Section: Sedation: under general anesthesia. Indications for Airway Management: anesthesia Induction: standard IV Patient Position: supine Mask Ventilation: easy. Blade Type: Roney Blade Size: 4 Laryngoscopy View: grade 1 (full cords) Intubation Adjuncts: stylet Placement: oral Tube type: cuff - inflated Tube Size (MM): 9 Depth of Insertion (CM): 22 Measured From: lips Cuff Inflated With: air Number of Attempts: 1. Placement Verified By: direct visualization, bilateral breath sounds, chest auscultation and CO2 monitor Tube secured with: adhesive tape. Difficult Airway? No. Procedure Start Time: 09/10/2019 10:01 AM. Staff Section Anesthesia Provider: Wagner Flores III, APRN-CRNA, Performed the procedure CTOR OF SAFETY AND SECURITY documented in this encounter Miscellaneous Notes * Anesthesia Transfer of Care - Wagner Flores III, APRN-CRNA - 09/10/2019 11:10 AM CST ANESTHESIA TRANSFER OF CARE NOTE Today's Date: 09/10/2019 Date of : 1965 Patient: Vernon Vidales Procedure(s): CYSTOSCOPY MINI TRANSURETHRAL RESECTION PROSTATE Surgeon(s): Primary: Soraya Aguilera DO Preop Diagnosis: Pre-op Diagnois: * Diagnosis unknown [R69] Pre-op Meds (From admission, onward) Start Stop Status Route Frequency Ordered 09/10/19 0915 acetaminophen (TYLENOL) tablet 1,000 mg 09/10 0914 Completed PO ONCE 09/10/19 0905 09/10/19 0945 ceFAZolin (ANCEF) 2,000 mg in 50 ml IVPB 09/10 1029 Completed IV PRE-OP ONCE 09/10/19 0935 09/10/19 1100 fentaNYL (PF) (SUBLIMAZE) injection 50 mcg -- Verified IV EVERY 3 MIN PRN 09/10/19 1100 09/10/19 1100 fentaNYL (PF) (SUBLIMAZE) injection 50 mcg -- Verified IV EVERY 3 MIN PRN 09/10/19 1100 09/10/19 1100 HYDROmorphone (DILAUDID) injection 0.5 mg -- Verified IV EVERY 5 MIN PRN 09/10/19 1100 09/10/19 09 lactated ringers infusion -- Verified IV PRE-OP CONTINUOUS 09/10/19 0909/10/19 111 lactated ringers infusion 09/09 111 Verified IV CONTINUOUS 09/10/19 1100 09/10/19904 lidocaine (XYLOCAINE MPF) 1 % injection 0.2 mL -- Verified INFILTRATION PRE-OP MULTIPLE 09/10/19 0905 09/10/191099 naloxone (NARCAN) injection 0.04 mg -- Verified IV POST-OP MULTIPLE 09/10/19 1100 09/10/191099 ondansetron (ZOFRAN) injection 4 mg -- Verified IV ONCE PRN 09/10/191099 Post-op Diagnosis: * Diagnosis unknown [R69] . Allergies Allergen Reactions ??? Seasonal Other rhinitis Vitals: Patient Vitals for the past 3 hrs: BP Temp Pulse Resp SpO2 Pain Rating Score #1 09/10/19 1110 -- -- 79 12 96 % 0 09/10/19 1105 145/87 -- 59 10 93 % -- 09/10/19 1103 102/56 97.7 ??F (36.5 ??C) 64 -- 99 % 0 09/10/19 0902 116/80 98 ??F (36.7 ??C) 64 18 97 % -- Lines, Drains, and Airways Type Details Placement Removal Peripheral IV Date: 09/10/19; Time: 922; Orientation: Right; Location: Wrist; Placed By: Berenice Watson RN; Gauge: 20 Gauge; Locals: Trans Dermal; Tolerance: Well 09/10/19922 by Cassy Gannon, RN ETT Date: 09/10/19; Time: 1001; Placed By: Wagner Flores III, LIGHTHOUSE KEEPER-SPRAYER INSECTICIDE; Vent: easy mask; Induction: Standard IV; Blade Type: Roney; Blade Size: 4; Laryngoscopy View: Grade 1 (full cords); Intubation Adjuncts: Stylet; Placement: Oral; Tube Type: Cuffed-inflated; Tube Size(mm): 9 MM; Depth of Insertion: 22 CM; Measured From: lips; Attempts: 1; Cuff Infated: Air; Verified By: Direct visualization, Bilateral breath sounds, Chest Auscultation, CO2 Monitor 09/10/19 1001 by Wagner Flores III, APRN-CRNA 09/10/19 1059 by Wagner Flores III, APRN-CRNA Intraprocedure I/O Totals None Patient Transfer Location: PACU Transport Airway: spontaneous respirations, supplemental O2 and oral airway Complications: None Handoff Given? Yes Checklist or Protocol [...] understanding of report from the receiving PACUteam. JADA Silva III CTOR OF SAFETY AND SECURITY documented in this encounter Plan of Treatment Upcoming Encounters Date Type Department Care Team (Late st Contact Info) Description 11/17/2024 4:00 PM DIRECTOR OF SAFETY AND SECURITY Appointment [facility] Health Imaging Services - Ultrasound [address] [place] [address] Soraya Aguliera, DO [address] DIV OF UROLOGIC [place] [phone] 11/19/2024 1:45 PM DIRECTOR OF SAFETY AND SECURITY Office Visit [facility] - Urology [address] [facility] [address] [place] [address] Soraya Aguilera DO [address] DIV OF [place]OLOGIC [place] [phone] 04/14/2025 10:00 AM CDT Office Visit [facility] - Urology [address] [facility] [place] [phone] Soraya Aguilera DO [address] [facility] [address] DIV OF [place]OLOGIC [place] [phone] documented as of this encounter Procedures Procedure Name Priority Date/Time Associated Diagnosis Comments ENDOTRACHEAL TUBE NOTE Routine 09/10/2019 10:13 AM DIRECTOR OF SAFETY AND SECURITY documented in this encounter Results * ETT LINE PERFORMABLE (09/10/2019 10:13 AM DIRECTOR OF SAFETY AND SECURITY) Narrative Wagner Flores III, APRN-CRNA - 09/10/2019 10:13 AM DIRECTOR OF SAFETY AND SECURITY Wagner Flores III, APRN-CRNA ? 09/10/2019 10:13 AM Endotracheal Tube Placement: ? Patient Location: OR. Intubation Event Date/Time: ??09/10/2019 10:01 AM Procedure: intubation (87703). Procedure Section: ?? Sedation: under general anesthesia. [...] procedure Kana Cox DO GENERAL ANESTHESIA ORDERABLES documented in this encounter Visit Diagnoses Not on filedocumented in this encounter Administered Medications Inactive Administered Medications - up to 3 most recent administrations Medication Order MAR Action Action Date Dose Rate Site ceFAZolin (ANCEF) 2,000 mg in 50 ml IVPB 2,000 mg (2 g), at 100 mL/hr, Intravenous, PRE-OP ONCE, 1 dose, On Erika 09/10/19 at 0945, Before reconstitution, protect from light, Indication for anti-infective therapy: Surgical prophylaxis $ Given 09/10/2019 10:29 AM DIRECTOR OF SAFETY AND SECURITY 2 g dexamethasone (DECADRON) injection Intravenous, PRN, Starting on Erika 09/10/19 at 1005, Until Erika 09/10/19 at 1114, Anesthesia Intra-op $ Given 09/10/2019 10:05 AM DIRECTOR OF SAFETY AND SECURITY 8 mg fentaNYL (PF) (SUBLIMAZE) injection Intravenous, PRN, Starting on Erika 09/10/19 at 1000, Until Erkia 09/10/19 at 1114, Anesthesia Intra-op $ Given 09/10/2019 10:32 AM DIRECTOR OF SAFETY AND SECURITY 50 mcg $ Given 09/10/2019 10:00 AM DIRECTOR OF SAFETY AND SECURITY 50 mcg glycopyrrolate (ROBINUL) injection PRN, Starting on Erika 09/10/19 at 1037, Until Erika 09/10/19 at 1114, Anesthesia Intra-op $ Given 09/10/2019 10:37 AM DIRECTOR OF SAFETY AND SECURITY 0.2 mg ketorolac (TORADOL) injection PRN, Starting on Erika 09/10/19 at 1042, Until Erika 09/10/19 at 1114, Anesthesia Intra-op $ Given 09/10/2019 10:42 AM DIRECTOR OF SAFETY AND SECURITY 15 mg lidocaine (XYLOCAINE) 2 % injection Intravenous, PRN, Starting on Erika 09/10/19 at 0956, Until Erika 09/10/19 at 1114, Anesthesia Intra-op $ Given 09/10/2019 9:56 AM DIRECTOR OF SAFETY AND SECURITY 100 mg midazolam (VERSED) injection Intravenous, PRN, Starting on Erika 09/10/19 at 0950, Until Erika 09/10/19 at 1114, Anesthesia Intra-op $ Given 09/10/2019 9:50 AM DIRECTOR OF SAFETY AND SECURITY 2 mg Ondansetron HCl (ZOFRAN) injection PRN, Starting on Erika 09/10/19 at 1005, Until Erika 09/10/19 at 1114, Anesthesia Intra-op $ Given 09/10/2019 10:05 AM DIRECTOR OF SAFETY AND SECURITY 4 mg Phenylephrine HCl (ADELA-SYNEPHRINE) injection Intravenous, PRN, Starting on Erika 09/10/19 at 1037, Until Erika 09/10/19 at 1114, Anesthesia Intra-op $ Given 09/10/2019 10:37 AM DIRECTOR OF SAFETY AND SECURITY 200 mcg propofol (DIPRIVAN) injection Intravenous, PRN, Starting on Erika 09/10/19 at 0956, Until Erika 09/10/19 at 1114, Anesthesia Intra-op $ Given 09/10/2019 9:56 AM DIRECTOR OF SAFETY AND SECURITY 200 mg succinylcholine (ANECTINE) injection PRN, Starting on Erika 09/10/19 at 1000, Until Erika 09/10/19 at 1114, Anesthesia Intra-op $ Given 09/10/2019 10:00 AM DIRECTOR OF SAFETY AND SECURITY 100 mg documented in this encounter
--- OUTSIDE RECORDS SUMMARY | 2024-11-03 02:00 | XMS_ITS | Encounter Summary ---
Author Organization [facility] Address [address] [facility] [place] [address] Care Team Providers Care Launch Leader Name Role Phone Unavailable Primary Care Provider Unavailabl e Encounter Details Date Type Department Care Team (Late Contact Info) Description 03/13/2019 Orders Only [facility] [address] [place] [address] Soraya Aguilera, DO [address] [place] [phone] Lower urinary tract symptoms (LUTS) Social History Tobacco Use Types Packs/Day Years Used Date Smoking Tobacco: Never Smokeless Tobacco: Never Alcohol Use Standard Drinks/Week Comments No 0 (1 standard drink = 0.6 oz pur e alcohol) Sex and Gender Information Value Date Recorded Sex Assigned at Male 10/18/2021 10:49 PM QUALITY CONTROL CHECKER Gender Identity Male 10/18/2021 10:49 PM QUALITY CONTROL CHECKER Sexual Orientation Straight 10/18/2021 10 :49 PM QUALITY CONTROL CHECKER documented as of this encounter Plan of Treatment Upcoming Encounters Date Type Department Care Team (Late Contact Info) Description 11/17/2024 4:00 PM QUALITY CONTROL CHECKER Appointment [facility] Health Imaging Services - Ultrasound [address] [place] [address] Soraya Aguilera, DO [address] [place] [phone] 11/19/2024 1:45 PM QUALITY CONTROL CHECKER Office Visit [facility] - Urology [address] [place] [address] Soraya Aguilera DO [address] [facility] [address] [place] [phone] 04/14/2025 10:00 AM CDT Office Visit [facility] - Urology [address] [facility], [place] [phone] Soraya Aguilera, [address] [facility] [address] [place] [phone] documented as of this encounter Visit Diagnoses Diagnosis Lower urinary tract symptoms (LUTS) Other symptoms involving urinary system documented in this encounter
--- OUTSIDE RECORDS SUMMARY | 2024-11-03 02:00 | XMS_ITS | Encounter Summary ---
Author Organization [facility] Address [facility] [place] [address] Care Team Providers Care Cpht Name Role Phone Unavailable Primary Care Provider Unavailabl e Reason for Visit * Reason Comments Establish Care bph Encounter Details Date Type Department Care Team (Late st Contact Info) Description 10/21/2018 10:30 AM POWER TRANSFORMER REPAIR SUPERVISOR Office Visit [facility] [address] [place] [address] Soraya Aguilera M, DO [address] OF [place] [phone] Benign prostatic hyperplasia with lower urinary tract symptoms, symptom details unspecified (Primary Dx) Social History Tobacco Use Types Packs/Day Years Used Date Smoking Tobacco: Never Smokeless Tobacco: Never Alcohol Use Standard Drinks/Week Comments No 0 (1 standard drink = 0.6 oz pur e alcohol) Sex and Gender Information Value Date Recorded Sex Assigned at Male 10/18/2021 10:49 PM POWER TRANSFORMER REPAIR SUPERVISOR Gender Identity Male 10/18/2021 10:49 PM POWER TRANSFORMER REPAIR SUPERVISOR Sexual Orientation Straight 10/18/2021 10 :49 PM POWER TRANSFORMER REPAIR SUPERVISOR documented as of this encounter Last Filed Vital Signs Vital Sign Reading Time Taken Comments Blood Pressure 117/75 10/21/2018 11:02 AM POWER TRANSFORMER REPAIR SUPERVISOR Pulse 74 10/21/2018 11:02 AM POWER TRANSFORMER REPAIR SUPERVISOR Temperature 36.1 ??C (97 ??F) 10/21/2018 11:02 AM POWER TRANSFORMER REPAIR SUPERVISOR Respiratory Rate - - Oxygen Saturation 98% 10/21/2018 11:02 AM POWER TRANSFORMER REPAIR SUPERVISOR Inhaled Oxygen Concentration - - Weight 83.9 kg (185 lb) 10/21/2018 11:02 AM POWER TRANSFORMER REPAIR SUPERVISOR Height 180.3 cm (5' 11 ) 10/21/2018 11:02 AM POWER TRANSFORMER REPAIR SUPERVISOR Body Mass Index 25.8 10/21/2018 11:02 AM POWER TRANSFORMER REPAIR SUPERVISOR documented in this encounter Progress Notes * Soraya Aguilera DO - 10/22/2018 1:28 AM CST [facility] Division of Urologic Surgery Soraya Aguilera DO Date of Visit: 10/21/2018 Patient Name: Vernon Vidales : 1965 Medical Record: [id number] Contact (home) Age: 53 y.o. Sex: male Referring Physician: Souleymane [place] [address] Chief Complaint: LUTS, BPH History of Present [...] 1, 1 =12 with QOL2, mostly satisfied. Here for follow up: AUASS: 1, 3, 4, 1, 4, 0, 1= 14 with QOL 3, mixed. HE thinks he is a little better in the last couple of weeks. He thinks he has overall improvement but is still having symptoms. Flomax helps, but the whole idea was to get off of the flomax. He would be interested in more treatments if it might help. No hematuria, dysuria, UTIs. Past Medical History; No past medical history on file. Past Surgical History: Past Surgical History: Procedure Laterality Date ??? OTHER SURGERY ACL right knee ??? Vasectomy 1999 Current Medications: Current Outpatient Prescriptions Medication Sig Dispense Refill ??? mirabegron ER 24hr (MYRBETRIQ) 50 MG tablet Take 1 tablet by mouth once daily 30 tablet 5 No current facility-administered medications for this visit. [...] Lungs:Negative Heart:Negative Gastrointestinal: negative Genitourinary: frequency, intermittent stream Musculoskeletal: Negative Nervous system: Negative Reproductive system: Negative Hematologic: Negative Lymphatic: Negative Endocrine: Negative Physical Exam: Vital Signs: BP 117/75 (BP SITE: LEFT ARM) Pulse 74 Temp 97 ??F (36.1 ??C) (Oral) Ht 5' 11 (1.803 m) Wt 185 lb (83.9 kg) SpO2 98% BMI 25.8 kg/m2 Gen: Alert and oriented x3 Head: normocephalic Lungs: Non-labored respirations Heart: RRR Abd: soft, nontender, nondistended : no CVA tenderness, no suprapubic pain MSK: normal gait and strength Skin: No rashes PVR per bladder scanner:98cc Uroflow: voided 307 Mas flow 6.2 avg flow 3.2 Flow time 95 seconds Imaging (images and reports reviewed): No new imaging Laboratory Studies: Glucose UA Date Value Ref Range Status 01/14/2018 neg Final Bilirubin UA POCT Date Value Ref Range Status 01/14/2018 neg Final Ketones UA POCT Date Value Ref Range Status 01/14/2018 neg Final Specific [place] UA Date Value Ref Range Status 01/14/2018 [...] on 07/25/2018 with persistent LUTS Recommendations: Discussed options. He is still open to doing more to get improvement in symptoms. RTC for cystoscopy to evaluated size and shape of prostate s/p rezum. Patient's questions were answered and patient agrees with plan. Soraya Aguilera DO 10/21/2018 R TRANSFORMER REPAIR SUPERVISOR documented in this encounter Procedure Notes * Jenise Garcia LPN - 10/21/2018 11:36 AM CSTAssociated Order(s): PROC BLADDER SCAN Procedure(s): AZ MSR PVR U&/BLADD CAPCTY US NON Pre-Procedure Diagnose(s): Benign prostatic hyperplasia with lower urinary tract symptoms, symptom details unspecified Bladder scan completed post pt void with 98 ml residual R TRANSFORMER REPAIR SUPERVISOR * Jenise Garcia LPN - 10/21/2018 11:33 AM CST Voiding time: t100 109s Flow Time: TQ 95s Time to max flow: TQmax 42s Average Flow Rate: Quave 3.2ml/s Voided Volume: Vcomp 307ml/s R TRANSFORMER REPAIR SUPERVISOR documented in this encounter Plan of Treatment Upcoming Encounters Date Type Department Care Team (Late st Contact Info) Description 11/17/2024 4:00 PM POWER TRANSFORMER REPAIR SUPERVISOR Appointment [facility] Health Imaging Services - Ultrasound [address] [place] [address] Soraya Aguilera, DO [address] DIV OF [place]OLOGIC [place] [phone] 11/19/2024 1:45 PM POWER TRANSFORMER REPAIR SUPERVISOR Office Visit [facility] - [facility]rology [address] [facility] [address] [place] [address] Soraya Aguilera, DO [address] DIV [place]OLOGIC [place] [phone] 04/14/2025 10:00 AM CDT Office Visit [facility] [address] [facility] [place] [phone] Soraya Aguilera, DO [address] DIV OF [place]OLOGIC [place] [phone] documented as of this encounter Procedures Procedure Name Priority Date/Time Associated Diagnosis Comments AZ MSR PVR U&/BLADD CAPCTY US NON Routine 10/21/2018 11:37 AM POWER TRANSFORMER REPAIR SUPERVISOR Benign prostatic hyperplasia with lower urinary tract symptoms, symptom details unspecified documented in this encounter Results * AZ MSR PVR U&/BLADD CAPCTY US NON (10/21/2018 11:37 AM POWER TRANSFORMER REPAIR SUPERVISOR) Narrative Jenise Garcia LPN - 10/21/2018 11:37 AM POWER TRANSFORMER REPAIR SUPERVISOR Jenise Garcia LPN ? 10/21/2018 11:37 AM Bladder scan completed post pt void with 98 ml residual Soraya Aguilera DO PROCEDURE/MINOR MALIK RGICAL ORDERABLES documented in this encounter Visit Diagnoses Diagnosis Benign prostatic hyperplasia with lower urinary tract symptoms, symptom details unspecified- Primary documented in this encounter
--- OUTSIDE RECORDS SUMMARY | 2024-11-03 02:00 | XMS_ITS | Encounter Summary ---
Author Organization [facility] Address [address] [place] [address] Care Team Providers Care Lamp Tester And Inspector Name Role Phone Unavailable Primary Care Provider Unavailabl e Encounter Details Date Type Department Care Team (Late st Contact Info) Description 08/05/2019 Orders Only [facility] [address] [place] [address] Beverly Carver RN BPH with obstruction/lower urinary tract symptoms ; Pre-op testing Social History Tobacco Use Types Packs/Day Years Used Date Smoking Tobacco: Never Smokeless Tobacco: Never Alcohol Use Standard Drinks/Week Comments No 0 (1 standard drink = 0.6 oz pur e alcohol) Sex and Gender Information Value Date Recorded Sex Assigned at Male 10/18/2021 10:49 PM BENDING MACHINE OPERATOR Gender Identity Male 10/18/2021 10:49 PM BENDING MACHINE OPERATOR Sexual Orientation Straight 10/18/2021 10 :49 PM BENDING MACHINE OPERATOR documented as of this encounter Progress Notes * Beverly Carver RN - 08/24/2019 11:56 AM CDT Labs will be done at [facility] this week. documented in this encounter Miscellaneous Notes * Addendum Note - Beverly Carver RN - 08/24/2019 11:56 AM CDTAddended by: BEVERLY CARVER on: 08/24/2019 11:56 AM Modules accepted: Orders documented in this encounter Plan of Treatment Upcoming Encounters Date Type Department Care Team (Late st Contact Info) Description 11/17/2024 4:00 PM BENDING MACHINE OPERATOR Appointment [facility] Health Imaging Services - Ultrasound [address] [place] [address] Soraya Aguilera, DO [address] DIV [place] [phone] 11/19/2024 1:45 PM BENDING MACHINE OPERATOR Office Visit [facility] [address] [facility] [address] [place] [address] Soraya Aguilera, DO [address] [facility] [address] DIV [place] [phone] 04/14/2025 10:00 AM CDT Office Visit [facility] [address] [facility] [place] [phone] Soraya Aguilera, DO [address] [facility] 2L DIV [place] [phone] documented as of this encounter Visit Diagnoses Diagnosis BPH with obstruction/lower urinary tract symptoms- Primary Hypertrophy of prostate with urinary obstruction and other lower urinary tract symptoms (LUTS) Pre-op testing Preoperative examination, unspecified documented in this encounter
--- OUTSIDE RECORDS SUMMARY | 2024-11-03 02:00 | XMS_ITS | Encounter Summary ---
Author Organization [facility] Address [address] [facility] [place] [address] Care Team Providers Care Dress Finisher Name Role Phone Unavailable Primary Care Provider Unavailabl e Encounter Details Date Type Department Care Team (Late Contact Info) Description 07/05/2016 Hospital Outpatient Visit [facility] [address] [place] [phone] Herrera Paul MD need updated information Discharge Disposition: Home or Self Care Social History Tobacco Use Types Packs/Day Years Used Date Smoking Tobacco: Never Assessed Sex and Gender Information Value Date Recorded Sex Assigned at Male 10/18/2021 10:49 PM GPS FIELD DATA COLLECTOR Gender Identity Male 10/18/2021 10:49 PM GPS FIELD DATA COLLECTOR Sexual Orientation Straight 10/18/2021 10 :49 PM GPS FIELD DATA COLLECTOR documented as of this encounter Plan of Treatment Upcoming Encounters Date Type Department Care Team (Late Contact Info) Description 11/17/2024 4:00 PM GPS FIELD DATA COLLECTOR Appointment [facility] Health Imaging Services - Ultrasound [address] [place] [address] Soraya Aguilera, DO [address] [facility] [address] DIV [place] [address] 11/19/2024 1:45 PM GPS FIELD DATA COLLECTOR Office Visit [facility]rology [address] [facility] [address] [place] [address] Soraya Aguilera DO [address] [facility] [address] DIV [place] [address] 04/14/2025 10:00 AM CDT Office Visit [facility] - Urology [address] [facility], [place] [address] Soraya Aguilera DO [address] [facility] 2L DIV [place] [address] documented as of this encounter Procedures Procedure Name Priority Date/Time Associated Diagnosis Comments PSA SERIAL Routine 07/05/2016 12:06 PM CDT documented in this encounter Results * PSA SERIAL (07/05/2016 12:06 PM CDT) PSA Total 0.8 0.0 - 4.0 ng/mL [facility] Blood specimen (specimen) BLOOD SPECIMEN / Unknown 07/05/2016 12:06 PM CDT 07/05/2016 12:56 PM CDT Herrera Paul MD LAB - CHEMIS TRY ORDERABLES [facility] [address] [place] [address] documented in this encounter Visit Diagnoses Diagnosis Encounter for screening for malignant neoplasm of prostate Special screening for malignant neoplasm of prostate documented in this encounter
--- OUTSIDE RECORDS SUMMARY | 2024-11-03 02:00 | XMS_ITS | Encounter Summary ---
Author Organization [facility] Address [facility] [place] [address] Care Team Providers Care Childbirth Educator Name Role Phone Unavailable Primary Care Provider Unavailabl e Reason for Visit * Reason Comments Establish Care Rezuum F/U Encounter Details Date Type Department Care Team (Late st Contact Info) Description 09/03/2018 9:30 AM CDT Office Visit [facility] [address] [place] [address] Soraya Aguilera M, DO [address] [place] [phone] Benign prostatic hyperplasia with lower urinary tract symptoms, symptom details unspecified (Primary Dx) Social History Tobacco Use Types Packs/Day Years Used Date Smoking Tobacco: Never Smokeless Tobacco: Never Alcohol Use Standard Drinks/Week Comments No 0 (1 standard drink = 0.6 oz pur e alcohol) Sex and Gender Information Value Date Recorded Sex Assigned at Male 10/18/2021 10:49 PM MILK RECEIVER Gender Identity Male 10/18/2021 10:49 PM MILK RECEIVER Sexual Orientation Straight 10/18/2021 10 :49 PM MILK RECEIVER documented as of this encounter Last Filed Vital Signs Vital Sign Reading Time Taken Comments Blood Pressure 117/69 09/03/2018 9:50 AM CDT Pulse 73 09/03/2018 9:50 AM CDT Temperature 36.9 ??C (98.4 ??F) 09/03/2018 9:50 AM CD T Respiratory Rate - - Oxygen Saturation 98% 09/03/2018 9:50 AM CDT Inhaled Oxygen Concentration - - Weight 84.4 kg (186 lb) 09/03/2018 9:50 AM CDT Height 180.3 cm (5' 11 ) 09/03/2018 9:50 AM CDT Body Mass Index 25.94 09/03/2018 9:50 AM CDT documented in this encounter Progress Notes * Soraya Aguilera DO - 09/03/2018 10:42 AM CDT [facility] Division of Urologic Surgery Soraya Aguilera DO Date of Visit: 09/03/2018 Patient Name: Vernon Vidales : 1965 Medical Record: [id number] Contact (home) Age: 53 y.o. Sex: male Referring Physician: Alexandrea Contreras, PROVIDER RELATIONS SPECIALIST-BUSINESS CONTROLLER [address] [facility] [address] [place] [address] Chief Complaint: LUTS, BPH History of Present [...] last visit. PVR: 0cc. 07/25/2018: underwent Rezum Here for follow up. Only had to catheterize twice after the procedure. First 2-3 weeks were rough with frequency and difficulty voiding and hematuria with occasional small clots. Notes improvement over the last 1-2 weeks in flow and LUTS. Still on flomax so still having retrograde ejaculation. AUASS: 1, 2, 3, 1, 3, 1, 1 =12 with QOL2, mostly satisfied. Past Medical History; No past medical history on file. Past Surgical History: Past Surgical History: Procedure Laterality Date ??? OTHER SURGERY ACL right knee ??? Vasectomy 2000 Current Medications: Current Outpatient Prescriptions Medication Sig Dispense Refill ??? HYDROcodone-acetaminophen (NORCO) 5-325 MG tablet Take 1-2 tablets by mouth pre-op for 1 dose Take one hour prior to procedure 2 tablet 0 ??? ALPRAZolam (XANAX) 1 MG tablet Take 1 tablet by mouth pre-op for 1 dose 1 tablet 0 ??? mirabegron ER 24hr (MYRBETRIQ) 50 MG tablet Take 1 tablet by mouth once daily 30 tablet 5 ??? tamsulosin (FLOMAX) 0.4 MG capsule Take 0.4 mg by mouth DAILY. 90 capsule 6 No current facility-administered medications for this visit. [...] Ears/nose/mouth: Negative Lungs:Negative Heart:Negative Gastrointestinal: negative Genitourinary: voiding well Musculoskeletal: Negative Nervous system: Negative Reproductive system: retrograde ejaculation (on flomax) Hematologic: Negative Lymphatic: Negative Endocrine: Negative Physical Exam: Vital Signs: BP 117/69 (BP SITE: LEFT ARM) Pulse 73 Temp 98.4 ??F (36.9 ??C) (Oral) Ht 5' 11 (1.803 m) Wt 186 lb (84.4 kg) SpO2 98% BMI 25.94 kg/m2 Gen: Alert and oriented x3 Head: normocephalic Lungs: Non-labored respirations Heart: RRR Abd: soft, nontender, nondistended : no CVA tenderness, no suprapubic pain MSK: normal gait and strength Skin: No rashes PVR per bladder scanner: 44cc Imaging (images and reports reviewed): No new imaging Laboratory Studies: Glucose UA Date Value Ref Range Status 01/14/2018 neg Final Bilirubin UA POCT Date Value Ref Range Status 01/14/2018 neg Final Ketones UA POCT Date Value Ref Range Status 01/14/2018 neg Final Specific [place] UA Date Value Ref Range Status 01/14/2018 1.015 Final Blood Urine POCT Date Value Ref Range Status 01/14/2018 neg Final Protein UA Date Value Ref Range Status 01/14/2018 neg Final Urobilinogen UA Date Value Ref Range Status 01/14/2018 3.5 Final Nitrite UA Date Value Ref Range Status 01/14/2018 neg Final WBC UA Date Value Ref Range Status 01/14/2018 neg Final Microbiology: No new cultures Pathology: No new path Diagnosis: 53yo male with BPH, incomplete bladder emptying and LUTS, now s/p rezum on 07/25/2018 Recommendations: Stop flomax. Continue myrbetriq for another 6-8 weeks, though he can stop if he wants. RTC in 6-8 weeks for PVR, uroflow and AUASS recheck. Patient's questions were answered and patient agrees with plan. Soraya Aguilera DO 09/03/2018 10:42 AM documented in this encounter Plan of Treatment Upcoming Encounters Date Type Department Care Team (Late st Contact Info) Description 11/17/2024 4:00 PM MILK RECEIVER Appointment [facility] Health Imaging Services - Ultrasound [address] [place] [address] Soraya Aguilera DO [address] [facility] 2L [place] [phone] 11/19/2024 1:45 PM MILK RECEIVER Office Visit [facility] [address] [facility] [address] [place] [address] Soraya Aguilera DO [address] [facility] [address]L [place] [address] 04/14/2025 10:00 AM CDT Office Visit [facility] [address] [facility], [place] [address] Soraya Aguilera DO [address] [place] [address] documented as of this encounter Procedures Procedure Name Priority Date/Time Associated Diagnosis Comments PROC BLADDER SCAN Routine 09/03/2018 10: 28 AM CDT Benign prostatic hyperplasia with lower urinary tract symptoms, symptom details unspecified documented in this encounter Results * PROC BLADDER SCAN (09/03/2018 10:28 AM CDT) 09/03/2018 10:2 8 AM CDT Herbert Wells - 09/03/2018 10:28 AM CDT Bladder scan completed as per Chelsey F/U... Pt had 44ML left in the bladder after voiding... Scan done by FRANCISCO Boss.. Soraya Aguilera DO PROCEDURE/MINOR MALIK RGICAL ORDERABLES documented in this encounter Visit Diagnoses Diagnosis Benign prostatic hyperplasia with lower urinary tract symptoms, symptom details unspecified- Primary documented in this encounter
--- OUTSIDE RECORDS SUMMARY | 2024-11-03 02:00 | XMS_ITS | Encounter Summary ---
Author Organization [facility] Address [address] [facility] [place] [address] Care Team Providers Care Personal Lines Sales Executive Name Role Phone Souleymane Benitez MD Primary Care Provider [phone] Jas Zheng MD Primary Care Provider [phone] Karen Tejeda Primary Care Pr ovider Encounter Details Date Type Department Care Team (Late Contact Info) Description 12/03/2018 Lab Requisition [facility] Care D[facility] Lab [address] [facility], [place] [address] Vanessa Guillen MD [address] [facility] [place] 3 [place] [address] Social History Tobacco Use Types Packs/Day Years Used Date Smoking Tobacco: Never Smokeless Tobacco: Never Alcohol Use Standard Drinks/Week Comments No 0 (1 standard drink = 0.6 oz pur e alcohol) Sex and Gender Information Value Date Recorded Sex Assigned at Male 10/18/2021 10:49 PM CARD GRINDER Gender Identity Male 10/18/2021 10:49 PM CARD GRINDER Sexual Orientation Straight 10/18/2021 10 :49 PM CARD GRINDER documented as of this encounter Plan of Treatment Upcoming Encounters Date Type Department Care Team (Late Contact Info) Description 11/17/2024 4:00 PM CARD GRINDER Appointment [facility] Health Imaging Services - Ultrasound [address] [place] [address] Soraya Aguilera DO [address] [facility] [place] 2L DIV [place] [address] 11/19/2024 1:45 PM CARD GRINDER Office Visit [facility] - [facility] [address] [place] [address] Soraya Aguilera, DO [address] DIV [place] [address] 04/14/2025 10:00 AM CDT Office Visit [facility] [address] [place] [address] Soraya Aguilera, DO [address] DIV [place] [address] documented as of this encounter Procedures Procedure Name Priority Date/Time Associated Diagnosis Comments DERMATOPATH TECHNICAL REPORT Routine 12/01/2018 12:00 AM CARD GRINDER documented in this encounter Results * DERMATOPATH TECHNICAL REPORT (12/01/2018 12:00 AM CARD GRINDER) Case Report Dermatopathology Report ? Case: [id number] ? Authorizing Provider: ??Vanessa Guillen MD ? Collected: ? 12/01/2018 12:00 AM ? Pathologist: ? Keyonna Oviedo MD ?Received: ?12/03/2018 06:31 AM ? Specimen: ?Skin, left anterior thigh ? 11:16 AM [facility] Clinical History Nevus, irritated. 11:16 AM [facility] Gross Description Specimen A: Received is one formalin filled container labeled with the patient's name and designated left anterior thigh. The specimen consists of a shave measuring [id number], bisected. Jar 0. [facility] Dermatopathology Laboratory performed the technical component only. 11:16 AM [facility] Embedded Images 11:16 AM [facility] DISCLAIMER An external and internal positive and negative controls are appropriate for the histochemical, immunohistochemical and immunofluorescence stain(s) in this case (if any), except where stated explicitly. The performance characteristics of the stain(s) cited in this report were developed and its performance characteristic determined by the Dermatopathology Laboratory at [facility], directed by Dr. Janine Monahan. These tests need not be, and therefore are not, approved by the [place] Food and Drug Administration. The tests are used for clinical purposes. 11:16 AM [facility] Pathology/Cytolog y TISSUE SPECIMEN FROM SKIN / Unknown 12/01/2018 12/03/2018 6:31 AM CARD GRINDER Vanessa Guillen MD LAB - PATHOLOGY/CYT OLOGY ORDERABLES DERMATOPATHOLOGY LABORATORY [facility] - Department of Dermatology [facility] [facility], 5th Floor Lab [address] [phone] documented in this encounter Visit Diagnoses Not on filedocumented in this encounter Care Teams Personal Lines Sales Executive Relationship Specialty Start Date End Date Souleymane Benitez [place] [address] PCP - General 09/15/19 04/11/20 Jas Zheng MD [address] [facility] [address] [place] [address] PCP - General 04/12/20 06/22/24 Karen Tejeda PA [address] [place] [address] PCP - General Physician Cafe Manager 06/23/24 documented as of this encounter
--- OUTSIDE RECORDS SUMMARY | 2024-11-03 02:00 | XMS_ITS | Encounter Summary ---
Author Organization [facility] Address [address] [place] [address] Care Team Providers Care Peoplesoft Hcm Developer Name Role Phone Unavailable Primary Care Provider Unavailabl e Reason for Visit * Reason Comments Refill Request Encounter Details Date Type Department Care Team (Late Contact Info) Description 12/11/2018 Refill [facility] [address] [place] [address] Soraya Aguilera, DO [address] [place] [phone] Refill Request Social History Tobacco Use Types Packs/Day Years Used Date Smoking Tobacco: Never Smokeless Tobacco: Never Alcohol Use Standard Drinks/Week Comments No 0 (1 standard drink = 0.6 oz pur e alcohol) Sex and Gender Information Value Date Recorded Sex Assigned at Male 10/18/2021 10:49 PM GLASS CUTTING MACHINE OPERATOR Gender Identity Male 10/18/2021 10:49 PM GLASS CUTTING MACHINE OPERATOR Sexual Orientation Straight 10/18/2021 10 :49 PM GLASS CUTTING MACHINE OPERATOR documented as of this encounter Plan of Treatment Upcoming Encounters Date Type Department Care Team (Late Contact Info) Description 11/17/2024 4:00 PM GLASS CUTTING MACHINE OPERATOR Appointment [facility] Health Imaging Services - Ultrasound [address] [place] [address] Soraya Aguilera, DO [address] [place] [phone] 11/19/2024 1:45 PM GLASS CUTTING MACHINE OPERATOR Office Visit [facility] [address] [place] [address] Soraya Aguilera, [address] [facility] 2L [place] [phone] 04/14/2025 10:00 AM CDT Office Visit [facility]rology [address] [facility], [place] [phone] Soraya Aguilera, [address] [facility] 2L [place] [address] documented as of this encounter Visit Diagnoses Not on filedocumented in this encounter
--- OUTSIDE RECORDS SUMMARY | 2024-11-03 02:00 | XMS_ITS | Encounter Summary ---
Author Organization [facility] Address [address] [facility] [place] [address] Care Team Providers Care Chief Concierge Name Role Phone Unavailable Primary Care Provider Unavailabl e Encounter Details Date Type Department Care Team (Late Contact Info) Description 01/14/2018 Hospital Outpatient Visit Historic [facility] [address] [place] [address] Soraya Aguilera DO [address] [facility] 2L [place] [phone] Discharge Disposition: Home or Self Care Social History Tobacco Use Types Packs/Day Years Used Date Smoking Tobacco: Never Assessed Sex and Gender Information Value Date Recorded Sex Assigned at Male 10/18/2021 10:49 PM BILINGUAL OPERATOR Gender Identity Male 10/18/2021 10:49 PM BILINGUAL OPERATOR Sexual Orientation Straight 10/18/2021 10 :49 PM BILINGUAL OPERATOR documented as of this encounter Plan of Treatment Upcoming Encounters Date Type Department Care Team (Late st Contact Info) Description 11/17/2024 4:00 PM BILINGUAL OPERATOR Appointment [facility] Health Imaging Services - Ultrasound [address] [place] [address] Soraya Aguilera DO [address] [facility] 2L [place] [phone] 11/19/2024 1:45 PM BILINGUAL OPERATOR Office Visit [facility]rology [address] [facility] [address] [place] [address] Soraya Aguilera, DO [address] [facility] 2L [place] [address] 04/14/2025 10:00 AM CDT Office Visit [facility] - Urology [address] [facility], [place] [address] Soraya Aguilera, DO [address] [facility] 2L [place] [address] documented as of this encounter Procedures Procedure Name Priority Date/Time Associated Diagnosis Comments CBC W AUTO DIFFERENTIAL Routine 01/14/2018 1:59 PM CDT BASIC METABOLIC PANEL (CALCIUM TOTAL) Routine 01/14/2018 1:59 PM CDT PROSTATE SPECIFIC ANTIGEN SCREEN Routine 01/14/2018 1:59 PM CDT CBC W AUTO DIFFERENTIAL Routine 01/14/2018 1:59 PM CDT CULTURE URINE Routine 01/14/2018 1:33 PM CDT documented in this encounter Results * CBC W AUTO DIFFERENTIAL (01/14/2018 1:59 PM CDT) WBC 5.2 3.5 - 10.5 10? 3 /uL [facility] RBC 5.04 4.30 - 5.70 10? 6 /uL [facility] Hemoglobin 14.9 13.5 - 17.5 g/dL [facility] Hematocrit 43.6 39.0 - 50.0 % [facility] MCV 86.5 81.0 - 97.0 fL [facility] MCH 29.6 28.0 - 34.0 pg [facility] MCHC 34.2 32.0 - 36.0 g/dL [facility] Platelet Count 215 150 - 400 10? 3 /uL [facility] RDW-SD 41.2 36.0 - 50.0 fL [facility] RDW-CV 12.9 11.2 - 14.8 % [facility] MPV 10.1 9.3 - 12.8 fL [facility] Neutrophils % 59.1 35.0 - 70.0 % [facility] Lymphocytes % 32.4 19.7 - 55.1 % [facility] Monocytes % 7.1 3.0 - 15.0 % [facility] Eosinophils % 1.0 0.0 - 6.0 % [facility] Basophil % 0.4 0.0 - 1.5 % [facility] Neutrophils Absolute 3.1 1.6 - 7.0 10? 3 /uL [facility] Lymphocyte Absolute 1.7 0.8 - 2.9 10? 3 /uL [facility] Monocytes Absolute 0.37 0.14 - 0.66 10? 3 /uL [facility] Eosinophils Absolute 0.05 0.00 - 0.22 10? 3 /uL [facility] Basophils Absolute 0.02 0.00 - 0.06 10? 3 /uL [facility] Immature Granulocytes % 0.2 0.0 - 1.0 % [facility] Blood specimen (specimen) BLOOD SPECIMEN / Unknown 01/14/2018 1:59 PM CDT 01/14/2018 2:11 PM CDT Soraya Aguilera DO LAB - HEMATOLOGY O RDERABLES [address] [phone] * PROSTATE SPECIFIC ANTIGEN SCREEN (01/14/2018 1:59 PM CDT) PSA Total 0.9 0.0 - 4.0 ng/mL [facility] Blood specimen (specimen) BLOOD SPECIMEN / Unknown 01/14/2018 1:59 PM CDT 01/14/2018 2:11 PM CDT Soraya Aguilera DO LAB - CHEMISTRY OR DERABLES [address] [phone] * BASIC METABOLIC PANEL (CALCIUM TOTAL) (01/14/2018 1:59 PM CDT) BUN 12 7 - 26 mg/dL [facility] Creatinine 0.9 0.6 - 1.2 mg/dL [facility] Sodium 140 136 - 145 mmol/L [facility] Potassium 4.3 3.5 - 4.5 mmol/L [facility] Chloride 101 98 - 107 mmol/L [facility] CO2 29 22 - 29 mmol/L [facility] Glucose 80 70 - 115 mg/dL [facility] Calcium 9.4 8.4 - 10.2 mg/dL [facility] Anion Gap 14 8 - 18 [facility] BUN/Creatinine Ratio 13 7 - 23 [facility] Osmolality Calculated 289 270 - 300 mOsm/kg [facility] eGFR >60 >60 mL/min/1.7 3 m2 [facility] Blood specimen (specimen) BLOOD SPECIMEN / Unknown 01/14/2018 1:59 PM CDT 01/14/2018 2:11 PM CDT Soraya Aguilera DO LAB - CHEMISTRY OR DERABLES [facility] [address] [place] [address] * CBC W AUTO DIFFERENTIAL (01/14/2018 1:59 PM CDT) Blood specimen (specimen) BLOOD SPECIMEN / Unknown 01/14/2018 1:59 PM CDT Narrative [facility] - 01/14/2018 2:37 PM CDT The following orders were created for panel order CBC w Differential. Procedure ? Abnormality ? Status ? --------- ? ------ ? CBC WITH DIFFERENTIAL[[id number]] ? Normal ?Final result ? Please view results for these tests on the individual orders. Soraya Aguilera DO LAB - HEMATOLOGY O RDERABLES Performing Organization Address [facility] de Phone Number [facility] [address] * CULTURE URINE (01/14/2018 1:33 PM CDT) Culture Urine No growth (<1,000 CFU/mL) [facility] Urine specimen (specimen) URINE / Unknown 01/14/2018 1:33 PM CDT 01/14/2018 3:50 PM CDT Narrative [facility] - 01/16/2018 7:51 AM CDT Specimen Type->Urine Resulting Lab: ?? [facility] MICROBIOLOGY [address] [place] [address] PH: [phone] Resulting Lab: ?? [facility] MICROBIOLOGY [address] [place] [address] PH: [phone] Soraya Aguilera DO LAB - MICROBIOLOGY ORDERABLES Performing Organization Address [facility] de Phone Number [facility] [address] [place] [address], [facility] [phone] documented in this encounter Visit Diagnoses Diagnosis Enlarged prostate with lower urinary tract symptoms (LUTS) Hypertrophy of prostate with urinary obstruction and other lower urinary tract symptoms (LUTS) Other retention of urine documented in this encounter
--- OUTSIDE RECORDS SUMMARY | 2024-11-03 02:00 | XMS_ITS | Encounter Summary ---
Author Organization [facility] Address [facility] [facility] [place] [address] Care Team Providers Care Tying Machine Operator Name Role Phone Unavailable Primary Care Provider Unavailabl e Reason for Visit * Reason Onset Date Comments Benign Prostatic Hyperplasia 02/13/2018 Returned Call 02/13/2018 Encounter Details Date Type Department Care Team (Late Contact Info) Description 02/13/2018 Telephone [facility] Urology [address] [place] [address] Beverly Oseguera, RN Benign Prostatic Hyperplasia; Returned Call Social History Tobacco Use Types Packs/Day Years Used Date Smoking Tobacco: Never Smokeless Tobacco: Never Alcohol Use Standard Drinks/Week Comments No 0 (1 standard drink = 0.6 oz pur e alcohol) Sex and Gender Information Value Date Recorded Sex Assigned at Male 10/18/2021 10:49 PM GRILL ATTENDANT Gender Identity Male 10/18/2021 10:49 PM GRILL ATTENDANT Sexual Orientation Straight 10/18/2021 10 :49 PM GRILL ATTENDANT documented as of this encounter Miscellaneous Notes * Telephone Encounter - Beverly Oseguera - 02/13/2018 9:54 AM CDT Left message notifying patient that the Urolift procedure was denied for coverage by [employer]. Dr. Aguilera completed a [id number] on 01/24/18 and it was again denied. Dr Aguilera will be sending an appeal letter to [employer] to request coverage. documented in this encounter Plan of Treatment Upcoming Encounters Date Type Department Care Team (Late Contact Info) Description 11/17/2024 4:00 PM GRILL ATTENDANT Appointment [facility] Health Imaging Services - Ultrasound [address] [place] [address] Soraya Aguilera, DO [address] [address] DIV [place] [phone] 11/19/2024 1:45 PM GRILL ATTENDANT Office Visit [facility] - Urology [address] [facility] [address] [place] [address] Soraya Aguilera, DO [address] [facility] 2L DIV [place] [address] 04/14/2025 10:00 AM CDT Office Visit [facility] - Urology [address] [facility], [place] [address] Soraya Aguilera, DO [address] DIV [place] [phone] documented as of this encounter Visit Diagnoses Not on filedocumented in this encounter
--- OUTSIDE RECORDS SUMMARY | 2024-11-03 02:00 | XMS_ITS | Encounter Summary ---
Author Organization [facility] Address [address] [facility] [place] [address] Care Team Providers Care Administrative Intern Name Role Phone Unavailable Primary Care Provider Unavailabl e Encounter Details Date Type Department Care Team (Late Contact Info) Description 06/11/2019 Orders Only [facility] [address] [place] [address] Soraya Aguilera, DO [address] [place] [address] Pre-op testing Social History Tobacco Use Types Packs/Day Years Used Date Smoking Tobacco: Never Smokeless Tobacco: Never Alcohol Use Standard Drinks/Week Comments No 0 (1 standard drink = 0.6 oz pur e alcohol) Sex and Gender Information Value Date Recorded Sex Assigned at Male 10/18/2021 10:49 PM HOUSING GRANT ANALYST Gender Identity Male 10/18/2021 10:49 PM HOUSING GRANT ANALYST Sexual Orientation Straight 10/18/2021 10 :49 PM HOUSING GRANT ANALYST documented as of this encounter Plan of Treatment Upcoming Encounters Date Type Department Care Team (Late Contact Info) Description 11/17/2024 4:00 PM HOUSING GRANT ANALYST Appointment [facility] Health Imaging Services - Ultrasound [address] [place] [address] Soraya Aguilera, DO [address] 2[address] [place] [phone] 11/19/2024 1:45 PM HOUSING GRANT ANALYST Office Visit [facility] Urology [address] [place] [address] [address] [place] [address] Soraya Aguilera, [address] [facility] 2L [place] [phone] 04/14/2025 10:00 AM CDT Office Visit [facility] Urology [address] [facility], [place] [address] Soraya Aguilera, [address] [facility] 2L [place] [address] documented as of this encounter Visit Diagnoses Diagnosis Pre-op testing- Primary Preoperative examination, unspecified documented in this encounter
--- OUTSIDE RECORDS SUMMARY | 2024-11-03 02:00 | XMS_ITS | Encounter Summary ---
Author Organization [facility] Address [facility] [place] [address] Care Team Providers Care Ship Fitter Name Role Phone Unavailable Primary Care Provider Unavailabl e Reason for Visit * Auth/Cert Specialty Diagnoses / Procedures Referred By Alyssa t Referred To Contact Diagnoses Diagnosis unknown Diagnosis unknown [R69] Procedures CYSTOSCOPY (FLEXIBLE/RIGID) TRANSURETHRAL RESECTION PROSTATE (TURP) Referral ID Status Reason Start Date Expiration Date Visits Re quested Visits Authorized [id number] 1 1 Encounter Details Date Type Department Care Team (Latest Contact Info) Description 09/10/2019 7:52 AM RN MOBILE - 09/10/2019 2:55 PM RN MOBILE Hospital Encounter [facility] [address] [place] [address] Soraya Aguilera M, DO [address] [place] [phone] Surgery General Discharge Disposition: Home or Self Care Social History Tobacco Use Types Packs/Day Years Used Date Smoking Tobacco: Never Smokeless Tobacco: Never Alcohol Use Standard Drinks/Week Comments No 0 (1 standard drink = 0.6 oz pur e alcohol) Sex and Gender Information Value Date Recorded Sex Assigned at Male 10/18/2021 10:49 PM RN MOBILE Gender Identity Male 10/18/2021 10:49 PM RN MOBILE Sexual Orientation Straight 10/18/2021 10 :49 PM RN MOBILE documented as of this encounter Last Filed Vital Signs Vital Sign Reading Time Taken Comments Blood Pressure 128/84 09/10/2019 1:25 PM RN MOBILE Pulse 84 09/10/2019 1:25 PM RN MOBILE Temperature 36.2 ??C (97.2 ??F) 09/10/2019 12:[address] Respiratory Rate 18 09/10/2019 1:25 PM RN MOBILE Oxygen Saturation 99% 09/10/2019 12:59 PM RN MOBILE Inhaled Oxygen Concentration - - Weight 79.4 kg (175 lb) 09/07/2019 2:46 PM RN MOBILE Height 181.6 cm (5' 11.5 ) 09/07/2019 2:46 PM CS T Body Mass Index 24.07 09/07/2019 2:46 PM RN MOBILE documented in this encounter Discharge Instructions * Discharge Instructions* Nelida Torres MD - 09/10/2019 12:10 PM RN MOBILE Images from the original note were not included. Patient Education Transurethral Prostatectomy DIRECTOR OF HOUSING AND ENERGY SERVICES: What you need to know about a [...] ask them during your visits. ?? Copyright [employer] 2019 Information is for End User's use only and may not be sold, redistributed or otherwise used for commercial purposes. All illustrations and images included in CareNotes?? are the copyrighted property of [employer]. or [employer] The above information is an physician aide only. It is not intended as medical advice for individual conditions or treatments. Talk to your doctor, nurse or pharmacist before following any medical regimen to see if it is safe and effective for you. MOBILE documented in this encounter Medications at Time [...] was persistent discomfort or difficulty with urination. MOBILE * Soraya Aguilera DO - 09/10/2019 12:37 [...] for trial of void. Soraya Aguilera DO MOBILE documented in this encounter H&P Notes * [...] prostate. Soraya Aguilera DO 09/10/2019 9:33 AM MOBILE documented in this encounter OR Notes * [...] was present for procedure. Soraya Aguilera DO MOBILE documented in this encounter Plan of Treatment Upcoming Encounters Date Type Department Care Team (Late st Contact Info) Description 11/17/2024 4:00 PM RN MOBILE Appointment [facility] Health Imaging Services - Ultrasound [address] [place] [address] Soraya Aguilera DO [address] [place] [phone] 11/19/2024 1:45 PM RN MOBILE [facility] [address] [place] [address] Soraya Aguilera, DO [address] [place] [address] 04/14/2025 10:00 AM CDT [facility] [address] [place] [address] Soraya Aguilera, DO [address] [place] [address] documented as of this encounter Procedures Procedure Name Priority Date/Time Associated Diagnosis Comments CARDIAC RHYTHM STRIP ORDER 09/14/2019 9:23 PM RN MOBILE PATHOLOGY TISSUE EXAM (STL) Routine 09/10/2019 10:43 AM RN MOBILE Diagnosis unknown MS TRANSURETHRAL ELEC-SURG PROSTATECTOM 09/10/2019 9:13 AM RN MOBILE Diagnosis unknown MS CYSTOURETHROSCOPY 09/10/2019 9:13 AM RN MOBILE Diagnosis unknown documented in this encounter Results * CARDIAC RHYTHM STRIP ORDER (09/14/2019 9:23 PM RN MOBILE) Narrative 09/14/2019 9:23 PM RN MOBILE Ordered by an unspecified provider. Scanned Document CARDIAC SERVICES ORD ERABLES * GROSS + MICRO EXAM (STL) (09/10/2019 10:43 AM RN MOBILE) Case Report Surgical Pathology Report ? Case: [id number] ? Authorizing Provider: ??Soraya Aguilera, DO ?Collected: ? 09/10/2019 10:43 AM ? Ordering Location: ? [facility] ? Received: ?09/10/2019 12:42 PM ? Pathologist: ? Shawn Rosenbaum MD ? Specimen: ?Prostate Chips, prostate chips-S/P RESUME WATER VAPER ??THERAPY ??2018 ? 09/18/2019 11:17 AM [facility] Final Diagnosis Prostate, chips, transurethral resection of prostate (A): - Benign prostatic tissue without evidence of carcinoma 09/18/2019 11:17 AM [facility] Clinical History 54 year old male with incomplete bladder emptying and prostatic hypertrophy. 09/18/2019 11:17 AM [facility] Gross Description The requisition and specimen labels are identified with the patient's name, Vernon Vidales. Received in formalin, specimen A, prostate chips , are 5 grams of soft brown-yellow tissue fragments ranging in greatest dimension from 0.5 to 1.1 cm, which are entirely submitted in cassette A1. TF/arm 09/18/2019 11:17 AM [facility] Microscopic Description Microscopic examination substantiates the final diagnosis. 09/18/2019 11:17 AM [facility] Disclaimer All histochemical and/or immunohistochemical results are interpreted with controls that demonstrate appropriate staining reactions before reporting results. Note on use of immunocytochemistry reagents: This test was developed and its performance characteristic determined by [facility], Department of Laboratory Medicine. It has not been cleared or approved by the U.S. Food and Drug Administration (FDA). The FDA has determined that such clearance or approval is not necessary. The test is used for clinical purpose. It should not be regarded as investigational or for research. This laboratory is certified to perform high complexity testing. 09/18/2019 11:17 AM [facility] Embedded Images 09/18/2019 11:17 AM [facility] Pathology/Cytolo gy SPECIMEN FROM PROSTATE OBTAINED BY TRANSURETHRAL RESECTION / Unknown 09/10/2019 10:43 AM RN MOBILE 09/10/2019 12:42 PM RN MOBILE Comment:Pre-op diagnosis: Diagnosis unknown [R69] S/P RESUME WATER VAPER THERAPY 2018 Soraya Judith Aguilera DO LAB - PATHOLOGY/CY TOLOGY ORDERABLES [facility] [address] [place] [address] documented in this encounter Visit Diagnoses Diagnosis Diagnosis unknown Other unknown and unspecified cause of morbidity or mortality documented in this encounter Administered Medications Inactive Administered Medications - up to 3 most recent administrations Medication Order MAR Action Action Date Dose Rate Site acetaminophen (TYLENOL) tablet 1,000 mg 1,000 mg, Oral, ONCE, 1 dose, On Erika 09/10/19 at 0915, Pre-op $ Given 09/10/2019 9:14 AM RN MOBILE 1,000 mg lactated ringers infusion at 20 mL/hr, Intravenous, PRE-OP CONTINUOUS, Starting on Erika 09/10/19 at 0915, Until Erika 09/10/19 at 1602, Pre-op $ New Bag/Syringe 09/10/2019 9:14 AM RN MOBILE 20 mL/hr lidocaine (XYLOCAINE MPF) 1 % injection 0.2 mL 0.2 mL, Infiltration, PRE-OP MULTIPLE, 3 doses, Starting on Erika 09/10/19 at 0905, Until Erika 09/10/19 at 1602, May be used (0.2 ml locally to anesthetize prior to insertion)., Pre-op $ Admin. by Other Provider 09/10/2019 9:13 AM RN MOBILE 0.2 mL documented in this encounter Active and Recently Administered Medications Times are shown in RN MOBILE. Scheduled Medication Order 09/08/2019 09/09/2019 09/10/2019 acetaminophen [...] Given - Prov ider: Wagner Flores III, CELL GENETICIST-DOCTOR OF AUDIOLOGY) lidocaine (XYLOCAINE MPF) 1 % injection 0.2 [...] on Erika 09/10/19 at 1100, Until Erika 11 at 1602, Maximum total of 4 doses [...]
--- OUTSIDE RECORDS SUMMARY | 2024-11-03 02:00 | XMS_ITS | Encounter Summary ---
Author Organization [facility] Address [address] [facility] [place] [address] Care Team Providers Care Backrest Assembler Name Role Phone Unavailable Primary Care Provider Unavailabl e Encounter Details Date Type Department Care Team (Late Contact Info) Description 01/13/2018 Hospital Outpatient Visit Historic [facility] [address] [place] [phone] Soraya Aguilera DO [address] [facility] 2L [place] [phone] Discharge Disposition: Home or Self Care Social History Tobacco Use Types Packs/Day Years Used Date Smoking Tobacco: Never Assessed Sex and Gender Information Value Date Recorded Sex Assigned at Male 10/18/2021 10:49 PM MEASURING MACHINE OPERATOR Gender Identity Male 10/18/2021 10:49 PM MEASURING MACHINE OPERATOR Sexual Orientation Straight 10/18/2021 10 :49 PM MEASURING MACHINE OPERATOR documented as of this encounter Plan of Treatment Upcoming Encounters Date Type Department Care Team (Late st Contact Info) Description 11/17/2024 4:00 PM MEASURING MACHINE OPERATOR Appointment [facility] Health Imaging Services - Ultrasound [address] [place] [address] Soraya Aguilera DO [address] [facility] 2L [place] [address] 11/19/2024 1:45 PM MEASURING MACHINE OPERATOR Office Visit [facility] - Urology [address] [facility] [address] [place] [address] Soraya Aguilera, [address] [facility] 2L [place] [phone] 04/14/2025 10:00 AM CDT Office Visit [facility] - Urology [address] [place] [address], [place] [address] Soraya Aguilera DO [address] [facility] 2L [place] [phone] documented as of this encounter Visit Diagnoses Not on filedocumented in this encounter
--- OUTSIDE RECORDS SUMMARY | 2024-11-03 02:00 | XMS_ITS | Encounter Summary ---
Author Organization [facility] Address [address] [facility] [place] [address] Care Team Providers Care Gasoline Attendant Name Role Phone Unavailable Primary Care Provider Unavailabl e Encounter Details Date Type Department Care Team (Late Contact Info) Description 03/16/2019 Orders Only [facility] [address] [place] [address] Soraya Aguilera DO [address] [phone] Pre-op testing Social History Tobacco Use Types Packs/Day Years Used Date Smoking Tobacco: Never Smokeless Tobacco: Never Alcohol Use Standard Drinks/Week Comments No 0 (1 standard drink = 0.6 oz pur e alcohol) Sex and Gender Information Value Date Recorded Sex Assigned at Male 10/18/2021 10:49 PM WET FINISHER WOOL Gender Identity Male 10/18/2021 10:49 PM WET FINISHER WOOL Sexual Orientation Straight 10/18/2021 10 :49 PM WET FINISHER WOOL documented as of this encounter Progress Notes * Fannie John - 03/16/2019 2:51 PM CDT C&S PRIOR TO REZU documented in this encounter Plan of Treatment Upcoming Encounters Date Type Department Care Team (Late Contact Info) Description 11/17/2024 4:00 PM WET FINISHER WOOL Appointment [facility] Health Imaging Services - Ultrasound [address] [place] [address] Soraya Aguilera, DO [address] [place] [address] 11/19/2024 1:45 PM WET FINISHER WOOL Office Visit [facility]rology [address] [place] [address] Willy, Soraya Wong, DO [address] [place] [address] 04/14/2025 10:00 AM CDT Office Visit [facility] Urology [address] [facility] [place] [address] Willy, Soraya Wong, DO [address] [place] [address] documented as of this encounter Procedures Procedure Name Priority Date/Time Associated Diagnosis Comments CULTURE URINE Routine 03/16/2019 2:52 PM CDT Pre-op testing documented in this encounter Results * CULTURE URINE (03/16/2019 2:52 PM CDT) [facility] Culture [facility] Comment: ??CULTURE, URINE, ROUTINE ?MICRO NUMBER: ?[id number] ??TEST STATUS: ? FINAL ??SPECIMEN SOURCE: ?? URINE ??SPECIMEN QUALITY: ??ADEQUATE ??RESULT: ?No Growth NO COLLECTION DATE RECEIVED. WE HAVE USED THE DATE THE SPECIMEN WAS RECEIVED BY THIS LABORATORY THE COLLECTION DATE. IF THIS IS INCORRECT, PLEASE CONTACT CLIENT SERVICES. PHONE NUMBER: [phone] Test Performed at: [facility] ??[id number] MALIA EMERY MD Urine URINE SPECIMEN OBTAINED BY CLEAN CATCH PROCEDURE / Unknown 03/16/2019 2:52 PM CDT 03/17/2019 2:39 AM CDT Soraya Aguilera DO LAB - MICROBIOLOGY ORDERABLES Performing Organization Address City/State/[facility] Co de Phone Number [facility] [address] [place] [address] documented in this encounter Visit Diagnoses Diagnosis Pre-op testing- Primary Preoperative examination, unspecified documented in this encounter
--- OUTSIDE RECORDS SUMMARY | 2024-11-03 02:00 | XMS_ITS | Encounter Summary ---
Author Organization [facility] Address [facility] [place] [address] Care Team Providers Care Certified Adaptive Physical Educator Name Role Phone Unavailable Primary Care Provider Unavailabl e Reason for Visit * Reason Comments Establish Care BP/ urinary retentio n Encounter Details Date Type Department Care Team (Late st Contact Info) Description 06/02/2019 11:00 AM CDT Office Visit [facility] [address] [place] [address] Soraya Aguilera M, DO [address] [phone] Urinary frequency (Primary Dx) Social History Tobacco Use Types Packs/Day Years Used Date Smoking Tobacco: Never Smokeless Tobacco: Never Alcohol Use Standard Drinks/Week Comments No 0 (1 standard drink = 0.6 oz pur e alcohol) Sex and Gender Information Value Date Recorded Sex Assigned at Male 10/18/2021 10:49 PM GRAVEL SCREENER Gender Identity Male 10/18/2021 10:49 PM GRAVEL SCREENER Sexual Orientation Straight 10/18/2021 10 :49 PM GRAVEL SCREENER documented as of this encounter Last Filed Vital Signs Vital Sign Reading Time Taken Comments Blood Pressure 103/68 06/02/2019 11:44 AM CDT Pulse 58 06/02/2019 11:44 AM CDT Temperature - - Respiratory Rate - - Oxygen Saturation 100% 06/02/2019 11:44 AM CDT Inhaled Oxygen Concentration - - Weight 79.4 kg (175 lb) 06/02/2019 11:44 AM CDT Height 181.6 cm (5' 11.5 ) 06/02/2019 11:44 AM C DT Body Mass Index 24.07 06/02/2019 11:44 AM CDT documented in this encounter Progress Notes * Soraya Aguilera DO - 06/09/2019 8:30 AM CDT [facility] Division of Urologic Surgery Soraya Aguilera DO Date of Visit: 06/02/2019 Patient Name: Vernon Vidales : 1965 Medical Record: [id number] Contact (home) Age: [age] year old Sex: male Referring Physician: Souleymane Benitez MD [address] [place] [address] Chief Complaint: LUTS, BPH History of Present Illness: The patient is a 54 year old male for follow up of s/p rezum [...] Ejaculation is normal. Went back on flomax. Here for follow up. Still with LUTS. AUASS: 2, 4, 5, 1, 5, 0, 1 = 18 with QOL3, mixed. Still interested in rezum. His insurance company says it is covered. No new issues. No hematuria, dysuria. Stillwith mainly frequency and weak stream. Past Medical History; No past medical history on file. Past Surgical History: Past Surgical History: Procedure Laterality Date ??? OTHER SURGERY ACL right knee ??? Vasectomy 1999 Current Medications: Current Outpatient Prescriptions Medication Sig Dispense Refill ??? MYRBETRIQ 50 MG tablet TAKE 1 TABLET BY MOUTH ONCE DAILY 30 tablet 5 ??? tamsulosin (FLOMAX) 0.4 MG capsule Take 1 capsule by mouth once daily Take 30 minutes after a meal at the same time each day. Reasons: Benign Enlargement of Prostate (Patient not taking: Reportedon 06/02/2019) 90 capsule 4 No current facility-administered medications [...] Ears/nose/mouth: Negative Lungs:Negative Heart:Negative Gastrointestinal: negative Genitourinary: persistent LUTS Musculoskeletal: Negative Nervous system: Negative Reproductive system: Negative Hematologic: Negative Lymphatic: Negative Endocrine: Negative Physical Exam: Vital Signs: BP 103/68 Pulse 58 Ht 5' 11.5 (1.816 m) Wt 175 lb (79.4 kg) SpO2 100% BMI 24.07 kg/m2 Gen: Alert and oriented x3 Head: normocephalic Lungs: Non-labored respirations Heart: RRR Abd: soft, nontender, nondistended : no CVA tenderness, no suprapubic pain MSK: normal gait and strength Skin: No rashes PVR bladder scanner:99cc Uroflow: Voiding time 100 83s Flow Time TQ 77s Time to max flow TQmax 10s Max Flow Rate Qmax 9.1 ml/s Average Flow Rate Qave 5.0 ml/s Voided Volume Vcomp 388 ml Imaging (images and reports reviewed): No new imaging Laboratory Studies: Glucose UA Date Value Ref Range Status 01/14/2018 neg Final Bilirubin UA POCT Date Value Ref Range Status 01/14/2018 neg Final Ketones UA POCT Date Value Ref Range Status 01/14/2018 neg Final Specific Aline UA Date Value Ref Range Status 01/14/2018 [...] new cultures Pathology: No new path Diagnosis: 54yo male with BPH, incomplete bladder emptying and LUTS, now s/p rezum on 07/25/2018 with persistent LUTS Recommendations: Discussed BPH options. He has enlarged left lobe still. Right lobe is retracted. Discussed option of Rezum again. He discussed with his insurance and they said it was covered. We will make sure and set him up for next rezum day. Patient's questions were answered and patient agrees with plan. Soraya Aguilera DO 06/02/2019 documented in this encounter H&P Notes * Tressa Kim - 06/02/2019 12:07 PM CDT [facility] Division of Urologic Surgery Soraya Aguilera DO Date of Visit: 06/02/2019 Patient Name: Vernon Vidales : 1965 Medical Record: [id number] Contact (home) Age: [age] year old Sex: male Referring Physician: Souleymane Benitez MD [address] [place] [address] Chief Complaint: BPH, urinary retention History of Present Illness: The patient is a 54 year old male for follow up of BPH and urinary retention. Today, he denies dysuria and hematuria. He endorses urinary retention. He had the Rezum procedure done on 07/25/18 where the right lobe of the prostate was retracted and a cystoscopy done on 11/26/18. He was scheduled for another Rezum procedure around 1 month ago, but the day of the procedure, he received a call saying his insurance did not cover the procedure. He has not been taking his Flomax since the procedure, and he would prefer the procedure over the medication. He also says that caffeine makes his symptoms worse. His AUA was 2, 4, 5, 1, 5, 0, 1 for a total of 18 today which is decreased from 19 at the last visit. He says that he is able to live with his symptoms, but he would prefer to have another procedure to reduce the left lobe as well. His last PSA was 0.9. Past Medical History; No past medical history on file. Past Surgical History: Past Surgical History: Procedure Laterality Date ??? OTHER SURGERY ACL right knee ??? Vasectomy 1999 Current Medications: Current Outpatient Prescriptions Medication Sig Dispense Refill ??? MYRBETRIQ 50 MG tablet TAKE 1 TABLET BY MOUTH ONCE DAILY 30 tablet 5 ??? tamsulosin (FLOMAX) 0.4 MG capsule Take 1 capsule by mouth once daily Take 30 minutes after a meal at the same time each day. Reasons: Benign Enlargement of Prostate (Patient not taking: Reportedon 06/02/2019) 90 capsule 4 No current facility-administered medications [...] Ears/nose/mouth: Negative Lungs:Negative Heart:Negative Gastrointestinal: Negative Genitourinary: Positive for urinary retention and slow stream; denies dysuria, hematuria, and increased frequency Musculoskeletal: Negative Nervous system: Negative Reproductive system: Negative Hematologic: Negative Lymphatic: Negative Endocrine: Negative Physical Exam: Vital Signs: BP 103/68 Pulse 58 Ht 1.816 m (5' 11.5 ) Wt 79.4 kg (175 lb) SpO2 100% BMI 24.07 kg/m2 PVR per bladder scanner: 099 ml Imaging (images and reports reviewed): No current imaging Laboratory Studies: Glucose UA Date Value Ref Range Status 01/14/2018 neg Final Bilirubin UA POCT Date Value Ref Range Status 01/14/2018 neg Final Ketones UA POCT Date Value Ref Range Status 01/14/2018 neg Final Specific Aline UA Date Value Ref Range Status 01/14/2018 [...] PM PSA 0.7 08/19/2012 03:50 PM Microbiology: N/A Pathology: Cystoscopy showed no urothelial malignancy and an enlarged prostate Diagnosis: BPH and urinary retention Recommendations: Today, we discussed the different options that are available in the future. The patient would prefer another Rezum procedure if his insurance will cover it. If the insurance does not cover it the patient may consider restarting Flomax to help alleviate symptoms while he decides if he wants to have a different procedure done. For the time being, the patient has been added to the Rezum day in June pending approval by his insurance company. 20 minutes were spent with patient. 10 were spent counseling patient. Patient's questions were answered and patient agrees with plan. Tressa Kim 06/02/2019 12:07 PM Patient seen with medical student. See my note same day. Soraya Aguilera DO documented in this encounter Procedure Notes * Alem Gilman - 06/02/2019 11:57 AM CDTAssociated Order(s): PROC BLADDER SCAN Procedure(s): ND MSR PVR U&/BLADD CAPCTY US NON Pre-Procedure Diagnose(s): Urinary frequency Bladder scan completed at this time, post void with 99ml present in bladder. * Alem Gilman - 06/02/2019 11:55 AM CDTAssociated Order(s): PROC UROFLOWMETRY Pre-Procedure Diagnose(s): Urinary frequency Voiding time 100 83s Flow Time TQ 77s Time to max flow TQmax 10s Max Flow Rate Qmax 9.1 ml/s Average Flow Rate Qave 5.0 ml/s Voided Volume Vcomp 388 ml documented in this encounter Plan of Treatment Upcoming Encounters Date Type Department Care Team (Late st Contact Info) Description 11/17/2024 4:00 PM GRAVEL SCREENER Appointment [facility] Health Imaging Services - Ultrasound [address] [place] [address] Willy, Soraya M, DO [address] [place] [phone] 11/19/2024 1:45 PM GRAVEL SCREENER Office Visit [facility] [address] [place] [address] WillyWoody emsay Judith, DO [address] [place] [phone] 04/14/2025 10:00 AM CDT Office Visit [facility] - Urology [address] [facility] [address] [facility] [address] [place] [phone] Soraya Aguilera, DO [address] [place] [address] documented as of this encounter Procedures Procedure Name Priority Date/Time Associated Diagnosis Comments ND MSR PVR U&/BLADD CAPCTY US NON Routine 06/02/2019 11:58 AM CDT Urinary frequency PROC UROFLOWMETRY Routine 06/02/2019 11: 57 AM CDT Urinary frequency documented in this encounter Results * ND MSR PVR U&/BLADD CAPCTY US NON (06/02/2019 11:58 AM CDT) Narrative Alem Gilman - 06/02/2019 11:58 AM CDT Alem Gilman ? 06/02/2019 11:58 AM Bladder scan completed at this time, post void with 99ml present in bladder. Soraya Aguilera DO PROCEDURE/MINOR MALIK RGICAL ORDERABLES * PROC UROFLOWMETRY (06/02/2019 11:57 AM CDT) Narrative Alem Gilman - 06/02/2019 11:57 AM CDT Alem Gilman ? 06/02/2019 11:57 AM Voiding time 100 83s Flow Time TQ 77s Time to max flow TQmax 10s Max Flow Rate Qmax 9.1 ml/s Average Flow Rate Qave 5.0 ml/s Voided Volume Vcomp 388 ml Soraya Aguilera DO PROCEDURE/MINOR MALIK RGICAL ORDERABLES documented in this encounter Visit Diagnoses Diagnosis Urinary frequency- Primary documented in this encounter
--- OUTSIDE RECORDS SUMMARY | 2024-11-03 02:00 | XMS_ITS | Encounter Summary ---
Author Organization [facility] Address [address] [facility] [place] [address] Care Team Providers Care Beef Grader Name Role Phone Unavailable Primary Care Provider Unavailabl e Encounter Details Date Type Department Care Team (Late Contact Info) Description 01/20/2018 Anesthesia Historic Visit [facility] [address] [place] [address] Social History Tobacco Use Types Packs/Day Years Used Date Smoking Tobacco: Never Smokeless Tobacco: Never Alcohol Use Standard Drinks/Week Comments No 0 (1 standard drink = 0.6 oz pur e alcohol) Sex and Gender Information Value Date Recorded Sex Assigned at Male 10/18/2021 10:49 PM INTERNAL AUDIT MANAGER Gender Identity Male 10/18/2021 10:49 PM INTERNAL AUDIT MANAGER Sexual Orientation Straight 10/18/2021 10 :49 PM INTERNAL AUDIT MANAGER documented as of this encounter Plan of Treatment Upcoming Encounters Date Type Department Care Team (Late Contact Info) Description 11/17/2024 4:00 PM INTERNAL AUDIT MANAGER Appointment [facility] Health Imaging Services - Ultrasound [address] [place] [address] Soraya Aguilera, DO [address] [facility] 2[address] DIV OF [place]OLOGIC [place] [address] 11/19/2024 1:45 PM INTERNAL AUDIT MANAGER Office Visit [facility] [address] [facility] [address] [place] [address] Soraya Aguilera DO [address] [facility] 2L DIV OF UROLOGIC [place] [address] 04/14/2025 10:00 AM CDT Office Visit [facility] [address] [facility], [place] [address] Soraya Aguilera, DO [facility] OF UROLOGIC [place] [address] documented as of this encounter Visit Diagnoses Not on filedocumented in this encounter
--- OUTSIDE RECORDS SUMMARY | 2024-11-03 02:00 | XMS_ITS | Encounter Summary ---
Author Organization [facility] Address [address] [facility] [place] [address] Care Team Providers Care Seed Corn Production Manager Name Role Phone Unavailable Primary Care Provider Unavailabl e Encounter Details Date Type Department Care Team (Latest Contact Info) Description 04/13/2015 Hospital Outpatient Visit Historic [facility] [address] [place] [phone] Jas Mcrae MD [address] [place] [address] Urology, 3rd [place] [address] Discharge Disposition: Home or Self Care Social History Tobacco Use Types Packs/Day Years Used Date Smoking Tobacco: Never Assessed Sex and Gender Information Value Date Recorded Sex Assigned at Male 10/18/2021 10:49 PM BREAD STACKER Gender Identity Male 10/18/2021 10:49 PM BREAD STACKER Sexual Orientation Straight 10/18/2021 10 :49 PM BREAD STACKER documented as of this encounter Plan of Treatment Upcoming Encounters Date Type Department Care Team (Late st Contact Info) Description 11/17/2024 4:00 PM BREAD STACKER Appointment [facility] Health Imaging Services - Ultrasound [address] [place] [address] Soraya Aguilera DO [address] [place] [phone] 11/19/2024 1:45 PM BREAD STACKER Office Visit [facility] - Urology [address] [facility] [address] [place] [address] Soraya Aguilera DO [address] [facility] [address] DIV [place] [address] 04/14/2025 10:00 AM CDT Office Visit [facility] - Urology [address] [facility], [place] [address] Soraya Aguilera, DO [address] [facility] [address] DIV [place] [phone] documented as of this encounter Procedures Procedure Name Priority Date/Time Associated Diagnosis Comments PSA SERIAL Routine 04/13/2015 12:33 PM CDT documented in this encounter Results * PSA SERIAL (04/13/2015 12:33 PM CDT) PSA Total 0.8 0.0 - 4.0 ng/mL [facility] Blood specimen (specimen) BLOOD SPECIMEN / Unknown 04/13/2015 12:33 PM CDT 04/13/2015 12:41 PM CDT Jas Mcrae MD LAB - CHEMISTRY ORD ERABLES [address] [phone] documented in this encounter Visit Diagnoses Diagnosis Hypertrophy of prostate without urinary obstruction and other lower urinary tract symptoms (LUTS) documented in this encounter
--- OUTSIDE RECORDS SUMMARY | 2024-11-03 02:00 | XMS_ITS | Encounter Summary ---
Author Organization [facility] Address [address] [facility] [place] [address] Care Team Providers Care Toxics Program Officer Name Role Phone Unavailable Primary Care Provider Unavailabl e Encounter Details Date Type Department Care Team (Latest Contact Info) Description 03/10/2014 Hospital Outpatient Visit Historic [facility] [address] [place] [phone] Jas Mcrae MD [address] [place] [address] Urology, 3rd [place] [address] Discharge Disposition: Home or Self Care Social History Tobacco Use Types Packs/Day Years Used Date Smoking Tobacco: Never Assessed Sex and Gender Information Value Date Recorded Sex Assigned at Male 10/18/2021 10:49 PM SOCIAL ECONOMIST Gender Identity Male 10/18/2021 10:49 PM SOCIAL ECONOMIST Sexual Orientation Straight 10/18/2021 10 :49 PM SOCIAL ECONOMIST documented as of this encounter Plan of Treatment Upcoming Encounters Date Type Department Care Team (Late st Contact Info) Description 11/17/2024 4:00 PM SOCIAL ECONOMIST Appointment [facility] Health Imaging Services - Ultrasound [address] [place] [address] Soraya Aguilera DO [address] [place] [address] 11/19/2024 1:45 PM SOCIAL ECONOMIST Office Visit [facility] - Urology [address] [facility] [address] [place] [address] Soraya Aguilera DO [address] [facility] 2[address] DIV [place] [address] 04/14/2025 10:00 AM CDT Office Visit [facility] - Urology [address] [facility], [place] [address] Soraya Aguilera, DO [address] [facility] [address] DIV [place] [address] documented as of this encounter Procedures Procedure Name Priority Date/Time Associated Diagnosis Comments PROSTATE SPECIFIC ANTIGEN SCREEN Timed 03/10/2014 12:42 PM CDT documented in this encounter Results * PROSTATE SPECIFIC ANTIGEN SCREEN (03/10/2014 12:42 PM CDT) PSA Total 0.9 0.0 - 4.0 ng/mL [facility] Blood specimen (specimen) BLOOD SPECIMEN / Unknown 03/10/2014 12:42 PM CDT 03/10/2014 1:28 PM CDT Jas Mcrae MD LAB - CHEMISTRY ORD ERABLES [facility] [address] [place] [address] documented in this encounter Visit Diagnoses Diagnosis Special screening for malignant neoplasm of prostate documented in this encounter
--- OUTSIDE RECORDS SUMMARY | 2024-11-03 02:00 | XMS_ITS | Encounter Summary ---
Author Organization [facility] Address [address] [facility] [place] [address] Care Team Providers Care Water Filter Cleaner Name Role Phone Unavailable Primary Care Provider Unavailabl e Encounter Details Date Type Department Care Team (Late Contact Info) Description 07/16/2018 Orders Only [facility] [address] [place] [address] Soraya Aguilera, DO [address] [place] [phone] Pre-op testing Social History Tobacco Use Types Packs/Day Years Used Date Smoking Tobacco: Never Smokeless Tobacco: Never Alcohol Use Standard Drinks/Week Comments No 0 (1 standard drink = 0.6 oz pur e alcohol) Sex and Gender Information Value Date Recorded Sex Assigned at Male 10/18/2021 10:49 PM FABRICATION MIG WELDER Gender Identity Male 10/18/2021 10:49 PM FABRICATION MIG WELDER Sexual Orientation Straight 10/18/2021 10 :49 PM FABRICATION MIG WELDER documented as of this encounter Plan of Treatment Upcoming Encounters Date Type Department Care Team (Late Contact Info) Description 11/17/2024 4:00 PM FABRICATION MIG WELDER Appointment [facility] Health Imaging Services - Ultrasound [address] [place] [address] Soraya Aguilera, DO [address] [place] [address] 11/19/2024 1:45 PM FABRICATION MIG WELDER Office Visit [facility]rology [address] [place] [address] [address] [place] [address] Soraya Aguilera, DO [address] [place] [address] 04/14/2025 10:00 AM CDT Office Visit [facility] - Urology [address] [facility], [place] [address] Soraya Aguilera, DO [address] [facility] [address] [place] [address] documented as of this encounter Procedures Procedure Name Priority Date/Time Associated Diagnosis Comments CULTURE URINE Routine 07/16/2018 4:20 PM CDT Pre-op testing documented in this encounter Results * CULTURE URINE (07/16/2018 4:20 PM CDT) Urine Culture Routine Final report [facility] INSURANCE BILL Result 1 No growth [facility] INSURANCE BILL Urine URINE SPECIMEN OBTAINED BY CLEAN CATCH PROCEDURE / Unknown 07/16/2018 4:20 PM CDT 07/16/2018 Narrative Resulting Agency Comment [facility] [address] [facility] ??[facility] [phone] Soraya Aguilera DO LAB - MICROBIOLOGY ORDERABLES Performing Organization Address City/State/[facility] Co de Phone Number [facility] INSURANCE BILL [address] [place] [address] documented in this encounter Visit Diagnoses Diagnosis Pre-op testing- Primary Preoperative examination, unspecified documented in this encounter
--- OUTSIDE RECORDS SUMMARY | 2024-11-03 02:03 | XMS_ITS | Encounter Summary ---
Author Organization [facility] Healthcare Address [address] [place] [address] Care Team Providers Care Product Design Manager Name Role Phone Karen Penn Primary Care Pr ovider Reason for Referral * Consultation (Routine) - Pending Review Specialty Diagnoses / Procedures Referred By Contac t Referred To Contact Physical Therapy Diagnoses Acute pain of left shoulder Juan Recinos PA [address] [place] [address] [place] [address] Phone: tel: fax: [facility] [place] [address] [place] [address] Phone: tel: fax: Referral ID Status Reason Start Date Expiration Date Visits Requested Visits Authorized [id number] Pending Review Evaluate and Treat 09/16/2025 12 12 Question Answer PTRFR PT Evaluate and Treat Therapy options discussed with patient? Yes Location provided for therapy services is: Patient requested/Patient preferred Please select the performing region: External Order [171] To loc/pos [facility] [place] [[id number]] # of visits: 12 Comments Please call patient to schedule 2 x 6 weeks Encounter Details Date Type Department Care Team (Late st Contact Info) Description 08/17/2024 Orders Only [facility] Orthopedic and Sports Medicine [address] [place] [phone] Juan Recinos PA [address] [place] [address] [address] [place] [address] Acute pain of left shoulder (Primary Dx) Social History Tobacco Use Types Packs/Day Years Used Date Smoking Tobacco: Never Assessed Sex and Gender Information Value Date Recorded Sex Assigned at Not on file Legal Sex Male 10:06 PM CORRECTIONS COUNSELOR Gender Identity Not on file Sexual Orientation Not on file documented as of this encounter Plan of Treatment Scheduled Referrals Name Type Priority Associated Diagnoses Order Schedule Ambulatory referral order to Physical Therapy - Outpatient Referral Routine Acute pain of left shoulder Expected: 08/31/2024 (Approximate), Expires: 08/17/2025 documented as of this encounter Visit Diagnoses Diagnosis Acute pain of left shoulder- Primary documented in this encounter Care Teams Product Design Manager Relationship Specialty Start Date End Date Karen Penn PA [address] [place] [address] PCP - General Physician Manufacturing Team Member 08/07/24 documented as of this encounter
--- OUTSIDE RECORDS SUMMARY | 2024-11-03 02:03 | XMS_ITS | Encounter Summary ---
Author Organization [facility] Healthcare Address [address] [place] [id number] Care Team Providers Care Assistant Professor Of Philosophy Name Role Phone Karen Penn Primary Care Pr ovider Reason for Visit * Reason Comments Follow-up Encounter Details Date Type Department Care Team (Late st Contact Info) Description 10/12/2024 9:15 AM DRIER AND PULVERIZER TENDER Office Visit [facility] Medical Group Orthopedic and Sports Medicine [address] [place] [phone] Juan Recinos PA [address] [place] [address] DR [address]ONES [address] [place] [phone] Rotator cuff insufficiency, left (Primary Dx); Subdeltoid bursitis of left shoulder joint; Shoulder impingement Social History Tobacco Use Types Packs/Day Years Used Date Smoking Tobacco: Never Assessed Sex and Gender Information Value Date Recorded Sex Assigned at Not on file Legal Sex Male 10:06 PM DRIER AND PULVERIZER TENDER Gender Identity Not on file Sexual Orientation Not on file documented as of this encounter Last Filed Vital Signs Vital Sign Reading Time Taken Comments Blood Pressure 107/70 10/12/2024 9:17 AM DRIER AND PULVERIZER TENDER Pulse 63 10/12/2024 9:17 AM DRIER AND PULVERIZER TENDER Temperature - - Respiratory Rate - - Oxygen Saturation - - Inhaled Oxygen Concentration - - Weight 73.5 kg (162 lb) 10/12/2024 9:17 AM DRIER AND PULVERIZER TENDER Height 185.4 cm (6' 1 ) 10/12/2024 9:17 AM DRIER AND PULVERIZER TENDER Body Mass Index 21.37 10/12/2024 9:17 AM DRIER AND PULVERIZER TENDER documented in this encounter Progress Notes * Juan Recinos PA - 10/12/2024 9:15 AM CST Images from the original note were not included. FOLLOW UP VISIT Subjective CHIEF COMPLAINT He had concerns including Follow-up of the Left Shoulder. HISTORY OF PRESENT ILLNESS Patient follows up today for his left shoulder. He has completed a 6 weeks' course of physical therapy, he states that it made his pain worse. He also had a corticosteroid injection which was not very beneficial for him. His pain is currently 7/10. He is using Tylenol and ibuprofen [id number] pain control. Pain Assessment Pain Assessment: 0-10 Pain Score: 7 MEDICATIONS He currently has no medications in their medication list. REVIEW OF SYSTEMS Review of Systems Objective PHYSICAL EXAM BP 107/70 Pulse 63 Ht 185.4 cm (6' 1 ) Wt 73.5 kg (162 lb) BMI 21.37 kg/m?? C Spine C spine exam is normal inspection, palpation, and range of motion. Left shoulder Inspection The patient has normal inspection of the left shoulder. Palpation Tenderness is present. The patient has tenderness in the lateral shoulder and trapezius area(s). Range of motion The patient has normal range of motion of the left shoulder. The patient has pain with range of motion of the left shoulder. Strength The patient has 5/5 strength throughout with exceptions as noted below. Abduction: painful External rotation: painful, 4/5 and 3/5 Supraspinatus: 4/5, painful and 3/5 Deltoid: painful and 5/5 Neurovascular The patient has normal vascular on the left side of their body. The patient has normal sensation on the left side of their body. Tests Belly press: negative Cross am: negative Drop arm: negative Hawkin's test: postive Mojgan's: mojgan's Neer's: positive Speed's: negative REVIEW OF X-RAYS/STUDIES/LABS Assessment/Plan Vernon was seen today for follow-up. Diagnoses and all orders for this visit: Rotator cuff tendonitis, left Subdeltoid bursitis of left shoulder joint Shoulder impingement Procedures PLAN We resubmitted his MRI claim and waiting on the response for this. His exam has actually progressedsince his last visit with me. He will move forward with the MRI as soon as we have the authorization and he will be scheduled to follow up with Dr. Mohamud in the near future. All questions were addressed today and the patient was instructed to call the office with any questions or concerns. There may be grammatical errors in this note due to use of voice recognition software. MAURO Anderson R AND PULVERIZER TENDER documented in this encounter Plan of Treatment Not on file documented as of this encounter Visit Diagnoses Diagnosis Rotator cuff insufficiency, left- Primary Subdeltoid bursitis of left shoulder joint Shoulder impingement Other affections of shoulder region, not elsewhere classified documented in this encounter Care Teams Assistant Professor Of Philosophy Relationship Specialty Start Date End Date Karen Penn PA [address] [place] [address] PCP - General Physician Residential Aide 08/07/24 documented as of this encounter
--- OUTSIDE RECORDS SUMMARY | 2024-11-03 02:03 | XMS_ITS | Clinical Summary ---
Author Organization [facility] Virtual Care Address [address] [place] [phone] Phone Care Team Providers Care Tank Stave Assembler Name Role Phone Karen Penn Primary Care Pr ovider Allergies No known active allergies Medications No known medications Active Problems No known active problems Encounters Date Type Department Care Team Description 10/14/2024 Orders Only [facility] Medical [facility] Orthopedic and Sports Medicine [address] [place] [phone] Juan Recinos PA Rotator cuff insufficiency, left (Primary Dx); Subdeltoid bursitis of left shoulder joint; Shoulder impingement; Rotator cuff tendonitis, left 10/12/2024 9:15 AM CLIENT SERVICES ASSISTANT Office Visit [facility] Orthopedic and Sports Medicine [address] [place] [phone] Juan Recinos PA Rotator cuff insufficiency, left (Primary Dx); Subdeltoid bursitis of left shoulder joint; Shoulder impingement 10/07/2024 Telephone [facility] Orthopedic and Sports Medicine [address] [place] [phone] Juan Recinos PA 09/14/2024 Orders Only [facility] Orthopedics and Sports Medicine [address] [place] [address] [place] [phone] Juan Recinos PA Shoulder impingement (Primary Dx); Rotator cuff tendonitis, left; Acute pain of left shoulder 09/14/2024 Orders Only [facility] Orthopedics and Sports Medicine [address] [place] [address] [address] [place] [phone] Juan Recinos PA 08/17/2024 1:05 PM CDT Ancillary Procedure [facility] Imaging at [address] [phone] Left shoulder pain, unspecified chronicity 08/17/2024 1:00 PM CDT Office Visit [facility] Orthopedic and Sports Medicine [address] [place] [phone] Juan Recinos PA Shoulder impingement (Primary Dx); Rotator cuff tendonitis, left; Subdeltoid bursitis of left shoulder joint 08/17/2024 Orders Only [facility] Orthopedic and Sports Medicine [address] [place] [phone] Juan Recinos PA Acute pain of left shoulder (Primary Dx) from Last 3 Months Social History Tobacco Use Types Packs/Day Years Used Date Smoking Tobacco: Never Assessed Sex and Gender Information Value Date Recorded Sex Assigned at Not on file Legal Sex Male 10:06 PM CLIENT SERVICES ASSISTANT Gender Identity Not on file Sexual Orientation Not on file Obstetrics History Last Filed Vital Signs Vital Sign Reading Time Taken Comments Blood Pressure 107/70 10/12/2024 9:17 AM CLIENT SERVICES ASSISTANT Pulse 63 10/12/2024 9:17 AM CLIENT SERVICES ASSISTANT Temperature - - Respiratory Rate - - Oxygen Saturation - - Inhaled Oxygen Concentration - - Weight 73.5 kg (162 lb) 10/12/2024 9:17 AM CLIENT SERVICES ASSISTANT Height 185.4 cm (6' 1 ) 10/12/2024 9:17 AM CLIENT SERVICES ASSISTANT Body Mass Index 21.37 10/12/2024 9:17 AM CLIENT SERVICES ASSISTANT Plan of Treatment Health Maintenance Due Date Last Done Comments Colon Cancer Screening-Colonoscopy 1965 Depression Screening 1965 Hepatitis C Screening 1965 Prostate Cancer Screening-PSA 1963 Hepatitis B Screening 1981 Regular Well Visit/Exam 18-64 1981 Zoster Vaccine (2 of 2) 05/29/2018 04/03/2018 Covid-19 Vaccine ( season) 2024 08/18/2023, 09/02/2022, 02/19/2022, Additional history exists Influenza Vaccine (#1) 2024 , 09/02/2022, 08/25/2021, Additional history exists DTaP/Tdap/Td Vaccine (2 - Td or Tdap) 01/15/2027 01/15/2017, 04/11/2005 Pneumococcal vaccine <65 Aged Out No longer eligible based on patient's age to complete this topic Procedures Procedure Name Priority Date/Time Associated Diagnosis Comments XR SHOULDER LEFT 2 OR MORE VIEWS Schedule Routine, Read Routine (OP Routine) 08/17/2024 1:09 PM CDT Left shoulder pain, unspecified chronicity [place] ARTHROCENTESIS ASPIR&/INJ MAJOR JT/BURSA W/O US Routine 08/17/2024 1:00 PM CDT Shoulder impingement Rotator cuff tendonitis, left Subdeltoid bursitis of left shoulder joint from Last 3 Months Results * XR Shoulder Left 2 or More Views (08/17/2024 1:09 PM CDT) Anatomical Region Laterality Modality Upper Extremities, Shoulder Left Digi obdulio Radiography Narrative 08/17/2024 1:15 PM CDT Four views of the left shoulder negative for fracture dislocation or osseous lesion. ??Well-maintained glenohumeral joint space is noted. ??Mild to moderate changes are noted in the acromioclavicular joint with inferior spurring of the acromion and a type 2 acromion noted. us Juan WADE IMG XR PROCEDURES Final Res ult * [place] ARTHROCENTESIS ASPIR&/INJ MAJOR JT/BURSA W/O US (08/17/2024 1:00 PM CDT) Narrative Leonard Mohamud MD - 08/17/2024 1:00 PM CDT Juan Recinos PA ? 08/17/2024 ??1:42 PM Large Joint (Hip, Knee, Shoulder) Injection: L subacromial bursa Performed by: Juan Recinos PA Authorized by: Juan Recinos PA ?? Large Joint Injection/Aspiration: ??Consent Given by: ??Patient ??Site marked: the procedure site was marked ?Timeout: prior to procedure the correct patient, procedure, and site was verified ?Verbal consent obtained: Yes ?? Supporting Documentation: ??Indications: ??Pain Procedure Details: ??Location: ??Shoulder ??Site: ??L subacromial bursa ??Prep: patient was prepped and draped in usual sterile fashion ?Needle Size: ??22 G ??Approach: ??Posterior ??Ultrasound guided: No ?Fluroscopic guidance: No ?Medications: ??80 mg methylPREDNISolone acetate 80 mg/mL; 3 mL lidocaine 20 mg/mL (2 %) ??Patient tolerance: ??Patient tolerated the procedure well with no immediate complications us Juan WADE IN CLINIC/BEDSIDE ORDERABLE S Final Result from Last 3 Months Insurance VIRIDIANA PREFERRED Care Teams Tank Stave Assembler Relationship Specialty Start Date End Date Karen Penn PA [address] [place] [address] PCP - General Physician Manufacturing Electrician 08/07/24
--- OUTSIDE RECORDS SUMMARY | 2024-11-03 02:03 | XMS_ITS | Encounter Summary ---
Author Organization [facility] Address [address] [place] [address] Care Team Providers Care Twisting Press Operator Name Role Phone Karen Penn Primary Care Pr ovider Reason for Referral * Consultation (Routine) - Pending Review Specialty Diagnoses / Procedures Referred By Contac t Referred To Contact Physical Therapy Diagnoses Shoulder impingement Rotator cuff tendonitis, left Acute pain of left shoulder Juan Recinos PA [address] [place] [address] [place] [address] Phone: tel: fax: [facility] [place] [address] [place] [address] Phone: tel: fax: Referral ID Status Reason Start Date Expiration Date Visits Requested Visits Authorized [id number] Pending Review Evaluate and Treat 4 10/14/2025 12 12 Question Answer PTRFR PT Evaluate and Treat Reason for Visit Continued therapy for Acute pain of left shoulder Please select the performing region: External Order [171] To loc/pos [facility] [place] [[id number]] # of visits: 12 Therapy options discussed with patient? Yes Location provided for therapy services is: Patient requested/Patient preferred Comments 2x per week x 6 weeks This is for continued PT, we can not get an MRI precerted without 6 weeks of PT. PLANT OPERATOR Encounter Details Date Type Department Care Team (Late st Contact Info) Description 09/14/2024 Orders Only [facility] Medical Group Orthopedics and Sports Medicine [address] [facility] [address] [place] [phone] Juan Recinos PA [address] [facility] [address] [place] [address] Shoulder impingement (Primary Dx); Rotator cuff tendonitis, left; Acute pain of left shoulder Social History Tobacco Use Types Packs/Day Years Used Date Smoking Tobacco: Never Assessed Sex and Gender Information Value Date Recorded Sex Assigned at Not on file Legal Sex Male 10:06 PM ALUM PLANT OPERATOR Gender Identity Not on file Sexual Orientation Not on file documented as of this encounter Plan of Treatment Scheduled Referrals Name Type Priority Associated Diagnoses Order Schedule Ambulatory referral order to Physical Therapy - Outpatient Referral Routine Shoulder impingement Rotator cuff tendonitis, left Acute pain of left shoulder Expected: 09/14/2024 (Approximate), Expires: 09/14/2025 documented as of this encounter Visit Diagnoses Diagnosis Shoulder impingement- Primary Other affections of shoulder region, not elsewhere classified Rotator cuff tendonitis, left Acute pain of left shoulder documented in this encounter Care Teams Twisting Press Operator Relationship Specialty Start Date End Date Karen Penn PA [address] [place] [address] PCP - General Physician Mobile Heavy Equipment Operator 08/07/24 documented as of this encounter
--- OUTSIDE RECORDS SUMMARY | 2024-11-03 02:03 | XMS_ITS | Encounter Summary ---
Author Organization [facility] Address [address] [place] [id number] Care Team Providers Care Band Instrument Maker Name Role Phone Karen Penn Primary Care Pr ovider Reason for Referral * Procedure (Routine) - Authorized Specialty Diagnoses / Procedures Referred By Contac t Referred To Contact Diagnoses Shoulder impingement Rotator cuff tendonitis, left Subdeltoid bursitis of left shoulder joint Procedures Large Joint (Hip, Knee, Shoulder) Injection: L subacromial bursa Juan Recinos PA [address] [place] [address] Phone: tel: fax: [facility] Referral ID Status Reason Start Date Expiration Date V isits Requested Visits Authorized [id number] Authorized 08/17/2024 09/16/2025 1 1 * Diagnostic Imaging (Routine) - Closed Specialty Diagnoses / Procedures Referred By Contac t Referred To Contact Diagnoses Left shoulder pain, unspecified chronicity Procedures XR Shoulder Left 2 or More Views Juan Recinos PA [address] [place] [address] [address] [place] [address] Phone: tel: fax: [facility] Referral ID Status Reason Start Date Expiration Date Visits Re quested Visits Authorized [id number] Closed 08/17/2024 09/16/2025 1 1 Reason for Visit * Reason Comments Pain Encounter Details Date Type Department Care Team (Late st Contact Info) Description 08/17/2024 1:00 PM CDT Office Visit [facility] Orthopedic and Sports Medicine [address] [place] [phone] Juan Recinos PA [address] [place] [address] [address] [place] [address] Shoulder impingement (Primary Dx); Rotator cuff tendonitis, left; Subdeltoid bursitis of left shoulder joint Social History Tobacco Use Types Packs/Day Years Used Date Smoking Tobacco: Never Assessed Sex and Gender Information Value Date Recorded Sex Assigned at Not on file Legal Sex Male 10:06 PM DRILL OPERATOR PNEUMATIC Gender Identity Not on file Sexual Orientation Not on file documented as of this encounter Last Filed Vital Signs Vital Sign Reading Time Taken Comments Blood Pressure 134/80 08/17/2024 1:14 PM CDT Pulse 75 08/17/2024 1:14 PM CDT Temperature - - Respiratory Rate - - Oxygen Saturation - - Inhaled Oxygen Concentration - - Weight 74.4 kg (164 lb) 08/17/2024 1:14 PM CDT Height 182.9 cm (6') 08/17/2024 1:14 PM CDT Body Mass Index 22.24 08/17/2024 1:14 PM CDT documented in this encounter Patient Instructions * Attachments The following attachments cannot be sent through Care Everywhere. * Steroid Joint Injection (Controller Mechanic) (Korean) documented in this encounter Progress Notes * Juan Recinos PA - 08/17/2024 1:00 PM CDTAssociated Order(s): Large Joint (Hip, Knee, Shoulder) Injection: L subacromial bursa Post-Procedure Diagnose(s): Shoulder impingement; Rotator cuff tendonitis, left; Subdeltoid bursitis of left shoulder joint Images from the original note were not included. NEW PATIENT VISIT Subjective CHIEF COMPLAINT He had concerns including Pain of the Left Shoulder. HISTORY OF PRESENT ILLNESS Patient is a 59-year-old male here today for evaluation of left shoulder pain. Patient's pain started 2 months ago while playing pickleball. Patient describes his pain as sharp, his shoulder has become so painful that he has stopped playing pickleball. He uses Tylenol and ibuprofen as needed for pain control. Patient also notes that his pain has affected his sleep. Pain Assessment Pain Assessment: 0-10 Pain Score: 8 PAST MEDCIAL HISTORY He has no past medical history on file. PAST SURGICAL HISTORY He has no past surgical history on file. MEDICATIONS He currently has no medications in their medication list. ALLERGIES He has no known allergies. SOCIAL HISTORY He No alcohol history on file. FAMILY HISTORY His family history is not on file. REVIEW OF SYSTEMS All relevant ros addressed in the HPI Objective PHYSICAL EXAM BP 134/80 Pulse 75 Ht 182.9 cm (6') Wt 74.4 kg (164 lb) BMI 22.24 kg/m?? C Spine C spine exam is normal inspection, palpation, and range of motion. Right shoulder The patient has normal inspection, palpation, range of motion, strength, and stability of the rightshoulder. Left shoulder Inspection The patient has normal [...] Abduction: painful External rotation: painful, 4/5 and 5/5 Supraspinatus: 4/5, 5/5 and painful Deltoid: painful and 5/5 Neurovascular The patient has normal vascular on the left side of their body. The patient has normal sensation on the left side of their body. Tests Belly press: negative Cross am: negative Drop arm: negative Hawkin's test: postive Mojgan's: mojgan's Neer's: positive Speed's: negative REVIEW OF X-RAYS/STUDIES/LABS XR Shoulder Left 2 or More Views Four views of the left shoulder negative for fracture dislocation or osseous lesion. Well-maintained glenohumeral joint space is noted. Mild to moderate changes are noted in the acromioclavicular joint with inferior spurring of the acromion and a type 2 acromion noted. Assessment/Plan Vernon was seen today for pain. Diagnoses and all orders for this visit: Shoulder impingement - XR Shoulder Left 2 or More Views; Future Rotator cuff tendonitis, left Subdeltoid bursitis of left shoulder joint Large Joint (Hip, Knee, Shoulder) Injection: L subacromial bursa Performed by: Juan Recinos PA Authorized by: Juan Recinos PA Large Joint Injection/Aspiration: Consent Given by: Patient Site marked: the procedure site was marked Timeout: prior to procedure the correct patient, procedure, and site was verified Verbal consent obtained: Yes Supporting Documentation: Indications: Pain Procedure Details: Location: Shoulder Site: L subacromial bursa Prep: patient was prepped and draped in usual sterile fashion Needle Size: 22 G Approach: Posterior Ultrasound guided: No Fluroscopic guidance: No Medications: 80 mg methylPREDNISolone acetate 80 mg/mL; 3 mL lidocaine 20 mg/mL (2 %) Patient tolerance: Patient tolerated the procedure well with no immediate complications PLAN I reviewed x-ray and exam findings today with the patient. We discussed treatment options for his shoulder, including oral medications, injection therapy, physical therapy. Patient states that his pain at this time has interfered with his quality of life and would like to proceed with injection.We discussed the risks and benefits of corticosteroid injection today including but not limited to: Pain, bleeding, infection, risk to neurovascular structures, incomplete resolution of symptoms, elevation of blood glucose levels, and the potential need for additional procedures in the future. Injection was administered today, patient tolerated the injection well. Post-injection instructions were provided to the patient today. We will also refer the patient to physical therapy, we will plan for him to follow up in approximately 8 weeks for re-evaluation. All questions were addressed today and the patient was instructed to call the office with any questions or concerns. There may be grammatical errors in this note due to use of voice recognition software. MAURO Anderson Cosigned by Leonard Mohamud MD at 08/24/2024 11:22 AM CDT documented in this encounter Plan of Treatment Not on file documented as of this encounter Procedures Procedure Name Priority Date/Time Associated Diagnosis Comments SD ARTHROCENTESIS ASPIR&/INJ MAJOR JT/BURSA W/O US Routine 08/17/2024 1:00 PM CDT Shoulder impingement Rotator cuff tendonitis, left Subdeltoid bursitis of left shoulder joint documented in this encounter Results * XR Shoulder Left 2 or [...] IMG XR PROCEDURES Final Res ult * SD ARTHROCENTESIS ASPIR&/INJ MAJOR JT/BURSA W/O US (08/17/2024 [...] [facility]/BEDSIDE ORDERABLE S Final Result documented in this encounter Visit Diagnoses Diagnosis Shoulder impingement- Primary Other affections of shoulder region, not elsewhere classified Rotator cuff tendonitis, left Subdeltoid bursitis of left shoulder joint Left shoulder pain, unspecified chronicity documented in this encounter Administered Medications Inactive Administered Medications - up to 3 most recent administrations Medication Order MAR Action Action Date Dose Rate Site lidocaine (XYLOCAINE) 20 mg/mL (2 %) injection 3 mL 3 mL, One-Time Injection, Starting on Sat08/17/24 at 1300, For 1 dose, Indications: Administration of Local AnesthesiaIndications:Adminis tration of Local Anesthesia Given 08/17/2024 1:00 PM CDT 3 mL Left Shoulder methylPREDNISolone acetate (DEPO-medrol) injection 80 mg 80 mg, intra-articular, One-Time Injection, Starting on Sat08/17/24 at 1300, For 1 doseIndications:Shoulder impingement,Rotator cuff tendonitis, left,Subdeltoid bursitis of left shoulder joint Given 08/17/2024 1:00 PM CDT 80 mg Left Shoulder documented in this encounter Care Teams Band Instrument Maker Relationship Specialty Start Date End Date Karen Penn PA [address] [place] [address] PCP - General Physician Cable Former 08/07/24 documented as of this encounter
--- OUTSIDE RECORDS SUMMARY | 2024-11-03 02:03 | XMS_ITS | Data Portability ---
Author Organization [facility], Main Office Address [address] [place] [address] Assessment No assessment recorded. Plan of Treatment Reminders Order Date Submit Date Provider Last Modified By Organization Details Last Modified Time Details Appointments None recorded. Lab PSA, serum or plasma 2022 023 [email or web address] Not available 3 11:07:59 lipid panel, serum 2022 023 [email or web address] Not available 3 11:07:43 HbA1c (hemoglobin A1c), blood 2022 023 [email or web address] Not available 3 11:07:52 CBC w/ auto diff 2022 023 [email or web address] Not available 3 11:07:28 CMP, serum or plasma 2022 023 [email or web address] Not available 3 11:07:36 TSH + free T4, serum 2022 023 ANTHONY Not available 3 10:52:50 Referral None recorded. Procedures colonoscopy screening (PROC) 2022 023 [email or web address] 4 Keron Ryan MD, [address] [facility] [address], [facility] [address], [address], 3 11:32:26 Surgeries None recorded. Imaging None recorded. Medication Orders None recorded. Patient TargetsNo targets recorded. Patient InstructionsNo instructions recorded. Reason for Referral None Reported. Results Created Date Observation Date Name Description Value Unit Range Abnormal Flag Note LastModifiedBy Organization Detail LastModifiedTime 09/13/20 22 09/14/2022 PSA, TOTAL PSA, total 0.71 NG/mL < or = 4.00 normal The total PSA value from this assay syste m is stand ardiz ed again st the WHO stand doni. The test resul t will be appro ximat carlo 20% lower when jimmy red to the equim olar- stand ardiz ed total PSA (Marquez man Coult er). Jimmy rison of seria l PSA resul ts shoul d be inter prete d with this fact in mind. This test was perfo rmed using the IntegriChaine ns chemi lumin escen t metho d. Value s obtai amercio from diffe rent assay metho ds canno t be used inter stringer eably . PSA level s, regar dless of value , shoul d not be inter prete d as absol clark's point evide nce of the prese nce or absen ce of disea se. Not Available [address], [address], 09/14/2022 08:52:17 09/13/20 22 09/14/2022 URINA LYSIS REFLE X color yellow yellow normal Not Available [address], [address], 09/14/2022 08:52:16 09/13/20 22 09/14/2022 URINA LYSIS REFLE X appearance clear clear normal Not Available [address], [address], 09/14/2022 08:52:16 09/13/20 22 09/14/2022 URINA LYSIS REFLE X specific gravity 1.012 1.001- 1.035 normal Not Available [facility] [address], [address], 09/14/2022 08:52:16 09/13/20 22 09/14/2022 URINA LYSIS REFLE X pH 6.0 5.0-8. 0 normal Not Available [facility] [address], [address], 09/14/2022 08:52:16 09/13/20 22 09/14/2022 URINA LYSIS REFLE X glucose negati ve negati ve normal Not Available [address] [address] [place], [address], 09/14/2022 08:52:16 09/13/20 22 09/14/2022 URINA LYSIS REFLE X bilirubin negati ve negati ve normal Not Available [address] [address] [place], [address], 09/14/2022 08:52:16 09/13/20 22 09/14/2022 URINA LYSIS REFLE X ketones negati ve negati ve normal Not Available [address] [address] [place], [address], 09/14/2022 08:52:16 09/13/20 22 09/14/2022 URINA LYSIS REFLE X occult blood negati ve negati ve normal Not Available [address] [place], [address], 09/14/2022 08:52:16 09/13/20 22 09/14/2022 URINA LYSIS REFLE X protein negati ve negati ve normal Not Available [address] [address] [place], [address], 09/14/2022 08:52:16 09/13/20 22 09/14/2022 URINA LYSIS REFLE X nitrite negati ve negati ve normal Not Available [address] [address] [place], [address], 09/14/2022 08:52:16 09/13/20 22 09/14/2022 URINA LYSIS REFLE X leukocyte esterase negati ve negati ve normal Not Available [address] [address] [place], [address], 09/14/2022 08:52:16 09/13/20 22 09/14/2022 CBC (INCL UDES DIFF/ PLT) absolute neutrophils 2200 cells /uL 1500-7 800 normal Not Available [address], [address], 09/14/2022 08:52:16 09/13/20 22 09/14/2022 CBC (INCL UDES DIFF/ PLT) absolute lymphocytes 1279 cells /uL 850-39 00 normal Not Available [address], [address], 09/14/2022 08:52:16 09/13/20 22 09/14/2022 CBC (INCL UDES DIFF/ PLT) absolute monocytes 351 cells /uL 200-95 0 normal Not Available [address], [address], 09/14/2022 08:52:16 09/13/20 22 09/14/2022 CBC (INCL UDES DIFF/ PLT) absolute eosinophils 51 cells /uL 15-500 normal Not Available [address], [address], 09/14/2022 08:52:16 09/13/20 22 09/14/2022 CBC (INCL UDES DIFF/ PLT) absolute basophils 20 cells /uL 0-200 normal Not Available [address], [address], 09/14/2022 08:52:16 09/13/20 22 09/14/2022 CBC (INCL UDES DIFF/ PLT) neutrophils 56.4 % normal Not Available [address], [address], 09/14/2022 08:52:16 09/13/20 22 09/14/2022 CBC (INCL UDES DIFF/ PLT) lymphocytes 32.8 % normal Not Available [address], [address], 09/14/2022 08:52:16 09/13/20 22 09/14/2022 CBC (INCL UDES DIFF/ PLT) monocytes 9.0 % normal Not Available [facility] [address] [address], [place], [address], 09/14/2022 08:52:16 09/13/20 22 09/14/2022 CBC (INCL UDES DIFF/ PLT) eosinophils 1.3 % normal Not Available [address], [address], 09/14/2022 08:52:16 09/13/20 22 09/14/2022 CBC (INCL UDES DIFF/ PLT) basophils 0.5 % normal Not Available [facility] [address], [address], 09/14/2022 08:52:16 09/13/20 22 09/14/2022 CBC (INCL UDES DIFF/ PLT) white blood cell count 3.9 thous and/u L 3.8-10 .8 normal Not Available [address], [address], 09/14/2022 08:52:16 09/13/20 22 09/14/2022 CBC (INCL UDES DIFF/ PLT) red blood cell count 4.85 kelsi on/uL 4.20-5 .80 normal Not Available [address], [address], 09/14/2022 08:52:16 09/13/20 22 09/14/2022 CBC (INCL UDES DIFF/ PLT) hemoglobin 14.4 g/dL 13.2-1 7.1 normal Not Available [address], [address], 09/14/2022 08:52:16 09/13/20 22 09/14/2022 CBC (INCL UDES DIFF/ PLT) hematocrit 42.7 % 38.5-5 0.0 normal Not Available [address], [address], 09/14/2022 08:52:16 09/13/20 22 09/14/2022 CBC (INCL UDES DIFF/ PLT) MCV 88.0 fL 80.0-1 00.0 normal Not Available [address], [address], 09/14/2022 08:52:16 09/13/20 22 09/14/2022 CBC (INCL UDES DIFF/ PLT) MCH 29.7 pg 27.0-3 3.0 normal Not Available [address], [address], 09/14/2022 08:52:16 09/13/20 22 09/14/2022 CBC (INCL UDES DIFF/ PLT) MCHC 33.7 g/dL 32.0-3 6.0 normal Not Available [address], [address], 09/14/2022 08:52:16 09/13/20 22 09/14/2022 CBC (INCL UDES DIFF/ PLT) RDW 12.7 % 11.0-1 5.0 normal Not Available [address], [address], 09/14/2022 08:52:16 09/13/20 22 09/14/2022 CBC (INCL UDES DIFF/ PLT) platelet count 245 thous and/u L 140-40 0 normal Not Available [address], [address], 09/14/2022 08:52:16 09/13/20 22 09/14/2022 CBC (INCL UDES DIFF/ PLT) MPV 10.7 fL 7.5-12 .5 normal Not Available [address], [address], 09/14/2022 08:52:16 09/13/20 22 09/14/2022 HEMOG LOBIN A1C hemoglobin A1C 5.4 %_of_ total _HGB <5.7 normal For the purpo se of karla croft for the prese nce of diabe nikhil: <5.7% Consi stent with the absen ce of diabe nikhil 5.7-6 .4% Consi stent with incre ased risk for diabe nikhil (pred iabet es) > or =6.5% Consi stent with diabe nikhil This assay resul t is consi stent with a decre ased risk of diabe nikhil. Curre ntly, no conse nsus exist s maria de jesus kemp use of hemog lobin A1c for diagn osis of diabe nikhil in child roshan. Accor ding to Ameri can Diabe nikhil Assoc iatio n (ADA) guide lines , hemog lobin A1c <7.0% repre sents optim al contr ol in non-p regna nt diabe tic patie nts. Diffe rent metri cs may apply to speci fic patie nt popul ation s. Stand ards of Medic al Care in Diabe nikhil(A DA). Not Available [facility] [address] [address] [place], [address], 09/14/2022 08:52:16 09/13/20 22 09/14/2022 COMPR EHENS ANNIE METAB OLIC PANEL glucose 106 mg/dL 65-99 high Fasti ng refer ence inter andrew For someo ne witho ut known diabe nikhil, a gluco se value betwe en 100 and 125 mg/dL is consi stent with predi abete s and shoul d be confi rmed with a follo w-up test. Not Available [facility] [address] [address] [place], [address], 09/14/2022 08:52:15 09/13/20 22 09/14/2022 COMPR EHENS ANNIE METAB OLIC PANEL urea nitrogen (BUN) 13 mg/dL 7-25 normal Not Available [facility] [address] [place], [address], 09/14/2022 08:52:15 09/13/20 22 09/14/2022 COMPR EHENS ANNIE METAB OLIC PANEL creatinine 0.81 mg/dL 0.70-1 .30 normal Not Available [address], [address], 09/14/2022 08:52:15 09/13/20 22 09/14/2022 COMPR EHENS ANNIE METAB OLIC PANEL eGFR 102 mL/mi n/1.7 3m2 > or = 60 normal The eGFR is based on the CKD-E PI 2020 equat ion. To calcu late the new eGFR from a previ ous Creat inine or Cysta tin C resul t, go to https ://corbin w.francesca shepherdy.o ventura/juno booth s/ kdoqi /gfr% 5Fcal culat or Not Available [address] [place], [address], 09/14/2022 08:52:15 09/13/20 22 09/14/2022 COMPR EHENS ANNIE METAB OLIC PANEL BUN/creatini ne ratio not applic able (calc ) 6-22 Not Available [address] [address] [place], [address], 09/14/2022 08:52:15 09/13/20 22 09/14/2022 COMPR EHENS ANNIE METAB OLIC PANEL sodium 139 mmol/ L 135-14 6 normal Not Available [address], [address], 09/14/2022 08:52:15 09/13/20 22 09/14/2022 COMPR EHENS ANNIE METAB OLIC PANEL potassium 4.5 mmol/ L 3.5-5. 3 normal Not Available [facility] [address] [address] [place], [address], 09/14/2022 08:52:15 09/13/20 22 09/14/2022 COMPR EHENS ANNIE METAB OLIC PANEL chloride 103 mmol/ L 98-110 normal Not Available [facility] [address] [address] [place], [address], 09/14/2022 08:52:15 09/13/20 22 09/14/2022 COMPR EHENS ANNIE METAB OLIC PANEL carbon dioxide 31 mmol/ L 20-32 normal Not Available [address], [address], 09/14/2022 08:52:15 09/13/20 22 09/14/2022 COMPR EHENS ANNIE METAB OLIC PANEL calcium 9.4 mg/dL 8.6-10 .3 normal Not Available [address], [address], 09/14/2022 08:52:15 09/13/20 22 09/14/2022 COMPR EHENS ANNIE METAB OLIC PANEL protein, total 6.5 g/dL 6.1-8. 1 normal Not Available [address], [address], 09/14/2022 08:52:15 09/13/20 22 09/14/2022 COMPR EHENS ANNIE METAB OLIC PANEL albumin 4.5 g/dL 3.6-5. 1 normal Not Available [address], [address], 09/14/2022 08:52:15 09/13/20 22 09/14/2022 COMPR EHENS ANNIE METAB OLIC PANEL globulin 2.0 g/dL_ (calc ) 1.9-3. 7 normal Not Available [address], [address], 09/14/2022 08:52:15 09/13/20 22 09/14/2022 COMPR EHENS ANNIE METAB OLIC PANEL albumin/glob ulin ratio 2.3 (calc ) 1.0-2. 5 normal Not Available [address], [address], 09/14/2022 08:52:15 09/13/20 22 09/14/2022 COMPR EHENS ANNIE METAB OLIC PANEL bilirubin, total 0.6 mg/dL 0.2-1. 2 normal Not Available [address], [address], 09/14/2022 08:52:15 09/13/20 22 09/14/2022 COMPR EHENS ANNIE METAB OLIC PANEL alkaline phosphatase 64 U/L 35-144 normal Not Available [address], [address], 09/14/2022 08:52:15 09/13/20 22 09/14/2022 COMPR EHENS ANNIE METAB OLIC PANEL AST 14 U/L 10-35 normal Not Available [address], [address], 09/14/2022 08:52:15 09/13/20 22 09/14/2022 COMPR EHENS ANNIE METAB OLIC PANEL ALT 21 U/L 9-46 normal Not Available [address], [address], 09/14/2022 08:52:15 09/13/20 22 09/14/2022 LIPID PANEL WITH RATIO S cholesterol, total 214 mg/dL <200 high Not Available [address], [address], 09/14/2022 08:52:15 09/13/20 22 09/14/2022 LIPID PANEL WITH RATIO S HDL cholesterol 51 mg/dL > or = 40 normal Not Available [address], [address], 09/14/2022 08:52:15 09/13/20 22 09/14/2022 LIPID PANEL WITH RATIO S triglyceride s 64 mg/dL <150 normal Not Available [address], [address], 09/14/2022 08:52:15 09/13/20 22 09/14/2022 LIPID PANEL WITH RATIO S LDL-choleste rol 147 mg/dL _(fantasma c) high Refer ence range : <100 [place] able range <100 mg/dL for prima ry preve ntion ; <70 mg/dL for patie nts with CHD or diabe tic patie nts with > or = 2 CHD risk facto rs. LDL-C is now calcu lated using the Halima n-Hop kins scarletu sol n, which is a valid ated novel lakeshao adi mccaini viridiana indra r accur acy than the Fried adela equat ion in the estim ation of LDL-C . Halima n SS et al. EMILY. 2013; 310(1 9): 2061- 2068 (http ://ed ucati on.[employer]. com/f aq/FA Q164) Not Available [facility] [address] [place], [address], 09/14/2022 08:52:15 09/13/2009/14/2022 LIPID PANEL WITH RATIO S chol/HDLC ratio 4.2 (calc ) <5.0 normal Not Available [facility] [address] [place], [address], 09/14/2022 08:52:15 09/13/20 22 09/14/2022 LIPID PANEL WITH RATIO S LDL/HDL ratio 2.9 (calc ) Below [place] ge Risk: <2.28 [place] ge Risk: 2.29- 4.90 Moder ate Risk: 4.91- 7.12 High Risk: >7.13 Not Available [facility] [address] [place], [address], 09/14/2022 08:52:15 09/13/20 22 09/14/2022 LIPID PANEL WITH RATIO S non HDL cholesterol 163 mg/dL _(fantasma c) <130 high For patie nts with diabe nikhil plus 1 major ASCVD risk facto r, treat ing to a non-H DL-C goal of <100 mg/dL (LDL- C of <70 mg/dL ) is consi dered a thera peuti c optio n. Not Available [address] [address] [place], [address], 09/14/2022 08:52:15 09/13/20 22 09/14/2022 TSH+F REE T4 TSH 2.42 mIU/L 0.40-4 .50 normal Not Available [address], [address], 09/14/2022 08:52:14 09/13/20 22 09/14/2022 TSH+F REE T4 T4, free 1.2 NG/dL 0.8-1. 8 normal Not Available [address], [address], 09/14/2022 08:52:14 09/17/20 23 09/18/2023 TSH+F REE T4 TSH 2.83 mIU/L 0.40-4 .50 normal Not Available [address] [place], [address], 09/18/2023 08:25:50 09/17/20 23 09/18/2023 TSH+F REE T4 T4, free 1.1 NG/dL 0.8-1. 8 normal Not Available [address], [address], 09/18/2023 08:25:50 09/17/20 23 09/18/2023 LIPID PANEL , STAND DONI cholesterol, total 205 mg/dL <200 high Not Available [address] [place], [address], 09/18/2023 08:25:51 09/17/20 23 09/18/2023 LIPID PANEL , STAND DONI HDL cholesterol 52 mg/dL > or = 40 normal Not Available [address] [place], [address], 09/18/2023 08:25:51 09/17/20 23 09/18/2023 LIPID PANEL , STAND DONI triglyceride s 76 mg/dL <150 normal Not Available [facility] [address] [place], [address], 09/18/2023 08:25:51 09/17/20 23 09/18/2023 LIPID PANEL , STAND DONI LDL-choleste rol 136 mg/dL _(fantasma c) high Refer ence range : <100 [place] able range <100 mg/dL for prima ry preve ntion ; <70 mg/dL for patie nts with CHD or diabe tic patie nts with > or = 2 CHD risk facto rs. LDL-C is now calcu lated using the Halima n-Hop kins scarletu sol n, which is a valid ated novel metho d adáni viridiana indra r accur acy than the Fried adela equat ion in the estim ation of LDL-C . Halima sen SS et al. EMILY. 2013; 310(1 9): 2061- 2068 (http ://ed ucati on.[employer]. com/f aq/FA Q164) Not Available [facility] [address] [place], [address], 09/18/2023 08:25:51 09/17/20 23 09/18/2023 LIPID PANEL , STAND DONI chol/HDLC ratio 3.9 (calc ) <5.0 normal Not Available [facility] [address] [place], [address], 09/18/2023 08:25:51 09/17/20 23 09/18/2023 LIPID PANEL , STAND DONI non HDL cholesterol 153 mg/dL _(fantasma c) <130 high For patie nts with diabe nikhil plus 1 major ASCVD risk facto r, treat ing to a non-H DL-C goal of <100 mg/dL (LDL- C of <70 mg/dL ) is consi dered a thera peuti c optio n. Not Available [facility] [address] [place], [address], 09/18/2023 08:25:51 09/17/20 23 09/18/2023 COMPR EHENS ANNIE METAB OLIC PANEL glucose 103 mg/dL 65-99 high Fasti ng refer ence inter andrew For someo ne witho ut known diabe nikhil, a gluco se value betwe en 100 and 125 mg/dL is consi stent with predi abete s and shoul d be confi rmed with a follo w-up test. Not Available [address], [address], 09/18/2023 08:25:51 09/17/20 23 09/18/2023 COMPR EHENS ANNIE METAB OLIC PANEL urea nitrogen (BUN) 10 mg/dL 7-25 normal Not Available [address], [address], 09/18/2023 08:25:51 09/17/20 23 09/18/2023 COMPR EHENS ANNIE METAB OLIC PANEL creatinine 0.81 mg/dL 0.70-1 .35 normal Not Available [facility] [address], [address], 09/18/2023 08:25:51 09/17/20 23 09/18/2023 COMPR EHENS ANNIE METAB OLIC PANEL eGFR 101 mL/mi n/1.7 3m2 > or = 60 normal Not Available [address], [address], 09/18/2023 08:25:51 09/17/2009/18/2023 COMPR EHENS ANNIE METAB OLIC PANEL BUN/creatini ne ratio SEE NOTE: (calc ) 6-22 Not Repor luke: BUN and Creat inine are withi n refer ence range . Not Available [facility] [address], [address], 09/18/2023 08:25:51 09/17/20 23 09/18/2023 COMPR EHENS ANNIE METAB OLIC PANEL sodium 140 mmol/ L 135-14 6 normal Not Available [address] [place], [address], 09/18/2023 08:25:51 09/17/20 23 09/18/2023 COMPR EHENS ANNIE METAB OLIC PANEL potassium 4.0 mmol/ L 3.5-5. 3 normal Not Available [address], [address], 09/18/2023 08:25:51 09/17/20 23 09/18/2023 COMPR EHENS ANNIE METAB OLIC PANEL chloride 104 mmol/ L 98-110 normal Not Available [address], [address], 09/18/2023 08:25:51 09/17/20 23 09/18/2023 COMPR EHENS ANNIE METAB OLIC PANEL carbon dioxide 30 mmol/ L 20-32 normal Not Available [address], [address], 09/18/2023 08:25:51 09/17/20 23 09/18/2023 COMPR EHENS ANNIE METAB OLIC PANEL calcium 8.6 mg/dL 8.6-10 .3 normal Not Available [address], [address], 09/18/2023 08:25:51 09/17/20 23 09/18/2023 COMPR EHENS ANNIE METAB OLIC PANEL protein, total 6.3 g/dL 6.1-8. 1 normal Not Available [address], [address], 09/18/2023 08:25:51 09/17/20 23 09/18/2023 COMPR EHENS ANNIE METAB OLIC PANEL albumin 4.3 g/dL 3.6-5. 1 normal Not Available [address], [address], 09/18/2023 08:25:51 09/17/20 23 09/18/2023 COMPR EHENS ANNIE METAB OLIC PANEL globulin 2.0 g/dL_ (calc ) 1.9-3. 7 normal Not Available [address], [address], 09/18/2023 08:25:51 09/17/20 23 09/18/2023 COMPR EHENS ANNIE METAB OLIC PANEL albumin/glob ulin ratio 2.2 (calc ) 1.0-2. 5 normal Not Available [address], [address], 09/18/2023 08:25:51 09/17/20 23 09/18/2023 COMPR EHENS ANNIE METAB OLIC PANEL bilirubin, total 0.6 mg/dL 0.2-1. 2 normal Not Available [address], [address], 09/18/2023 08:25:51 09/17/20 23 09/18/2023 COMPR EHENS ANNIE METAB OLIC PANEL alkaline phosphatase 69 U/L 35-144 normal Not Available [address], [address], 09/18/2023 08:25:51 09/17/20 23 09/18/2023 COMPR EHENS ANNIE METAB OLIC PANEL AST 14 U/L 10-35 normal Not Available [address], [address], 09/18/2023 08:25:51 09/17/20 23 09/18/2023 COMPR EHENS ANNIE METAB OLIC PANEL ALT 15 U/L 9-46 normal Not Available [address], [address], 09/18/2023 08:25:51 09/17/20 23 09/18/2023 HEMOG LOBIN A1C hemoglobin A1C 5.4 %_of_ total _HGB <5.7 normal For the purpo se of karla croft for the prese nce of diabe nikhil: <5.7% Consi stent with the absen ce of diabe nikhil 5.7-6 .4% Consi stent with incre ased risk for diabe nikhil (pred iabet es) > or =6.5% Consi stent with diabe nikhil This assay resul t is consi stent with a decre ased risk of diabe nikhil. Curre ntly, no conse nsus exist s maria de jesus kemp use of hemog lobin A1c for diagn osis of diabe nikhil in child roshan. Accor ding to Ameri can Diabe nikhil Assoc iatio n (ADA) guide lines , hemog lobin A1c <7.0% repre sents optim al contr ol in non-p regna nt diabe tic patie nts. Diffe rent metri cs may apply to speci fic patie nt popul ation s. Stand ards of Medic al Care in Diabe nikhil(A DA). Not Available [facility] [address] [address] [place], [address], 09/18/2023 08:25:51 09/17/2009/18/2023 CBC (INCL UDES DIFF/ PLT) white blood cell count 4.6 thous and/u L 3.8-10 .8 normal Not Available [facility] [address] [address] [place], [address], 09/18/2023 08:25:52 09/17/2009/18/2023 CBC (INCL UDES DIFF/ PLT) red blood cell count 4.65 kelsi on/uL 4.20-5 .80 normal Not Available [facility] [address] [address] [place], [address], 09/18/2023 08:25:52 09/17/20 23 09/18/2023 CBC (INCL UDES DIFF/ PLT) hemoglobin 14.1 g/dL 13.2-1 7.1 normal Not Available [facility] [address] [address] [place], [address], 09/18/2023 08:25:52 09/17/20 23 09/18/2023 CBC (INCL UDES DIFF/ PLT) hematocrit 41.8 % 38.5-5 0.0 normal Not Available [address], [address], 09/18/2023 08:25:52 09/17/20 23 09/18/2023 CBC (INCL UDES DIFF/ PLT) MCV 89.9 fL 80.0-1 00.0 normal Not Available [address], [address], 09/18/2023 08:25:52 09/17/2009/18/2023 CBC (INCL UDES DIFF/ PLT) MCH 30.3 pg 27.0-3 3.0 normal Not Available [address], [address], 09/18/2023 08:25:52 09/17/20 23 09/18/2023 CBC (INCL UDES DIFF/ PLT) MCHC 33.7 g/dL 32.0-3 6.0 normal Not Available [address], [address], 09/18/2023 08:25:52 09/17/20 23 09/18/2023 CBC (INCL UDES DIFF/ PLT) RDW 12.4 % 11.0-1 5.0 normal Not Available [address], [address], 09/18/2023 08:25:52 09/17/20 23 09/18/2023 CBC (INCL UDES DIFF/ PLT) platelet count 210 thous and/u L 140-40 0 normal Not Available [address], [address], 09/18/2023 08:25:52 09/17/20 23 09/18/2023 CBC (INCL UDES DIFF/ PLT) MPV 10.7 fL 7.5-12 .5 normal Not Available [address], [address], 09/18/2023 08:25:52 09/17/20 23 09/18/2023 CBC (INCL UDES DIFF/ PLT) absolute neutrophils 2447 cells /uL 1500-7 800 normal Not Available [address], [address], 09/18/2023 08:25:52 09/17/20 23 09/18/2023 CBC (INCL UDES DIFF/ PLT) absolute lymphocytes 1596 cells /uL 850-39 00 normal Not Available [address], [address], 09/18/2023 08:25:52 09/17/20 23 09/18/2023 CBC (INCL UDES DIFF/ PLT) absolute monocytes 437 cells /uL 200-95 0 normal Not Available [address], [address], 09/18/2023 08:25:52 09/17/20 23 09/18/2023 CBC (INCL UDES DIFF/ PLT) absolute eosinophils 110 cells /uL 15-500 normal Not Available [address], [address], 09/18/2023 08:25:52 09/17/20 23 09/18/2023 CBC (INCL UDES DIFF/ PLT) absolute basophils 9 cells /uL 0-200 normal Not Available [address], [address], 09/18/2023 08:25:52 09/17/20 23 09/18/2023 CBC (INCL UDES DIFF/ PLT) neutrophils 53.2 % normal Not Available [address], [address], 09/18/2023 08:25:52 09/17/20 23 09/18/2023 CBC (INCL UDES DIFF/ PLT) lymphocytes 34.7 % normal Not Available [address] [place], [address], 09/18/2023 08:25:52 09/17/20 23 09/18/2023 CBC (INCL UDES DIFF/ PLT) monocytes 9.5 % normal Not Available [address] [place], [address], 09/18/2023 08:25:52 09/17/20 23 09/18/2023 CBC (INCL UDES DIFF/ PLT) eosinophils 2.4 % normal Not Available [employer] [address], [address], 09/18/2023 08:25:52 09/17/20 23 09/18/2023 CBC (INCL UDES DIFF/ PLT) basophils 0.2 % normal Not Available [address], [address], 09/18/2023 08:25:52 09/17/2009/18/2023 PSA, TOTAL PSA, total 0.69 NG/mL < or = 4.00 normal The total PSA value from this assay syste m is stand ardiz ed again st the WHO stand doni. The test resul t will be appro ximat carlo 20% lower when jimmy red to the equim olar- stand ardiz ed total PSA ([place] man [facility]). Jimmy rison of seria l PSA resul ts shoul d be inter prete d with this fact in mind. This test was perfo rmed using the Sieme ns chemi lumin escen t metho d. Value s obtai americo from diffe rent assay metho ds canno t be used inter stringer eably . PSA level s, regar dless of value , shoul d not be inter prete d as absol [place]ark[place] point evide nce of the prese nce or absen ce of disea se. Not Available [facility] [address], [address], 09/18/2023 08:25:52 Result Notes None recorded. Problems Name Problem SNOMED Code Status Onset Date Resolution Date Notes Provider Name and Address Organization Details Recorded Time Onychomycosis of toenails 199578600 Active 2021 Not Available [facility] 15:59:05 Disorder of bursa of shoulder region 95187990 Active Not Available [facility] 15:59:05 COVID-19 [id number] Active 2022 MAURO Marsh [address] [facility], [facility] [address], [place], [address] , [facility] 11:34:36 Problem Notes None recorded. Procedures Surgical History Date Name Laterality Status Provider Name and Address Organization Details Recorded Time 11/04/19 22 Cataract Surgery completed Not Available [facility] 01/02/2023 15:58:16 11/04/19 19 transurethral prostatectomy completed Not Available [facility] 01/02/2023 15:58:16 11/04/19 17 colonoscopy completed FRANCISCO Santa [facility] 09/12/2023 11:33:34 11/04/19 16 reconstruction of anterior cruciate ligament of knee joint completed Not Available [facility] 01/02/2023 15:58:16 11/04/19 15 repair of meniscus completed Not Available [facility] 01/02/2023 15:58:16 Imaging Results None recorded. Procedure Notes None recorded. Medical Equipment None Reported. Allergies No known drug allergies Medications Name Sig Start Date Stop Date Status Note LastModified by Organization Details LastModified Time ofloxacin 0.3 % eye drops INSTILL ONE DROP INTO THE SURGICAL EYE THREE TIMES DAILY. TO START TWO DAYS BEFORE SURGERY AND CONTINUE FOR ONE WEEK AFTER 09/11 completed Not Available Not Available Not Available prednisone 5 mg tablet TAKE 2 TABLETS BY MOUTH ONCE DAILY ON DAYS 1-4, THEN TAKE 1 TABLET DAILY ON DAYS 5-7 IN THE MORNING 09/11 completed Not Available Not Available Not Available ketorolac 0.5 % eye drops INSTILL ONE DROP INTO THE SURGICAL EYE THREE TIMES DAILY. TO START TWO DAYS BEFORE SURGERY AND CONTINUE FOR TWO WEEKS AFTER 09/11 completed Not Available Not Available Not Available terbinafine HCl 250 mg tablet TAKE 1 TABLET BY MOUTH ONCE DAILY FOR 42 DAYS 09/12 completed Not Available Not Available Not Available prednisolon e acetate 1 % eye drops,suspe nsion INSTILL ONE DROP INTO THE SURGICAL EYE THREE TIMES DAILY. TO START AFTER SURGERY AND CONTINUE FOR THREE WEEKS 09/11 completed Not Available Not Available Not Available tamsulosin 0.4 mg capsule 09/12 completed Not Available Not Available Not Available amoxicillin 875 mg-potassiu m clavulanate 125 mg tablet TAKE 1 TABLET BY MOUTH TWICE DAILY 09/11 completed Not Available Not Available Not Available Flulaval Quad 9704-9893 60 mcg (15 mcg x 4)/0.5 mL IM suspension 09/11 completed Not Available Not Available Not Available Jublia 10 % topical solution with applicator APPLY TO AFFECTED TOENAIL(S ) BY TOPICAL ROUTE ONCE DAILY 09/12 completed Not Available Not Available Not Available Paxlovid 300 mg (150 mg x 2)-100 mg tablets in a dose pack TAKE 3 TABLETS TOGETHER (TWO 150 MG NIRMATREL VIR TABLETS AND ONE 100 MG RITONAVIR TABLET) BY MOUTH TWICE DAILY FOR 5 DAYS. active Not Available Not Available No t Available Vitals Date Recorded Body mass index (BMI) Body height Oxygen saturation Oxygen saturation in Arterial blood by Pulse oximetry Heart rate Body temperature Body weight Systolic blood pressure Diastolic blood pressure Provider Name and Address Organization Details Last Updated DateTime 2 21.5 kg/m2 180.34 cm 97 % 97 % 85 /min 97.6 [degF] 28799.2 2 g 110 mm[Hg] 70 mm[Hg] Not Available [facility] 3 15:58:52 Date Recorded Body height Body temperature Body mass index (BMI) Body weight Respiratory rate Oxygen saturation Oxygen saturation in Arterial blood by Pulse oximetry Heart rate Systolic blood pressure Diastolic blood pressure Provider Name and Address Organization Details Last Updated DateTime 3 180.34 cm 97.7 [degF] 24.1 kg/m2 09859.4 8 g 16 /min 98 % 98 % 67 /min 122 mm[Hg] 80 mm[Hg] FRANCISCO [place] [employer] 10:26:51 Social History Question Answer Notes LastModified by Organizat ion Details LastModified Time Tobacco Smoking Status Never Smoker Not Available [facility] 01/02/2023 15:58:14 Do You Have An Advance Directive? No MIGRATION.84162 [id number] Information not available 01/02/2023 What Is Your Level Of Alcohol Consumption? None Sober Since 2008 MIGRATION.[id number] [id number] Information not available 01/02/2023 What Is Your Level Of Caffeine Consumption? Occasional MIGRATION.23790 70620 Information not available 01/02/2023 In The 14 Days Before Symptom Onset, Have You Had Close Contact With A Laboratory-confir med COVID-19 While That Case Was Ill? No Information not available 09/11/2023 In The 14 Days Before Symptom Onset, Have You Had Close Contact With A Person Who Is Under Investigation For COVID-19 While That Person Was Ill? No MIGRATION.91525 07414 Information not available 01/02/2023 Are You Currently Employed? Yes Information not available 09/11/2023 What Type Of Diet Are You Following? 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 No MIGRATION.41159 39436 Information not available 01/02/2023 Are There Any Guns Present In Your Home? No MIGRATION.77651 25579 Information not available 01/02/2023 Do You Use Insect Repellent Routinely? Yes MIGRATION.97196 23155 Information not available 01/02/2023 Do You Have A Medical Power Of Lead Quality Technician? No MIGRATION.23529 52187 Information not available 01/02/2023 Do You Have Any Pets? No MIGRATION.15563 02007 Information not available 01/02/2023 What Is Your Relationship Status? MIGRATION.15375 86869 Information not available 01/02/2023 Do You Use Your Seat Belt Or Car Seat Routinely? Yes [email or web address] Information not available 09/11/2023 Are You Passively Exposed To Smoke? No MIGRATION.59676 67875 Information not available 01/02/2023 Are There Any Smokers In Your House? No MIGRATION.94593 13187 Information not available 01/02/2023 Do You Feel Stressed (tense, Restless, Nervous, Or Anxious, Or Unable To Sleep At Night)? [id number] MIGRATION.23282 67100 Information not available 01/02/2023 Do You Use Any Illicit Or Recreational Drugs? No MIGRATION.17496 77265 Information not available 01/02/2023 Do You Use Sunscreen Routinely? Yes MIGRATION.71069 52507 Information not available 01/02/2023 Have You Recently Traveled Abroad? No MIGRATION.95934 91911 Information not available 01/02/2023 Do You Have Any Dietary Restrictions? No MIGRATION.97886 70002 Information not available 01/02/2023 Do You Or Have You Ever Used Any Other Forms Of Tobacco Or Nicotine? No MIGRATION.30511 46788 Information not available 01/02/2023 Sex: Unknown Functional Status Question Answer Note LastModified by Organizat ion Details LastModified Time What is your exercise level? Moderate [id number] Information not available 01/02/2023 Mental Status None recorded. Family History Relationship Description Onset Age of this Age Resolved Age Notes LastModified by Organization Details LastModified Time Father No current problems or disability [email or web address] Not available 06/2023 14:25:53 Mother No current problems or disability [email or web address] Not available 06/2023 14:25:53 Medical History Condition Response DIVERTICULITIS Y ADDICTION CONCERNS Y Past Encounters Encounter ID Performer Location Encounter Start Date Encounter Closed Date Diagnosis/Indication Diagnosis SNOMED-CT Code Diagnosis ICD10 Code [id number] [facility] [place] [address] [place] [address] 09/12/2022 00:00:00 10/03/2022 21:12:08 [id number] MAURO Marsh [facility] Internal [facility] [place] [address] [place] [address] 09/12/2023 10:22:21 09/12/2023 11:00:24 Adult health examination 748850601 Z00.00 Cholesterol screening 27 4223728 Z13.220 Diabetes m ellitus screening 783518157 Z13.1 Screening for malignant neoplasm of prostate 785360353 Z12.5 Screening for malignant neoplasm of colon 565829301 Z12.11 Health Concerns Section Related Observation LastModified by Organization Detai ls LastModified Time None Recorded Concern Status LastModified by Organization Details LastModified Time None Recorded Advance Directives Directive N: Payers Encounter Date Sequence Insurance Name Policy Number Policy Dan Covered Member ID Dan Member ID Guarantor Name 09/12/2023 1 [facility]: (PPO) [id number] Earle Vidales [id number] Earle Vidales Notes Date Note Type Note Provider Name and Address Organization Details Recorded Time 09/12/2023 text/html Generic HPI TemplateReported bypatient.Notes:Pt is here for his wellness. No chronic prob/meds. Wellness MAURO Marsh [address] [facility], [facility] [address], [place], [address], [facility] 10/02/2023 23:33:23
--- OUTSIDE RECORDS SUMMARY | 2024-11-03 02:03 | XMS_ITS | Encounter Summary ---
Author Organization [facility] Healthcare Address [address] [place] [address] Care Team Providers Care Supervisor Tan Room Name Role Phone Karen Penn Primary Care Pr ovider Reason for Visit * Diagnostic Imaging (Routine) - Closed Specialty Diagnoses / Procedures Referred By Contac t Referred To Contact Diagnoses Left shoulder pain, unspecified chronicity Procedures XR Shoulder Left 2 or More Views Juan Recinos PA [address] [place] [address] DR JONES [address] [place] [address] Phone: tel: fax: [facility] Medical Group Referral ID Status Reason Start Date Expiration Date Visits Re quested Visits Authorized [id number] Closed 08/17/2024 09/16/2025 1 1 Encounter Details Date Type Department Care Team (Latest Contact Info) Description 08/17/2024 1:05 PM CDT Ancillary Procedure [facility] Medical Group Imaging at [address] [address] Left shoulder pain, unspecified chronicity Social History Tobacco Use Types Packs/Day Years Used Date Smoking Tobacco: Never Assessed Sex and Gender Information Value Date Recorded Sex Assigned at Not on file 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 Juan WADE IMVenessa XR PROCEDURES Final Res ult documented in this encounter Visit Diagnoses Diagnosis Left shoulder pain, unspecified chronicity documented in this encounter Care Teams Supervisor Tan Room Relationship Specialty Start Date End Date Karen Penn PA [address] [place] [address] PCP - General Physician Mortgage Closer 08/07/24 documented as of this encounter
--- OUTSIDE RECORDS SUMMARY | 2024-11-03 02:03 | XMS_ITS | Encounter Summary ---
Author Organization [facility] Healthcare Address [address] [place] [address] Care Team Providers Care Pest Control Worker Helper Name Role Phone Karen Penn Primary Care Pr ovider Encounter Details Date Type Department Care Team (Late st Contact Info) Description 09/14/2024 Orders Only [facility] Medical Group Orthopedics and Sports Medicine [address] [facility] [address] [place] [address] Juan Recinos PA [address] [place] [address] [address] [place] [address] Social History Tobacco Use Types Packs/Day Years Used Date Smoking Tobacco: Never Assessed Sex and Gender Information Value Date Recorded Sex Assigned at Not on file 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 His last order states [facility] but Juan told me [facility]. I need to put in additional weeks of PT. ASOUND MANAGER documented in this encounter Plan of Treatment Not on file documented as of this encounter Visit Diagnoses Not on filedocumented in this encounter Care Teams Pest Control Worker Helper Relationship Specialty Start Date End Date Karen Penn PA [address] [place] [address] PCP - General Physician Chemical Laboratory Technician 08/07/24 documented as of this encounter
--- OUTSIDE RECORDS SUMMARY | 2024-11-03 02:03 | XMS_ITS | Encounter Summary ---
Author Organization [facility] Healthcare Address [address] [place] [address] Care Team Providers Care Motor Vehicle Or Caravan Salesperson Name Role Phone Karen Penn Primary Care Pr ovider Encounter Details Date Type Department Care Team (Late st Contact Info) Description 10/07/2024 Telephone [facility] Medical Group Orthopedic and Sports Medicine [address] [place] [phone] Juan Recinos PA [address] [place] [address] DR JONES [address] [place] [address] Social History Tobacco Use Types Packs/Day Years Used Date Smoking Tobacco: Never Assessed Sex and Gender Information Value Date Recorded Sex Assigned at Not on file Legal Sex Male 10:06 PM ETHYLBENZENE OXIDIZER Gender Identity Not on file Sexual Orientation Not on file documented as of this encounter Miscellaneous Notes * Telephone Encounter - Tiesha Torres MA - 10/08/2024 8:44 AM CST I have resubmitted case to [facility] with PT notes LBENZENE OXIDIZER * Telephone Encounter - Juan Recinos PA - 10/07/2024 1:12 PM ETHYLBENZENE OXIDIZER We may resubmit for the MRI of the left shoulder now that he has completed 6 weeks of physical therapy and has not shown any improvement. Physical therapy notes may be required to resubmit this request, please make sure you obtain them LBENZENE OXIDIZER documented in this encounter Plan of Treatment Not on file documented as of this encounter Visit Diagnoses Not on filedocumented in this encounter Care Teams Motor Vehicle Or Caravan Salesperson Relationship Specialty Start Date End Date Karen Penn PA [address] [place] [address] PCP - General Physician Beauty Counselor 08/07/24 documented as of this encounter
--- OUTSIDE RECORDS SUMMARY | 2024-11-03 02:03 | XMS_ITS | Encounter Summary ---
Author Organization [facility] Healthcare Address [address] [place] [address] Care Team Providers Care Long Wall Mining Machine Tender Name Role Phone Karen Penn Primary Care Pr ovider Reason for Referral * MRI/CAT/PET Scan (Routine) - Pending Review Specialty Diagnoses / Procedures Referred By Contac t Referred To Contact Radiology Diagnoses Rotator cuff insufficiency, left Subdeltoid bursitis of left shoulder joint Shoulder impingement Rotator cuff tendonitis, left Procedures MRI Shoulder Left WO Contrast Juan Recinos PA [address] [facility] [address] [place] [address] Phone: tel: fax: External Order Referral ID Status Reason Start Date Expiration Date V isits Requested Visits Authorized [id number] Pending Review 10/14/2024 11/13/2025 1 1 P MACHINE SERVICER Encounter Details Date Type Department Care Team (Late st Contact Info) Description 10/14/2024 Orders Only [facility] Medical Group Orthopedic and Sports Medicine [address] [place] [phone] Juan Recinos PA [address] [facility] [address] [place] [address] Rotator cuff insufficiency, left (Primary Dx); Subdeltoid bursitis of left shoulder joint; Shoulder impingement; Rotator cuff tendonitis, left Social History Tobacco Use Types Packs/Day Years Used Date Smoking Tobacco: Never Assessed Sex and Gender Information Value Date Recorded Sex Assigned at Not on file 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 Sex 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 Gender Identity Not on file Sexual Orientation Not on file documented as of this encounter Plan of Treatment Scheduled Orders Name Type Priority Associated Diagnoses Orde r Schedule MRI Shoulder Left WO Contrast Imaging Schedule Routine, Read Routine (OP Routine) Rotator cuff insufficiency, left Subdeltoid bursitis of left shoulder joint Shoulder impingement Rotator cuff tendonitis, left Expected: 10/14/2024 (Approximate), Expires: 10/14/2025 documented as of this encounter Visit Diagnoses Diagnosis Rotator cuff insufficiency, left- Primary Subdeltoid bursitis of left shoulder joint Shoulder impingement Other affections of shoulder region, not elsewhere classified Rotator cuff tendonitis, left documented in this encounter Care Teams Long Wall Mining Machine Tender Relationship Specialty Start Date End Date Karen Penn PA [address] [place] [address] PCP - General Physician Bucket Turner 08/07/24 documented as of this encounter
--- OUTSIDE RECORDS SUMMARY | 2024-11-03 02:03 | XMS_ITS | Data Portability ---
Author Organization [facility] Address [address] [facility] [place] [address] Care Team Providers Care Talent Sourcer Name Role Phone ALISON AMADOR Primary Care Provider Unavailab le Assessment No assessment recorded. Plan of Treatment Reminders Order Date Submit Date Provider Last Modified By Organization Details Last Modified Time Details Appointments ANNUAL 30 2024 08:30A M MAURO Marsh Not available Not available Not available Lab TSH + free T4, serum 2023 024 ANTHONY [facility], [address], [place], [address], 07/16/2024 09:52:21 lipid panel, serum 2023 024 [facility], [address], [address], [place], [address], 08/25/2024 15:46:25 CMP, serum or plasma 2023 024 [facility], [address], [place], [address], 08/25/2024 15:46:25 CBC w/ auto diff 2023 024 [facility], [address], [place], [address], 08/25/2024 15:46:25 PSA, serum or plasma 2023 024 [facility], [address], [place], [address], 08/25/2024 15:46:24 HbA1c (hemoglob in A1c), blood 2023 [email or web address] [facility], [address], [place], [address], 08/25/2024 15:46:25 Referral None recorded. Procedures colonosco py procedure (PROC) 2023 024 [facility] Keron Ryan MD, [address], [address], [place], [address], 10/06/2024 10:12:09 Surgeries None recorded. Imaging CT, abdomen + pelvis, w/ contrast 2023 [facility], [address], [place], [address], 08/04/2024 10:09:59 Medication Orders nystatin 100,000 unit/gram topical powder 2023 024 [facility] [address] [place], [address], 07/14/2024 10:04:56 Patient TargetsNo targets recorded. Patient InstructionsNo instructions recorded. Reason for Referral None Reported. Results Created Date Observation Date Name Description Value Unit Range Abnormal Flag Note LastModifiedBy Organization Detail LastModifiedTime 08/04/2008/04/2024 CT, abdom en + pelvi s, w/ contr ast No observ ation record ed. [facility] [address], [place], [address], 08/07/2024 09:52:33 11/02/20 24 10/31/2024 MRI, shoul lanny, w/o contr ast No observ ation record ed. [email or web address] [facility] [address], [place], [address], 11/02/2024 10:03:45 Result Notes None recorded. 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 Procedures Surgical History Date Name Laterality Status Provider Name and Address Organization Details Recorded Time reconstruction of anterior cruciate ligament of knee joint completed Marcelina Garcia MA [facility] 07/14/2024 09:28:54 repair of retina for retinal detachment completed Marcelina Garcia MA [facility] 07/14/2024 09:29:12 TURP completed Marcelina Garcia MA [facility] 07/14/2024 11:13:29 Vasectomy completed Marcelina Garcia MA [facility] 07/14/2024 11:13:35 Imaging Results Imaging Date Name Status LastModified by Organiz ation Details LastModified Time 08/04/2024 CT, abdomen + pelvis, w/ contrast completed [facility] [address], [place], [address], 08/07/2024 09:52:33 10/31/2024 [facility], [facility], w[facility]o contrast [facility] [place] [address] Imaging [address], [place], [address], 11/02/2024 10:03:45 Procedure Notes None recorded. Medical Equipment None Reported. Allergies No known drug allergies Medications Name Sig Start Date Stop Date Status Note LastModified by Organization Details LastModified Time azithromyci n 250 mg tablet TAKE 2 TABLETS BY MOUTH ON DAY 1, AND THEN TAKE 1 TABLET BY MOUTH ONCE A DAY ON DAY 2 THROUGH DAY 5 07/14 completed Not Available Not Available Not Available prednisone 5 mg tablet TAKE 2 TABLETS BY MOUTH ONCE DAILY FOR 4 DAYS, THEN 1 TABLET DAILY FOR 3 DAYS. TAKE IN THE MORNING 07/14 completed Not Available Not Available Not Available metronidazo le 500 mg tablet Take 1 tablet every 8 hours by oral route. active Not Available Not Available No t Available ciprofloxac in 500 mg tablet Take 1 tablet every 12 hours by oral route. active Not Available Not Available No t Available terbinafine HCl 250 mg tablet TAKE 1 TABLET BY MOUTH ONCE DAILY FOR 42 DAYS 07/14 completed Not Available Not Available Not Available prednisolon e acetate 1 % eye drops,suspe nsion INSTILL 1 DROP INTO RIGHT EYE 4 TIMES DAILY 07/14 completed Not Available Not Available Not Available nystatin 100,000 unit/gram topical cream APPLY CREAM TOPICALLY TO THE AFFECTED AREA(S) OF GROIN TWICE DAILY active Not Available Not Available No t Available nystatin 100,000 unit/gram topical powder APPLY TO THE GROIN TOPICALLY TWICE DAILY NEEDED. active Not Available Not Available No t Available amoxicillin 875 mg-potassiu m clavulanate 125 mg tablet TAKE 1 TABLET BY MOUTH TWICE DAILY 07/14 completed Not Available Not Available Not Available moxifloxaci n 0.5 % eye drops INSTILL 1 DROP INTO RIGHT EYE 4 TIMES DAILY 07/14 completed Not Available Not Available Not Available Paxlovid 300 mg (150 mg x 2)-100 mg tablets in a dose pack TAKE 3 TABLETS TOGETHER (TWO 150 MG NIRMATREL VIR TABLETS AND ONE 100 MG RITONAVIR TABLET) BY MOUTH TWICE DAILY FOR 5 DAYS. 07/14 completed Not Available Not Available Not Available Vitals Date Recorded Body height Respiratory rate Body mass index (BMI) Body weight Oxygen saturation Oxygen saturation in Arterial blood by Pulse oximetry Heart rate Systolic blood pressure Diastolic blood pressure Provider Name and Address Organization Details Last Updated DateTime 4 180.34 cm 20 /min 23.2 kg/m2 30711.6 2 g 99 % 99 % 66 /min 130 mm[Hg] 78 mm[Hg] [facility] - [facility] 4 09:31:24 Social History Question Answer Notes LastModified by Organizat ion Details LastModified Time Tobacco Smoking Status Former Smoker Marcelina Garcia MA [facility] 07/14/2024 11:14:17 Do You Have An Advance Directive? Yes Information not available 07/14/2024 What Is Your Level Of Alcohol Consumption? Occasional 2009 Recovery Information not available 07/14/2024 Are You Blind Or Do You Have Difficulty Seeing? No Readers Information not available 07/14/2024 What Is Your Level Of Caffeine Consumption? Occasional Couple Of Times A Week Information not available 07/14/2024 In The 14 Days Before Symptom Onset, Have You Had Close Contact With A Laboratory-confi rmed COVID-19 While That Case Was Ill? No Information not available 07/14/2024 In The 14 Days Before Symptom Onset, Have You Had Close Contact With A Person Who Is Under Investigation For COVID-19 While That Person Was Ill? No Information not available 07/14/2024 Have You Been To An Area Known To Be High Risk For COVID-19? No Information not available 07/14/2024 Are You Currently Employed? Yes Information not available 07/14/2024 Are You Deaf Or Do You Have Serious Difficulty Hearing? No Information not available 07/14/2024 What Type Of Diet Are You Following? REGULAR Information not available 07/14/2024 Are There Any Guns Present In Your Home? No Information not available 07/14/2024 What Was The Date Of Your Most Recent Tobacco Screening? 07/14/2024 Information not available 07/14/2024 What Is Your Current Pack Years? 10packyears Information not available 07/14/2024 Do You Use Your Seat Belt Or Car Seat Routinely? Yes Information not available 07/14/2024 Do You Have Smoke And Carbon Monoxide Detectors In Your Home? Yes Information not available 07/14/2024 How Much Tobacco Do You Smoke? No Information not available 07/14/2024 Do You Feel Stressed (tense, Restless, Nervous, Or Anxious, Or Unable To Sleep At Night)? [id number] Information not available 07/14/2024 Do You Use Any Illicit Or Recreational Drugs? No Information not available 07/14/2024 Do You Use Sunscreen Routinely? No Information not available 07/14/2024 Has Tobacco Cessation Counseling Been Provided? No Information not available 07/14/2024 Do You Or Have You Ever Used Any Other Forms Of Tobacco Or Nicotine? No Information not available 07/14/2024 Sex: Male Functional Status Question Answer Note LastModified by Organizat ion Details LastModified Time Are you able to care for yourself? Yes Information not available 07/14/2024 What is your exercise level? Occasional work 5x a week Information not available 07/14/2024 Mental Status None recorded. Family History Relationship Description Onset Age of this Age Resolved Age Notes LastModified by Organization Details LastModified Time Father Hypertensive disorder tcarterma Not available 2023 09:27:37 Father Malignant tumor of prostate tcarterma Not available 2023 09:27:57 Father Dementia tcarterma Not availabl e 07/14/2024 11:13:54 Mother Diabetes mellitus pre tcarterma Not available 2023 09:27:47 Mother Dementia tcarterma Not availabl e 07/14/2024 11:13:54 Brother Alcohol abuse tcarterma Not available 2023 11:13:48 Medical History Condition Response Coronary Artery Disease N Other N High Blood Pressure N Atrial Fibrillation N Kidney or Bladder Problems N Depression N COPD N Blood Clots N GI Problems Y Skin Problems N Anemia N Heart Attack ([place]) N Diabetes N Anxiety Disorder N Muscle, Joint, or Bone Problems N Seizures/Epilepsy N Acid Reflux (GERD) N Cancer N Allergies N Asthma N High Cholesterol N Hepatitis N Liver Disease N Headaches N Osteoporosis N Heart Failure N Past Encounters Encounter ID Performer Location Encounter Start Date Encounter Closed Date Diagnosis/Indication Diagnosis SNOMED-CT Code Diagnosis ICD10 Code [id number] MAURO Marsh [facility] [place] [address] [place] [address] 07/14/2024 09:09:49 07/14/2024 10:29:35 Body mass index 20-24 - normal 548121826 Z68.23 Adult heal th examination 141095630 Z00.00 Diverticular disease 397 222503 K57.90 Cholesterol screening 27 0714001 Z13.220 Diabetes m ellitus screening 362067348 Z13.1 Screening for malignant neoplasm of prostate 617108605 Z12.5 Thyroid di sorder screening 135643808 Z13.29 Hydrocele of testis 2661 4003 N43.3 Tinea cruris 932715361 B 35.6 Left lower quadrant pain 445968501 R10.32 Health Concerns Section Related Observation LastModified by Organization Detai ls LastModified Time None Recorded Concern Status LastModified by Organization Details LastModified Time None Recorded Advance Directives Directive Y: Payers Encounter Date Sequence Insurance Name Policy Number Policy Dan Covered Member ID Dan Member ID Guarantor Name 07/14/2024 1 [employer]: [place] [employer] (PPO) [id number] Earle Vidales [id number] Earle Vidales Notes Date Note Type Note Provider Name and Address Organization Details Recorded Time 07/14/2024 text/html Had episode of upper abdominal pain towards left side recently, lasted several days; he called Dr. Ryan's office but no call returned. Then this past weekend, he seemed to improve. He was given a 10 year clearance on colonoscopy but has been more symptomatic lately and would like to be scoped sooner. MAURO Marsh Attn: Accounting[address] [facility], [place], [address], [facility] 07/18/2024 15:37:50
--- OUTSIDE RECORDS SUMMARY | 2024-11-03 02:03 | XMS_ITS | Referral Summary ---
Author Organization [facility] Virtual Care Address [address] [place] [phone] Phone Care Team Providers Care Graduate Teaching Assistant Name Role Phone Karen Penn Primary Care Pr ovider Encounters Date Type Department Care Team Description 10/14/2024 Orders Only [facility] Medical [facility]opedic [facility] Sports Medicine [address] [place] [address] Juan Recinos PA Rotator cuff insufficiency, left (Primary Dx); Subdeltoid bursitis of left shoulder joint; Shoulder impingement; Rotator cuff tendonitis, left 10/12/2024 9:15 AM BIRD RAISER Office Visit [facility] [address] [place] [address] Juan Recinos PA Rotator cuff insufficiency, left (Primary Dx); Subdeltoid bursitis of left shoulder joint; Shoulder impingement 10/07/2024 Telephone [facility] [address] [place] [phone] Juan Recinos PA 09/14/2024 Orders Only [facility] [address] [place] [address] [address], [place] [address] Juan Recinos PA Shoulder impingement (Primary Dx); Rotator cuff tendonitis, left; Acute pain of left shoulder 09/14/2024 Orders Only [facility] [address] [place] [address] [address], [place] [address] Juan Recinos PA 08/17/2024 Orders Only [facility] Medical Group Orthopedic and Sports Medicine [address] [place] [phone] Juan Recinos PA Acute pain of left shoulder (Primary Dx) 08/17/2024 1:05 PM CDT Ancillary Procedure [facility] Medical Group Imaging at [address] [phone] Left shoulder pain, unspecified chronicity 08/17/2024 1:00 PM CDT Office Visit [facility] [address] [place] [address] Juan Recinos PA Shoulder impingement (Primary Dx); Rotator cuff tendonitis, left; Subdeltoid bursitis of left shoulder joint from Last 3 Months Allergies No known active allergies Medications No known medications Active Problems No known active problems Social History Tobacco Use Types Packs/Day Years Used Date Smoking Tobacco: Never Assessed Sex and Gender Information Value Date Recorded Sex Assigned at Not on file Legal Sex Male 10:06 PM BIRD RAISER Gender Identity Not on file Sexual Orientation Not on file Last Filed Vital Signs Vital Sign Reading Time Taken Comments Blood Pressure 107/70 10/12/2024 9:17 AM BIRD RAISER Pulse 63 10/12/2024 9:17 AM BIRD RAISER Temperature - - Respiratory Rate - - Oxygen Saturation - - Inhaled Oxygen Concentration - - Weight 73.5 kg (162 lb) 10/12/2024 9:17 AM BIRD RAISER Height 185.4 cm (6' 1 ) 10/12/2024 9:17 AM BIRD RAISER Body Mass Index 21.37 10/12/2024 9:17 AM BIRD RAISER Plan of Treatment Not on file Procedures Procedure Name Priority Date/Time Associated Diagnosis Comments XR SHOULDER LEFT 2 OR MORE VIEWS Schedule Routine, Read Routine (OP Routine) 08/17/2024 1:09 PM CDT Left shoulder pain, unspecified chronicity MO ARTHROCENTESIS ASPIR&/INJ MAJOR JT/BURSA W/O US Routine [...] IMG XR PROCEDURES Final Res ult * MO ARTHROCENTESIS ASPIR&/INJ MAJOR JT/BURSA W/O US (08/17/2024 [...] Final Result from Last 3 Months Insurance [id number] ANTH PREFERRED Member Subscriber Plan / Payer (Ef fective 2024-Present) Name:Vernon Vidales Relation to Subscriber:Self Name:Vernon Vidales Payer ID:[id number] (NAIC) Type:[facility] Address: [facility] [id number] [place] [id number] Care Teams Graduate Teaching Assistant Relationship Specialty Start Date End Date Karen Penn PA [address] [place] [address] PCP - General Physician Screen Cutter And Trimmer 08/07/24
--- OUTSIDE RECORDS SUMMARY | 2024-11-03 02:04 | XMS_ITS ---
Author Organization [facility] Address [address] [place], [place] [id number] Care Team Providers Care Steel Pourer Name Role Phone Karen Penn Unavailable Unavailable SARAH VAZ Unavailable [phone] Allergies Allergen (clinical drug ingredient) Drug/Non Drug Allergy documented on EMR Reaction Allergy Type Onset Date Status Ragweed Unknown Allergy Active REASON FOR VISIT *Fungal nail check Social History Tobacco Use: Social History Observation Description Date Details (start date - stop date) Never Smoker NA - NA Tobacco Use/Smoking Question Answer Notes Tobacco use: nonsmoker Alcohol Screen (Audit-C) Question Answer Notes Did you have a drink containing alcohol in the p ast year? No Points 0 Interpretation Negative Encounters Encounter Location Date Provider Diagnosis [facility] [address] [place], [place] [phone] 06/14/2023 SARAH VAZ Fungal infection of nail B35.1 ; Pain in right toe(s) M79.674 and Pain in left toe(s) M79.675 Assessments Encounter Date Diagnosis (ICD Code) Assessment Notes Treatment Notes Treatment Clinical Notes Section Notes 06/14/2023 Fungal infection of nail (ICD-10 - B35.1) 06/14/2023 Pain in right toe(s) (ICD-10 - M79.674) 06/14/2023 Pain in left toe(s) (ICD-10 - M79.675) 06/14/2023 Other I advised the patient that no further treatment is necessary at this time. If the condition should worsen they should call the office. Plan Of Treatment Treatment Notes Assessment Notes Other I advised the patien t that no further treatment is necessary at this time. If the condition should worsen they should call the office. Progress Notes * KALYN StanDOB: [birth year] (58 yo M)Acc No.[id number]:06/14/2023 Patient:?Earle Munoz Provider:?Sarah Vaz DPM :1965???Age:58 Y???Sex:Male Rene e:06/14/2023 Address:[address] [place], [place] [phone] Subjective: * Chief Complaints: * ???1. *Fungal nail check. * HPI: ???HPI:?Follow Up Visit?Patient presents for follow-up visit for fungal nail check, bilateral feet. He states he has not had any issues taking the medication and is on his last pill today. He thinks it is helping. The discoloration has started to grow out. MA: moo.? * Medical History:?Diverticulo sis. * Surgical History:?ACL REPLAC ED 2015 . * Family History:?Father: unkn own, prostate cancer.?Brother: unknown, bladder cancer.? * Social History:?Tobacco Use:?Tobacco Use/Smoking?Tobacco use:?nonsmoker ???Drugs/Alcohol:?Alcohol Screen (Audit-C)?Did you have a drink containing alcohol in the past year??No ?Points?0 ?Interpretation?Negative * Allergies:?Ragweed. Objective: * Examination: ???Physical Examination: ?Gen:?The patient is awake, alert, well developed, well groomed and well nourished. They are in no apparent distress. .?Musc:?Foot structure is normal. No abnormalities noted. Muscle strength is 5/5 to all joints bilaterally. There is no pain on palpation. .?Derm:?Skin is warm and dry, with no rashes, good skin turgor and normal hair distribution. , Nails are thick, discolored, and dystrophic with subungual debris. Proximal clearing noted.?Neuro:?Grossly intact to light touch bilateral..?Vasc:?Dorsalis pedis and posterior tibial pulses 2+ bilaterally. No edema noted. Capillary fill time < 3 seconds to all digits. .? Assessment: * Assessment: 1.?Fungal infection of nail - B35.1 (Primary)?2.?Pain in right toe(s) - M79.674?3.?Pain in left toe(s) - M79.675? Plan: * Treatment: * Billing Information: * Visit Code:? 05669 Office Visit, Est Pt., Level 3. * Procedure Codes:? * Sign off status: Completed true * Provider:?Sarah Vaz DPM Date: ?06/14/2023 Generated for Dami winchester/Estrella/Asad on:?11/03/2024 02:04 AM PLAYGROUND WORKER History and Physical Notes * HPI (History of Present Illness) Category Sub-Category Detail Notes Category Not es HPI Follow Up Visit Patient presents for follow-up visit for fungal nail check, bilateral feet. He states he has not had any issues taking the medication and is on his last pill today. He thinks it is helping. The discoloration has started to grow out. MA: sea Examination Category Sub-Category Detail Notes Category Not es Physical Examination Gen: The patient is awake, alert, well developed, well groomed and well nourished. They are in no apparent distress. Vasc: Dorsalis pedis and p osterior tibial pulses 2+ bilaterally. No edema noted. Capillary fill time < 3 seconds to all digits. Neuro: Grossly intact to li ght touch bilateral. Musc: Foot structure is no rmal. No abnormalities noted. Muscle strength is 5/5 to all joints bilaterally. There is no pain on palpation. Derm: Skin is warm and dry , with no rashes, good skin turgor and normal hair distribution. , Nails are thick, discolored, and dystrophic with subungual debris. Proximal clearing noted
--- OUTSIDE RECORDS SUMMARY | 2024-11-03 02:04 | XMS_ITS | Patient Health Record ---
Author Organization [facility] Address [address] [place], [place] [phone] Care Team Providers Care System Engineer Name Role Phone Karen Penn Unavailable Unavailable Allergies Allergen (clinical drug ingredient) Drug/Non Drug Allergy documented on EMR Reaction Allergy Type Onset Date Status Ragweed Unknown Allergy Active Reason For Referral No Information Immunizations Vaccine Route Administration Date Status Comme nts Influenza, high dose seasonal Unknown 03/15/2023 Admini stered Social History Tobacco Use: Social History Observation Description Date Details (start date - stop date) Never Smoker NA - NA Tobacco Use/Smoking Question Answer Notes Tobacco use: nonsmoker Alcohol Screen (Audit-C) Question Answer Notes Did you have a drink containing alcohol in the p ast year? No Points 0 Interpretation Negative Plan Of Treatment No Information Insurance Providers Payer Name Payer Address Payer Phone Subscriber Number Group Number Insured Name Patient Relationship to Insured Coverage Start Date Coverage End Date [facility] ([facility]) ATTN CLAIMS [address] [place] [address] [id number] Earle Lacey Self - patient is the insured Medical (General) History Medical History History ICD Code diverticulosis Surgical History Surgery Date(Month/Year) ACL REPLACED 2014
== END 2024-10-27 08:35 | disposition home or self-care (01) ==
PROVIDERS: PCP Physician Assistant; Visit Provider Internal Medicine Gastroenterology
PROC: 0DJD8ZZ Inspection of Lower Intestinal Tract, Via Natural or Artificial Opening Endoscopic (ICD-10-PCS; CPT 45378; principal; 2024-10-27 08:00)
DX: Z09 Encounter for follow-up examination after completed treatment for conditions other than malignant neoplasm (principal); K57.30 Diverticulosis of large intestine without perforation or abscess without bleeding; K64.8 Other hemorrhoids; E78.5 Hyperlipidemia, unspecified; H35.9 Unspecified retinal disorder; Z98.890 Other specified postprocedural states; Z87.19 Personal history of other diseases of the digestive system; Z80.52 Family history of malignant neoplasm of bladder; Z82.49 Family history of ischemic heart disease and other diseases of the circulatory system
CPT/HCPCS: 45378; J2704; J7120

== ENCOUNTER 2024-10-31 11:38 | Outpatient (CLI) | payer BC, SELFPAY ==
--- NOTE | ~2024-10-31 | MR_ITS ---
MRI of the left shoulder Technique: Axial proton-density fat-sat images, coronal proton density fat-sat and T2 fat-sat images, and sagittal T1-weighted and T2 fat-sat images were acquired. Clinical History: Rotator cuff insufficiency Findings: There is moderate AC joint degenerative change. There is bony productive change of the dist al clavicle and acromion. Coracoclavicular, coracoacromial, and coracohumeral ligaments are intact. Supraspinatus and infraspinatus tendons are intact, with mild tendinosis. No partial or full-thicknes s tear. Subscapularis tendon intact, with mild tendinosis. Tendon of long head of the biceps is intac t. There is probable superior labral tearing extending to the anterosuperior portion. Inferior glenohumeral ligament is mildly thickened and hyperintense. There is minimal glenohumeral evelia int effusion. There is [id number] chondromalacia the glenohumeral joint. No fluid distention of the subacromial/subdeltoid bursa. No muscle atrophy or edema. Impression: Superior labral tear extending to anterosuperior portion. Possible adhesive capsulitis. Moderate AC joint degenerative change. Reviewed, dictated and finalized at [facility]. ADMINISTRATOR Impression: Superior labral tear extending to anterosuperior portion. Possible adhesive capsulitis. Moderate AC joint degenerative change.
== END 2024-10-31 11:39 | disposition home or self-care (01) ==
LOC: MICIMG 11:40
PROVIDERS: PCP Physician Assistant; Visit Provider Physician Assistant
DX: S43.432A Superior glenoid labrum lesion of left shoulder, initial encounter (principal); M19.012 Primary osteoarthritis, left shoulder; X58.XXXA Exposure to other specified factors, initial encounter
CPT/HCPCS: 73221

== ENCOUNTER 2025-01-01 15:05 | Outpatient (CLI) | payer BC, SELFPAY | END 2025-01-01 15:06 | disposition home or self-care (01) | PROVIDERS: PCP Physician Assistant; Visit Provider Physician Assistant | DX: S82.432A Displaced oblique fracture of shaft of left fibula, initial encounter for closed fracture (principal); X58.XXXA Exposure to other specified factors, initial encounter | CPT/HCPCS: 73590; 73610; 93971 ==